=== PATIENT | male | born 1960 ===

== ENCOUNTER 2021-07-08 15:41 | Emergency (ER) | payer OTHER, SELFPAY ==
--- NOTE | ~2021-07-08 | CT_ITS ---
EXAMINATION: CT ABDOMEN AND PELVIS WITHOUT CONTRAST CLINICAL INFORMATION: Evaluate for incarcerated scrotal hernia. COMPARISON: 01.05.2020 TECHNIQUE: Multidetector volumetric imaging was performed from the superior aspect of the liver through the pubic symphysis. Sagittal and coronal reformatted images were obtained on the technologist's workstation. This CT examination was performed using dose optimization techniques as appropriate, variously including the following: *Automated exposure control *Adjustment of mA and/or kV according to patient size (this includes techniques or standardized protocols for targeted exams where dose is matched to indication/reason for exam; i.e. extremities or head) *Use of iterative reconstruction technique DLP: 682 mGy-cm FINDINGS: LUNG BASES: Subsegmental atelectasis at left lung base. LIVER, GALLBLADDER, AND BILIARY TREE: Morphologically cirrhotic liver. No focal liver lesions. No intrahepatic biliary dilatation. The common bile duct is dilated to approximately 1.3 cm, similar to prior. Gallbladder is moderately distended. Small perihepatic ascites. PANCREAS: Unremarkable. SPLEEN: Enlarged measuring up to 16 cm long axis. ADRENAL GLANDS: Unremarkable. KIDNEYS AND URETERS: The kidneys are normal in size, shape, and attenuation. No hydronephrosis, hydroureter, or calculi seen. No perinephric stranding. BLADDER: Unremarkable. GASTROINTESTINAL TRACT: No intestinal obstruction or inflammation. Small sliding-type hiatal hernia. Stomach otherwise unremarkable. Status post appendectomy. ABDOMINAL WALL: Small indirect inguinal hernia on the left containing ascitic fluid. LYMPH NODES: Normal. VASCULAR: Aorta mildly atherosclerotic. PELVIC VISCERA: Prostate and seminal vesicles unremarkable. Large bilateral scrotal hydrocele and scrotal edema present. OSSEOUS STRUCTURES: No acute or suspicious osseous abnormalities. CT/CT abdomen pelvis wo con IMPRESSION: * No evidence of any significant hernia. Small amount of fluid present within the left inguinal canal, possibly within an indirect inguinal hernia. * Massive scrotal edema and bilateral scrotal hydroceles. * Morphologically cirrhotic liver with portal hypertension evidenced by splenomegaly, and spontaneously renal shunt. * Stable mild dilatation of the common bile duct measuring up to 1.3 cm.
[2021-07-08 18:06] VITALS: BP 179/104; PULSE 72; RESP 18; TEMP 36.6; O2SAT 99; BMI 26.4
[2021-07-08 18:27] LABS: Hematocrit 34.9 % (42.0-52.0); Hemoglobin 12.2 g/dl (14.0-18.0); Mean Corpuscular Hemoglobin 33.2 pg (27.0-33.0); Mean Corpuscular Volume 95.1 fL (80.0-98.0); Mean Platelet Volume 12.6 fL (9.4-12.4); Red Blood Count 3.67 X10*6/uL (4.60-5.80); Red Cell Distribution Width 16.7 % (11.0-16.0); White Blood Count 7.7 X10*3/uL (4.8-10.8)
[2021-07-08 18:41] LABS: Anion Gap 10 (12-20); Blood Urea Nitrogen 5 mg/dL (9-16); Calcium 8.6 mg/dL (8.4-10.2); Carbon Dioxide 28 mmol/L (22-29); Chloride 103 mmol/L (96-108); Creatinine Clr Calc Pharmacy 83.2; Estimated Glomerular Filt Rate > 60; Glucose Random 124 mg/dL (60-115); Sodium 137 mmol/L (135-145)
[2021-07-08 18:43] LABS: Appearance Urine CLEAR; Color Urine YELLOW; Glucose Urine UA NEG (NEG); Leukocyte Esterase Urine NEG (NEG); Nitrite Urine NEG (NEG); Urine Blood NEG (NEG); Urine Ketones NEG (NEG); Urine Protein NEG (NEG-TRACE)
[2021-07-08 18:48] LABS: Platelet Count 95 X10*3/uL (160-400)
--- NOTE | 2021-07-09 01:00 | ED_ITS ---
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 Patient's symptoms started since yesterday with feeling a bulging in the left inguinal area, the patient had a bowel movement then passed flatus started to f eel abdominal pain and swelling of the scrotum. Patient decline fever or chills. No nausea or vomiting. Related Data Allergies Allergy/AdvReac Type Severity Reaction Status Date / Time tramadol [TRAMADOL] Allergy Unknown ANXIETY Unverified 03/12/20 16:00 Review of Systems Review of Systems: All other systems are reviewed and are negative Constitutional: Reports as per HPI and Reports no additional constitutional complaints Eyes: Reports as per HPI and Reports no additional eye complaints Reports system reviewed and no additional complaints, except as documented Cardiovascular: Reports as per HPI and Reports no additional cardiovascular c omplaints Respiratory: Reports as per HPI and Reports no additional respiratory complaints Gastrointestinal: Reports as per HPI and Reports no additional gastrointestinal complaints Genitourinary: Reports no additional female genitourinary complaints Musculoskeletal: Reports no additional musculoskeletal complaints Skin/Breast: Reports system reviewed and no additional complaints, except as docu Psychiatric: Reports no additional psychiatric complaints Endocrine: Reports no additional endocrine complaints Hematologic/Lymphatic: Reports no additional hematologic/lymphatic complaints Allergic/Immunologic: Reports no additional allergic/immunologic complaints Reports system reviewed and no additional complaints, except as documented and Reports Abnormal speech present [facility] Social History Social History Advance Directives: No Physical Exam Vital Signs: Vital Signs: Last Vital Signs Temp 97.8 F 07/08/21 18:06 Pulse 72 07/08/21 18:06 Resp 18 07/08/21 18:06 BP 179/104 H 07/08/21 18:06 Pulse Ox 99 07/08/21 18:06 BMI result Body Mass Index 26.4 vital signs have been reviewed as appeared to be correct. Blood pressure elevated. Heart rate normal. Respiration rate normal. Temperature normal. Oxygen saturation normal. Appearance: Alert. Oriented X3. No acute distress. Head: Normal external exam. Normocephalic. Atraumatic. No Garcia signs noted. No raccoon eyes noted Eyes: PERRLA. EOMI. Conjunctiva and sclera normal. Eyelids normal. ENT: TM's Normal. Pharynx normal. Uvula midline. Moist mucous membranes. No trismus noted. No drooling noted. No muffled voice noted. Neck: Normal inspection. Neck supple. FROM. No adenopathy. Thyroid Normal. No meningeal signs. No neck mass noted. CVS: Normal heart rate and rhythm. Heart sound normal. No murmurs noted. Pulses normal throughout. Respiratory: No respiratory distress. Painless inspiration. Breath sounds normal. No wheezes/rales/rhonchi noted. Chest nontender. No accessory muscle usage noted or decreased air movement noted. Abdomen: Soft and nontender. Bowel sounds normal in all 4 quadrants. No distention noted. No organomegaly noted. No visible injury noted. Back: No CVA tenderness. Full range of motion noted. Skin: Skin warm and dry. Normal skin color. Normal skin turgor. No rashes/lesions/lacerations noted. Extremities: No lower extremity edema. Extremities exhibit normal range of motion. Extremities nontender. exam: Swelling of the scrotum contain bowel. Neuro: Oriented X 3. Cranial nerve exam: II-XII are grossly intact No motor deficit. No sensory deficit. Reflexes normal. Course Course Course Narrative: Assessment and plan. 60-year-old male came in with swelling in the scrotum, confirmed by CT scan of the abdomen and pelvis, unremarkable labs, as discussed with the patient to keep elevating the scrotum, And avoid standing for long time. follow-up with Dr. Jacob. 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 No source of infection no WBCs. MDM - Male Genitourinary Medical Records Attestation: I reviewed the patient's medical records. Lab Data Attestation: I reviewed the patient's lab results. Result diagrams: 07/08/21 18:16 07/08/21 18:16 Labs: Lab Results 07/08/21 07/08/21 07/08/21 Range/Units 18:16 18:16 18:21 WBC 7.7 (4.8-10.8) X10*3/uL RBC 3.67 L (4.60-5.80) X10*6/uL Hgb 12.2 L (14.0-18.0) g/dl Hct 34.9 L (42.0-52.0) % MCV 95.1 (80.0-98.0) fL MCH 33.2 H (27.0-33.0) pg MCHC 35.0 (31.0-36.0) g/dl RDW 16.7 H (11.0-16.0) % Plt Count 95 L (160-400) X10*3/uL MPV 12.6 H (9.4-12.4) fL Absolute Nucleated RBC 0.000 (0.0-0.012) X10*3/uL Nucleated RBC % (auto) 0.0 (0.0-0.2) /100WBC Sodium 137 (135-145) mmol/L Potassium 4.0 (3.3-5.1) mmol/L Chloride 103 (96-108) mmol/L Carbon Dioxide 28 (22-29) mmol/L Anion Gap 10 L (12-20) BUN 5 L (9-16) mg/dL Creatinine 0.77 (0.5-1.4) mg/dL Estim Creat Clear Calc 83.2 Estimated GFR > 60 Random Glucose 124 H (60-115) mg/dL Lactic Acid (0.5-2.0) mmol/L Calcium 8.6 (8.4-10.2) mg/dL Urine Color YELLOW Urine Appearance CLEAR Urine pH 8.0 (5.0-8.0) Ur Specific [place] 1.010 (1.005-1.025) Urine Protein NEG (NEG-TRACE) MG/DL Urine Glucose (UA) NEG (NEG) MG/DL Urine Ketones NEG (NEG) MG/DL Urine Blood NEG (NEG) Urine Nitrite NEG (NEG) Ur Leukocyte Esterase NEG (NEG) 07/09/21 Range/Units 01:37 WBC (4.8-10.8) X10*3/uL RBC (4.60-5.80) X10*6/uL Hgb (14.0-18.0) g/dl Hct (42.0-52.0) % MCV (80.0-98.0) fL MCH (27.0-33.0) pg MCHC (31.0-36.0) g/dl RDW (11.0-16.0) % Plt Count (160-400) X10*3/uL MPV (9.4-12.4) fL Absolute Nucleated RBC (0.0-0.012) X10*3/uL Nucleated RBC % (auto) (0.0-0.2) /100WBC Sodium (135-145) mmol/L Potassium (3.3-5.1) mmol/L Chloride (96-108) mmol/L Carbon Dioxide (22-29) mmol/L Anion Gap (12-20) BUN (9-16) mg/dL Creatinine (0.5-1.4) mg/dL Estim Creat Clear Calc Estimated GFR Random Glucose (60-115) mg/dL Lactic Acid 2.7 H* (0.5-2.0) mmol/L Calcium (8.4-10.2) mg/dL Urine Color Urine Appearance Urine pH (5.0-8.0) Ur Specific [place] (1.005-1.025) Urine Protein (NEG-TRACE) MG/DL Urine Glucose (UA) (NEG) MG/DL Urine Ketones (NEG) MG/DL Urine Blood (NEG) Urine Nitrite (NEG) Ur Leukocyte Esterase (NEG) Imaging Data CT scan - abdomen: Attestation: I personally reviewed and interpreted this imaging study as follows: Radiologist's impression: ? No evidence of any significant hernia. Small amount of fluid present within the left inguinal canal, possibly within an indirect inguinal hernia. *? Massive scrotal edema and bilateral scrotal hydroceles. *? Morphologically cirrhotic liver with portal hypertension evidenced by splenomegaly, and spontaneously renal shunt. *? Stable mild dilatation of the common bile duct measuring up to 1.3 cm. Discharge Plan Discharge Clinical Impression: Scrotal swelling, Hydrocele Patient Disposition: Home, Self-Care Instructions: Hydrocele (ED) Additional Instructions: elevate the scrotum as you were instructed, avoid standing for long time. Referrals: Chase Jacob MD [Physician] - 2 days Interventions: ED Discharge Assessment Last Done: 07/09/21 03:35 Discharge Date/Time: 07/09/21 03:36
[2021-07-09] MEDS: 0.9 % Sodium Chloride 1,000 ML 999 ML IV (01:38)
[2021-07-09 02:01] LABS: Lactic Acid 2.7 mmol/L (0.5-2.0)
[2021-07-09 03:42] LABS: Reflex Lactate? Lactic Acid Added
== END 2021-07-09 03:36 | disposition home or self-care (01) ==
LOC: HO.ED 07-09 02:00
PROVIDERS: Emergency Provider Emergency Medicine
DX: N43.3 Hydrocele, unspecified (principal); N50.89 Other specified disorders of the male genital organs; Z79.899 Other long term (current) drug therapy
CPT/HCPCS: 36415; 74176; 80048; 81003; 83605; 85027; 96360; 99283; 99284

== ENCOUNTER 2021-08-06 11:04 | Inpatient (IN) | payer OTHER, SELFPAY ==
--- NOTE | ~2021-08-06 | US_ITS ---
EXAMINATION: US SCROTUM CLINICAL INFORMATION: Swelling and pain. COMPARISON: Previous CT of the abdomen and pelvis most recent June 2021 TECHNIQUE: A sonogram of the scrotum was performed assessing montalvo-scale appearance and color Doppler flow. Spectral Doppler analysis of the arterial and venous flow were performed in the testes bilaterally. FINDINGS: RIGHT: Right testicle measures 3 x 2.4 x 2.3 cm, volume 9 mL. No focal testicular parenchymal lesions are visualized. Spectral Doppler analysis of the arterial and venous flow is normal in the right testis. Right epididymal head is normal in size. No right hydrocele or varicocele is seen. Right epididymal Doppler flow is normal. There is diffuse thickening of the scrotum. LEFT: Left testicle measures 3 x 3 x 2 cm, volume 9 mL. No focal testicular parenchymal lesions are visualized. Spectral Doppler analysis of the arterial and venous flow is normal in the left testis. Left epididymal head is normal in size. There is a small left hydrocele. There is no left varicocele. Left epididymal Doppler flow is normal. There is diffuse thickening of the scrotum. US/US scrotum doppler IMPRESSION: Diffuse thickening of the scrotum, left greater than right. Small left hydrocele.
--- NOTE | ~2021-08-06 | US_ITS ---
EXAMINATION: US SCROTUM CLINICAL INFORMATION: Swelling and pain. COMPARISON: Previous CT of the abdomen and pelvis most recent June 2021 TECHNIQUE: A sonogram of the scrotum was performed assessing montalvo-scale appearance and color Doppler flow. Spectral Doppler analysis of the arterial and venous flow were performed in the testes bilaterally. FINDINGS: RIGHT: Right testicle measures 3 x 2.4 x 2.3 cm, volume 9 mL. No focal testicular parenchymal lesions are visualized. Spectral Doppler analysis of the arterial and venous flow is normal in the right testis. Right epididymal head is normal in size. No right hydrocele or varicocele is seen. Right epididymal Doppler flow is normal. There is diffuse thickening of the scrotum. LEFT: Left testicle measures 3 x 3 x 2 cm, volume 9 mL. No focal testicular parenchymal lesions are visualized. Spectral Doppler analysis of the arterial and venous flow is normal in the left testis. Left epididymal head is normal in size. There is a small left hydrocele. There is no left varicocele. Left epididymal Doppler flow is normal. There is diffuse thickening of the scrotum. US/US scrotum IMPRESSION: Diffuse thickening of the scrotum, left greater than right. Small left hydrocele.
--- NOTE | ~2021-08-06 | XR_ITS ---
EXAMINATION: CHEST 2 VIEWS CLINICAL INFORMATION: cough . COMPARISON: 01/05/2020. TECHNIQUE: PA and lateral views of the chest obtained. FINDINGS: The lungs are well expanded. Mild chronic appearing reticular markings are again seen but no superimposed focal infiltrate, effusion, edema, or pneumothorax. Cardiac and mediastinal silhouettes are within normal limits for technique. No acute bony abnormality seen XR/XR chest 2V IMPRESSION: No evidence of acute disease
--- NOTE | ~2021-08-06 | CT_ITS ---
EXAMINATION: CT ABDOMEN AND PELVIS WITH CONTRAST CLINICAL INFORMATION: ?arun's gangrene? Massively swollen testes COMPARISON: 07/09/2021 CT scan and the 08/06/2021 scrotal ultrasound TECHNIQUE: Multidetector volumetric imaging was performed from the superior aspect of the liver through the pubic symphysis following administration of 100 mL Omnipaque 300 intravenous contrast. Sagittal and coronal reformatted images were obtained on the technologist workstation.. This CT examination was performed using dose optimization techniques as appropriate, variously including the following: *Automated exposure control *Adjustment of mA and/or kV according to patient size (this includes techniques or standardized protocols for targeted exams where dose is matched to indication/reason for exam; i.e. extremities or head) *Use of iterative reconstruction technique DLP: 901 mGy-cm FINDINGS: LUNG BASES: Linear scarring or atelectasis at the lung bases. PERITONEAL SPACE: Small moderate volume of ascites is seen more so in the perihepatic location but this does extend down to the pelvis, increased from the 07/09/2021 study LIVER, GALLBLADDER, AND BILIARY TREE: Nodular cirrhotic fibrotic appearing liver without discrete mass lesion seen on this single contrast phase exam. The gallbladder is contracted but otherwise unremarkable with no evidence of radiopaque gallstones, gallbladder wall thickening, or obvious pericholecystic inflammatory changes. PANCREAS: Unremarkable. SPLEEN: Spleen is enlarged measuring 15.9 cm in length. ADRENAL GLANDS: Unremarkable. KIDNEYS AND URETERS: The kidneys are normal in size, shape, and attenuation. No hydronephrosis, hydroureter, or calculi seen. No perinephric stranding. BLADDER: Decompressed GASTROINTESTINAL TRACT: Scattered colonic diverticulosis but no evidence for diverticulitis. Mild nonspecific colonic thickening in the ascending colon may be due to the degree of decompression. Underlying colitis considered less likely. Visualized small bowel unremarkable. Stomach is unremarkable. ABDOMINAL WALL: Mild diffuse anasarca with fluid tracking in the left inguinal hernia with significant bilateral scrotal hydroceles and penile edema. Is present on the prior study as well although slightly increased on the current exam LYMPHOVASCULAR STRUCTURES: Vascular calcification within the aorta iliac system. Incidental circumaortic left renal vein. PELVIC VISCERA: Unremarkable. OSSEOUS STRUCTURES: Unremarkable. CT/CT abdomen pelvis w con IMPRESSION: Nodular cirrhotic fibrotic liver with ascites that is slightly increased in the prior study. There is mild diffuse anasarca also increased from the previous examination. Fluid is seen tracking into a left inguinal hernia with a significant scrotal and penile edema which has increased from the prior study although was present on the 07/09/2021 study as well. I do not appreciate any abnormal soft tissue gas to suggest infectious etiology in this setting. Clinical correlation would be recommended.
[2021-08-06 12:58] LABS: MANUAL DIFF FLAG NO
[2021-08-06 13:01] LABS: Basophils Percent Auto 0.4 % (0-2); Eosinophils Percent Auto 0.4 % (0-4); Hematocrit 33.9 % (42.0-52.0); Hemoglobin 11.5 g/dl (14.0-18.0); Imm Gran Abs Auto 0.03 X10*3/uL (0.00-0.03); Imm Gran Pct Auto 0.4 % (0.0-0.4); Lymphocytes Absolute Auto 1.4 X10*3/uL (1.2-4.9); Lymphocytes Percent Auto 19.4 % (20-40); Mean Corpuscular HGB Conc 33.9 g/dl (31.0-36.0); Mean Corpuscular Hemoglobin 32.8 pg (27.0-33.0); Mean Corpuscular Volume 96.6 fL (80.0-98.0); Mean Platelet Volume 12.7 fL (9.4-12.4); Monocytes Percent Auto 14.1 % (2-11); Neutrophils Absolute Auto 4.6 x10*3/uL (2.0-8.3); Neutrophils Percent Auto 65.3 % (45-73); Red Blood Count 3.51 X10*6/uL (4.60-5.80); Red Cell Distribution Width 15.1 % (11.0-16.0)
[2021-08-06 13:04] LABS: Platelet Count 79 X10*3/uL (160-400)
[2021-08-06 13:06] VITALS: BP 138/79; PULSE 65; RESP 18; TEMP 36.7; O2SAT 99
[2021-08-06 13:15] VITALS: BP 138/79; PULSE 65; RESP 18; TEMP 36.7; O2SAT 99; BMI 26.4
[2021-08-06 13:16] LABS: Alanine Aminotransferase 40 U/L (0-40); Albumin Level 2.5 g/dL (3.5-5.0); Alkaline Phosphatase 181 U/L (39-117); Anion Gap 8 (12-20); Aspartate Amino Transferase 84 U/L (5-37); Bilirubin Direct 3.6 mg/dL (0.0-0.5); Bilirubin Total 6.1 mg/dL (0.0-1.0); Blood Urea Nitrogen 6 mg/dL (9-16); COVID-19 Test Negative (Negative); Calcium 8.9 mg/dL (8.4-10.2); Carbon Dioxide 29 mmol/L (22-29); Chloride 102 mmol/L (96-108); Estimated Glomerular Filt Rate > 60; Glucose Random 81 mg/dL (60-115); IDNOW Serial# 55D5AD1C; Magnesium 1.8 mg/dL (1.6-2.6); Potassium 4.2 mmol/L (3.3-5.1); Sodium 135 mmol/L (135-145); Total Protein 7.5 g/dL (6.5-8.0)
[2021-08-06 13:37] LABS: Appearance Urine CLEAR; Color Urine YELLOW; Glucose Urine UA NEG (NEG); Leukocyte Esterase Urine NEG (NEG); Nitrite Urine NEG (NEG); PH 5.5 (5.0-8.0); Urine Blood NEG (NEG); Urine Ketones NEG (NEG); Urine Protein NEG (NEG-TRACE)
--- NOTE | 2021-08-06 15:12 | ED.GENADULT ---
HPI - General Adult General Chief complaint: General Medical Stated complaint: lower abd pain Time Seen by Provider: 08/06/21 11:20 Source: patient Mode of arrival: ambulatory Limitations: language barrier History of Present Illness HPI narrative: 60-year-old male presents with worsening scrotal and penile pain and bilateral lower extremity edema. Patient was here in the emergency room 07/09/2021 with scrotal swelling and diagnosed with a hydrocele. CT showed massive scrotal edema and bilateral scrotal hydroceles. Patient is Mongolian-speaking, says the pain is 7/10, says that his scrotal swelling and pain has gotten worse over these last 3 weeks. He is able to urinate, although he says he has to sit down to urinate Also shows me that his pubic symphysis area is more swollen now, and is red. States that his bilateral legs are swollen and painful and that this is new. Patient has chronic elevated lactic acidosis. At that time, patient was told to elevate scrotum, and follow-up with urology. Patient did not follow-up with urology. Patient is on methadone. He received his dose today and gives me a paper stating that. Patient denies fevers, chest pain, dyspnea, cough, abdominal pain, vomiting, nausea, diarrhea, palpitations, lightheadedness, syncope Related Data Allergies Allergy/AdvReac Type Severity Reaction Status Date / Time tramadol [TRAMADOL] Allergy Unknown ANXIETY Unverified 03/12/20 16:00 Review of Systems Constitutional: Constitutional: Denies body ache(s), Denies chills, Denies fatigue, Denies fever(s), Denies headache(s), Denies malaise and Denies weakness Eyes: Eyes: Denies diplopia ENT: Denies dizziness and Denies headache(s) Cardiovascular: Cardiovascular: Denies chest pain, Denies syncope, Reports leg edema, Denies lightheadedness, Denies Loss of Consciousness, Denies palpitations, Denies dyspnea and Denies dyspnea on exertion Respiratory: Respiratory: Denies chest congestion, Denies cough, Denies dyspnea and Denies dyspnea on exertion Gastrointestinal: Gastrointestinal: Denies abdominal pain, Denies hematochezia, Denies constipation, Denies diarrhea, Denies nausea and Denies vomiting Genitourinary: Genitourinary: Denies hematuria, Reports genital pain, Denies dysuria, Denies flank pain, Denies penile discharge, Reports scrotal swelling, Reports testicular pain, Denies urinary frequency, Denies urinary incontinence and Denies urinary urgency Musculoskeletal: Musculoskeletal: Reports no additional musculoskeletal complaints Integumentary/Breasts: Skin/Breast: Reports rash and Reports skin swelling Neurologic: Denies confusion, Denies dizziness, Denies syncope, Denies headache(s) and Denies weakness Psychiatric: Psychiatric: Denies anxiety, Denies confusion and Denies depression Endocrine: Endocrine: Denies fatigue and Denies palpitations [facility] Social History Social History Use of substances other than those prescribed or required for medical reasons: No Advance Directives: No Advance Directives Information Provided: No Physical Exam ED Vital Signs: Vital Signs - 24 hr 08/06/21 13:06 08/06/21 13:15 08/06/21 16:34 Temperature 98.0 F 98.0 F 98.4 F Pulse Rate 65 65 66 Respiratory Rate 18 18 16 Blood Pressure 138/79 138/79 117/66 Pulse Oximetry 99 99 99 08/06/21 17:40 Temperature 98.5 F Pulse Rate 69 Respiratory Rate 16 Blood Pressure 118/69 Pulse Oximetry 98 BMI result Body Mass Index 26.4 Const General: alert, awake, ill appearing chronically and poor hygiene; No confusion Nutritional Appearance: overweight Orientation/consciousness: patient oriented x3 and No confusion Limitations: language barrier HENMT Head: Yes normal to inspection, Yes normocephalic and Yes atraumatic Face and sinus: Yes normal facial exam Mouth: Normal oral and palatal mucosa present Throat: Yes posterior oropharynx normal Eyes Alignment and Position: alignment normal Conjunctivae: conjunctival abnormal bilateral conjunctival injection diffuse Pupils: Equal, round and reactive pupils present EOM: EOMs intact bilaterally Neck Neck: Yes full ROM, Yes no lymphadenopathy, Yes trachea midline and Yes supple Resp Effort & Inspection: normal respiratory effort and able to speak in complete sentences Auscultation: no crackles, no rales, no rhonchi and wheezes throughout Cardio Rate: regular rate Rhythm: regular rhythm Heart sounds: S1 normal heart sound present and S2 normal heart sound present GI Inspection: Yes normal to inspection Palpation (GI): Soft to palpation, nontender, no guarding and not rigid Percussion: Yes normal to percussion Auscultation: normal bowel sounds Rectal Exam - Male: Yes deferred Other: Foreskin of penis is so swollen it looks like an S . No paraphimosis, patient is able to pass urine, no entrapment. Severe scrotal swelling, Male General Exam: Yes edema bilateral (massive) and Yes tenderness Penis: edematous and Localized penile swelling present Scrotum: edematous (massively) bilateral Testes: testicular swelling and testicular tenderness Skin Other: bilateral LE, SCROTAL, penile swelling Redness and swelling over pubic synthesis, cellulitis Neuro General: patient oriented x3 and No confusion Cranial nerves: Yes Equal, round and reactive pupils present Extrem Right lower extremity: edema Details: pitting and 2+ and lower leg Details: Negative for no erythema Left lower extremity: edema Details: pitting and 2+ and lower leg Details: Negative for no erythema Psych Appearance: disheveled Mental Status: mental status grossly normal Affect: Anxious affect present Course Course Course Narrative: 60-year-old male with worsening scrotal and penile swelling, and bilateral lower extremity edema. Patient states the pain and swelling in his scrotum is worse, and now has swelling and redness on his pubic symphysis. He is able to urinate. From CT done 07/09/2021 CT/CT abdomen pelvis wo con IMPRESSION: *? No evidence of any significant hernia. Small amount of fluid present within the left inguinal canal, possibly within an indirect inguinal hernia. *? Massive scrotal edema and bilateral scrotal hydroceles. *? Morphologically cirrhotic liver with portal hypertension evidenced by splenomegaly, and spontaneously renal shunt. *? Stable mild dilatation of the common bile duct measuring up to 1.3 cm. Labs today are remarkable only for mild anemia, urine is negative for infection, patient is COVID negative. Will get chest x-ray and BNP to evaluate for heart failure.. Will get CT to rule out for Anupama's Gangrene, will get ultrasound to investigate scrotal swelling and rule out torsion. Will start antibiotics for cellulitis, Reevaluation(s) Reevaluation #1: Patient has an elevated lactate of 2.2, per his chart he has a chronic lactic acidosis. Chest x-ray is unremarkable, BNP is 491. Ultrasound of scrotum today: IMPRESSION: Diffuse thickening of the scrotum, left greater than right. Small left hydrocele. Awaiting CT results. Reevaluation #2: CT/CT abdomen pelvis w con IMPRESSION: Nodular cirrhotic fibrotic liver with ascites that is slightly increased in the prior study. There is mild diffuse anasarca also increased from the previous examination. Fluid is seen tracking into a left inguinal hernia with a significant scrotal and penile edema which has increased from the prior study although was present on the 07/09/2021 study as well. I do not appreciate any abnormal soft tissue gas to suggest infectious etiology in this setting. Clinical correlation would be recommended. Discussed with Dr Duncan, who requests GI consult. Pt has a low albumin; gave albumin and Lasix. Dr Duncan will admit if GI thinks is reasonable to admit and consult on Dr Brooks felt it was reasonable to admit pt Medical Decision Making Lab Data Result diagrams: 08/06/21 12:53 08/06/21 12:53 Labs: Lab Results 08/06/21 08/06/21 08/06/21 Range/Units 12:53 12:53 12:53 WBC 7.0 (4.8-10.8) X10*3/uL RBC 3.51 L (4.60-5.80) X10*6/uL Hgb 11.5 L (14.0-18.0) g/dl Hct 33.9 L (42.0-52.0) % MCV 96.6 (80.0-98.0) fL MCH 32.8 (27.0-33.0) pg MCHC 33.9 (31.0-36.0) g/dl RDW 15.1 (11.0-16.0) % Plt Count 79 L (160-400) X10*3/uL MPV 12.7 H (9.4-12.4) fL Immature Gran % (Auto) 0.4 (0.0-0.4) % Neut % (Auto) 65.3 (45-73) % Lymph % (Auto) 19.4 L (20-40) % [facility] % (Auto) 14.1 H (2-11) % Eos % (Auto) 0.4 (0-4) % Baso % (Auto) 0.4 (0-2) % Lymph # (Auto) 1.4 (1.2-4.9) X10*3/uL [facility] # (Auto) 1.0 (0.1-1.2) X10*3/uL Eos # (Auto) 0.0 (0.0-0.4) X10*3/uL Baso # (Auto) 0.0 (0.0-0.2) X10*3/uL Abs Immat Gran (auto) 0.03 (0.00-0.03) X10*3/uL Absolute Neuts (auto) 4.6 (2.0-8.3) x10*3/uL Absolute Nucleated RBC 0.000 (0.0-0.012) X10*3/uL Nucleated RBC % (auto) 0.0 (0.0-0.2) /100WBC Sodium 135 (135-145) mmol/L Potassium 4.2 (3.3-5.1) mmol/L Chloride 102 (96-108) mmol/L Carbon Dioxide 29 (22-29) mmol/L Anion Gap 8 L (12-20) BUN 6 L (9-16) mg/dL Creatinine 0.80 (0.5-1.4) mg/dL Estim Creat Clear Calc TNP Estimated GFR > 60 Random Glucose 81 (60-115) mg/dL Lactic Acid (0.5-2.0) mmol/L Calcium 8.9 (8.4-10.2) mg/dL Magnesium 1.8 (1.6-2.6) mg/dL Total Bilirubin 6.1 H (0.0-1.0) mg/dL Direct Bilirubin 3.6 H (0.0-0.5) mg/dL AST 84 H (5-37) U/L ALT 40 (0-40) U/L Alkaline Phosphatase 181 H (39-117) U/L B-Natriuretic Peptide (<100) pg/mL Total Protein 7.5 (6.5-8.0) g/dL Albumin 2.5 L (3.5-5.0) g/dL Urine Color Urine Appearance Urine pH (5.0-8.0) Ur Specific [place] (1.005-1.025) Urine Protein (NEG-TRACE) MG/DL Urine Glucose (UA) (NEG) MG/DL Urine Ketones (NEG) MG/DL Urine Blood (NEG) Urine Nitrite (NEG) Ur Leukocyte Esterase (NEG) COVID-19 (SRIDEVI) Negative (Negative) COVID-19 Clin Com See Note 08/06/21 08/06/21 08/06/21 Range/Units 13:21 16:18 16:18 WBC (4.8-10.8) X10*3/uL RBC (4.60-5.80) X10*6/uL Hgb (14.0-18.0) g/dl Hct (42.0-52.0) % MCV (80.0-98.0) fL MCH (27.0-33.0) pg MCHC (31.0-36.0) g/dl RDW (11.0-16.0) % Plt Count (160-400) X10*3/uL MPV (9.4-12.4) fL Immature Gran % (Auto) (0.0-0.4) % Neut % (Auto) (45-73) % Lymph % (Auto) (20-40) % [facility] % (Auto) (2-11) % Eos % (Auto) (0-4) % Baso % (Auto) (0-2) % Lymph # (Auto) (1.2-4.9) X10*3/uL [facility] # (Auto) (0.1-1.2) X10*3/uL Eos # (Auto) (0.0-0.4) X10*3/uL Baso # (Auto) (0.0-0.2) X10*3/uL Abs Immat Gran (auto) (0.00-0.03) X10*3/uL Absolute Neuts (auto) (2.0-8.3) x10*3/uL Absolute Nucleated RBC (0.0-0.012) X10*3/uL Nucleated RBC % (auto) (0.0-0.2) /100WBC Sodium (135-145) mmol/L Potassium (3.3-5.1) mmol/L Chloride (96-108) mmol/L Carbon Dioxide (22-29) mmol/L Anion Gap (12-20) BUN (9-16) mg/dL Creatinine (0.5-1.4) mg/dL Estim Creat Clear Calc Estimated GFR Random Glucose (60-115) mg/dL Lactic Acid 2.2 H* (0.5-2.0) mmol/L Calcium (8.4-10.2) mg/dL Magnesium (1.6-2.6) mg/dL Total Bilirubin (0.0-1.0) mg/dL Direct Bilirubin (0.0-0.5) mg/dL AST (5-37) U/L ALT (0-40) U/L Alkaline Phosphatase (39-117) U/L B-Natriuretic Peptide 491 H (<100) pg/mL Total Protein (6.5-8.0) g/dL Albumin (3.5-5.0) g/dL Urine Color YELLOW Urine Appearance CLEAR Urine pH 5.5 (5.0-8.0) Ur Specific [place] 1.020 (1.005-1.025) Urine Protein NEG (NEG-TRACE) MG/DL Urine Glucose (UA) NEG (NEG) MG/DL Urine Ketones NEG (NEG) MG/DL Urine Blood NEG (NEG) Urine Nitrite NEG (NEG) Ur Leukocyte Esterase NEG (NEG) COVID-19 (SRIDEVI) (Negative) COVID-19 Clin Com Discharge Plan Discharge Clinical Impression: Cirrhosis, Scrotal edema, Cellulitis, Anasarca Patient Disposition: Admitted As Inpatient
[2021-08-06 16:34] VITALS: BP 117/66; PULSE 66; RESP 16; TEMP 36.9; O2SAT 99
[2021-08-06 16:39] LABS: Lactic Acid 2.2 mmol/L (0.5-2.0)
[2021-08-06 16:46] LABS: B Type Natriuretic Peptide 491 pg/mL (<100)
[2021-08-06] MEDS: Piperacillin Sodium/Tazobactam 3.375 GM in 0.9 % Sodium Chloride 50 ML IV (17:14)
[2021-08-06] MEDS: 0.9 % Sodium Chloride 1,000 ML 999 ML IV (17:15)
[2021-08-06 17:40] VITALS: BP 118/69; PULSE 69; RESP 16; TEMP 36.9; O2SAT 98
[2021-08-06 18:24] LABS: Reflex Lactate? Lactic Acid Added
[2021-08-06] MEDS: vancomycin HCL 1,000 MG in 0.9 % Sodium Chloride 250 ML 270 MG IV (18:29)
[2021-08-06] MEDS: Furosemide 40 MG/4 ML VIAL IVPUSH (18:30)
[2021-08-06] MEDS: Albumin Human 25 % 100 ML IV ×2 (19:30→22:44)
--- NOTE | 2021-08-06 20:09 | PHA.MEDREC ---
Pharmacy Consult ? Medication Reconciliation Pharmacy has completed the medication reconciliation. Spoke with the patient and his family member who said he is awful at taking medications. The last time he filled amlodipine and lisinopril was back on 12/01/2020 for a 30 day supply. The patient states the last time he took any medications was about 3 weeks ago. stated that he is in between doctors and needs a medication reconciliation from his primary care office.
--- NOTE | 2021-08-06 20:21 | P.HPHOSP_ITS ---
History of Present Illness Date of Service: 08/06/21 Chief Complaint: swelling This is a 60-year-old male past medical hypertension presents to the hospital with complaints of worsening swelling. Patient reports that it started at his scrotum about 4 weeks ago, he presented to the hospital 3 weeks ago was told th at it will go down in few days, but has now had swelling in his legs, his arms, as well as all over his body with worsening scrotal swelling as well as penile swelling. He also has suprapubic pain. Patient denies any abdominal pain, no nausea or vomiting, no diarrhea or constipation, he has no chest pain, no shortness of breath. No headache or change in vision. No change in his color of his skin. His does report that his urine is darker, patient reports that his penis ramsay when he pees because it is swollen. Otherwise he denies any fever or chills. He was a former smoker but quit about 14 years ago, he reports that he has been told on and off that he has hep C and sometimes his told that he is not infected. Other review of system negative On arrival to the ED patient found to have normal vitals Labs are significant for WBC count of 7, hemoglobin of 11.5, PT of 20.5, INR of 2.0, lactic acid of 2.2, total bili of 6.1, direct bili 3.6, AST of 84, alk-phos of 181, BNP of 491, albumin of 2.5, UA negative, Abdominal pelvic CT shows nodular cirrhotic fibrotic liver with ascites that is slightly increased from June. There is mild diffuse anasarca also increased from the previous exam. Fluid is seen tracking into the left inguinal hernia with a significant scrotal and penile edema which has increased from the prior study done on 07/09/2021. No abnormal soft tissue gas to suggest infectious etiology. Patient will be admitted for further management. Review of Systems Review of Systems: Yes all other systems are reviewed and are negative [facility] Medical History (Updated 08/07/21 @ 06:04 by Chun Aguirre MD) Hypertension Family History (Updated 08/07/21 @ 05:51 by Chnu Aguirre MD) Other No family history of coronary artery disease Surgical History (Updated 08/07/21 @ 05:50 by Chun Aguirre MD) History of appendectomy History of eye surgery Social History (Updated 08/07/21 @ 05:51 by Chun Aguirre MD) Alcohol intake: former Patient Tobacco Use Status: Former Tobacco user Use of substances other than those prescribed or required for medical reasons: No Advance Directives: No Advance Directives Information Provided: No Meds Allergies Allergy/AdvReac Type Severity Reaction Status Date / Time tramadol [TRAMADOL] Allergy Unknown ANXIETY Unverified 03/12/20 16:00 Active Medications: Current Medications Albumin Human (Kedbumin 25 %) 100 mls @ 100 mls/hr IV Q1H YENNY Stop: 08/06/21 20:29 Pharmacy Consult (Consult Rx Perform Med Rec) 1 each MISCELLANE ONCE PRN PRN Reason: Consult order Home Medications Medication Instructions Recorded Confirmed Last Taken Type amlodipine 5 mg tablet 1 tab PO DAILY 08/06/21 08/06/21 Unknown History lisinopril 5 mg tablet 1 tab PO DAILY 08/06/21 08/06/21 Unknown History Physical Exam Vital Signs and Narrative: Vital Signs: Last Vital Signs Temp 98.5 F 08/06/21 17:40 Pulse 69 08/06/21 17:40 Resp 16 08/06/21 17:40 BP 118/69 08/06/21 17:40 Pulse Ox 98 08/06/21 17:40 BMI result Body Mass Index 26.4 Const: General: cooperative and no acute distress Mario entation/consciousness: patient oriented x3 Eyes: General: appearance normal, both eyes and all related structures Pupi ls: Equal, round and reactive pupils present Resp: Effort & Inspection: normal respiratory effort Auscultation: clear to auscultation bilaterally Cardio: Rate: regular rate Rhythm: regular rhythm GI: Other: no tenderness, rebound or guarding Palpation (GI): Soft to palpation Auscultation: normal bowel sounds : Other: scrotum significantly edematous there is tenderness, erythema, warmth at the penis as well as suprapubic region Skin: General skin exam: no rashes or lesions noted Neuro: General: patient oriented x3 Cranial nerves: Yes Equal, round and reactive pupils present Cognition (Neuro): normal cognition Extrem: Other: 3+ pitting edema bilaterally General: Yes normal to inspection Results Labs CBC and Chem 7: 08/06/21 12:53 08/06/21 12:53 Labs: Laboratory Results - last 24 hr 08/06/21 08/06/21 08/06/21 12:53 12:53 12:53 MCV 96.6 MCH 32.8 MCHC 33.9 RDW 15.1 Plt Count 79 L MPV 12.7 H Immature Gran % (Auto) 0.4 Neut % (Auto) 65.3 Lymph % (Auto) 19.4 L [place] % (Auto) 14.1 H Eos % (Auto) 0.4 Baso % (Auto) 0.4 Lymph # (Auto) 1.4 [place] # (Auto) 1.0 Eos # (Auto) 0.0 Baso # (Auto) 0.0 Abs Immat Gran (auto) 0.03 Absolute Neuts (auto) 4.6 Absolute Nucleated RBC 0.000 Nucleated RBC % (auto) 0.0 Anion Gap 8 L Estim Creat Clear Calc TNP Estimated GFR > 60 Random Glucose 81 Lactic Acid Calcium 8.9 Magnesium 1.8 Total Bilirubin 6.1 H Direct Bilirubin 3.6 H AST 84 H ALT 40 Alkaline Phosphatase 181 H B-Natriuretic Peptide Total Protein 7.5 Albumin 2.5 L Urine Color Urine Appearance Urine pH Ur Specific [place] Urine Protein Urine Glucose (UA) Urine Ketones Urine Blood Urine Nitrite Ur Leukocyte Esterase COVID-19 (SRIDEVI) Negative COVID-19 Clin Com See Note 08/06/21 08/06/21 08/06/21 13:21 16:18 16:18 MCV MCH MCHC RDW Plt Count MPV Immature Gran % (Auto) Neut % (Auto) Lymph % (Auto) [place] % (Auto) Eos % (Auto) Baso % (Auto) Lymph # (Auto) [place] # (Auto) Eos # (Auto) Baso # (Auto) Abs Immat Gran (auto) Absolute Neuts (auto) Absolute Nucleated RBC Nucleated RBC % (auto) Anion Gap Estim Creat Clear Calc Estimated GFR Random Glucose Lactic Acid 2.2 H* Calcium Magnesium Total Bilirubin Direct Bilirubin AST ALT Alkaline Phosphatase B-Natriuretic Peptide 491 H Total Protein Albumin Urine Color YELLOW Urine Appearance CLEAR Urine pH 5.5 Ur Specific [place] 1.020 Urine Protein NEG Urine Glucose (UA) NEG Urine Ketones NEG Urine Blood NEG Urine Nitrite NEG Ur Leukocyte Esterase NEG COVID-19 (SRIDEVI) COVID-19 Clin Com Imaging Radiologist's Impressions: Impressions Scrotum Ultrasound 08/06/21 15:49 IMPRESSION: Diffuse thickening of the scrotum, left greater than right. Small left hydrocele. Scrotum Ultrasound 08/06/21 15:49 IMPRESSION: Diffuse thickening of the scrotum, left greater than right. Small left hydrocele. Chest X-Ray 08/06/21 17:01 IMPRESSION: No evidence of acute disease Abdomen/Pelvis CT 08/06/21 17:41 IMPRESSION: Nodular cirrhotic fibrotic liver with ascites that is slightly increased in the prior study. There is mild diffuse anasarca also increased from the previous examination. Fluid is seen tracking into a left inguinal hernia with a significant scrotal and penile edema which has increased from the prior study although was present on the 07/09/2021 study as well. I do not appreciate any abnormal soft tissue gas to suggest infectious etiology in this setting. Clinical correlation would be recommended. Assessment and Plan (1) Acute hepatic failure: Status: Acute (2) Cirrhosis: Status: Acute (3) Scrotal edema: Status: Acute (4) Cellulitis: Status: Acute (5) Anasarca: Status: Acute (6) Coagulopathy: Status: Acute Plan This is a 60-year-old male with past medical history of hypertension presents to the hospital with scrotal edema as well as anasarca found to have cirrhotic liver. # acute hepatic failure - secondary to liver cirrhosis, history of alcohol abuse, unknown hepatitis-C status ( patient reports that sometimes has been told it is positive and sometimes negative) - patient hemodynamically stable, not confused, ammonia of 37 - has elevated PT INR, slightly elevated AST, as well as alk phos - CT abdomen as above - patient denies history of liver cirrhosis - will obtain hepatitis panel, autoimmune battery, immunoglobulins, anti smooth muscle antibody, liver microsomal antibody, - GI consulted - WIll start him on lasix 40 IV daily # coagulopathy - secondary to liver failure - monitor for bleed - follow CBC # scrotal edema - likely secondary to ascites resulting in fluid tracking into a left inguinal hernia with a significant scrotal edema - patient also has cellulitis - will treat with IV antibiotics abd lasix IV - ultrasound of the scrotum showed no significant abnormality except diffuse thickening of the scrotum, with a small left hydrocele # Cellulitis of the penis, scrotum and suprapubic region - acute - iv abx - follow cultures # HTN - stable - continue home meds DVT ppx: INR therapeutic , scds Quality Stroke Does the patient have a stroke diagnosis?: No VTE Prior VTE?: No VTE Risk Level:: Medical - moderate - high VTE Device Contraindication: Treatment Not Indicated VTE Drug Contraindication: N/A - Med Ordered
[2021-08-06 20:22] VITALS: BP 126/68; PULSE 64; RESP 16; TEMP 37; O2SAT 99
[2021-08-06 20:57] LABS: ~Lactic Acid-LAB USE ONLY 2.1 mmol/L (0.5-2.0)
[2021-08-06 21:09] LABS: Prothrombin Time 23.5 SEC (9.9-13.0)
[2021-08-06 21:15] LABS: Ammonia 37 umol/L (13-55)
[2021-08-06 22:26] LABS: Reflex Lactate? 2 Y
[2021-08-06] MEDS: Heparin Sodium,Porcine 5,000 UNIT/ML VIAL 5000 UNIT SUBCUT (22:46)
[2021-08-06 22:58] LABS: ~Lactic Acid-LAB USE ONLY 1.9 mmol/L (0.5-2.0)
--- NOTE | 2021-08-06 23:10 | PC.NURSE ---
pt medicated as per emar. pt ivorian speaking only. family at bedside. pt alert, respirations easy, n/l. skin w/d.
[2021-08-06 23:44] VITALS: BP 133/72; PULSE 93; RESP 16; O2SAT 97
[2021-08-06] MEDS: ceFAZolin Sodium/Dextrose,Iso 2 GM/50 ML PIGGYBACK IV (23:48)
--- NOTE | 2021-08-07 00:02 | PC.NURSE ---
report to RAJI Granda. pt to overflow in stretcher in [facility].
[2021-08-07] MEDS: 0.9 % Sodium Chloride Flush 3 ML SYRINGE IVFLUSH ×3 (00:04→17:47)
[2021-08-07 04:13] VITALS: RESP 16
[2021-08-07] MEDS: ceFAZolin Sodium/Dextrose,Iso 2 GM/50 ML PIGGYBACK IV ×3 (06:31→21:12)
[2021-08-07 08:09] LABS: MANUAL DIFF FLAG NO
[2021-08-07 08:22] LABS: Basophils Percent Auto 0.4 % (0-2); Eosinophils Absolute Auto 0.1 X10*3/uL (0.0-0.4); Eosinophils Percent Auto 1.5 % (0-4); Hematocrit 31.6 % (42.0-52.0); Hemoglobin 10.8 g/dl (14.0-18.0); Imm Gran Abs Auto 0.02 X10*3/uL (0.00-0.03); Imm Gran Pct Auto 0.4 % (0.0-0.4); Lymphocytes Absolute Auto 1.2 X10*3/uL (1.2-4.9); Lymphocytes Percent Auto 26.6 % (20-40); Mean Corpuscular HGB Conc 34.2 g/dl (31.0-36.0); Mean Corpuscular Hemoglobin 32.7 pg (27.0-33.0); Mean Corpuscular Volume 95.8 fL (80.0-98.0); Mean Platelet Volume 12.9 fL (9.4-12.4); Monocytes Absolute Auto 0.7 X10*3/uL (0.1-1.2); Neutrophils Absolute Auto 2.6 x10*3/uL (2.0-8.3); Neutrophils Percent Auto 55.1 % (45-73); Red Cell Distribution Width 15.1 % (11.0-16.0); White Blood Count 4.6 X10*3/uL (4.8-10.8)
--- NOTE | 2021-08-07 08:29 | PM.GICN ---
History of Present Illness Data of Consult Service Date: 08/07/21 Requesting physician: Chun Aguirre Primary Care Provider: None Physician HPI Reason for consult: edema, liver cirrhosis 60-year-old male w/ h/o hypertension, appendectomy, chronic liver disease and hydrocele, alcohol abuse who I am seeing for assessment of edema and swelling. manager primary used Patient had noted increased edema and scrotal swelling for 4 weeks associated with dysuira and suprapubic pain. no nausea or vomiting, no diarrhea or constipation, he has no chest pain, no shortness of breath he denies any fever or chills drinks beer every so often, on methadone, denies current IV drug use Labs:WBC count of 7, hemoglobin of 11.5, PT of 20.5, INR of 2.0, lactic acid of 2.2, total bili of 6.1, direct bili 3.6, AST of 84, alk-phos of 181, BNP of 491, albumin of 2.5, UA negative, Imaging: Abdominal pelvic CT:nodular cirrhotic fibrotic liver with ascites that is slightly increased from June.? There is mild diffuse anasarca also increased from the previous exam.? Fluid is seen tracking into the left inguinal hernia with a significant scrotal and penile edema which has increased from the prior study done on 07/09/2021.? Review of Systems Review of Systems: Constitutional : No Weight loss, No Fever, No Chills ENT/Mouth : No sore throat, No Rhinorrhea Eyes: No Swelling, No Redness Cardiovascular : No Chest Pain, No SOB, No Edema Respiratory : No Cough, No Sputum, No Wheezing Gastrointestinal : see HPI Genitourinary : + Dysuria, No Urinary Frequency, No Hematuria, No Urgency Musculoskeletal : No joint pain, No Myalgias, No Joint Swelling Skin : No Skin Lesions, No rash Neuro : No Weakness, No Numbness, No Dizziness, No Headache Psych : No Anxiety/Panic, No Depression Heme/Lymph: No Bruising, No Lymphadenopathy Endocrine : No Polyuria, No Polydipsia All other systems reviewed and are negative. [facility] Past Medical History Medical History (Updated 08/07/21 @ 11:02 by Vinay Veloz MD) Hypertension Family History Family History (Updated 08/07/21 @ 05:51 by Chun Aguirre MD) Other No family history of coronary artery disease Surgical History Surgical History (Updated 08/07/21 @ 05:50 by Chun Aguirre MD) History of appendectomy History of eye surgery Social History Social History (Updated 08/07/21 @ 05:51 by Chun Aguirre MD) Alcohol intake: former Patient Tobacco Use Status: Former Tobacco user Use of substances other than those prescribed or required for medical reasons: No Advance Directives: No Advance Directives Information Provided: No Meds Allergies Allergy/AdvReac Type Severity Reaction Status Date / Time tramadol [TRAMADOL] Allergy Unknown ANXIETY Unverified 03/12/20 16:00 Active Medications: Current Medications Acetaminophen (Acetaminophen 325 Mg Tablet) 650 mg PO Q6H PRN PRN Reason: Pain, Mild (Pain Scale 1-3) Furosemide (Furosemide 40 Mg/4 Ml Vial) 40 mg IVPUSH DAILY [facility]; Protocol Cefazolin Sodium/Dextrose (Ancef) 2 gm in 50 mls @ 100 mls/hr IV Q8H [facility] Last Infusion: 08/07/21 07:04 Dose: Infused Documented by: Ondansetron HCl (Ondansetron Hcl 4 Mg/2 Ml Vial) 4 mg IVPUSH Q8H PRN PRN Reason: Nausea and Vomiting Oxycodone HCl (Oxycodone Hcl Immed Release 5 Mg Tablet) 5 mg PO Q6H PRN PRN Reason: Pain, Severe (Pain Scale 7-10) Pharmacy Consult (Consult Rx Perform Med Rec) 1 each MISCELLANE ONCE PRN PRN Reason: Consult order Sodium Chloride (0.9 % Sodium Chloride Flush 3 Ml Syringe) [facility] Last Admin: 08/07/21 00:04 Dose: 3 ml Documented by: Home Medications Medication Instructions Recorded Confirmed Last Taken Type amlodipine 5 mg tablet 1 tab PO DAILY 08/06/21 08/06/21 Unknown History lisinopril 5 mg tablet 1 tab PO DAILY 08/06/21 08/06/21 Unknown History Physical Exam Vital Signs: Vital Signs: Last Vital Signs Temp 98.6 F 08/06/21 20:22 Pulse 93 08/06/21 23:44 Resp 16 08/07/21 04:13 BP 133/72 08/06/21 23:44 Pulse Ox 97 08/06/21 23:44 BMI result Body Mass Index 26.4 EXAM: GENERAL: The patient is well developed and nontoxic. VITAL SIGNS:see workflow HEENT: Nonicteric sclerae, PERRLA, EOMI. Oropharynx clear. Moist mucous membranes. Conjunctivae appear well perfused. No thyroid mass. CHEST: Chest wall is nontender. HEART: Regular rate and rhythm without murmurs. LUNGS: Clear to auscultation bilaterally. ABDOMEN: Soft, positive bowel sounds, nontender, no organomegaly.no flank tenderness, lap scar noted GENITAL: scrotal swelling SKIN: No rash, no excessive bruising, petechiae, or purpura. NEUROLOGIC: Cranial nerves II-XII intact without motor/sensory deficit. MS: normal psych- normal affect Results Labs CBC & Chem 7: 08/07/21 07:46 08/07/21 07:46 Labs: Short CBC 08/06/21 Range/Units 12:53 WBC 7.0 (4.8-10.8) X10*3/uL Hgb 11.5 L (14.0-18.0) g/dl Hct 33.9 L (42.0-52.0) % Plt Count 79 L (160-400) X10*3/uL BMP 08/06/21 12:53 Sodium 135 Potassium 4.2 Chloride 102 Carbon Dioxide 29 BUN 6 L Creatinine 0.80 Calcium 8.9 Liver Function 08/06/21 Range/Units 12:53 Total Bilirubin 6.1 H (0.0-1.0) mg/dL Direct Bilirubin 3.6 H (0.0-0.5) mg/dL AST 84 H (5-37) U/L ALT 40 (0-40) U/L Alkaline Phosphatase 181 H (39-117) U/L Albumin 2.5 L (3.5-5.0) g/dL Urine 08/06/21 Range/Units 13:21 Urine Color YELLOW Urine Appearance CLEAR Urine pH 5.5 (5.0-8.0) Ur Specific [place] 1.020 (1.005-1.025) Urine Protein NEG (NEG-TRACE) MG/DL Urine Glucose (UA) NEG (NEG) MG/DL Imaging CT scan - abdomen: Attestation: I personally reviewed and interpreted this imaging study as follows: My impression: nodular liver, anasarca Assessment and Plan (1) Decompensated hepatic cirrhosis: Status: Acute (2) Scrotal edema: Status: Acute (3) Anasarca: Status: Acute Plan 1/ Decompensated cirrhosis from alcohol use, hep c serology is pending complicated with ascites and anasarca PLAN: 1/ Low salt diet, can initiate lasix 20 mg and aldactone 50 mg --can give IV lasix for few days 2/ daily weights 3/ will need o/p EGD for variceal screening 4/ if hep c pos then treat 5/ no HCC on imaging will need repeat imaging 6 months 6/ avoid nsaids and other hepatotoxins Procedures Date of Service Date of Service: 08/07/21
[2021-08-07 08:39] LABS: Anion Gap 9 (12-20); Blood Urea Nitrogen 5 mg/dL (9-16); Calcium 8.1 mg/dL (8.4-10.2); Carbon Dioxide 30 mmol/L (22-29); Chloride 104 mmol/L (96-108); Creatinine Clr Calc Pharmacy 84.3; Estimated Glomerular Filt Rate > 60; Glucose Random 71 mg/dL (60-115); Potassium 3.7 mmol/L (3.3-5.1); Sodium 139 mmol/L (135-145)
[2021-08-07 08:50] LABS: Platelet Count 68 X10*3/uL (160-400)
[2021-08-07 09:04] VITALS: BP 135/69; PULSE 71; RESP 15; TEMP 36.8; O2SAT 98
--- NOTE | 2021-08-07 09:45 | PC.NURSE ---
pt's methadone dose verified by NADIA Ozuna at [facility]. Pt last dosed at 65 mg on 08/[address] Veloz aware and will put order in. will continue to monitor.
[2021-08-07] MEDS: Furosemide 40 MG/4 ML VIAL IVPUSH ×2 (10:01→18:10)
[2021-08-07 10:21] LABS: Alanine Aminotransferase 33 U/L (0-40); Albumin Level 2.5 g/dL (3.5-5.0); Alkaline Phosphatase 153 U/L (39-117); Aspartate Amino Transferase 78 U/L (5-37); Bilirubin Direct 3.2 mg/dL (0.0-0.5); Bilirubin Total 5.4 mg/dL (0.0-1.0); Total Protein 6.6 g/dL (6.5-8.0)
--- NOTE | 2021-08-07 10:38 | PC.NURSE ---
Methadone verification sheet faxed to pharmacy
--- NOTE | 2021-08-07 10:52 | P.PNIM_ITS ---
Subjective Subjective Date of Service: 08/07/21 Interval History: the patient was seen and evaluated this morning Laying in bed, reporting discomfort from the swelling in his penis Asking for methadone Denies any fever, chills or chest pain No reported other overnight events. Systemic review: No fever, chills and reported generalized weakness No chest pain, palpitation but has lower extremity swelling No shortness of breath or coughing No abdominal pain, nausea or vomiting Scrotal swelling No any rash or wounds Physical Exam 2 Vital Signs: Vital Signs: Last Vital Signs Temp 98.2 F 08/07/21 09:04 Pulse 71 08/07/21 09:04 Resp 15 08/07/21 09:04 BP 135/69 08/07/21 09:04 Pulse Ox 98 08/07/21 09:04 BMI result Body Mass Index 26.4 Const: Other: Constitutional : Alert, oriented, not in distress Neck : Normal inspection, Supple Cardiovascular : RRR, S1 S2, bilateral +2 lower extremity edema up to the knee level Respiratory : Good bilateral air entry, no crackles, wheezes or rhonchi Gastrointestinal: soft, lax, Normal bowel sounds, Non tender, distended with mild amount of ascites Skin : Warm, Dry, pitting edema in the back Neurological : Alert & oriented x3, No focal deficit Objective Data Active Medications Acetaminophen (Acetaminophen 325 Mg Tablet) 650 mg PO Q6H PRN PRN Reason: Pain, Mild (Pain Scale 1-3) Furosemide (Furosemide 40 Mg/4 Ml Vial) 40 mg IVPUSH BID@0900,1800 YENNY; Protocol Cefazolin Sodium/Dextrose (Ancef) 2 gm in 50 mls @ 100 mls/hr IV Q8H [facility] Last Infusion: 08/07/21 07:04 Dose: 0 mls/hr Documented by: OSCAR Methadone HCl (Methadone Hcl 20 Mg/2 Ml Oral.Conc) 65 mg PO DAILY [facility] Ondansetron HCl (Ondansetron Hcl 4 Mg/2 Ml Vial) 4 mg IVPUSH Q8H PRN PRN Reason: Nausea and Vomiting Oxycodone HCl (Oxycodone Hcl Immed Release 5 Mg Tablet) 5 mg PO Q6H PRN PRN Reason: Pain, Severe (Pain Scale 7-10) Pharmacy Consult (Consult Rx Perform Med Rec) 1 each MISCELLANE ONCE PRN PRN Reason: Consult order Sodium Chloride (0.9 % Sodium Chloride Flush 3 Ml Syringe) 3 ml IVFLUSH QSHIFT [facility] Last Admin: 08/07/21 08:33 Dose: 3 ml Documented by: GELA Labs CBC & Chem 7: 08/07/21 07:46 08/07/21 07:46 Labs: Laboratory Results - last 24 hr 08/06/21 08/06/21 08/06/21 12:53 12:53 12:53 MCV 96.6 MCH 32.8 MCHC 33.9 RDW 15.1 Plt Count 79 L MPV 12.7 H Immature Gran % (Auto) 0.4 Neut % (Auto) 65.3 Lymph % (Auto) 19.4 L Banks % (Auto) 14.1 H Eos % (Auto) 0.4 Baso % (Auto) 0.4 Lymph # (Auto) 1.4 Banks # (Auto) 1.0 Eos # (Auto) 0.0 Baso # (Auto) 0.0 Abs Immat Gran (auto) 0.03 Absolute Neuts (auto) 4.6 Absolute Nucleated RBC 0.000 Nucleated RBC % (auto) 0.0 PT INR Anion Gap 8 L Estim Creat Clear Calc TNP Estimated GFR > 60 Random Glucose 81 Lactic Acid Lactic Acid F/U @ 2Hr Lactic Acid F/U @ 4Hr Calcium 8.9 Magnesium 1.8 Total Bilirubin 6.1 H Direct Bilirubin 3.6 H AST 84 H ALT 40 Alkaline Phosphatase 181 H Ammonia B-Natriuretic Peptide Total Protein 7.5 Albumin 2.5 L Urine Color Urine Appearance Urine pH Ur Specific [place] Urine Protein Urine Glucose (UA) Urine Ketones Urine Blood Urine Nitrite Ur Leukocyte Esterase COVID-19 (SRIDEVI) Negative COVID-19 Clin Com See Note 08/06/21 08/06/21 08/06/21 13:21 16:18 16:18 MCV MCH MCHC RDW Plt Count MPV Immature Gran % (Auto) Neut % (Auto) Lymph % (Auto) Banks % (Auto) Eos % (Auto) Baso % (Auto) Lymph # (Auto) Banks # (Auto) Eos # (Auto) Baso # (Auto) Abs Immat Gran (auto) Absolute Neuts (auto) Absolute Nucleated RBC Nucleated RBC % (auto) PT INR Anion Gap Estim Creat Clear Calc Estimated GFR Random Glucose Lactic Acid 2.2 H* Lactic Acid F/U @ 2Hr Lactic Acid F/U @ 4Hr Calcium Magnesium Total Bilirubin Direct Bilirubin AST ALT Alkaline Phosphatase Ammonia B-Natriuretic Peptide 491 H Total Protein Albumin Urine Color YELLOW Urine Appearance CLEAR Urine pH 5.5 Ur Specific [place] 1.020 Urine Protein NEG Urine Glucose (UA) NEG Urine Ketones NEG Urine Blood NEG Urine Nitrite NEG Ur Leukocyte Esterase NEG COVID-19 (SRIDEVI) COVID-19 [employer] Com 08/06/21 08/06/21 08/06/21 20:22 20:52 20:52 MCV MCH MCHC RDW Plt Count MPV Immature Gran % (Auto) Neut % (Auto) Lymph % (Auto) Banks % (Auto) Eos % (Auto) Baso % (Auto) Lymph # (Auto) Banks # (Auto) Eos # (Auto) Baso # (Auto) Abs Immat Gran (auto) Absolute Neuts (auto) Absolute Nucleated RBC Nucleated RBC % (auto) PT 23.5 H INR 2.0 H Anion Gap Estim Creat Clear Calc Estimated GFR Random Glucose Lactic Acid Lactic Acid F/U @ 2Hr 2.1 H* Lactic Acid F/U @ 4Hr Calcium Magnesium Total Bilirubin Direct Bilirubin AST ALT Alkaline Phosphatase Ammonia 37 B-Natriuretic Peptide Total Protein Albumin Urine Color Urine Appearance Urine pH Ur Specific [place] Urine Protein Urine Glucose (UA) Urine Ketones Urine Blood Urine Nitrite Ur Leukocyte Esterase COVID-19 (SRIDEVI) COVID-19 [employer] 08/06/21 08/07/21 08/07/21 22:38 07:46 07:46 MCV 95.8 MCH 32.7 MCHC 34.2 RDW 15.1 Plt Count 68 L MPV 12.9 H Immature Gran % (Auto) 0.4 Neut % (Auto) 55.1 Lymph % (Auto) 26.6 Banks % (Auto) 16.0 H Eos % (Auto) 1.5 Baso % (Auto) 0.4 Lymph # (Auto) 1.2 Banks # (Auto) 0.7 Eos # (Auto) 0.1 Baso # (Auto) 0.0 Abs Immat Gran (auto) 0.02 Absolute Neuts (auto) 2.6 Absolute Nucleated RBC 0.000 Nucleated RBC % (auto) 0.0 PT INR Anion Gap 9 L Estim Creat Clear Calc 84.3 Estimated GFR > 60 Random Glucose 71 Lactic Acid Lactic Acid F/U @ 2Hr Lactic Acid F/U @ 4Hr 1.9 Calcium 8.1 L D Magnesium Total Bilirubin 5.4 H Direct Bilirubin 3.2 H AST 78 H ALT 33 Alkaline Phosphatase 153 H Ammonia B-Natriuretic Peptide Total Protein 6.6 Albumin 2.5 L Urine Color Urine Appearance Urine pH Ur Specific [place] Urine Protein Urine Glucose (UA) Urine Ketones Urine Blood Urine Nitrite Ur Leukocyte Esterase COVID-19 (SRIDEVI) COVID-19 Clin Com Assessment and Plan (1) Coagulopathy: Status: Acute (2) Decompensated hepatic cirrhosis: Status: Acute (3) Cellulitis: Status: Acute (4) Scrotal edema: Status: Acute (5) Anasarca: Status: Acute Plan This is a 60-year-old male with past medical history of hypertension presents to the hospital with scrotal edema as well as anasarca found to have cirrhotic liver. # decompensated liver failure secondary to liver cirrhosis, alcohol abuse, unknown hepatitis-C status CT abdomen as reported Pending hepatitis panel, autoimmune battery, immunoglobulins, anti smooth muscle antibody, liver microsomal antibody, GI consult Increase Lasix to 40 b.i.d. # coagulopathy secondary to liver failure monitor for bleed follow CBC # scrotal edema secondary to ascites Continue lasix IV ultrasound of the scrotum showed no significant abnormality except diffuse thickening of the scrotum, with a small left hydrocele Keep scrotal elevation # Cellulitis of the penis, scrotum and suprapubic region Pending cultures Continue IV cephazolin # HTN continue home meds # drug use disorder Continue methadone home dose DVT ppx Heparin Quality Stroke Does the patient have a stroke diagnosis?: No VTE Prior VTE?: No VTE Risk Level:: Medical - moderate - high VTE Device Contraindication: Treatment Not Indicated VTE Drug Contraindication: N/A - Med Ordered
[2021-08-07] MEDS: methADONE HCl 20 MG/2 ML ORAL.CONC 65 MG PO (10:59)
[2021-08-07] MEDS: Heparin Sodium,Porcine 5,000 UNIT/ML VIAL 5000 UNIT SUBCUT ×2 (13:58→21:11)
[2021-08-07 20:00] VITALS: BP 133/65; PULSE 61; RESP 16; TEMP 36.7; O2SAT 96
[2021-08-08 00:08] VITALS: BP 108/56; PULSE 60; RESP 16; O2SAT 96
[2021-08-08 01:04] VITALS: BP 108/5; PULSE 66; RESP 14; TEMP 36.8; O2SAT 96
[2021-08-08] MEDS: Heparin Sodium,Porcine 5,000 UNIT/ML VIAL 5000 UNIT SUBCUT ×3 (04:06→21:21)
[2021-08-08 05:43] VITALS: BP 105/55; PULSE 58; RESP 16; TEMP 36.6; O2SAT 98
[2021-08-08] MEDS: ceFAZolin Sodium/Dextrose,Iso 2 GM/50 ML PIGGYBACK IV ×3 (05:57→21:22)
[2021-08-08 07:16] LABS: Hematocrit 31.6 % (42.0-52.0); Hemoglobin 10.9 g/dl (14.0-18.0); Mean Corpuscular HGB Conc 34.5 g/dl (31.0-36.0); Mean Corpuscular Hemoglobin 32.7 pg (27.0-33.0); Mean Corpuscular Volume 94.9 fL (80.0-98.0); Mean Platelet Volume 12.9 fL (9.4-12.4); Red Blood Count 3.33 X10*6/uL (4.60-5.80); Red Cell Distribution Width 14.8 % (11.0-16.0); White Blood Count 5.4 X10*3/uL (4.8-10.8)
[2021-08-08 07:17] LABS: Platelet Count 73 X10*3/uL (160-400)
[2021-08-08 07:26] LABS: INTERNATIONAL NORM RATIO 2.3 (0.9-1.1); Prothrombin Time 26.2 SEC (9.9-13.0)
[2021-08-08 07:38] LABS: Alanine Aminotransferase 28 U/L (0-40); Albumin Level 2.4 g/dL (3.5-5.0); Alkaline Phosphatase 153 U/L (39-117); Anion Gap 11 (12-20); Aspartate Amino Transferase 68 U/L (5-37); Bilirubin Direct 3.1 mg/dL (0.0-0.5); Blood Urea Nitrogen 7 mg/dL (9-16); Calcium 8.4 mg/dL (8.4-10.2); Carbon Dioxide 30 mmol/L (22-29); Chloride 101 mmol/L (96-108); Creatinine Clr Calc Pharmacy 81.1; Estimated Glomerular Filt Rate > 60; Glucose Random 62 mg/dL (60-115); Potassium 3.3 mmol/L (3.3-5.1); Sodium 139 mmol/L (135-145); Total Protein 6.6 g/dL (6.5-8.0)
[2021-08-08] MEDS: 0.9 % Sodium Chloride Flush 3 ML SYRINGE IVFLUSH (08:21)
[2021-08-08] MEDS: Furosemide 40 MG/4 ML VIAL IVPUSH (08:21)
[2021-08-08] MEDS: methADONE HCl 20 MG/2 ML ORAL.CONC 65 MG PO (08:22)
[2021-08-08 08:26] VITALS: BP 143/75; PULSE 75; RESP 16; O2SAT 97
--- NOTE | 2021-08-08 08:29 | PC.NURSE ---
Pt is alert and oriented, ambulatory around room and to bathroom as needed. Scrotum and penis remains swollen. Pt reports voiding without difficulty. Swelling noted to b/l lower extremities. No SOB or distress. Speaking full sentences
--- NOTE | 2021-08-08 09:08 | P.PNIM_ITS ---
Subjective Subjective Date of Service: 08/08/21 Interval History: the patient was seen and evaluated this morning Laying in bed, scrotal swelling improving Feels better overall Denies any fever, chills or chest pain No reported other overnight events. Systemic review: No fever, chills and reported generalized weakness No chest pain, palpitation but has lower extremity swelling No shortness of breath or coughing No abdominal pain, nausea or vomiting Scrotal swelling improving No any rash or wounds Physical Exam Vital Signs: Vital Signs: Last Vital Signs Temp 97.9 F 08/08/21 05:43 Pulse 75 08/08/21 08:26 Resp 16 08/08/21 08:26 BP 143/75 H 08/08/21 08:26 Pulse Ox 97 08/08/21 08:26 BMI result Body Mass Index 26.4 Const: Other: Constitutional : Alert, oriented, not in distress Neck : Normal inspection, Supple Cardiovascular : RRR, S1 S2, bilateral +2 lower extremity edema up to the knee level Respiratory : Good bilateral air entry, no crackles, wheezes or rhonchi Gastrointestinal: soft, lax, Normal bowel sounds, Non tender, distended with mild amount of ascites Skin : Warm, Dry, pitting edema in the back Urological, scrotal and penis swelling improving Neurological : Alert & oriented x3, No focal deficit Objective Data Active Medications Acetaminophen (Acetaminophen 325 Mg Tablet) 650 mg PO Q6H PRN PRN Reason: Pain, Mild (Pain Scale 1-3) Furosemide (Furosemide 40 Mg/4 Ml Vial) 40 mg IVPUSH DAILY [facility]; Protocol Heparin Sodium (Porcine) (Heparin Sodium,Porcine 5,000 Unit/Ml Vial) 5,000 unit SUBCUT Q8H [facility] Last Admin: 08/08/21 04:06 Dose: 5,000 unit Documented by: TREY Cefazolin Sodium/Dextrose (Ancef) 2 gm in 50 mls @ 100 mls/hr IV Q8H [facility] Last Infusion: 08/08/21 06:53 Dose: 0 mls/hr Documented by: TREY Methadone HCl (Methadone Hcl 20 Mg/2 Ml Oral.Conc) 65 mg PO DAILY [facility] Last Admin: 08/08/21 08:22 Dose: 65 mg Documented by: TYRESE Ondansetron HCl (Ondansetron Hcl 4 Mg/2 Ml Vial) 4 mg IVPUSH Q8H PRN PRN Reason: Nausea and Vomiting Oxycodone HCl (Oxycodone Hcl Immed Release 5 Mg Tablet) 5 mg PO Q6H PRN PRN Reason: Pain, Severe (Pain Scale 7-10) Pharmacy Consult (Consult Rx Perform Med Rec) 1 each MISCELLANE ONCE PRN PRN Reason: Consult order Sodium Chloride (0.9 % Sodium Chloride Flush 3 Ml Syringe) 3 ml IVFLUSH QSHIFT [facility] Last Admin: 08/08/21 08:21 Dose: 3 ml Documented by: TYRESE Labs CBC & Chem 7: 08/08/21 06:31 08/08/21 06:31 Labs: Laboratory Results - last 24 hr 08/07/21 08/08/21 08/08/21 07:46 06:31 06:31 MCV 94.9 MCH 32.7 MCHC 34.5 RDW 14.8 Plt Count 73 L MPV 12.9 H Absolute Nucleated RBC 0.000 Nucleated RBC % (auto) 0.0 PT INR Anion Gap 11 L Estim Creat Clear Calc 81.1 Estimated GFR > 60 Random Glucose 62 Calcium 8.4 Total Bilirubin 5.4 H 6.0 H Direct Bilirubin 3.2 H 3.1 H AST 78 H 68 H ALT 33 28 Alkaline Phosphatase 153 H 153 H Total Protein 6.6 6.6 Albumin 2.5 L 2.4 L 08/08/21 08/08/21 06:31 06:31 MCV MCH MCHC RDW Plt Count MPV Absolute Nucleated RBC Nucleated RBC % (auto) PT 26.2 H INR 2.3 H Anion Gap Estim Creat Clear Calc Estimated GFR Random Glucose Calcium Total Bilirubin Cancelled Direct Bilirubin Cancelled AST Cancelled ALT Cancelled Alkaline Phosphatase Cancelled Total Protein Cancelled Albumin Cancelled Microbiology Microbiology Results: Microbiology 08/06/21 16:24 Blood Culture - Preliminary Blood - Venous No growth after 24 hours. 08/06/21 16:18 Blood Culture - Preliminary Blood - Venous No growth after 24 hours. Assessment and Plan (1) Decompensated hepatic cirrhosis: Status: Acute (2) Coagulopathy: Status: Acute (3) Cirrhosis: Status: Acute (4) Scrotal edema: Status: Acute (5) Cellulitis: Status: Acute Plan This is a 60-year-old male with past medical history of hypertension presents to the hospital with scrotal edema as well as anasarca found to have cirrhotic liver. # decompensated liver failure secondary to liver cirrhosis, alcohol abuse, unknown hepatitis-C status CT abdomen as reported Pending hepatitis panel, autoimmune battery, immunoglobulins, anti smooth muscle antibody, liver microsomal antibody, GI input appreciated Lasix 40 mg daily To add spironolactone # coagulopathy INR 2.3 secondary to liver failure monitor for bleed follow CBC # scrotal edema secondary to ascites , improving ultrasound of the scrotum showed no significant abnormality except diffuse thickening of the scrotum, with a small left hydrocele Continue lasix IV Keep scrotal elevation # Cellulitis of the penis, scrotum and suprapubic region Pending cultures Continue IV cephazolin # HTN continue home meds # drug use disorder Continue methadone home dose DVT ppx Heparin Quality Stroke Does the patient have a stroke diagnosis?: No VTE Prior VTE?: No VTE Risk Level:: Medical - moderate - high VTE Device Contraindication: Treatment Not Indicated VTE Drug Contraindication: N/A - Med Ordered
[2021-08-08] MEDS: Spironolactone 25 MG TABLET PO (09:54)
--- NOTE | 2021-08-08 10:33 | MHC.CM.PN ---
CM MET WITH PT WITH THE ASSISTANCE OF A [facility] PT REPORTS HE LIVES WITH HIS AND IS FULLY INDEPENDENT PT DENIES USING DME OR HAVING HOME SERVICES PT REPORTS HE HAS A HCP NAMING HIS HIS AGENT, COPY REQUESTED PT DOES NOT HAVE A PCP, HE REPORTS HIS PROVIDER LEFT [facility] IN [place] ([facility]) AND THEY NEVER PROVIDED HIM WITH A NEW ONE. CURRENT DC PLAN IS HOME WITH NO SERVICES PT WILL ARRANGE TRANSPORT
[2021-08-08 14:19] VITALS: BP 127/66; PULSE 63; RESP 16; O2SAT 96
--- NOTE | 2021-08-08 15:23 | PC.NURSE ---
Pt received mid shift: Pt AOx4 and offers no current complaints. Heart sounds normal and lungs clear. Pt abd rounded with mild anasarca noted to scrotum and penis radiating up towards abd and down towards B/L LE. Pt is self ambulatory to with steady gait.
[2021-08-08 20:00] VITALS: BP 133/70; PULSE 63; RESP 16; TEMP 37.1; O2SAT 99
[2021-08-09 03:53] VITALS: BP 113/68; PULSE 74; RESP 16; TEMP 36.6; O2SAT 96
[2021-08-09] MEDS: Heparin Sodium,Porcine 5,000 UNIT/ML VIAL 5000 UNIT SUBCUT ×3 (04:01→21:24)
[2021-08-09 04:20] LABS: HBS Num1 96.83 mIU/mL (0-7.99); HBc Num1 9.16 S/CO (0.00-0.79); ~Hepatitis B Surface Antibody REACTIVE (Nonreactive)
[2021-08-09 04:23] LABS: HIV AB/AG Nonreactive (Nonreactive); HIV Num 1 0.08 S/CO (0.00-0.99)
[2021-08-09 04:41] LABS: Hepatitis B Surface Antigen Negative (Negative)
[2021-08-09 05:13] LABS: HBsAGNum1 0.24 S/CO (0.00-0.99); ~HepC Num1 12.34 S/CO (0.00-0.79); ~Hepatitis C Antibody Reactive (Nonreactive)
[2021-08-09 05:15] LABS: HBc Num2 9.53 S/CO; HBc Num3 9.59 S/CO
[2021-08-09 05:16] LABS: Hepatitis B Core Antibody Reactive (Nonreactive)
[2021-08-09] MEDS: ceFAZolin Sodium/Dextrose,Iso 2 GM/50 ML PIGGYBACK IV ×3 (06:19→21:24)
[2021-08-09 07:09] LABS: INTERNATIONAL NORM RATIO 2.2 (0.9-1.1); Prothrombin Time 25.7 SEC (9.9-13.0)
[2021-08-09 07:17] LABS: Alanine Aminotransferase 22 U/L (0-40); Albumin Level 2.5 g/dL (3.5-5.0); Alkaline Phosphatase 172 U/L (39-117); Aspartate Amino Transferase 64 U/L (5-37); Bilirubin Total 5.2 mg/dL (0.0-1.0); Total Protein 6.8 g/dL (6.5-8.0)
--- NOTE | 2021-08-09 07:18 | PC.NURSE ---
Pt received from mini shifter: Pt AOx4 and offers no complaints. Heart sounds normal and lungs clear. Pt abd soft and non-tender. Generalized anasarca noted to scrotum and penis radiating up towards abd and down towards B/L LE. Pt self ambulatory.
[2021-08-09 07:19] LABS: Anion Gap 10 (12-20); Blood Urea Nitrogen 8 mg/dL (9-16); Calcium 8.4 mg/dL (8.4-10.2); Carbon Dioxide 32 mmol/L (22-29); Chloride 101 mmol/L (96-108); Creatinine Clr Calc Pharmacy 79.1; Estimated Glomerular Filt Rate > 60; Glucose Random 73 mg/dL (60-115); Potassium 3.1 mmol/L (3.3-5.1); Sodium 140 mmol/L (135-145)
[2021-08-09 08:05] VITALS: BP 154/77; PULSE 69; RESP 16; TEMP 37.1; O2SAT 98
[2021-08-09 08:11] VITALS: BP 122/63; PULSE 66; RESP 16; TEMP 36.3; O2SAT 100
--- NOTE | 2021-08-09 09:21 | P.PNIM_ITS ---
Subjective Subjective Date of Service: 08/09/21 Interval History: the patient was seen and evaluated this morning Laying in bed, scrotal swelling improving steadily Edema decreasing Denies any fever, chills or chest pain No reported other overnight events. Systemic review: No fever, chills and reported generalized weakness No chest pain, palpitation but has lower extremity swelling No shortness of breath or coughing No abdominal pain, nausea or vomiting Scrotal swelling improving No any rash or wounds Physical Exam Vital Signs: Vital Signs: Last Vital Signs Temp 97.3 F 08/09/21 08:11 Pulse 66 08/09/21 08:11 Resp 16 08/09/21 08:11 BP 122/63 08/09/21 08:11 Pulse Ox 100 08/09/21 08:11 BMI result Body Mass Index 26.4 Const: Other: Constitutional : Alert, oriented, not in distress Neck : Normal inspection, Supple Cardiovascular : RRR, S1 S2, bilateral +1 lower extremity edema up to the knee level Respiratory : Good bilateral air entry, no crackles, wheezes or rhonchi Gastrointestinal: soft, lax, Normal bowel sounds, Non tender, distended with mild amount of ascites Skin : Warm, Dry, improved pitting edema in the back Urological, scrotal and penis swelling improving Neurological : Alert & oriented x3, No focal deficit Objective Data Active Medications Acetaminophen (Acetaminophen 325 Mg Tablet) 650 mg PO Q6H PRN PRN Reason: Pain, Mild (Pain Scale 1-3) Furosemide (Furosemide 40 Mg/4 Ml Vial) 40 mg IVPUSH DAILY [facility] BEDS AT THE [facility]; Protocol Heparin Sodium (Porcine) (Heparin Sodium,Porcine 5,000 Unit/Ml Vial) 5,000 unit SUBCUT Q8H [facility] 234 [facility]S AT [facility] Last Admin: 08/09/21 04:01 Dose: 5,000 unit Documented by: ELIZA Cefazolin Sodium/Dextrose (Ancef) 2 gm in 50 mls @ 100 mls/hr IV Q8H [facility] 234 [facility]S AT THE [facility] Last Infusion: 08/09/21 07:01 Dose: 0 mls/hr Documented by: RODNEY Methadone HCl (Methadone Hcl 20 Mg/2 Ml Oral.Conc) 65 mg PO DAILY [facility] 234 [facility]S AT [facility] Last Admin: 08/08/21 08:22 Dose: 65 mg Documented by: TYRESE Ondansetron HCl (Ondansetron Hcl 4 Mg/2 Ml Vial) 4 mg IVPUSH Q8H PRN PRN Reason: Nausea and Vomiting Oxycodone HCl (Oxycodone Hcl Immed Release 5 Mg Tablet) 5 mg PO Q6H PRN PRN Reason: Pain, Severe (Pain Scale 7-10) Pharmacy Consult (Consult Rx Perform Med Rec) 1 each MISCELLANE ONCE PRN PRN Reason: Consult order Sodium Chloride (0.9 % Sodium Chloride Flush 3 Ml Syringe) 3 ml IVFLUSH QSHIFT [facility] 234 BEDS AT THE [facility] Last Admin: 08/09/21 07:07 Dose: Not Given Documented by: RODNEY Non-Admin Reason: Med Not Available Spironolactone (Spironolactone 25 Mg Tablet) 25 mg PO DAILY [facility] 234 BEDS AT [facility]; Protocol Last Admin: 08/08/21 09:54 Dose: 25 mg Documented by: TYRESE Labs CBC & Chem 7: 08/08/21 06:31 08/09/21 06:42 Labs: Laboratory Results - last 24 hr 08/06/21 08/06/21 08/09/21 20:52 20:52 06:42 PT INR Anion Gap 10 L Estim Creat Clear Calc 79.1 Estimated GFR > 60 Random Glucose 73 Calcium 8.4 Total Bilirubin Direct Bilirubin AST ALT Alkaline Phosphatase Total Protein Albumin Hep Bs Antigen Negative Hep Bs Antibody REACTIVE Hep B Core Total Ab Reactive Hep B Core IgM Ab Cancelled Hepatitis C Ab (EIA) Reactive H HIV 1&2 Ab/P24 Ag 4thGn Nonreactive 08/09/21 08/09/21 06:42 06:42 PT 25.7 H INR 2.2 H Anion Gap Estim Creat Clear Calc Estimated GFR Random Glucose Calcium Total Bilirubin 5.2 H Direct Bilirubin 3.0 H AST 64 H ALT 22 Alkaline Phosphatase 172 H Total Protein 6.8 Albumin 2.5 L Hep Bs Antigen Hep Bs Antibody Hep B Core Total Ab Hep B Core IgM Ab Hepatitis C Ab (EIA) HIV 1&2 Ab/P24 Ag 4thGn Microbiology Microbiology Results: Microbiology 08/06/21 16:24 Blood Culture - Preliminary Blood - Venous No growth after 48 hours. 08/06/21 16:18 Blood Culture - Preliminary Blood - Venous No growth after 48 hours. Assessment and Plan (1) Decompensated hepatic cirrhosis: Status: Acute (2) Coagulopathy: Status: Acute (3) Scrotal edema: Status: Acute (4) Cellulitis: Status: Acute Plan This is a 60-year-old male with past medical history of hypertension presents to the hospital with scrotal edema as well as anasarca found to have cirrhotic liver. # decompensated liver failure secondary to liver cirrhosis, alcohol abuse, positive hepatitis-C status CT abdomen as reported Pending hepatitis panel, autoimmune battery, immunoglobulins, anti smooth muscle antibody, liver microsomal antibody, GI input appreciated Lasix 40 mg daily Continue spironolactone # coagulopathy INR 2.3 secondary to liver failure monitor for bleed follow CBC # scrotal edema secondary to ascites , improving ultrasound of the scrotum showed no significant abnormality except diffuse th ickening of the scrotum, with a small left hydrocele Continue lasix IV Keep scrotal elevation # Cellulitis of the penis, scrotum and suprapubic region Pending cultures Continue IV cephazolin # hepatitis-C infection To check PCR to follow-up as outpatient with gastroenterology # HTN continue home meds # drug use disorder Continue methadone home dose DVT ppx Heparin Quality Stroke Does the patient have a stroke diagnosis?: No VTE Prior VTE?: No VTE Risk Level:: Medical - moderate - high VTE Device Contraindication: Treatment Not Indicated VTE Drug Contraindication: N/A - Med Ordered
[2021-08-09] MEDS: methADONE HCl 20 MG/2 ML ORAL.CONC 65 MG PO (09:26)
[2021-08-09] MEDS: Furosemide 40 MG/4 ML VIAL IVPUSH ×2 (09:26→17:15)
[2021-08-09] MEDS: Spironolactone 25 MG TABLET PO (09:26)
[2021-08-09] MEDS: Potassium Chloride ER 20 MEQ TAB.ER.PRT 40 MEQ PO (09:26)
[2021-08-09 15:07] VITALS: BP 123/67; PULSE 57; RESP 18; TEMP 36.9; O2SAT 96
[2021-08-09 20:50] VITALS: BP 125/66; PULSE 58; RESP 12; TEMP 36.3; O2SAT 98
[2021-08-10 00:46] VITALS: BP 123/68; PULSE 62; RESP 16; O2SAT 96
[2021-08-10] MEDS: Heparin Sodium,Porcine 5,000 UNIT/ML VIAL 5000 UNIT SUBCUT (05:10)
[2021-08-10] MEDS: ceFAZolin Sodium/Dextrose,Iso 2 GM/50 ML PIGGYBACK IV (05:10)
[2021-08-10 07:30] LABS: B Type Natriuretic Peptide 258 pg/mL (<100)
[2021-08-10 07:31] VITALS: BP 136/68; PULSE 74; RESP 12; TEMP 36.5; O2SAT 98
[2021-08-10 07:42] LABS: Anti Nuclear Antibody Screen NEGATIVE (NEGATIVE)
[2021-08-10 07:43] LABS: Anion Gap 12 (12-20); Blood Urea Nitrogen 8 mg/dL (9-16); Calcium 8.9 mg/dL (8.4-10.2); Carbon Dioxide 30 mmol/L (22-29); Chloride 102 mmol/L (96-108); Creatinine Clr Calc Pharmacy 78.2; Estimated Glomerular Filt Rate > 60; Glucose Random 67 mg/dL (60-115); Potassium 4.1 mmol/L (3.3-5.1); Sodium 140 mmol/L (135-145)
[2021-08-10 09:04] VITALS: BP 108/69; PULSE 80; RESP 16; O2SAT 97
[2021-08-10] MEDS: Spironolactone 25 MG TABLET PO (09:05)
[2021-08-10] MEDS: Furosemide 40 MG/4 ML VIAL IVPUSH (09:05)
[2021-08-10] MEDS: 0.9 % Sodium Chloride Flush 3 ML SYRINGE IVFLUSH (09:06)
[2021-08-10] MEDS: methADONE HCl 20 MG/2 ML ORAL.CONC 65 MG PO (09:06)
--- NOTE | 2021-08-10 09:10 | MHC.CM.PN ---
Addendum entered by Deysi Palomares 08/10/21 10:56: Dr Celis is patient's PCP. [facility] will call patient to arrange a follow up appointment. Original Note: Received notification from Dr Carranza that patient will be discharged home today. Requesting [facility] for senior living. Unfortunately, patient does have an active PCP. PCP was at [facility] but left the group. patent legal assistant has been asked to make an appointment with the provider he was transferred to. After his first appointment, the PCP can request [facility] services. Patient will also need to follow up with GI. Patient's will transport him home. Continue to monitor for d/c needs.
--- NOTE | 2021-08-10 09:39 | P.DS_ITS ---
DS: Providers Provider Date of Service: 08/10/21 Date of admission: 08/06/21 20:18 Primary care physician: None Physician Consults: 08/06/21 20:15 Consult to Gastroenterology Routine Consulting Provider: Jon Brooks Reason for consultation: acute liver failure Has provider been notified: No DS: Diagnosis Discharge Diagnosis (1) Decompensated hepatic cirrhosis: Status: Acute (2) Coagulopathy: Status: Acute (3) Scrotal edema: Status: Acute (4) Cellulitis: Status: Acute DS: Summary Hospital Course Hospital Course: Admission note HPI This is a 60-year-old male past medical hypertension presents to the hospital with complaints of worsening swelling.? Patient reports that it started at his scrotum about 4 weeks ago, he presented to the hospital 3 weeks ago was told that it will go down in few days, but has now had swelling in his legs, his arms, as well as all over his body with worsening scrotal swelling as well as penile swelling.? He also has suprapubic pain.? Patient denies any abdominal pain, no nausea or vomiting, no diarrhea or constipation, he has no chest pain, no shortness of breath.? No headache or change in vision.? No change in his color of his skin.? His does report that his urine is darker, patient reports that his penis ramsay when he pees because it is swollen.? Otherwise he denies any fever or chills.? He was a former smoker but quit about 14 years ago, he reports that he has been told on and off that he has hep C and sometimes his told that he is not infected. Other review of system negative Labs are significant for WBC count of 7, hemoglobin of 11.5, PT of 20.5, INR of 2.0, lactic acid of 2.2, total bili of 6.1, direct bili 3.6, AST of 84, alk-phos of 181, BNP of 491, albumin of 2.5, UA negative, Abdominal pelvic CT shows nodular cirrhotic fibrotic liver with ascites that is slightly increased from June.? There is mild diffuse anasarca also increased from the previous exam.? Fluid is seen tracking into the left inguinal hernia with a significant scrotal and penile edema which has increased from the prior study done on 07/09/2021.? No abnormal soft tissue gas to suggest infectious etiology. Hospital course The patient was admitted to the hospital for fluid overload, scrotal edema which believed to be secondary to decompensated liver failure from liver cirrhosis, alcohol abuse, positive hepatitis-C status?. CT scan showed cirrhotic liver with ascites. Seen by Gastroenterology who recommended treatment with diuresis mainly and to start spironolactone with follow-up in the office for treatment of hepatitis-C. The patient was treated with IV Lasix with fair response as he lost significant amount of weight in the edema significantly improved in his lower extremities and scrotum with resolution of the anasarca pictures at time of presentation. He will be discharged home on Lasix 40 mg daily along with spironolactone 25 mg daily. As 2 discontinue lisinopril and amlodipine for the time being. Noted to have significantly elevated INR 2.3 secondary to liver failure. No bleeding noted as hemoglobin remained stable. Treated with IV antibiotics for suspicion of cellulitis. No fever, elevated WBCs . Finished 5 days during hospital stay with significant improvement. Discontinue amlodipine and lisinopril as your blood pressure running low Start Lasix and spironolactone as prescribed To follow up with GI as outpatient Time Spent with Patient Time attestation: Total time spent providing and/or coordinating discharge services: Discharge coordination time: Greater than 30 minutes Quality: Stroke Does the patient have a stroke diagnosis?: No Physical Exam Vital Signs: Vital Signs: Last Vital Signs Temp 97.7 F 08/10/21 07:31 Pulse 80 08/10/21 09:04 Resp 16 08/10/21 09:04 BP 108/69 08/10/21 09:04 Pulse Ox 97 08/10/21 09:04 BMI result Body Mass Index 26.4 Const: Other: Constitutional : Alert, oriented, not in distress Neck : Normal inspection, Supple Cardiovascular : RRR, S1 S2, trace bilateral lower extremity edema Respiratory : Good bilateral air entry, no crackles, wheezes or rhonchi Gastrointestinal: soft, lax, Normal bowel sounds, Non tender, distended with mild amount of ascites Skin : Warm, Dry, no more pitting edema in the back Urological, scrotal and penis swelling almost resolved Neurological : Alert & oriented x3, No focal deficit DS: Data Data Completed and Pending Labs on day of discharge: Laboratory Results - last 24 hr 08/06/21 08/10/21 08/10/21 20:52 06:57 06:57 Sodium 140 Potassium 4.1 D Chloride 102 Carbon Dioxide 30 H Anion Gap 12 BUN 8 L Creatinine 0.82 Estim Creat Clear Calc 78.2 Estimated GFR > 60 Random Glucose 67 Calcium 8.9 B-Natriuretic Peptide 258 H MICHELLE Screen NEGATIVE Preliminary micro results at discharge 08/06/21 16:24 Blood Culture - Preliminary Blood - Venous No growth after 48 hours. 08/06/21 16:18 Blood Culture - Preliminary Blood - Venous No growth after 48 hours. Discharge Plan Discharge Patient Disposition: Home, Self-Care Discharge Diagnosis: Decompensated liver failure Fluid overload Referrals: Hugo Celis III, MD [Physician] - 1 Week (OFFICE WILL CALL YOU TO SCHEDULE A FOLLOW UP PCP APPOINTMENT. ) Discharge Medications: New spironolactone 25 mg Tablet 25 mg PO DAILY 30 Days Qty: 30 0RF Protocol: Hold for SBP< HOLD for SBP < : 90 furosemide 40 mg tablet 40 mg PO QAM Qty: 30 0RF Discontinued amlodipine 5 mg tablet 1 tab PO DAILY 0RF lisinopril 5 mg tablet 1 tab PO DAILY 0RF Discharge Orders: Discharge Order (Routine); Ordered 08/10/21 Ordered By: Vinay Veloz Diet: low salt diet Activity on Discharge: As tolerated Stand Alone Forms: Patient Portal Discharge page Care Plan Goals: Read below Health Concerns: Read below Plan of Treatment: Read below Assessment: You were admitted to the hospital for evaluation of fluid overload in your abdomen, lower extremities and scrotum. We believe it is a result of having liver cirrhosis and you were treated with diuresis with fair response. You were evaluated by home health care provider Dr Brooks as you were tested positive for hepatitis-C who recommended follow-up in the office in the next few weeks. Discontinue amlodipine and lisinopril as your blood pressure running low Start Lasix and spironolactone as prescribed To follow up with GI as outpatient Monitor your weight
--- NOTE | 2021-08-10 11:06 | PC.NURSE ---
Pt provided with DC paperwork and verbalized understanding of teachings. Pt a/o and ambulatory at this time. tech brought pt outside for his ride to pick him up.
[2021-08-10 13:51] LABS: IgA 865 mg/dL (70-320); IgG 2830 mg/dL (600-1540); IgM 846 mg/dL (50-300)
[2021-08-10 23:52] LABS: Liver Kidney Microsomal Ab <=20.0 U (<=20.0)
[2021-08-11 03:51] LABS: Hepatitis A Antibody IgM 0.34 Index (0-0.79); ~Hepatitis A Antibody IgM Nonreactive (Nonreactive)
[2021-08-11 13:32] LABS: Smooth Muscle Antibody <20 U (<20)
== END 2021-08-10 11:00 | disposition home or self-care (01) | DRG 280 ==
LOC: HO.ED 18:30 → HO.EDOVER 20:38
PROVIDERS: Physician Assistant; Admitting Provider Internal Medicine; Emergency Provider Emergency Medicine; Visit Provider Student in an Organized Health Care Education/Training Program
DX: K70.40 Alcoholic hepatic failure without coma (principal); K70.31 Alcoholic cirrhosis of liver with ascites; D68.9 Coagulation defect, unspecified; E87.2 Acidosis; B19.20 Unspecified viral hepatitis C without hepatic coma; F11.20 Opioid dependence, uncomplicated; F10.10 Alcohol abuse, uncomplicated; I10 Essential (primary) hypertension; N48.22 Cellulitis of corpus cavernosum and penis; Z87.891 Personal history of nicotine dependence; Z20.822 Contact with and (suspected) exposure to COVID-19; Z88.5 Allergy status to narcotic agent; Z79.899 Other long term (current) drug therapy
CPT/HCPCS: 36415; 71046; 74177; 76870; 80048; 80076; 81003; 82140; 82784; 83605; 83735; 83880; 85025; 85027; 85610; 86015; 86038; 86039; 86376; 86704; 86706; 86709; 86803; 87040; 87340; 87389; 87635; 93975; 96361; 96365; 96366; 96367; 96375; 99284; 99285; J0690; J1940; J2543; J3370; P9047

== ENCOUNTER → 2021-08-18 12:50 | Outpatient (BNVA) | payer MEDICAID, SELFPAY | PROVIDERS: Visit Provider Urology | DX: N47.1 Phimosis (principal) | CPT/HCPCS: 99202 ==

== ENCOUNTER → 2021-12-21 09:55 | Outpatient (BNVA) | payer MEDICAID, SELFPAY | PROVIDERS: Visit Provider Urology | DX: N47.1 Phimosis (principal); N43.3 Hydrocele, unspecified | CPT/HCPCS: 99212 ==

== ENCOUNTER → 2021-12-28 08:47 | Outpatient (BNVA) | payer MEDICAID, SELFPAY | PROVIDERS: PCP Internal Medicine Geriatric Medicine; Visit Provider Urology | DX: N43.3 Hydrocele, unspecified (principal) | CPT/HCPCS: 55000 ==

== ENCOUNTER → 2022-01-19 10:18 | Outpatient (BNVA) | payer MEDICAID, SELFPAY | PROVIDERS: PCP Internal Medicine Geriatric Medicine; Visit Provider Urology | DX: N43.3 Hydrocele, unspecified (principal); N47.1 Phimosis | CPT/HCPCS: 99212 ==

== ENCOUNTER 2022-03-15 08:11 | Inpatient (IN) | payer MEDICAID, SELFPAY ==
[2022-03-15] VITALS (12 sets, daily range): BP systolic 94–154; BP diastolic 50–85; PULSE 58–80; RESP 8–20; TEMP 33.9–37.1; O2SAT 95–100; BMI 27.4
--- NOTE | ~2022-03-15 | US_ITS ---
EXAMINATION: US ABDOMEN LIMITED CLINICAL INFORMATION: Cirrhosis.. COMPARISON: None TECHNIQUE: Real-time imaging of the right upper quadrant abdominal viscera. FINDINGS: PANCREAS: The pancreas is completely obscured by overlying gas. LIVER: The liver is normal size, contour and heterogeneous in echotexture. No focal lesion or intrahepatic ductal dilatation seen. There is a small amount of ascites. GALLBLADDER: There are multiple echogenic gallstones with wall thickening measuring 0.33 cm. COMMON BILE DUCT: Normal in caliber measuring 1.1 cm cm in diameter. RIGHT KIDNEY: Normal. No hydronephrosis. No renal calculi or focal parenchymal lesions. The kidney measures 10.8 cm cm in maximum dimension. FREE FLUID: None. On Doppler imaging, There is normal hepatopedal flow seen in the left, right and main portal vein and extrahepatic portal vein. Normal antegrade flow seen in the main, right and left hepatic arteries. The hepatic veins are patent. There is normal IVC wave form which appears patent. US/US duplex arterial venous comp IMPRESSION: Cholelithiasis with mild wall thickening. Heterogeneous liver without focal lesion. Small amount of ascites. Normal hepatopedal flow seen in the portal vein and right and left branches. Normal hepatic artery antegrade flow. Normal flow in the main, left and right hepatic veins.
--- NOTE | ~2022-03-15 | US_ITS ---
EXAMINATION: US ABDOMEN LIMITED CLINICAL INFORMATION: Cirrhosis.. COMPARISON: None TECHNIQUE: Real-time imaging of the right upper quadrant abdominal viscera. FINDINGS: PANCREAS: The pancreas is completely obscured by overlying gas. LIVER: The liver is normal size, contour and heterogeneous in echotexture. No focal lesion or intrahepatic ductal dilatation seen. There is a small amount of ascites. GALLBLADDER: There are multiple echogenic gallstones with wall thickening measuring 0.33 cm. COMMON BILE DUCT: Normal in caliber measuring 1.1 cm cm in diameter. RIGHT KIDNEY: Normal. No hydronephrosis. No renal calculi or focal parenchymal lesions. The kidney measures 10.8 cm cm in maximum dimension. FREE FLUID: None. On Doppler imaging, There is normal hepatopedal flow seen in the left, right and main portal vein and extrahepatic portal vein. Normal antegrade flow seen in the main, right and left hepatic arteries. The hepatic veins are patent. There is normal IVC wave form which appears patent. US/US abdomen limited IMPRESSION: Cholelithiasis with mild wall thickening. Heterogeneous liver without focal lesion. Small amount of ascites. Normal hepatopedal flow seen in the portal vein and right and left branches. Normal hepatic artery antegrade flow. Normal flow in the main, left and right hepatic veins.
--- NOTE | ~2022-03-15 | XR_ITS ---
EXAMINATION: XR CHEST CLINICAL INFORMATION: Weakness. COMPARISON: 08/06/2021 chest radiographs. TECHNIQUE: Frontal view of the chest was obtained. FINDINGS: No significant abnormality is noted involving the heart, lungs, mediastinum, bony thorax or soft tissues. XR/XR chest 1V IMPRESSION: No acute cardiopulmonary process.
--- NOTE | ~2022-03-15 | CT_ITS ---
EXAMINATION: CT ABDOMEN AND PELVIS WITHOUT CONTRAST CLINICAL INFORMATION: Abdominal pain, swelling COMPARISON: 08/06/2021 TECHNIQUE: Multidetector volumetric imaging was performed from the superior aspect of the liver through the pubic symphysis. Sagittal and coronal reformatted images were obtained on the technologist's workstation. This CT examination was performed using dose optimization techniques as appropriate, variously including the following: *Automated exposure control *Adjustment of mA and/or kV according to patient size (this includes techniques or standardized protocols for targeted exams where dose is matched to indication/reason for exam; i.e. extremities or head) *Use of iterative reconstruction technique DLP: 788 mGy-cm FINDINGS: LUNG BASES: Bibasilar atelectasis. LIVER, GALLBLADDER, AND BILIARY TREE: The liver has a shrunken, nodular appearance consistent with cirrhosis. Significantly limited assessment for focal hepatic masses without intravenous contrast. The gallbladder is grossly unremarkable. PANCREAS: Grossly unremarkable. SPLEEN: Mildly enlarged. ADRENAL GLANDS: Unremarkable. KIDNEYS AND URETERS: The kidneys are normal in size, shape, and attenuation. No hydronephrosis, hydroureter, or calculi seen. No perinephric stranding. BLADDER: Unremarkable. GASTROINTESTINAL TRACT: No evidence of bowel obstruction. No significant bowel wall thickening is seen, though assessment is limited in some regions due to incomplete distension. Patient appears status post appendectomy. Moderate volume ascites, increased from prior. No free air is seen. ABDOMINAL WALL: Left inguinal hernia contains fluid, increased from prior. Fat-containing right inguinal hernia. LYMPH NODES: No lymphadenopathy is seen, though assessment is limited in the absence of intravenous contrast. VASCULAR: Scattered atherosclerotic calcifications are present. PELVIC VISCERA: Unremarkable. OSSEOUS STRUCTURES: Unremarkable. CT/CT abdomen pelvis wo IV con IMPRESSION: 1. Redemonstrated findings of cirrhosis and portal hypertension including moderate volume ascites which has increased from 08/06/2021. 2. Fluid extends into the left inguinal canal, increased from prior. Fat-containing right inguinal hernia redemonstrated. 3. No evidence of bowel obstruction.
[2022-03-15] MEDS: Dextrose 50 % 25 GM/50 ML SYRINGE IVPUSH (08:20)
--- NOTE | 2022-03-15 08:32 | ED_ITS ---
HPI - General Adult General Chief complaint: Abdominal Pain <YENNIFER Hernandez - Last Filed: 03/15/22 12:33> Stated complaint: SOB,EDEMA <YENNIFER Hernandez - Last Filed: 03/15/22 12:33> Time Seen by Provider: 03/15/22 08:32 <YENNIFER Hernandez Last Filed: 03/15/22 12:33> Source: patient, family (), EMS and churn tender <YENNIFER Hernandez - Last Filed: 03/15/22 12:33> Mode of arrival: EMS <YENNIFER Hernandez - Last Filed: 03/15/22 12:33> Limitations: language barrier <YENNIFER Hernandez Last Filed: 03/15/22 12:33> History of Present Illness HPI narrative: Patient is a 61 year old male presenting to the emergency department today with shortness of breath and abdominal pain. Patient states that over the last few days, his shortness of breath and abdominal pain has gotten worse. Patient states that he was going to have a liver procedure done on the 3rd floor here so he was fasting. Patient's states that his scrotum has been swelling for a year and he has been seeing urology for it. Patient denies any dizziness, lightheadedness, nausea, vomiting, fever, chills, blurry vision, double vision, loss of vision, chest pain, back pain, night sweats, pain with urination, increased urinary frequency, increased urinary urgency, blood in his urine or stool, syncope or a near syncopal episode, recent trauma or falls, bowel incontinence, bladder incontinence, bowel retention, bladder retention, or any other complaints at this time. <YENNIFER Hernandez - Last Filed: 03/15/22 12:33> Onset (ago): day(s) <YENNIFER Hernandez - Last Filed: 03/15/22 12:33> Location: abdomen <YENNIFER Hernandez Last Filed: 03/15/22 12:33> Radiation: non-radiation <YENNIFER Hernandez Last Filed: 03/15/22 12:33> Severity: moderate <YENNIFER Hernandez Last Filed: 03/15/22 12:33> Severity scale (1-10): 5 <YENNIFER Hernandez - Last Filed: 03/15/22 12:33> Relieving factors: none <YENNIFER Hernandez Last Filed: 03/15/22 12:33> Exacerbating factors: none <YENNIFER Hernandez - Last Filed: 03/15/22 12:33> Treatments prior to arrival: none <YENNIFER Hernandez Last Filed: 03/15/22 12:33> Related Data Home medications: Previous Rx's Medication Instructions Recorded furosemide 40 mg tablet 40 mg PO QAM #30 tabs 08/10/21 spironolactone 25 mg tablet 25 mg PO DAILY 30 days #30 tabs 08/10/21 clotrimazole-betamethasone 1 1 appl topical BID 4 weeks #45 08/18/21 %-0.05 % topical cream grams <YENNIFER Hernandez Last Filed: 03/15/22 12:33> Allergies/adverse reactions: Allergies Allergy/AdvReac Type Severity Reaction Status Date / Time tramadol [TRAMADOL] Allergy Unknown ANXIETY Verified 01/18/22 15:44 <YENNIFER Hernandez - Last Filed: 03/15/22 12:33> Review of Systems Constitutional: Constitutional: Reports no additional constitutional complaints, Denies chills, Denies fever(s) and Denies night sweats <YENNIFER Hernandez - Last Filed: 03/15/22 12:33> Eyes: Eyes: Reports no additional eye complaints, Denies blurry vision, Denies change in vision, Denies diplopia, Denies eye discharge, Denies loss of vision and Denies eye pain <YENNIFER Hernandez - Last Filed: 03/15/22 12:33> ENT: Denies dizziness <YENNIFER Hernandez Last Filed: 03/15/22 12:33> Cardiovascular: Cardiovascular: Reports no additional cardiovascular complaints, Denies chest pain, Reports leg edema, Denies lightheadedness, Denies Loss of Consciousness and Reports dyspnea <YENNIFER Hernandez Last Filed: 03/15/22 12:33> Respiratory: Respiratory: Reports no additional respiratory complaints and Reports dyspnea <YENNIFER Hernandez Last Filed: 03/15/22 12:33> Gastrointestinal: Gastrointestinal: Reports no additional gastrointestinal complaints, Reports abdominal pain, Denies melena, Denies hematochezia, Denies change in bowel habits and Denies change in stool character <YENNIFER Hernandez - Last Filed: 03/15/22 12:33> Genitourinary: Genitourinary: Reports no additional male genitourinary complaints, Denies hematuria, Denies oliguria, Denies difficulty urinating, Denies dysuria, Reports scrotal swelling, Denies urinary frequency, Denies urinary hesitancy, Denies urinary incontinence and Denies urinary urgency < YENNIFER Hernandez - Last Filed: 03/15/22 12:33> Musculoskeletal: Musculoskeletal: Reports no additional musculoskeletal complaints, Denies numbness and Denies tingling <YENNIFER Hernandez - Last Filed: 03/15/22 12:33> Neurologic: Denies dizziness, Denies loss of vision, Denies numbness and Denies tingling <YENNIFER Hernandez - Last Filed: 03/15/22 12:33> Psychiatric: Psychiatric: Reports no additional psychiatric complaints <YENNIFER Hernandez - Last Filed: 03/15/22 12:33> Endocrine: Endocrine: Reports no additional endocrine complaints <YENNIFER Hernandez - Last Filed: 03/15/22 12:33> Hematologic/Lymphatic: Hematologic/Lymphatic: Reports no additional hematologic/lymphatic complaints <YENNIFER Hernandez - Last Filed: 03/15/22 12:33> Allergic/Immunologic: Allergic/Immunologic: Reports no additional allergic/immunologic complaints <YENNIFER Hernandez - Last Filed: 03/15/22 12:33> [facility] Past Medical History Attestation statement: The following information was validated with the patient. <YENNIFER Hernandez - Last Filed: 03/15/22 12:33> Source: old records reviewed <YENNIFER Hernandez - Last Filed: 03/15/22 12:33> Medical History: Medical History Cirrhosis Coagulopathy Decompensated hepatic cirrhosis Hypertension <YENNIFER Hernandez Last Filed: 03/15/22 12:33> Surgical History: Surgical History History of appendectomy History of eye surgery <YENNIFER Hernandez - Last Filed: 03/15/22 12:33> Family History Family History: Family History Other No family history of coronary artery disease <YENNIFER Hernandez - Last Filed: 03/15/22 12:33> Social History Social History: Social History Alcohol intake: former Patient Tobacco Use Status: Former Tobacco user Use of substances other than those prescribed or required for medical reasons: No Advance Directives: No Advance Directives Information Provided: Yes service: No Current occupational status: unemployed <YENNIFER Hernandez - Last Filed: 03/15/22 12:33> Physical Exam ED Vital Signs: Vital Signs - 24 hr 03/15/22 08:28 03/15/22 08:50 03/15/22 09:41 Temperature 93.1 F L 93.1 F L 93.7 F L Pulse Rate 79 74 68 Respiratory Rate 20 20 20 Blood Pressure 144/73 H 154/85 H 142/70 H Pulse Oximetry 100 100 99 Oxygen Delivery Method Room Air Room Air Room Air 03/15/22 10:28 03/15/22 10:07 03/15/22 11:19 Temperature 94.5 F L 95.0 F L Pulse Rate 62 63 67 Respiratory Rate 18 8 L Blood Pressure 134/70 123/69 119/68 Pulse Oximetry 97 97 100 Oxygen Delivery Method Room Air Room Air Room Air 03/15/22 12:40 Temperature 95.5 F L Pulse Rate 70 Respiratory Rate 16 Blood Pressure 131/73 Pulse Oximetry 98 Oxygen Delivery Method Room Air BMI result Body Mass Index 27.4 <YENNIFER Hernandez - Last Filed: 03/15/22 12:33> Vital Signs - 24 hr 03/15/22 08:28 03/15/22 08:50 03/15/22 09:41 Temperature 93.1 F L 93.1 F L 93.7 F L Pulse Rate 79 74 68 Respiratory Rate 20 20 20 Blood Pressure 144/73 H 154/85 H 142/70 H Pulse Oximetry 100 100 99 Oxygen Delivery Method Room Air Room Air Room Air 03/15/22 10:28 03/15/22 10:07 03/15/22 11:19 Temperature 94.5 F L 95.0 F L Pulse Rate 62 63 67 Respiratory Rate 18 8 L Blood Pressure 134/70 123/69 119/68 Pulse Oximetry 97 97 100 Oxygen Delivery Method Room Air Room Air Room Air 03/15/22 12:40 Temperature 95.5 F L Pulse Rate 70 Respiratory Rate 16 Blood Pressure 131/73 Pulse Oximetry 98 Oxygen Delivery Method Room Air BMI result Body Mass Index 27.4 <Lyle Meyers MD - Last Filed: 03/15/22 12:47> Const General: cooperative, no acute distress, alert and awake <YENNIFER Hernandez - Last Filed: 03/15/22 12:33> Nutritional Appearance: well nourished <YENNIFER Hernandez - Last Filed: 03/15/22 12:33> Orientation/consciousness: patient oriented x3 <YENNIFER Hernandez - Last Filed: 03/15/22 12:33> Limitations: no limitations <YENNIFER Hernandez - Last Filed: 03/15/22 12:33> HENMT Head: Yes normal to inspection and Yes atraumatic <YENNIFER Hernandez - Last Filed: 03/15/22 12:33> Ears: hearing grossly normal bilaterally and external ears normal <YENNIFER Hernandez - Last Filed: 03/15/22 12:33> General nose exam: Normal external nose present, no nasal discharge noted and no epistaxis <YENNIFER Hernandez - Last Filed: 03/15/22 12:33> Face and sinus: Yes normal facial exam, No abrasion and No laceration <YENNIFER Hernandez - Last Filed: 03/15/22 12:33> Mouth: Normal oral and palatal mucosa present, no drooling and no muffled voice <YENNIFER Hernandez - Last Filed: 03/15/22 12:33> Eyes General: appearance normal, both eyes and all related structures <YENNIFER Hernandez - Last Filed: 03/15/22 12:33> Periorbital: periorbital findings normal <YENNIFER Hernandez - Last Filed: 03/15/22 12:33> Eyelids: Yes eyelids normal <YENNIFER Hernandez - Last Filed: 03/15/22 12:33> Conjunctivae: conjunctivae normal <Ambika Gonzales MO - Last Filed: 03/15/22 12:33> Pupils: Equal, round and reactive pupils present <Ambika Gonzales MO - Last Filed: 03/15/22 12:33> EOM: EOMs intact bilaterally <Ambika Gonzales MO - Last Filed: 03/15/22 12:33> Neck Neck: Yes normal visual inspection, Yes full ROM and Yes no lymphadenopathy <Ambika Gonzales MO - Last Filed: 03/15/22 12:33> Chest Chest palpation & inspection: normal inspection of the chest <Ambika Gonzales MO - Last Filed: 03/15/22 12:33> Resp Effort & Inspection: normal respiratory effort and able to speak in complete sentences <Ambika Gonzales MO - Last Filed: 03/15/22 12:33> Auscultation: crackles bilateral <Ambika Gonzales MO - Last Filed: 03/15/22 12:33> Cardio Rate: regular rate <Ambika Gonzales MO - Last Filed: 03/15/22 12:33> Rhythm: regular rhythm <Ambika Gonzales MO - Last Filed: 03/15/22 12:33> GI Inspection: Yes Abdominal wall edema and Yes distended <Ambika Gonzales MO - Last Filed: 03/15/22 12:33> Palpation (GI): Soft to palpation, not firm, Tenderness to palpation present (GI), no guarding and not rigid <Ambika Bautistajose MO - Last Filed: 03/15/22 12:33> Neuro General: patient oriented x3 and moves all extremities <Ambika Gonzales MO - Last Filed: 03/15/22 12:33> Cranial nerves: Yes Equal, round and reactive pupils present <Ambika Gonzales MO - Last Filed: 03/15/22 12:33> Cognition (Neuro): normal cognition <Ambika Gonzales MO - Last Filed: 03/15/22 12:33> Motor exam (neuro): 5/5 motor strength present throughout <Ambika Gonzales MO - Last Filed: 03/15/22 12:33> Sensory Exam: Normal double simultaneous stimulation for sensation <AmbikaYENNIFER Peterson - Last Filed: 03/15/22 12:33> Coordination: [id number] test normal <YENNIFER Hernandez - Last Filed: 03/15/22 12:33> Extrem General: Yes full ROM, Yes capillary refill normal, Yes edema and Yes pedal edema <YENNIFER Hernandez - Last Filed: 03/15/22 12:33> Psych Appearance: grossly normal <YENNIFER Hernandez - Last Filed: 03/15/22 12:33> Mental Status: mental status grossly normal <YENNIFER Hernandez - Last Filed: 03/15/22 12:33> Affect: normal affect <YENNIFER Hernandez - Last Filed: 03/15/22 12:33> Attitude: cooperative <YENNIFER Hernandez - Last Filed: 03/15/22 12:33> Thought process: Normal thought process present <YENNIFER Hernandez - Last Filed: 03/15/22 12:33> Thought content: Normal thought content present <YENNIFER Hernandez - Last Filed: 03/15/22 12:33> Insight: Good insight present (Psych) <YENNIFER Hernandez - Last Filed: 03/15/22 12:33> Course Reevaluation(s) Reevaluation #1: male with hypothermia, low sugar, elevated lactic acid and WBC with diffusely tender abdomen. Will treat as sepsis and tap the abdomen for peritonitis <Lyle Meyers MD - Last Filed: 03/15/22 12:47> Time: 12:47 <Lyle Meyers MD - Last Filed: 03/15/22 12:47> Procedures Paracentesis Time Out Performed: Yes <YENNIFER Hernandez - Last Filed: 03/15/22 12:33> Indication: possible spontaneous bacterial peritonitis <YENNIFER Hernandez - Last F iled: 03/15/22 12:33> Procedure: diagnostic paracentesis <YENNIFER Hernandez - Last Filed: 03/15/22 12:33> Location: [facility] <YENNIFER Hernandez - Last Filed: 03/15/22 12:33> Local Anesthetic: lidocaine 1% <YENNIFER Hernandez - Last Filed: 03/15/22 12:33> Amount of anesthesia used (mL): 7 <YENNIFER Hernandez Last Filed: 03/15/22 12:33> Bedside Ultrasound Used: yes, Ascites confirmed and location marked <YENNIFER Hernandez Last Filed: 03/15/22 12:33> Preparation: sterile prep and drape <YENNIFER Hernandez Last Filed: 03/15/22 12:33> Amount of fluid obtained (mL): 1,500 <YENNIFER Hernandez Last Filed: 03/15/22 12:33> Fluid: cloudy <YENNIFER Hernandez Last Filed: 03/15/22 12:33> Size of Needle Used: 16 <YENNIFER Hernandez Last Filed: 03/15/22 12:33> Post Procedure Exam: awake, alert, normal BP, normal HR and normal SpO2 <YENNIFER Hernandez Last Filed: 03/15/22 12:33> Patient Tolerated Procedure: well <YENNIFER Hernandez Last Filed: 03/15/22 12:33> Complications: none <YENNIFER Hernandez Last Filed: 03/15/22 12:33> Medical Decision Making MDM Narrative Medical decision making narrative: Patient is a 61 year old male presenting to the emergency department today with abdominal pain and shortness of breath. Patient's physical exam showed diffuse abdominal pain with ascites, scrotal swelling, bilateral lower leg pitting edema, and crackles in the lungs. Patient's intital blood sugar was 41 for which the patient was immediately given an amp of D50 which increased his sugar to 141. Patient's blood work showed an elevated WBC count of 20.9, decreased sodium of 134, BUN of 37, CR of 1.58, and initial lactic acid of 3.7. I considered the patient to be septic at 0856 and an alert was called. Patient was immediately given IV Vancomycin and Zosyn. Patient was excluded from the full sepsis fluid bolus secondary to severe fluid overload as evident with the crackles in his lungs, the ascites, scrotal swelling, and the bilateral lower leg edema. Patient was started on 150ml/hr of NS. Patient's urine showed no acute process. Patient's EKG was unremarkable. Patient's chest x-ray showed no acute process. Patient's abdominal CT showed cirrhosis, portal hypertension, and moderate volume ascites. Paracententesis was performed at the bedside by myself and Dr. Meyers which resulted in 1.5 liters of peritoneal fluid being withdrawn. Patient's peritoneal fluid came back with >250 WBC cells, increasing suspicion of spontaneous bacterial peritonitis. I explained my physical exam findings as well as all test results to the patient and the patient's . I answered all questions asked by the patient and the patient's . I spoke to Dr. Evans, who agreed to hospital admission. <YENNIFER Hernandez - Last Filed: 03/15/22 12:33> Medical Records Medical records reviewed: Yes I reviewed the patient's medical records. <YENNIFER Hernandez - Last Filed: 03/15/22 12:33> Lab Data Lab results reviewed: Yes I reviewed the patient's lab results. <YENNIFER Hernandez - Last Filed: 03/15/22 12:33> Result diagrams: : 03/15/22 08:32 03/15/22 08:32 <YENNIFER Hernandez - Last Filed: 03/15/22 12:33> Labs: Lab Results 03/15/22 03/15/22 03/15/22 Range/Units 08:26 08:32 08:32 WBC 20.9 H (4.8-10.8) X10*3/uL RBC 3.29 L (4.60-5.80) X10*6/uL Hgb 11.1 L (14.0-18.0) g/dl Hct 32.2 L (42.0-52.0) % MCV 97.9 (80.0-98.0) fL MCH 33.7 H (27.0-33.0) pg MCHC 34.5 (31.0-36.0) g/dl RDW 15.9 (11.0-16.0) % Plt Count 100 L D (160-400) X10*3/uL MPV 12.1 (9.4-12.4) fL Immature Gran % (Auto) Cancelled Neut % (Auto) Cancelled Lymph % (Auto) Cancelled [place] % (Auto) Cancelled Eos % (Auto) Cancelled Baso % (Auto) Cancelled Lymph # (Auto) Cancelled [place] # (Auto) Cancelled Eos # (Auto) Cancelled Baso # (Auto) Cancelled Abs Immat Gran (auto) Cancelled Absolute Neuts (auto) Cancelled Absolute Nucleated RBC 0.000 (0.0-0.012) X10*3/uL Nucleated RBC % (auto) 0.0 (0.0-0.2) /100WBC Neutrophils % (Manual) 81 H (45-73) % Band Neutrophils % 6 H (3-5) % Lymphocytes % (Manual) 1 L (20-40) % Monocytes % (Manual) 8 (2-11) % Eosinophils % (Manual) 1 (0-4) % Metamyelocytes % 3 % Abs Neuts (Manual) 18.2 H (2.0-8.3) X10*3/uL Lymphocytes # (Manual) 0.2 L (1.2-4.9) X10*3/uL Monocytes # (Manual) 1.7 H (0.1-1.2) X10*3/uL Eosinophils # (Manual) 0.2 (0.0-0.4) X10*3/uL Metamyelocytes # 0.6 X10*3/uL Platelet Estimate DECREASED (NORMAL) Plt Morphology Comment NORMAL RBC Morphology NOTED [place] Cells 1+ (0-2) /OIF PT (10.0-13.1) SEC INR (0.9-1.1) APTT (26.0-36.4) SEC VBG pH (7.32-7.43) VBG pCO2 mmHg VBG pO2 mmHg VBG HCO3 (22-26) mmol/L VBG O2 Saturation % VBG Base Excess mmol/L Sodium 134 L (135-145) mmol/L Potassium 4.6 (3.3-5.1) mmol/L Chloride 95 L (96-108) mmol/L Carbon Dioxide 26 (22-29) mmol/L Anion Gap 18 (12-20) BUN 37 H D (9-16) mg/dL Creatinine 1.58 H (0.5-1.4) mg/dL Estim Creat Clear Calc 43.6 Estimated GFR 45 POC Glucose 41 L* (60-115) mg/dL Random Glucose 51 L* (60-115) mg/dL Lactic Acid (0.5-2.0) mmol/L Lactic Acid F/U @ 2Hr (0.5-2.0) mmol/L Calcium 8.7 (8.4-10.2) mg/dL Phosphorus 4.3 (2.7-4.5) mg/dL Magnesium 1.9 (1.6-2.6) mg/dL Total Bilirubin 6.8 H (0.0-1.0) mg/dL AST 53 H (5-37) U/L ALT 30 (0-40) U/L Alkaline Phosphatase 184 H (39-117) U/L Ammonia (13-55) umol/L Troponin I High Sens (<3.5-35.0) ng/L B-Natriuretic Peptide (<100) pg/mL Total Protein 7.5 (6.5-8.0) g/dL Albumin 2.2 L (3.5-5.0) g/dL Urine Color Urine Appearance Urine pH (5.0-9.0) Ur Specific Wolf (1.005-1.025) Urine Protein (Neg-Trace) mg/dL Urine Glucose (UA) (Negative) mg/dL Urine Ketones (Negative) mg/dL Urine Blood (Negative) Urine Nitrite (Negative) Ur Leukocyte Esterase (Negative) Peritoneal WBC X10*3/uL Peritoneal RBC X10*6/uL Periton Neutrophils % Periton Lymphocytes % Peritoneal Monocytes % Peritoneal Other Cells % COVID-19 (SRIDEVI) (Negative) COVID-19 Clin Com 03/15/22 03/15/22 03/15/22 Range/Units 08:32 08:32 08:55 WBC (4.8-10.8) X10*3/uL RBC (4.60-5.80) X10*6/uL Hgb (14.0-18.0) g/dl Hct (42.0-52.0) % MCV (80.0-98.0) fL MCH (27.0-33.0) pg MCHC (31.0-36.0) g/dl RDW (11.0-16.0) % Plt Count (160-400) X10*3/uL MPV (9.4-12.4) fL Immature Gran % (Auto) Neut % (Auto) Lymph % (Auto) [place] % (Auto) Eos % (Auto) Baso % (Auto) Lymph # (Auto) [place] # (Auto) Eos # (Auto) Baso # (Auto) Abs Immat Gran (auto) Absolute Neuts (auto) Absolute Nucleated RBC (0.0-0.012) X10*3/uL Nucleated RBC % (auto) (0.0-0.2) /100WBC Neutrophils % (Manual) (45-73) % Band Neutrophils % (3-5) % Lymphocytes % (Manual) (20-40) % Monocytes % (Manual) (2-11) % Eosinophils % (Manual) (0-4) % Metamyelocytes % % Abs Neuts (Manual) (2.0-8.3) X10*3/uL Lymphocytes # (Manual) (1.2-4.9) X10*3/uL Monocytes # (Manual) (0.1-1.2) X10*3/uL Eosinophils # (Manual) (0.0-0.4) X10*3/uL Metamyelocytes # X10*3/uL Platelet Estimate (NORMAL) Plt Morphology Comment RBC Morphology [place] Cells /OIF PT (10.0-13.1) SEC INR (0.9-1.1) APTT (26.0-36.4) SEC VBG pH (7.32-7.43) VBG pCO2 mmHg VBG pO2 mmHg VBG HCO3 (22-26) mmol/L VBG O2 Saturation % VBG Base Excess mmol/L Sodium (135-145) mmol/L Potassium (3.3-5.1) mmol/L Chloride (96-108) mmol/L Carbon Dioxide (22-29) mmol/L Anion Gap (12-20) BUN (9-16) mg/dL Creatinine (0.5-1.4) mg/dL Estim Creat Clear Calc Estimated GFR POC Glucose 141 H (60-115) mg/dL Random Glucose (60-115) mg/dL Lactic Acid 3.7 H* (0.5-2.0) mmol/L Lactic Acid F/U @ 2Hr (0.5-2.0) mmol/L Calcium (8.4-10.2) mg/dL Phosphorus (2.7-4.5) mg/dL Magnesium (1.6-2.6) mg/dL Total Bilirubin (0.0-1.0) mg/dL AST (5-37) U/L ALT (0-40) U/L Alkaline Phosphatase (39-117) U/L Ammonia (13-55) umol/L Troponin I High Sens < 3.5 (<3.5-35.0) ng/L B-Natriuretic Peptide (<100) pg/mL Total Protein (6.5-8.0) g/dL Albumin (3.5-5.0) g/dL Urine Color Urine Appearance Urine pH (5.0-9.0) Ur Specific [place] (1.005-1.025) Urine Protein (Neg-Trace) mg/dL Urine Glucose (UA) (Negative) mg/dL Urine Ketones (Negative) mg/dL Urine Blood (Negative) Urine Nitrite (Negative) Ur Leukocyte Esterase (Negative) Peritoneal WBC X10*3/uL Peritoneal RBC X10*6/uL Periton Neutrophils % Periton Lymphocytes % Peritoneal Monocytes % Peritoneal Other Cells % COVID-19 (SRIDEVI) (Negative) COVID-19 Clin Com 03/15/22 03/15/22 03/15/22 Range/Units 08:59 08:59 08:59 WBC (4.8-10.8) X10*3/uL RBC (4.60-5.80) X10*6/uL Hgb (14.0-18.0) g/dl Hct (42.0-52.0) % MCV (80.0-98.0) fL MCH (27.0-33.0) pg MCHC (31.0-36.0) g/dl RDW (11.0-16.0) % Plt Count (160-400) X10*3/uL MPV (9.4-12.4) fL Immature Gran % (Auto) Neut % (Auto) Lymph % (Auto) [place] % (Auto) Eos % (Auto) Baso % (Auto) Lymph # (Auto) [place] # (Auto) Eos # (Auto) Baso # (Auto) Abs Immat Gran (auto) Absolute Neuts (auto) Absolute Nucleated RBC (0.0-0.012) X10*3/uL Nucleated RBC % (auto) (0.0-0.2) /100WBC Neutrophils % (Manual) (45-73) % Band Neutrophils % (3-5) % Lymphocytes % (Manual) (20-40) % Monocytes % (Manual) (2-11) % Eosinophils % (Manual) (0-4) % Metamyelocytes % % Abs Neuts (Manual) (2.0-8.3) X10*3/uL Lymphocytes # (Manual) (1.2-4.9) X10*3/uL Monocytes # (Manual) (0.1-1.2) X10*3/uL Eosinophils # (Manual) (0.0-0.4) X10*3/uL Metamyelocytes # X10*3/uL Platelet Estimate (NORMAL) Plt Morphology Comment RBC Morphology [place] Cells /OIF PT (10.0-13.1) SEC INR (0.9-1.1) APTT (26.0-36.4) SEC VBG pH (7.32-7.43) VBG pCO2 mmHg VBG pO2 mmHg VBG HCO3 (22-26) mmol/L VBG O2 Saturation % VBG Base Excess mmol/L Sodium (135-145) mmol/L Potassium (3.3-5.1) mmol/L Chloride (96-108) mmol/L Carbon Dioxide (22-29) mmol/L Anion Gap (12-20) BUN (9-16) mg/dL Creatinine (0.5-1.4) mg/dL Estim Creat Clear Calc Estimated GFR POC Glucose (60-115) mg/dL Random Glucose (60-115) mg/dL Lactic Acid (0.5-2.0) mmol/L Lactic Acid F/U @ 2Hr (0.5-2.0) mmol/L Calcium (8.4-10.2) mg/dL Phosphorus (2.7-4.5) mg/dL Magnesium (1.6-2.6) mg/dL Total Bilirubin (0.0-1.0) mg/dL AST (5-37) U/L ALT (0-40) U/L Alkaline Phosphatase (39-117) U/L Ammonia 51 (13-55) umol/L Troponin I High Sens (<3.5-35.0) ng/L B-Natriuretic Peptide 204 H (<100) pg/mL Total Protein (6.5-8.0) g/dL Albumin (3.5-5.0) g/dL Urine Color Urine Appearance Urine pH (5.0-9.0) Ur Specific [place] (1.005-1.025) Urine Protein (Neg-Trace) mg/dL Urine Glucose (UA) (Negative) mg/dL Urine Ketones (Negative) mg/dL Urine Blood (Negative) Urine Nitrite (Negative) Ur Leukocyte Esterase (Negative) Peritoneal WBC X10*3/uL Peritoneal RBC X10*6/uL Periton Neutrophils % Periton Lymphocytes % Peritoneal Monocytes % Peritoneal Other Cells % COVID-19 (SRIDEVI) Negative (Negative) COVID-19 Clin Com See Note 03/15/22 03/15/22 03/15/22 Range/Units 09:04 09:40 09:43 WBC (4.8-10.8) X10*3/uL RBC (4.60-5.80) X10*6/uL Hgb (14.0-18.0) g/dl Hct (42.0-52.0) % MCV (80.0-98.0) fL MCH (27.0-33.0) pg MCHC (31.0-36.0) g/dl RDW (11.0-16.0) % Plt Count (160-400) X10*3/uL MPV (9.4-12.4) fL Immature Gran % (Auto) Neut % (Auto) Lymph % (Auto) [place] % (Auto) Eos % (Auto) Baso % (Auto) Lymph # (Auto) [place] # (Auto) Eos # (Auto) Baso # (Auto) Abs Immat Gran (auto) Absolute Neuts (auto) Absolute Nucleated RBC (0.0-0.012) X10*3/uL Nucleated RBC % (auto) (0.0-0.2) /100WBC Neutrophils % (Manual) (45-73) % Band Neutrophils % (3-5) % Lymphocytes % (Manual) (20-40) % Monocytes % (Manual) (2-11) % Eosinophils % (Manual) (0-4) % Metamyelocytes % % Abs Neuts (Manual) (2.0-8.3) X10*3/uL Lymphocytes # (Manual) (1.2-4.9) X10*3/uL Monocytes # (Manual) (0.1-1.2) X10*3/uL Eosinophils # (Manual) (0.0-0.4) X10*3/uL Metamyelocytes # X10*3/uL Platelet Estimate (NORMAL) Plt Morphology Comment RBC Morphology [place] Cells /OIF PT 30.7 H (10.0-13.1) SEC INR 2.6 H (0.9-1.1) APTT 41.7 H (26.0-36.4) SEC VBG pH 7.35 (7.32-7.43) VBG pCO2 50 mmHg VBG pO2 50 mmHg VBG HCO3 28 H (22-26) mmol/L VBG O2 Saturation 72.0 % VBG Base Excess 2.1 mmol/L Sodium (135-145) mmol/L Potassium (3.3-5.1) mmol/L Chloride (96-108) mmol/L Carbon Dioxide (22-29) mmol/L Anion Gap (12-20) BUN (9-16) mg/dL Creatinine (0.5-1.4) mg/dL Estim Creat Clear Calc Estimated GFR POC Glucose (60-115) mg/dL Random Glucose (60-115) mg/dL Lactic Acid (0.5-2.0) mmol/L Lactic Acid F/U @ 2Hr (0.5-2.0) mmol/L Calcium (8.4-10.2) mg/dL Phosphorus (2.7-4.5) mg/dL Magnesium (1.6-2.6) mg/dL Total Bilirubin (0.0-1.0) mg/dL AST (5-37) U/L ALT (0-40) U/L Alkaline Phosphatase (39-117) U/L Ammonia (13-55) umol/L Troponin I High Sens (<3.5-35.0) ng/L B-Natriuretic Peptide (<100) pg/mL Total Protein (6.5-8.0) g/dL Albumin (3.5-5.0) g/dL Urine Color Dark Yellow Urine Appearance Clear Urine pH 6.0 (5.0-9.0) Ur Specific Wolf 1.015 (1.005-1.025) Urine Protein Negative (Neg-Trace) mg/dL Urine Glucose (UA) Negative (Negative) mg/dL Urine Ketones Negative (Negative) mg/dL Urine Blood Negative (Negative) Urine Nitrite Negative (Negative) Ur Leukocyte Esterase Negative (Negative) Peritoneal WBC X10*3/uL Peritoneal RBC X10*6/uL Periton Neutrophils % Periton Lymphocytes % Peritoneal Monocytes % Peritoneal Other Cells % COVID-19 (SRIDEVI) (Negative) COVID-19 Clin Com 03/15/22 03/15/22 03/15/22 Range/Units 09:44 10:41 11:18 WBC (4.8-10.8) X10*3/uL RBC (4.60-5.80) X10*6/uL Hgb (14.0-18.0) g/dl Hct (42.0-52.0) % MCV (80.0-98.0) fL MCH (27.0-33.0) pg MCHC (31.0-36.0) g/dl RDW (11.0-16.0) % Plt Count (160-400) X10*3/uL MPV (9.4-12.4) fL Immature Gran % (Auto) Neut % (Auto) Lymph % (Auto) [place] % (Auto) Eos % (Auto) Baso % (Auto) Lymph # (Auto) [place] # (Auto) Eos # (Auto) Baso # (Auto) Abs Immat Gran (auto) Absolute Neuts (auto) Absolute Nucleated RBC (0.0-0.012) X10*3/uL Nucleated RBC % (auto) (0.0-0.2) /100WBC Neutrophils % (Manual) (45-73) % Band Neutrophils % (3-5) % Lymphocytes % (Manual) (20-40) % Monocytes % (Manual) (2-11) % Eosinophils % (Manual) (0-4) % Metamyelocytes % % Abs Neuts (Manual) (2.0-8.3) X10*3/uL Lymphocytes # (Manual) (1.2-4.9) X10*3/uL Monocytes # (Manual) (0.1-1.2) X10*3/uL Eosinophils # (Manual) (0.0-0.4) X10*3/uL Metamyelocytes # X10*3/uL Platelet Estimate (NORMAL) Plt Morphology Comment RBC Morphology Logan Cells /OIF PT (10.0-13.1) SEC INR (0.9-1.1) APTT (26.0-36.4) SEC VBG pH (7.32-7.43) VBG pCO2 mmHg VBG pO2 mmHg VBG HCO3 (22-26) mmol/L VBG O2 Saturation % VBG Base Excess mmol/L Sodium (135-145) mmol/L Potassium (3.3-5.1) mmol/L Chloride (96-108) mmol/L Carbon Dioxide (22-29) mmol/L Anion Gap (12-20) BUN (9-16) mg/dL Creatinine (0.5-1.4) mg/dL Estim Creat Clear Calc Estimated GFR POC Glucose 151 H (60-115) mg/dL Random Glucose (60-115) mg/dL Lactic Acid (0.5-2.0) mmol/L Lactic Acid F/U @ 2Hr 4.0 H* (0.5-2.0) mmol/L Calcium (8.4-10.2) mg/dL Phosphorus (2.7-4.5) mg/dL Magnesium (1.6-2.6) mg/dL Total Bilirubin (0.0-1.0) mg/dL AST (5-37) U/L ALT (0-40) U/L Alkaline Phosphatase (39-117) U/L Ammonia (13-55) umol/L Troponin I High Sens (<3.5-35.0) ng/L B-Natriuretic Peptide (<100) pg/mL Total Protein (6.5-8.0) g/dL Albumin (3.5-5.0) g/dL Urine Color Urine Appearance Urine pH (5.0-9.0) Ur Specific Wolf (1.005-1.025) Urine Protein (Neg-Trace) mg/dL Urine Glucose (UA) (Negative) mg/dL Urine Ketones (Negative) mg/dL Urine Blood (Negative) Urine Nitrite (Negative) Ur Leukocyte Esterase (Negative) Peritoneal WBC 0.960 X10*3/uL Peritoneal RBC < 0.002 X10*6/uL Periton Neutrophils 53 % Periton Lymphocytes 20 % Peritoneal Monocytes 9 % Peritoneal Other Cells 18 % COVID-19 (SRIDEVI) (Negative) COVID-19 Clin Com <YENNIFER Hernandez - Last Filed: 03/15/22 12:33> Lab Results 03/15/22 03/15/22 03/15/22 Range/Units 08:26 08:32 08:32 WBC 20.9 H (4.8-10.8) X10*3/uL RBC 3.29 L (4.60-5.80) X10*6/uL Hgb 11.1 L (14.0-18.0) g/dl Hct 32.2 L (42.0-52.0) % MCV 97.9 (80.0-98.0) fL MCH 33.7 H (27.0-33.0) pg MCHC 34.5 (31.0-36.0) g/dl RDW 15.9 (11.0-16.0) % Plt Count 100 L D (160-400) X10*3/uL MPV 12.1 (9.4-12.4) fL Immature Gran % (Auto) Cancelled Neut % (Auto) Cancelled Lymph % (Auto) Cancelled [place] % (Auto) Cancelled Eos % (Auto) Cancelled Baso % (Auto) Cancelled Lymph # (Auto) Cancelled [place] # (Auto) Cancelled Eos # (Auto) Cancelled Baso # (Auto) Cancelled Abs Immat Gran (auto) Cancelled Absolute Neuts (auto) Cancelled Absolute Nucleated RBC 0.000 (0.0-0.012) X10*3/uL Nucleated RBC % (auto) 0.0 (0.0-0.2) /100WBC Neutrophils % (Manual) 81 H (45-73) % Band Neutrophils % 6 H (3-5) % Lymphocytes % (Manual) 1 L (20-40) % Monocytes % (Manual) 8 (2-11) % Eosinophils % (Manual) 1 (0-4) % Metamyelocytes % 3 % Abs Neuts (Manual) 18.2 H (2.0-8.3) X10*3/uL Lymphocytes # (Manual) 0.2 L (1.2-4.9) X10*3/uL Monocytes # (Manual) 1.7 H (0.1-1.2) X10*3/uL Eosinophils # (Manual) 0.2 (0.0-0.4) X10*3/uL Metamyelocytes # 0.6 X10*3/uL Platelet Estimate DECREASED (NORMAL) Plt Morphology Comment NORMAL RBC Morphology NOTED Logan Cells 1+ (0-2) /OIF PT (10.0-13.1) SEC INR (0.9-1.1) APTT (26.0-36.4) SEC VBG pH (7.32-7.43) VBG pCO2 mmHg VBG pO2 mmHg VBG HCO3 (22-26) mmol/L VBG O2 Saturation % VBG Base Excess mmol/L Sodium 134 L (135-145) mmol/L Potassium 4.6 (3.3-5.1) mmol/L Chloride 95 L (96-108) mmol/L Carbon Dioxide 26 (22-29) mmol/L Anion Gap 18 (12-20) BUN 37 H D (9-16) mg/dL Creatinine 1.58 H (0.5-1.4) mg/dL Estim Creat Clear Calc 43.6 Estimated GFR 45 POC Glucose 41 L* (60-115) mg/dL Random Glucose 51 L* (60-115) mg/dL Lactic Acid (0.5-2.0) mmol/L Lactic Acid F/U @ 2Hr (0.5-2.0) mmol/L Calcium 8.7 (8.4-10.2) mg/dL Phosphorus 4.3 (2.7-4.5) mg/dL Magnesium 1.9 (1.6-2.6) mg/dL Total Bilirubin 6.8 H (0.0-1.0) mg/dL AST 53 H (5-37) U/L ALT 30 (0-40) U/L Alkaline Phosphatase 184 H (39-117) U/L Ammonia (13-55) umol/L Troponin I High Sens (<3.5-35.0) ng/L B-Natriuretic Peptide (<100) pg/mL Total Protein 7.5 (6.5-8.0) g/dL Albumin 2.2 L (3.5-5.0) g/dL Urine Color Urine Appearance Urine pH (5.0-9.0) Ur Specific Wolf (1.005-1.025) Urine Protein (Neg-Trace) mg/dL Urine Glucose (UA) (Negative) mg/dL Urine Ketones (Negative) mg/dL Urine Blood (Negative) Urine Nitrite (Negative) Ur Leukocyte Esterase (Negative) Peritoneal WBC X10*3/uL Peritoneal RBC X10*6/uL Periton Neutrophils % Periton Lymphocytes % Peritoneal Monocytes % Peritoneal Other Cells % COVID-19 (SRIDEVI) (Negative) COVID-19 Clin Com 03/15/22 03/15/22 03/15/22 Range/Units 08:32 08:32 08:55 WBC (4.8-10.8) X10*3/uL RBC (4.60-5.80) X10*6/uL Hgb (14.0-18.0) g/dl Hct (42.0-52.0) % MCV (80.0-98.0) fL MCH (27.0-33.0) pg MCHC (31.0-36.0) g/dl RDW (11.0-16.0) % Plt Count (160-400) X10*3/uL MPV (9.4-12.4) fL Immature Gran % (Auto) Neut % (Auto) Lymph % (Auto) [place] % (Auto) Eos % (Auto) Baso % (Auto) Lymph # (Auto) [place] # (Auto) Eos # (Auto) Baso # (Auto) Abs Immat Gran (auto) Absolute Neuts (auto) Absolute Nucleated RBC (0.0-0.012) X10*3/uL Nucleated RBC % (auto) (0.0-0.2) /100WBC Neutrophils % (Manual) (45-73) % Band Neutrophils % (3-5) % Lymphocytes % (Manual) (20-40) % Monocytes % (Manual) (2-11) % Eosinophils % (Manual) (0-4) % Metamyelocytes % % Abs Neuts (Manual) (2.0-8.3) X10*3/uL Lymphocytes # (Manual) (1.2-4.9) X10*3/uL Monocytes # (Manual) (0.1-1.2) X10*3/uL Eosinophils # (Manual) (0.0-0.4) X10*3/uL Metamyelocytes # X10*3/uL Platelet Estimate (NORMAL) Plt Morphology Comment RBC Morphology Logan Cells /OIF PT (10.0-13.1) SEC INR (0.9-1.1) APTT (26.0-36.4) SEC VBG pH (7.32-7.43) VBG pCO2 mmHg VBG pO2 mmHg VBG HCO3 (22-26) mmol/L VBG O2 Saturation % VBG Base Excess mmol/L Sodium (135-145) mmol/L Potassium (3.3-5.1) mmol/L Chloride (96-108) mmol/L Carbon Dioxide (22-29) mmol/L Anion Gap (12-20) BUN (9-16) mg/dL Creatinine (0.5-1.4) mg/dL Estim Creat Clear Calc Estimated GFR POC Glucose 141 H (60-115) mg/dL Random Glucose (60-115) mg/dL Lactic Acid 3.7 H* (0.5-2.0) mmol/L Lactic Acid F/U @ 2Hr (0.5-2.0) mmol/L Calcium (8.4-10.2) mg/dL Phosphorus (2.7-4.5) mg/dL Magnesium (1.6-2.6) mg/dL Total Bilirubin (0.0-1.0) mg/dL AST (5-37) U/L ALT (0-40) U/L Alkaline Phosphatase (39-117) U/L Ammonia (13-55) umol/L Troponin I High Sens < 3.5 (<3.5-35.0) ng/L B-Natriuretic Peptide (<100) pg/mL Total Protein (6.5-8.0) g/dL Albumin (3.5-5.0) g/dL Urine Color Urine Appearance Urine pH (5.0-9.0) Ur Specific Wolf (1.005-1.025) Urine Protein (Neg-Trace) mg/dL Urine Glucose (UA) (Negative) mg/dL Urine Ketones (Negative) mg/dL Urine Blood (Negative) Urine Nitrite (Negative) Ur Leukocyte Esterase (Negative) Peritoneal WBC X10*3/uL Peritoneal RBC X10*6/uL Periton Neutrophils % Periton Lymphocytes % Peritoneal Monocytes % Peritoneal Other Cells % COVID-19 (SRIDEVI) (Negative) COVID-19 Clin Com 03/15/22 03/15/22 03/15/22 Range/Units 08:59 08:59 08:59 WBC (4.8-10.8) X10*3/uL RBC (4.60-5.80) X10*6/uL Hgb (14.0-18.0) g/dl Hct (42.0-52.0) % MCV (80.0-98.0) fL MCH (27.0-33.0) pg MCHC (31.0-36.0) g/dl RDW (11.0-16.0) % Plt Count (160-400) X10*3/uL MPV (9.4-12.4) fL Immature Gran % (Auto) Neut % (Auto) Lymph % (Auto) [place] % (Auto) Eos % (Auto) Baso % (Auto) Lymph # (Auto) [place] # (Auto) Eos # (Auto) Baso # (Auto) Abs Immat Gran (auto) Absolute Neuts (auto) Absolute Nucleated RBC (0.0-0.012) X10*3/uL Nucleated RBC % (auto) (0.0-0.2) /100WBC Neutrophils % (Manual) (45-73) % Band Neutrophils % (3-5) % Lymphocytes % (Manual) (20-40) % Monocytes % (Manual) (2-11) % Eosinophils % (Manual) (0-4) % Metamyelocytes % % Abs Neuts (Manual) (2.0-8.3) X10*3/uL Lymphocytes # (Manual) (1.2-4.9) X10*3/uL Monocytes # (Manual) (0.1-1.2) X10*3/uL Eosinophils # (Manual) (0.0-0.4) X10*3/uL Metamyelocytes # X10*3/uL Platelet Estimate (NORMAL) Plt Morphology Comment RBC Morphology Logan Cells /OIF PT (10.0-13.1) SEC INR (0.9-1.1) APTT (26.0-36.4) SEC VBG pH (7.32-7.43) VBG pCO2 mmHg VBG pO2 mmHg VBG HCO3 (22-26) mmol/L VBG O2 Saturation % VBG Base Excess mmol/L Sodium (135-145) mmol/L Potassium (3.3-5.1) mmol/L Chloride (96-108) mmol/L Carbon Dioxide (22-29) mmol/L Anion Gap (12-20) BUN (9-16) mg/dL Creatinine (0.5-1.4) mg/dL Estim Creat Clear Calc Estimated GFR POC Glucose (60-115) mg/dL Random Glucose (60-115) mg/dL Lactic Acid (0.5-2.0) mmol/L Lactic Acid F/U @ 2Hr (0.5-2.0) mmol/L Calcium (8.4-10.2) mg/dL Phosphorus (2.7-4.5) mg/dL Magnesium (1.6-2.6) mg/dL Total Bilirubin (0.0-1.0) mg/dL AST (5-37) U/L ALT (0-40) U/L Alkaline Phosphatase (39-117) U/L Ammonia 51 (13-55) umol/L Troponin I High Sens (<3.5-35.0) ng/L B-Natriuretic Peptide 204 H (<100) pg/mL Total Protein (6.5-8.0) g/dL Albumin (3.5-5.0) g/dL Urine Color Urine Appearance Urine pH (5.0-9.0) Ur Specific Wolf (1.005-1.025) Urine Protein (Neg-Trace) mg/dL Urine Glucose (UA) (Negative) mg/dL Urine Ketones (Negative) mg/dL Urine Blood (Negative) Urine Nitrite (Negative) Ur Leukocyte Esterase (Negative) Peritoneal WBC X10*3/uL Peritoneal RBC X10*6/uL Periton Neutrophils % Periton Lymphocytes % Peritoneal Monocytes % Peritoneal Other Cells % COVID-19 (SRIDEVI) Negative (Negative) COVID-19 Clin Com See Note 03/15/22 03/15/22 03/15/22 Range/Units 09:04 09:40 09:43 WBC (4.8-10.8) X10*3/uL RBC (4.60-5.80) X10*6/uL Hgb (14.0-18.0) g/dl Hct (42.0-52.0) % MCV (80.0-98.0) fL MCH (27.0-33.0) pg MCHC (31.0-36.0) g/dl RDW (11.0-16.0) % Plt Count (160-400) X10*3/uL MPV (9.4-12.4) fL Immature Gran % (Auto) Neut % (Auto) Lymph % (Auto) [place] % (Auto) Eos % (Auto) Baso % (Auto) Lymph # (Auto) [place] # (Auto) Eos # (Auto) Baso # (Auto) Abs Immat Gran (auto) Absolute Neuts (auto) Absolute Nucleated RBC (0.0-0.012) X10*3/uL Nucleated RBC % (auto) (0.0-0.2) /100WBC Neutrophils % (Manual) (45-73) % Band Neutrophils % (3-5) % Lymphocytes % (Manual) (20-40) % Monocytes % (Manual) (2-11) % Eosinophils % (Manual) (0-4) % Metamyelocytes % % Abs Neuts (Manual) (2.0-8.3) X10*3/uL Lymphocytes # (Manual) (1.2-4.9) X10*3/uL Monocytes # (Manual) (0.1-1.2) X10*3/uL Eosinophils # (Manual) (0.0-0.4) X10*3/uL Metamyelocytes # X10*3/uL Platelet Estimate (NORMAL) Plt Morphology Comment RBC Morphology Logan Cells /OIF PT 30.7 H (10.0-13.1) SEC INR 2.6 H (0.9-1.1) APTT 41.7 H (26.0-36.4) SEC VBG pH 7.35 (7.32-7.43) VBG pCO2 50 mmHg VBG pO2 50 mmHg VBG HCO3 28 H (22-26) mmol/L VBG O2 Saturation 72.0 % VBG Base Excess 2.1 mmol/L Sodium (135-145) mmol/L Potassium (3.3-5.1) mmol/L Chloride (96-108) mmol/L Carbon Dioxide (22-29) mmol/L Anion Gap (12-20) BUN (9-16) mg/dL Creatinine (0.5-1.4) mg/dL Estim Creat Clear Calc Estimated GFR POC Glucose (60-115) mg/dL Random Glucose (60-115) mg/dL Lactic Acid (0.5-2.0) mmol/L Lactic Acid F/U @ 2Hr (0.5-2.0) mmol/L Calcium (8.4-10.2) mg/dL Phosphorus (2.7-4.5) mg/dL Magnesium (1.6-2.6) mg/dL Total Bilirubin (0.0-1.0) mg/dL AST (5-37) U/L ALT (0-40) U/L Alkaline Phosphatase (39-117) U/L Ammonia (13-55) umol/L Troponin I High Sens (<3.5-35.0) ng/L B-Natriuretic Peptide (<100) pg/mL Total Protein (6.5-8.0) g/dL Albumin (3.5-5.0) g/dL Urine Color Dark Yellow Urine Appearance Clear Urine pH 6.0 (5.0-9.0) Ur Specific Wolf 1.015 (1.005-1.025) Urine Protein Negative (Neg-Trace) mg/dL Urine Glucose (UA) Negative (Negative) mg/dL Urine Ketones Negative (Negative) mg/dL Urine Blood Negative (Negative) Urine Nitrite Negative (Negative) Ur Leukocyte Esterase Negative (Negative) Peritoneal WBC X10*3/uL Peritoneal RBC X10*6/uL Periton Neutrophils % Periton Lymphocytes % Peritoneal Monocytes % Peritoneal Other Cells % COVID-19 (SRIDEVI) (Negative) COVID-19 Clin Com 03/15/22 03/15/22 03/15/22 Range/Units 09:44 10:41 11:18 WBC (4.8-10.8) X10*3/uL RBC (4.60-5.80) X10*6/uL Hgb (14.0-18.0) g/dl Hct (42.0-52.0) % MCV (80.0-98.0) fL MCH (27.0-33.0) pg MCHC (31.0-36.0) g/dl RDW (11.0-16.0) % Plt Count (160-400) X10*3/uL MPV (9.4-12.4) fL Immature Gran % (Auto) Neut % (Auto) Lymph % (Auto) [place] % (Auto) Eos % (Auto) Baso % (Auto) Lymph # (Auto) [place] # (Auto) Eos # (Auto) Baso # (Auto) Abs Immat Gran (auto) Absolute Neuts (auto) Absolute Nucleated RBC (0.0-0.012) X10*3/uL Nucleated RBC % (auto) (0.0-0.2) /100WBC Neutrophils % (Manual) (45-73) % Band Neutrophils % (3-5) % Lymphocytes % (Manual) (20-40) % Monocytes % (Manual) (2-11) % Eosinophils % (Manual) (0-4) % Metamyelocytes % % Abs Neuts (Manual) (2.0-8.3) X10*3/uL Lymphocytes # (Manual) (1.2-4.9) X10*3/uL Monocytes # (Manual) (0.1-1.2) X10*3/uL Eosinophils # (Manual) (0.0-0.4) X10*3/uL Metamyelocytes # X10*3/uL Platelet Estimate (NORMAL) Plt Morphology Comment RBC Morphology [place] Cells /OIF PT (10.0-13.1) SEC INR (0.9-1.1) APTT (26.0-36.4) SEC VBG pH (7.32-7.43) VBG pCO2 mmHg VBG pO2 mmHg VBG HCO3 (22-26) mmol/L VBG O2 Saturation % VBG Base Excess mmol/L Sodium (135-145) mmol/L Potassium (3.3-5.1) mmol/L Chloride (96-108) mmol/L Carbon Dioxide (22-29) mmol/L Anion Gap (12-20) BUN (9-16) mg/dL Creatinine (0.5-1.4) mg/dL Estim Creat Clear Calc Estimated GFR POC Glucose 151 H (60-115) mg/dL Random Glucose (60-115) mg/dL Lactic Acid (0.5-2.0) mmol/L Lactic Acid F/U @ 2Hr 4.0 H* (0.5-2.0) mmol/L Calcium (8.4-10.2) mg/dL Phosphorus (2.7-4.5) mg/dL Magnesium (1.6-2.6) mg/dL Total Bilirubin (0.0-1.0) mg/dL AST (5-37) U/L ALT (0-40) U/L Alkaline Phosphatase (39-117) U/L Ammonia (13-55) umol/L Troponin I High Sens (<3.5-35.0) ng/L B-Natriuretic Peptide (<100) pg/mL Total Protein (6.5-8.0) g/dL Albumin (3.5-5.0) g/dL Urine Color Urine Appearance Urine pH (5.0-9.0) Ur Specific Wolf (1.005-1.025) Urine Protein (Neg-Trace) mg/dL Urine Glucose (UA) (Negative) mg/dL Urine Ketones (Negative) mg/dL Urine Blood (Negative) Urine Nitrite (Negative) Ur Leukocyte Esterase (Negative) Peritoneal WBC 0.960 X10*3/uL Peritoneal RBC < 0.002 X10*6/uL Periton Neutrophils 53 % Periton Lymphocytes 20 % Peritoneal Monocytes 9 % Peritoneal Other Cells 18 % COVID-19 (SRIDEVI) (Negative) COVID-19 Clin Com <Lyle Meyers MD - Last Filed: 03/15/22 12:47> Imaging Data CT scan - abdomen: Attestation: I personally reviewed and interpreted this imaging study as follows: <YENNIFER Hernandez - Last Filed: 03/15/22 12:33> My impression: Ascites <YENNIFER Hernandez - Last Filed: 03/15/22 12:33> Radiologist's impression: EXAMINATION: CT ABDOMEN AND PELVIS WITHOUT CONTRAST? CLINICAL INFORMATION: Abdominal pain, swelling? COMPARISON: 08/06/2021? TECHNIQUE: Multidetector volumetric imaging was performed from the superior aspect of the liver through the pubic symphysis. Sagittal and coronal reformatted images were obtained on the technologist's workstation.? This CT examination was performed using dose optimization techniques as appropriate, variously including the following: *Automated exposure control *Adjustment of mA and/or kV according to patient size (this includes techniques or standardized protocols for targeted exams where dose is matched to indication/reason for exam; i.e. extremities or head) *Use of iterative reconstruction technique DLP: 788 mGy-cm FINDINGS: LUNG BASES: Bibasilar atelectasis.? LIVER, GALLBLADDER, AND BILIARY TREE: The liver has a shrunken, nodular appearance consistent with cirrhosis. Significantly limited assessment for focal hepatic masses without intravenous contrast. The gallbladder is grossly unremarkable.? PANCREAS: Grossly unremarkable.? SPLEEN: Mildly enlarged.? ADRENAL GLANDS: Unremarkable.? KIDNEYS AND URETERS: The kidneys are normal in size, shape, and attenuation. No hydronephrosis, hydroureter, or calculi seen. No perinephric stranding. BLADDER: Unremarkable.? GASTROINTESTINAL TRACT: No evidence of bowel obstruction. No significant bowel wall thickening is seen, though assessment is limited in some regions due to incomplete distension. Patient appears status post appendectomy. Moderate volume ascites, increased from prior. No free air is seen. ABDOMINAL WALL: Left inguinal hernia contains fluid, increased from prior. Fat-containing right inguinal hernia.? LYMPH NODES: No lymphadenopathy is seen, though assessment is limited in the absence of intravenous contrast. VASCULAR: Scattered atherosclerotic calcifications are present. PELVIC VISCERA: Unremarkable.? OSSEOUS STRUCTURES: Unremarkable.? CT/CT abdomen pelvis wo IV con IMPRESSION: 1.? Redemonstrated findings of cirrhosis and portal hypertension including moderate volume ascites which has increased from 08/06/2021. 2.? Fluid extends into the left inguinal canal, increased from prior. Fat-containing right inguinal hernia redemonstrated. 3.? No evidence of bowel obstruction. ? Dictated By: Bonilla Lemos MD Signed By: Electronically signed by Bonilla Lemos MD 03/15/2242 <YENNIFER Hernandez - Last Filed: 03/15/22 12:33> Chest x-ray: Attestation: I personally reviewed and interpreted this imaging study as follows: <YENNIFER Hernandez - Last Filed: 03/15/22 12:33> My impression: No acute process. <YENNIFER Hernandez - Last Filed: 03/15/22 12:33> Radiologist's impression: EXAMINATION: XR CHEST CLINICAL INFORMATION: Weakness. COMPARISON: 08/06/2021 chest radiographs. TECHNIQUE: Frontal view of the chest was obtained. FINDINGS: No significant abnormality is noted involving the heart, lungs, mediastinum, bony thorax or soft tissues. XR/XR chest 1V IMPRESSION: No acute cardiopulmonary process. Dictated By: Art Strauss MD Signed By: Electronically signed by Art Strauss MD 03/15/22921 <YENNIFER Hernandez - Last Filed: 03/15/22 12:33> ECG Data Attestation: I personally reviewed and interpreted this ECG as follows: <YENNIFER Hernandez - Last Filed: 03/15/22 12:33> Prior ECG tracings: not available for review <YENNIFER Hernandez - Last Filed: 03/15/22 12:33> Interpretation: Vent. Rate: 076 BPM ? ? Atrial Rate: 076 BPM P-R Int: 162 ms? QRS Dur: 084 ms QT Int: 446 ms ? ? ? P-R-T Axes: 052 016 050 degrees QTc Int: 501 ms ? Normal sinus rhythm Nonspecific T wave abnormality Abnormal ECG DD/ [id number] <YENNIFER Hernandez - Last Filed: 03/15/22 12:33> Critical Care Time Critical Care Time Critical Care Time: Yes <YENNIFER Hernandez - Last Filed: 03/15/22 12:33> Total Critical Care Time: 30 <YENNIFER Hernandez - Last Filed: 03/15/22 12:33> Attestation: I spent 30 minutes of Critical Care Time with this patient. This does not include time spent on separately reported billable procedures. <YENNIFER Hernandez - Last Filed: 03/15/22 12:33> Discharge Plan Discharge Clinical Impression: SBP (spontaneous bacterial peritonitis) <YENNIFER Hernandez - Last Filed: 03/15/22 12:33> Patient Disposition: Admitted As Inpatient <YENNIFER Hernandez - Last Filed: 03/15/22 12:33> Sepsis Bolus Exclusion Sepsis Bolus Exclusion CHF/Renal Failure This patient met severe sepsis criteria due to the following condition(s):: Lactate>=4mmol/L <YENNIFER Hernandez - Last Filed: 03/15/22 12:33> In my clinical judgement the administration of 30 ml/kg of crystalloid would be detrimental to this patient due to the patient's following conditions:: Concern for fluid overload <YENNIFER Hernandez - Last Filed: 03/15/22 12:33> Replace the 30 mls/kg with (*zero amount not acceptable):: Crystalloids amount given in mls: (rate must be at least 150cc/hr): 150 (150ml/hr) <YENNIFER Hernandez - Last Filed: 03/15/22 12:33> Colloids amount given in mls:: 0 <YENNIFER Hernandez - Last Filed: 03/15/22 12:33>
--- NOTE | 2022-03-15 08:37 | ECG_ITS ---
Test Reason : abd pain Blood Pressure : / mmHG Vent. Rate : 076 BPM Atrial Rate : 076 BPM P-R Int : 162 ms QRS Dur : 084 ms QT Int : 446 ms P-R-T Axes : 052 016 050 degrees QTc Int : 501 ms Normal sinus rhythm Nonspecific T wave abnormality Abnormal ECG When compared with ECG of 07-JAN-2020 13:43, T wave amplitude has decreased in Lateral leads Referred By: Ambika Gonzales Electronically Signed By:DEEPIKA PIERRE
[2022-03-15 08:44] LABS: Hematocrit 32.2 % (42.0-52.0); Hemoglobin 11.1 g/dl (14.0-18.0); Mean Corpuscular HGB Conc 34.5 g/dl (31.0-36.0); Mean Corpuscular Hemoglobin 33.7 pg (27.0-33.0); Mean Corpuscular Volume 97.9 fL (80.0-98.0); Mean Platelet Volume 12.1 fL (9.4-12.4); Platelet Count 100 X10*3/uL (160-400); Red Blood Count 3.29 X10*6/uL (4.60-5.80); Red Cell Distribution Width 15.9 % (11.0-16.0); White Blood Count 20.9 X10*3/uL (4.8-10.8)
--- NOTE | 2022-03-15 08:55 | PC.NURSE ---
Patient is alert but slow to answer, skin jaundice, warm to touch. lower extremity, abdomen and scrotum swelling. Temp was 93.1, put on bear hugger blanket. sugar was 41, gave him orange juice to drink and dextrose IV. patient very weak.
[2022-03-15 09:02] LABS: Band Neutrophils Percent 6 % (3-5); Eosinophils Absolute Manual 0.2 X10*3/uL (0.0-0.4); Eosinophils Percent Manual 1 % (0-4); Lymphocytes Absolute Manual 0.2 X10*3/uL (1.2-4.9); Lymphocytes Percent Manual 1 % (20-40); Metamyelocytes Absolute 0.6 X10*3/uL; Metamyelocytes Percent 3 %; Monocytes Absolute Manual 1.7 X10*3/uL (0.1-1.2); Monocytes Percent Manual 8 % (2-11); Neutrophils Absolute Manual 18.2 X10*3/uL (2.0-8.3); Neutrophils Percent Manual 81 % (45-73)
[2022-03-15 09:03] LABS: RBC Morphology NOTED
[2022-03-15 09:04] LABS: Burr Cells 1+ (0-2) /OIF; Lactic Acid 3.7 mmol/L (0.5-2.0); Platelet Estimate DECREASED (NORMAL); Platelet Morphology Comment NORMAL
[2022-03-15 09:06] LABS: Venous Blood Gas Refer to POC result
[2022-03-15 09:08] LABS: Troponin-I High Sensitivity < 3.5 ng/L (<3.5-35.0)
[2022-03-15 09:10] LABS: VBG Base Excess 2.1 mmol/L; VBG HCO3 28 mmol/L (22-26); VBG pCO2 50 mmHg; VBG pH 7.35 (7.32-7.43); VBG pO2 50 mmHg
[2022-03-15 09:11] LABS: Glucose, Whole Blood 41 mg/dL (60-115)
[2022-03-15 09:11] LABS: Glucose, Whole Blood 141 mg/dL (60-115)
[2022-03-15] MEDS: Furosemide 40 MG/4 ML VIAL IVPUSH (09:17)
[2022-03-15] MEDS: Lidocaine HCl 2 % Urojet 10 ML JEL.PF.APP TOPICAL (09:18)
[2022-03-15 09:19] LABS: Ammonia 51 umol/L (13-55)
[2022-03-15] MEDS: Piperacillin Sodium/Tazobactam 2.25 GM in 0.9 % Sodium Chloride 50 ML IV (09:23)
[2022-03-15 09:29] LABS: Alanine Aminotransferase 30 U/L (0-40); Albumin Level 2.2 g/dL (3.5-5.0); Alkaline Phosphatase 184 U/L (39-117); Anion Gap 18 (12-20); Aspartate Amino Transferase 53 U/L (5-37); Bilirubin Total 6.8 mg/dL (0.0-1.0); Blood Urea Nitrogen 37 mg/dL (9-16); Calcium 8.7 mg/dL (8.4-10.2); Carbon Dioxide 26 mmol/L (22-29); Chloride 95 mmol/L (96-108); Creatinine Clr Calc Pharmacy 43.6; Estimated Glomerular Filt Rate 45; Glucose Random 51 mg/dL (60-115); Magnesium 1.9 mg/dL (1.6-2.6); Phosphorus 4.3 mg/dL (2.7-4.5); Potassium 4.6 mmol/L (3.3-5.1); Sodium 134 mmol/L (135-145); Total Protein 7.5 g/dL (6.5-8.0)
[2022-03-15 09:32] LABS: B Type Natriuretic Peptide 204 pg/mL (<100)
[2022-03-15 09:39] LABS: COVID-19 Test Negative (Negative); IDNOW Serial# 16C4AD1C
[2022-03-15 09:46] LABS: Appearance Urine Clear; Color Urine Dark Yellow; Glucose Urine UA Negative (Negative); Leukocyte Esterase Urine Negative (Negative); Nitrite Urine Negative (Negative); Specific Gravity - Urine 1.015 (1.005-1.025); Urine Blood Negative (Negative); Urine Ketones Negative (Negative); Urine Protein Negative (Neg-Trace)
[2022-03-15] MEDS: 0.9 % Sodium Chloride 1,000 ML 150 ML IVCONT ×2 (09:47→17:05)
[2022-03-15 09:54] LABS: INTERNATIONAL NORM RATIO 2.6 (0.9-1.1); Prothrombin Time 30.7 SEC (10.0-13.1)
[2022-03-15 09:56] LABS: Partial Thromboplastin Time 41.7 SEC (26.0-36.4)
[2022-03-15 09:57] LABS: Glucose, Whole Blood 151 mg/dL (60-115)
[2022-03-15] MEDS: vancomycin HCL 1,000 MG, vancomycin HCL 750 MG in 0.9 % Sodium Chloride 500 ML 267.5 MG IV (10:31)
[2022-03-15 10:38] LABS: Reflex Lactate? Lactic Acid Added
--- NOTE | 2022-03-15 11:20 | PC.NURSE ---
Patient tolerated paracentesis well. 1400ml of fluid drained
[2022-03-15 11:37] LABS: MN% 55.1 %; PMN% 44.9 %
[2022-03-15 11:38] LABS: RBC Peritoneal Fluid < 0.002 X10*6/uL
[2022-03-15 12:04] LABS: BF Shift QC OK YES; Lymphocyte Peritoneal Fl 20 %; Monocytes Peritoneal Fl 9 %; Neutrophils Peritoneal Fluid 53 %; Other Peritioneal Fl 18 %
[2022-03-15] MEDS: Albumin Human 25 % 100 ML IV ×2 (12:41→14:59)
[2022-03-15 12:43] LABS: Reflex Lactate? 2 Y
[2022-03-15 13:00] LABS: Glucose, Whole Blood 135 mg/dL (60-115)
--- NOTE | 2022-03-15 13:11 | P.HPHOSP_ITS ---
History of Present Illness Date of Service: 03/15/22 Attending physician on admission: Macho Evans Chief Complaint: sob, abd pain, edema 61 year old male with history of opioid dependence on methadone [ UNAWARE AND DOES NOT WISH HER TO KNOW THIS], hepatitis C with cirrhosis of the liver and hypertension presented to the ED this morning with increased SOB, diffuse abd pain, and increased edema of the scrotum and legs. He has reported subjective fevers but has not taken his temperature. He states he was scheduled to have a liver procedure this morning and had been fasting since 4pm yesterday. On arrival glucose was 41, given an amp of D50 with improvement in glucose to 141. Pt was hypothermic on arrival at 93.1 and placed under bear hugger with improvement to 95.5. He did become bradypneic at 8 with spontaneous improvement to 16 without hypoxia and has not required supplemental O2. No hypotension or tachycardia. WBC 20.9 with bandemia. Lactic acid inititally 3.7, repeat 4.0. Bili 6.8, AST 53, ALT 30, alk phos 184. Pt 30.7, INR 2.6, PTT 41.7. PLT 100. ALbumin 2.2. Ammonia 51. CXR negative. Abd/pelvis CT with cirrhosis and portal hypotension including moderate volume ascites extending into left inguinal canal. Pericentesis with 1.5 liters withdrawn with >250 PMN suspicious for SBP. Pt was started on 150ml/hr NS, IV albumin, as well as vanco and zosyn. Review of Systems Review of Systems: General: No fevers, malaise, unintentional weight loss Cardiovascular: No chest pain, palpitations, or leg edema Respiratory: +sob. No wheezing, cough GI: +abd pain. No nausea, vomiting, diarrhea, constipation, melena, hematochezia : +scrotal edema Neuro: No headaches, weakness, paresthesias Skin: No rashes or lesions [facility] Medical History (Updated 03/15/22 @ 13:26 by YENNIFER Beatty) Cirrhosis Coagulopathy Decompensated hepatic cirrhosis Fluid overload Hypertension Opioid dependence Family History Mother No problems noted. Father No problems noted. Other No family history of coronary artery disease Surgical History History of appendectomy History of eye surgery Social History Alcohol intake: former Patient Tobacco Use Status: Former Tobacco user Use of substances other than those prescribed or required for medical reasons: No Advance Directives: No Advance Directives Information Provided: Yes service: No Current occupational status: unemployed Meds Allergies Allergy/AdvReac Type Severity Reaction Status Date / Time tramadol [TRAMADOL] Allergy Unknown ANXIETY Verified 01/18/22 15:44 Active Medications: Current Medications Acetaminophen (Acetaminophen 325 Mg Tablet) 650 mg PO Q6H PRN PRN Reason: Pain, Mild (Pain Scale 1-3) Enoxaparin Sodium (Enoxaparin Sodium 40 Mg/0.4 Ml Syringe) 40 mg SUBCUT Q24H [facility] Sodium Chloride (Ns) 1,000 mls @ 150 mls/hr IVCONT .Q6H40M [facility] Last Admin: 03/15/22 09:47 Dose: 150 mls/hr Albumin Human (Kedbumin 25 %) 100 mls @ 100 mls/hr IV Q1H [facility] Stop: 03/15/22 14:14 Last Admin: 03/15/22 12:41 Dose: 100 mls/hr Ceftriaxone Sodium 2 gm/ (Sodium Chloride) 50 mls @ 100 mls/hr IV Q24H [facility] Ondansetron HCl (Ondansetron Hcl 4 Mg/2 Ml Vial) 4 mg IVPUSH Q8H PRN PRN Reason: Nausea and Vomiting Pharmacy Consult (Consult Rx Vancomycin Dosing) 1 each MISCELLANE DAILY PRN PRN Reason: Consult order Pharmacy Consult (Consult Rx Perform Med Rec) 1 each MISCELLANE ONCE PRN PRN Reason: Consult order Sodium Chloride (0.9 % Sodium Chloride Flush 3 Ml Syringe) 3 ml IVFLUSH QSHIFT [facility] Home Medications Medication Instructions Recorded Confirmed Last Taken Type furosemide 40 mg tablet 40 mg PO DAILY 03/15/22 03/15/22 03/14/22 History Physical Exam Vital Signs and Narrative: Vital Signs: Last Vital Signs Temp 95.5 F L 03/15/22 12:40 Pulse 70 03/15/22 12:40 Resp 16 03/15/22 12:40 BP 131/73 03/15/22 12:40 Pulse Ox 98 03/15/22 12:40 O2 Del Method 03/15/22 12:40 BMI result Body Mass Index 27.4 Constitutional - Awake and Alert, No apparent distress Eyes - Pupils equal and constricted, EOMI, scleral icterus Cardiovascular - S1S2, RRR, 4+edema BLE Respiratory - Normal lung expansion, Normal respiratory effort, No respiratory distress, CTA bilaterally Gastrointestinal - Abdomen distended with rigidity but NT. No fluid wave. +BS; No rebound or guarding - Scrotal edema, martin catheter in place. Extremities - no calf tenderness bilaterally Skin - Warm/Dry. Jaundice Neurological - Alert & oriented x3, pupils constricted, CN II-XII otherwise in tact. 5/5 strength BUE and BLE Psychological - Appropriate affect Results Labs CBC and Chem 7: 03/15/22 08:32 03/15/22 08:32 Labs: Laboratory Results - last 24 hr 03/15/22 03/15/22 03/15/22 08:26 08:32 08:32 MCV 97.9 MCH 33.7 H MCHC 34.5 RDW 15.9 Plt Count 100 L D MPV 12.1 Immature Gran % (Auto) Cancelled Neut % (Auto) Cancelled Lymph % (Auto) Cancelled [place] % (Auto) Cancelled Eos % (Auto) Cancelled Baso % (Auto) Cancelled Lymph # (Auto) Cancelled [place] # (Auto) Cancelled Eos # (Auto) Cancelled Baso # (Auto) Cancelled Abs Immat Gran (auto) Cancelled Absolute Neuts (auto) Cancelled Absolute Nucleated RBC 0.000 Nucleated RBC % (auto) 0.0 Neutrophils % (Manual) 81 H Band Neutrophils % 6 H Lymphocytes % (Manual) 1 L Monocytes % (Manual) 8 Eosinophils % (Manual) 1 Metamyelocytes % 3 Abs Neuts (Manual) 18.2 H Lymphocytes # (Manual) 0.2 L Monocytes # (Manual) 1.7 H Eosinophils # (Manual) 0.2 Metamyelocytes # 0.6 Platelet Estimate DECREASED Plt Morphology Comment NORMAL RBC Morphology NOTED [place] Cells 1+ (0-2) PT INR APTT VBG pH VBG pCO2 VBG pO2 VBG HCO3 VBG O2 Saturation VBG Base Excess Anion Gap 18 Estim Creat Clear Calc 43.6 Estimated GFR 45 POC Glucose 41 L* Random Glucose 51 L* Lactic Acid Lactic Acid F/U @ 2Hr Calcium 8.7 Phosphorus 4.3 Magnesium 1.9 Total Bilirubin 6.8 H AST 53 H ALT 30 Alkaline Phosphatase 184 H Ammonia B-Natriuretic Peptide Total Protein 7.5 Albumin 2.2 L Urine Color Urine Appearance Urine pH Ur Specific [place] Urine Protein Urine Glucose (UA) Urine Ketones Urine Blood Urine Nitrite Ur Leukocyte Esterase Peritoneal WBC Peritoneal RBC Periton Neutrophils Periton Lymphocytes Peritoneal Monocytes Peritoneal Other Cells COVID-19 (SRIDEVI) COVID-19 Clin Com 03/15/22 03/15/22 03/15/22 08:32 08:55 08:59 MCV MCH MCHC RDW Plt Count MPV Immature Gran % (Auto) Neut % (Auto) Lymph % (Auto) [place] % (Auto) Eos % (Auto) Baso % (Auto) Lymph # (Auto) [place] # (Auto) Eos # (Auto) Baso # (Auto) Abs Immat Gran (auto) Absolute Neuts (auto) Absolute Nucleated RBC Nucleated RBC % (auto) Neutrophils % (Manual) Band Neutrophils % Lymphocytes % (Manual) Monocytes % (Manual) Eosinophils % (Manual) Metamyelocytes % Abs Neuts (Manual) Lymphocytes # (Manual) Monocytes # (Manual) Eosinophils # (Manual) Metamyelocytes # Platelet Estimate Plt Morphology Comment RBC Morphology [place] Cells PT INR APTT VBG pH VBG pCO2 VBG pO2 VBG HCO3 VBG O2 Saturation VBG Base Excess Anion Gap Estim Creat Clear Calc Estimated GFR POC Glucose 141 H Random Glucose Lactic Acid 3.7 H* Lactic Acid F/U @ 2Hr Calcium Phosphorus Magnesium Total Bilirubin AST ALT Alkaline Phosphatase Ammonia 51 B-Natriuretic Peptide Total Protein Albumin Urine Color Urine Appearance Urine pH Ur Specific [place] Urine Protein Urine Glucose (UA) Urine Ketones Urine Blood Urine Nitrite Ur Leukocyte Esterase Peritoneal WBC Peritoneal RBC Periton Neutrophils Periton Lymphocytes Peritoneal Monocytes Peritoneal Other Cells COVID-19 (SRIDEVI) COVID-19 Clin Com 03/15/22 03/15/22 03/15/22 08:59 08:59 09:04 MCV MCH MCHC RDW Plt Count MPV Immature Gran % (Auto) Neut % (Auto) Lymph % (Auto) [place] % (Auto) Eos % (Auto) Baso % (Auto) Lymph # (Auto) [place] # (Auto) Eos # (Auto) Baso # (Auto) Abs Immat Gran (auto) Absolute Neuts (auto) Absolute Nucleated RBC Nucleated RBC % (auto) Neutrophils % (Manual) Band Neutrophils % Lymphocytes % (Manual) Monocytes % (Manual) Eosinophils % (Manual) Metamyelocytes % Abs Neuts (Manual) Lymphocytes # (Manual) Monocytes # (Manual) Eosinophils # (Manual) Metamyelocytes # Platelet Estimate Plt Morphology Comment RBC Morphology [place] Cells PT INR APTT VBG pH 7.35 VBG pCO2 50 VBG pO2 50 VBG HCO3 28 H VBG O2 Saturation 72.0 VBG Base Excess 2.1 Anion Gap Estim Creat Clear Calc Estimated GFR POC Glucose Random Glucose Lactic Acid Lactic Acid F/U @ 2Hr Calcium Phosphorus Magnesium Total Bilirubin AST ALT Alkaline Phosphatase Ammonia B-Natriuretic Peptide 204 H Total Protein Albumin Urine Color Urine Appearance Urine pH Ur Specific [place] Urine Protein Urine Glucose (UA) Urine Ketones Urine Blood Urine Nitrite Ur Leukocyte Esterase Peritoneal WBC Peritoneal RBC Periton Neutrophils Periton Lymphocytes Peritoneal Monocytes Peritoneal Other Cells COVID-19 (SRIDEVI) Negative COVID-19 Clin Com See Note 03/15/22 03/15/22 03/15/22 09:40 09:43 09:44 MCV MCH MCHC RDW Plt Count MPV Immature Gran % (Auto) Neut % (Auto) Lymph % (Auto) [place] % (Auto) Eos % (Auto) Baso % (Auto) Lymph # (Auto) [place] # (Auto) Eos # (Auto) Baso # (Auto) Abs Immat Gran (auto) Absolute Neuts (auto) Absolute Nucleated RBC Nucleated RBC % (auto) Neutrophils % (Manual) Band Neutrophils % Lymphocytes % (Manual) Monocytes % (Manual) Eosinophils % (Manual) Metamyelocytes % Abs Neuts (Manual) Lymphocytes # (Manual) Monocytes # (Manual) Eosinophils # (Manual) Metamyelocytes # Platelet Estimate Plt Morphology Comment RBC Morphology [place] Cells PT 30.7 H INR 2.6 H APTT 41.7 H VBG pH VBG pCO2 VBG pO2 VBG HCO3 VBG O2 Saturation VBG Base Excess Anion Gap Estim Creat Clear Calc Estimated GFR POC Glucose 151 H Random Glucose Lactic Acid Lactic Acid F/U @ 2Hr Calcium Phosphorus Magnesium Total Bilirubin AST ALT Alkaline Phosphatase Ammonia B-Natriuretic Peptide Total Protein Albumin Urine Color Dark Yellow Urine Appearance Clear Urine pH 6.0 Ur Specific [place] 1.015 Urine Protein Negative Urine Glucose (UA) Negative Urine Ketones Negative Urine Blood Negative Urine Nitrite Negative Ur Leukocyte Esterase Negative Peritoneal WBC Peritoneal RBC Periton Neutrophils Periton Lymphocytes Peritoneal Monocytes Peritoneal Other Cells COVID-19 (SRIDEVI) COVID-19 Clin Com 03/15/22 03/15/22 03/15/22 10:41 11:18 12:54 MCV MCH MCHC RDW Plt Count MPV Immature Gran % (Auto) Neut % (Auto) Lymph % (Auto) [place] % (Auto) Eos % (Auto) Baso % (Auto) Lymph # (Auto) [place] # (Auto) Eos # (Auto) Baso # (Auto) Abs Immat Gran (auto) Absolute Neuts (auto) Absolute Nucleated RBC Nucleated RBC % (auto) Neutrophils % (Manual) Band Neutrophils % Lymphocytes % (Manual) Monocytes % (Manual) Eosinophils % (Manual) Metamyelocytes % Abs Neuts (Manual) Lymphocytes # (Manual) Monocytes # (Manual) Eosinophils # (Manual) Metamyelocytes # Platelet Estimate Plt Morphology Comment RBC Morphology [place] Cells PT INR APTT VBG pH VBG pCO2 VBG pO2 VBG HCO3 VBG O2 Saturation VBG Base Excess Anion Gap Estim Creat Clear Calc Estimated GFR POC Glucose 135 H Random Glucose Lactic Acid Lactic Acid F/U @ 2Hr 4.0 H* Calcium Phosphorus Magnesium Total Bilirubin AST ALT Alkaline Phosphatase Ammonia B-Natriuretic Peptide Total Protein Albumin Urine Color Urine Appearance Urine pH Ur Specific [place] Urine Protein Urine Glucose (UA) Urine Ketones Urine Blood Urine Nitrite Ur Leukocyte Esterase Peritoneal WBC 0.960 Peritoneal RBC < 0.002 Periton Neutrophils 53 Periton Lymphocytes 20 Peritoneal Monocytes 9 Peritoneal Other Cells 18 COVID-19 (SRIDEVI) COVID-19 Clin Com Imaging Radiologist's Impressions: Impressions Chest X-Ray 03/15/22 09:09 IMPRESSION: No acute cardiopulmonary process. Abdomen/Pelvis CT 03/15/22 09:22 IMPRESSION: 1. Redemonstrated findings of cirrhosis and portal hypertension including moderate volume ascites which has increased from 08/06/2021. 2. Fluid extends into the left inguinal canal, increased from prior. Fat-containing right inguinal hernia redemonstrated. 3. No evidence of bowel obstruction. Assessment and Plan (1) SBP (spontaneous bacterial peritonitis): Status: Acute (2) Fluid overload: Status: Acute (3) Decompensated hepatic cirrhosis: Status: Acute Plan 61 year old male with history of opioid dependence on methadone [ UNAWARE AND DOES NOT WISH HER TO KNOW THIS], hepatitis C with cirrhosis of the liver and hypertension admitted for spontaneous bacterial peritonitis wtih severe sepsis, and decompensated hepatic cirrhosis with fluid overload. 1- Severe sepsis due to Spontaneous bacterial peritonitis -WBC 20.9 with hypothermia and TASHA cr 1.58 -Received IV vanco and zosyn in ED. Initiate 2g ceftriaxone daily -Thombocytopenia, coagulopathy, hyperbilirubinemia, and lactic acidosis due to decompensated cirrhosis of the liver, not the severe sepsis. No hypotension or septic shock -Continue bear hugger for hypothermia -Follow CBC -Monitor vitals closely 2- Spontaneous bacterial peritonitis secondary to decompensated hepatic cirrhosis -1.5L peritoneal fluid removed with PMN >250 -Given IV vanco and zosyn in ED. Initiate 2gm ceftriaxone daily -WBC 20.9. Follow CBC daily -Gastroenterology consulted -IV Albumin day 1 and 3 3- TASHA secondary to severe sepsis vs hepatorenal -Creat 1.58, BUN 37 -Received 150ml/hr NS in ED -Follow BMP 4-Decompensated hepatic cirrhosis secondary to hepatitis C -Abd CT with cirrhosis and portal hypertension. Hold BB at this time -Gasteroenterology consulted -Hold diuretics due to severe sepsis -Hyperbilirubinemia, thrombocytopenia, Coagulopathy secondary to cirrhosis, not severe sepsis 5- Volume overload secondary to decompensated hepatic cirrhosis -Scrotal and BLE edema as well as ascites s/p pericentesis with 1.5L fluid removed -Hold diuretics at this time due to severe sepsis 6-HTN- controlled -Hold diuretics as above -Monitor BPs 7-Opioid dependence -Continue home methadone dose DVT prophylaxis- lovenox Full code Pt requires inpt stay of at least 2 midnights for management of SBP with severe sepsis and fluid overload requiring IV abx and close monitoring of vital signs, renal function, and CBC. Quality Stroke Does the patient have a stroke diagnosis?: No VTE Prior VTE?: No VTE Risk Level:: Medical - moderate - high VTE Device Contraindication: Treatment Not Indicated VTE Drug Contraindication: N/A - Med Ordered
--- NOTE | 2022-03-15 13:22 | PM.GICN ---
History of Present Illness Data of Consult Service Date: 03/15/22 Requesting physician: Yvette Lawson Primary Care Provider: [facility] HPI Reason for consult: SBP This is a 61-year-old gentleman past medical history of alcohol use disorder that has led to decompensated cirrhosis (ascites) presented to the hospital earlier today for abdominal pain and increased distention and was found to have severe sepsis secondary to SBP. Gastroenterology has been consulted for further evaluation and management. History was reviewed with the patient as well as his at bedside. They report that for the past 4 days, patient has been in increasingly uncomfortable due to abdominal distension. has also noticed increased somnolence around the same time. He has not been able to lay flat, and has been using wedge below to sleep. Today he started having chills and cold sweats so he was brought to the emergency room. Patient denies a distinct abdominal pain, nausea, vomiting. He also denies any changes in his bowel movement specifically any black stools or blood in stool. On eval in ER, was noted to [place] [id number] as well as a high lactate and TASHA with creatinine of 1.5. Sepsis workup so far has returned with evidence of secondary peritonitis. He has been started on broad-spectrum antibiotics. He also had a CT abdomen pelvis without contrast that shows moderate volume ascites and cirrhotic liver as previously known. Most recent contrasted imaging was in 10/2021, of note this was not triple phase. He has never had an upper endoscopy as far as he can recall. In terms of his liver disease, he was seen for cirrhosis earlier this year as well as an inpatient. Has not followed up as outpatient, tells me he has an appointment coming up in April. Has history of heavy alcohol use, has been sober since December. Also has history of IV drug use 15 years ago. Hep C antibody, hep B core and surface antibody noted to be positive. Review of Systems Review of Systems: Yes all other systems are reviewed and are negative PMFSH Past Medical History Medical History Cirrhosis Coagulopathy Decompensated hepatic cirrhosis Fluid overload Hypertension Opioid dependence Family History Family History Mother No problems noted. Father No problems noted. Other No family history of coronary artery disease Surgical History Surgical History History of appendectomy History of eye surgery Social History Social History Alcohol intake: former Patient Tobacco Use Status: Former Tobacco user Use of substances other than those prescribed or required for medical reasons: No Advance Directives: No Advance Directives Information Provided: Yes service: No Current occupational status: unemployed Meds Allergies Allergy/AdvReac Type Severity Reaction Status Date / Time tramadol [TRAMADOL] Allergy Unknown ANXIETY Verified 01/18/22 15:44 Active Medications: Current Medications Acetaminophen (Acetaminophen 325 Mg Tablet) 650 mg PO Q6H PRN PRN Reason: Pain, Mild (Pain Scale 1-3) Enoxaparin Sodium (Enoxaparin Sodium 40 Mg/0.4 Ml Syringe) 40 mg SUBCUT Q24H [facility] Sodium Chloride (Ns) 1,000 mls @ 150 mls/hr IVCONT .Q6H40M [facility] Last Admin: 03/15/22 09:47 Dose: 150 mls/hr Albumin Human (Kedbumin 25 %) 100 mls @ 100 mls/hr IV Q1H [facility] Stop: 03/15/22 14:14 Last Admin: 03/15/22 12:41 Dose: 100 mls/hr Ceftriaxone Sodium 2 gm/ (Sodium Chloride) 50 mls @ 100 mls/hr IV Q24H [facility] Ondansetron HCl (Ondansetron Hcl 4 Mg/2 Ml Vial) 4 mg IVPUSH Q8H PRN PRN Reason: Nausea and Vomiting Pharmacy Consult (Consult Rx Vancomycin Dosing) 1 each MISCELLANE DAILY PRN PRN Reason: Consult order Pharmacy Consult (Consult Rx Perform Med Rec) 1 each MISCELLANE ONCE PRN PRN Reason: Consult order Sodium Chloride (0.9 % Sodium Chloride Flush 3 Ml Syringe) 3 ml IVFLUSH QSHIFT [facility] Home Medications Medication Instructions Recorded Confirmed Last Taken Type furosemide 40 mg tablet 40 mg PO DAILY 03/15/22 03/15/22 03/14/22 History methadone 10 mg/mL oral 65 mg PO DAILY 03/15/22 Unknown History concentrate (Methadone Intensol) Physical Exam Vital Signs: Vital Signs: Last Vital Signs Temp 95.5 F L 03/15/22 12:40 Pulse 70 03/15/22 12:40 Resp 16 03/15/22 12:40 BP 131/73 03/15/22 12:40 Pulse Ox 98 03/15/22 12:40 O2 Del Method 03/15/22 12:40 BMI result Body Mass Index 27.4 Gen Appear: NAD, undernourished HEENT: Scleral icterus, bitemporal wasting noted Chest: CTA CVS: Regular S1/S2 no murmurs Abd: soft, tender, distended, shifting dullness to percussion, bowel sounds active Ext: Gross peripheral edema up to groins bilaterally +3 Neuro: A/Ox2, asterixis ++ Derm: Spider angioma and palmar erythema noted Results Labs CBC & Chem 7: 03/15/22 08:32 03/15/22 08:32 Labs: Short CBC 03/15/22 Range/Units 08:32 WBC 20.9 H (4.8-10.8) X10*3/uL Hgb 11.1 L (14.0-18.0) g/dl Hct 32.2 L (42.0-52.0) % Plt Count 100 L D (160-400) X10*3/uL BMP 03/15/22 08:32 Sodium 134 L Potassium 4.6 Chloride 95 L Carbon Dioxide 26 BUN 37 H D Creatinine 1.58 H Calcium 8.7 Liver Function 03/15/22 Range/Units 08:32 Total Bilirubin 6.8 H (0.0-1.0) mg/dL AST 53 H (5-37) U/L ALT 30 (0-40) U/L Alkaline Phosphatase 184 H (39-117) U/L Albumin 2.2 L (3.5-5.0) g/dL Urine 03/15/22 Range/Units 09:40 Urine Color Dark Yellow Urine Appearance Clear Urine pH 6.0 (5.0-9.0) Ur Specific [place] 1.015 (1.005-1.025) Urine Protein Negative (Neg-Trace) mg/dL Urine Glucose (UA) Negative (Negative) mg/dL Assessment and Plan (1) Decompensated hepatic cirrhosis: Status: Acute (2) SBP (spontaneous bacterial peritonitis): Status: Acute (3) Ascites: Status: Acute (4) Hepatic encephalopathy: Status: Acute (5) Acute kidney injury: Status: Acute Plan MELD-Na 30 Child Truong Class C Patient is presenting with severe sepsis secondary to SBP, complicated by acute kidney injury and hepatic encephalopathy. Will need treatment of SBP with antibiotics as well as albumin as below. Creatinine up to 1.5, from baseline of 0.8. Hopefully this is prerenal or from septic ATN, and will resolve with albumin supplementation. In addition, would recommend holding off diuretics until sepsis and renal injury controlled. Prognosis will largely be driven by kidney function. Recommendations: - Agree with Ceftriaxone 2g IV once daily x 5-7 days. Will need secondary prophylaxis after this is completed. - Low threshold to obtain repeat para if sepsis does not improve in 2-3 days of Abx therapy - Albumin 25% 1.5g/kg today and then 1g/kg on day 3 (03/17) - Obtain urine Na, K and Cr - HOLD diuretics, NSBB. No large volume hero. - If renal function does not improve in the next 24-48h, please consult Nephrology for ?HRS - Start lactulose 30ml every 3-4h for goal 4-5 BMs/day. This can be downtitrated to goal 2-3BMs per day once mental status clears up in a couple of days. - Start Rifaximin 550mg BID whilst inpatient. - Give Vit K IV 10mg x 2 days to r/o coagulopathy from malnutrition - Follow results of BCx - US abd with duplex ordered - HCV RNA and Hep B serologies ordered Recommendations discussed with hospitalist over the phone. Procedures Date of Service Date of Service: 03/15/22
[2022-03-15 13:28] LABS: ~Lactic Acid-LAB USE ONLY 3.9 mmol/L (0.5-2.0)
[2022-03-15] MEDS: cefTRIAXone sodium 2 GM in 0.9 % Sodium Chloride 50 ML IV (14:52)
[2022-03-15] MEDS: Enoxaparin Sodium 40 MG/0.4 ML SYRINGE SUBCUT (14:53)
[2022-03-15] MEDS: 0.9 % Sodium Chloride Flush 3 ML SYRINGE IVFLUSH (17:05)
[2022-03-15 17:07] LABS: Potassium Urine Random 65.5 mmol/L
[2022-03-15 17:47] LABS: Albumin Peritoneal Fluid 0.2 GM/DL; Glucose Peritoneal Fluid 145 MG/DL; LDH Peritoneal Fluid 66 U/L; Total Protein Peritoneal Fluid 0.7 GM/DL
--- NOTE | 2022-03-15 18:50 | MHC.CM.PN ---
CM met with admitted patient with bed assignment pending. Pt Lithuanian speaking. 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 speaks Indonesian. PCP Sarmad Name. [facility], Pf[employer] x1. HCP reviewed, completed and signed. Copies given. Uploaded into [employer] and [employer]. HCP/spouse Cheryle Olivera ([phone]). Pt takes methadone. unaware. Unable to determine where patient obtains methadone at this time. D/C plan pending hospital stay. Pt quite weakened. STR vs Home with PT/VNA. Pt and would like a [employer]. Enc to speak with PCP and her caretaker grounds at [employer] for [employer]. will transport home if pt d/c home. No referrals placed at this time pending rounds review. CM to follow for d/c planning.
--- NOTE | 2022-03-15 19:34 | PC.NURSE ---
Pt core temp is at 98.8. BearHugger removed from pt at this time. Pt is resting comfortably in bed. Pt denies any pain, CP, or SOB.
[2022-03-15] MEDS: Lactulose 20 GM/30 ML SOLUTION 30 GM PO (21:38)
[2022-03-15] MEDS: rifAXIMin 550 MG TABLET PO (21:39)
[2022-03-16] VITALS (7 sets, daily range): BP systolic 104–143; BP diastolic 58–79; PULSE 59–73; RESP 10–18; TEMP 36.4–37.6; O2SAT 95–99
[2022-03-16 04:54] LABS: Basophils Absolute Auto 0.1 X10*3/uL (0.0-0.2); Basophils Percent Auto 0.6 % (0-2); Eosinophils Absolute Auto 0.1 X10*3/uL (0.0-0.4); Eosinophils Percent Auto 0.9 % (0-4); Hematocrit 26.5 % (42.0-52.0); Imm Gran Abs Auto 0.61 X10*3/uL (0.00-0.03); Imm Gran Pct Auto 5.3 % (0.0-0.4); Lymphocytes Absolute Auto 1.5 X10*3/uL (1.2-4.9); Lymphocytes Percent Auto 13.4 % (20-40); Mean Corpuscular Hemoglobin 33.1 pg (27.0-33.0); Mean Corpuscular Volume 97.4 fL (80.0-98.0); Mean Platelet Volume 12.5 fL (9.4-12.4); Monocytes Absolute Auto 1.8 X10*3/uL (0.1-1.2); Monocytes Percent Auto 15.5 % (2-11); Neutrophils Absolute Auto 7.4 x10*3/uL (2.0-8.3); Neutrophils Percent Auto 64.3 % (45-73); Red Blood Count 2.72 X10*6/uL (4.60-5.80); Red Cell Distribution Width 16.3 % (11.0-16.0); SCAN SMEAR FLAG 1; White Blood Count 11.5 X10*3/uL (4.8-10.8)
[2022-03-16 05:00] LABS: Platelet Count 82 X10*3/uL (160-400)
[2022-03-16 05:01] LABS: MANUAL DIFF FLAG SCAN
[2022-03-16 05:13] LABS: Alanine Aminotransferase 26 U/L (0-40); Albumin Level 2.3 g/dL (3.5-5.0); Alkaline Phosphatase 113 U/L (39-117); Anion Gap 15 (12-20); Aspartate Amino Transferase 61 U/L (5-37); Bilirubin Total 4.8 mg/dL (0.0-1.0); Blood Urea Nitrogen 32 mg/dL (9-16); Calcium 8.2 mg/dL (8.4-10.2); Carbon Dioxide 25 mmol/L (22-29); Chloride 102 mmol/L (96-108); Creatinine Clr Calc Pharmacy 47.9; Estimated Glomerular Filt Rate 50; Glucose Random 64 mg/dL (60-115); Potassium 5.4 mmol/L (3.3-5.1); Sodium 137 mmol/L (135-145); Total Protein 6.5 g/dL (6.5-8.0)
[2022-03-16 05:15] LABS: SLIDE REVIEW VERIFIED
[2022-03-16] MEDS: 0.9 % Sodium Chloride 1,000 ML 150 ML IVCONT ×2 (05:27)
--- NOTE | 2022-03-16 05:28 | PC.NURSE ---
pt a&o, no sob or chest pain at this time. Martinez drained 900cc of concentrated urine. no odor. Medicated per Mar. Will continue to monitor. Took over care at 5am from RAJI Gil
[2022-03-16 05:29] LABS: HBS Num1 75.91 mIU/mL (0-7.99); HBc Num1 7.06 S/CO (0.00-0.79); HBsAGNum1 0.27 S/CO (0.00-0.99); Hepatitis B Surface Antigen Negative (Negative); ~Hepatitis B Surface Antibody REACTIVE (Nonreactive)
[2022-03-16 06:08] LABS: HBc Num2 7.08 S/CO; HBc Num3 6.99 S/CO; Hepatitis B Core Antibody Reactive (Nonreactive)
--- NOTE | 2022-03-16 08:32 | HE.PHANOTE ---
methadone confirmation Spoke to [facility] at [facility] [phone]. Confirmed on 03/14 patient got 6 bottles of 65mg methadone.
--- NOTE | 2022-03-16 09:05 | P.PNGI_ITS ---
Subjective Subjective Date of Service: 03/16/22 Interval History: Seen at bedside with the help of a fashion illustrator. Reports improvement in abdominal pain. Still has poor appetite. Critical Care Time (minutes): 0 Physical Exam Vital Signs: Vital Signs: Last Vital Signs Temp 97.5 F 03/16/22 06:46 Pulse 69 03/16/22 06:46 Resp 12 03/16/22 06:46 BP 122/61 03/16/22 06:46 Pulse Ox 98 03/16/22 06:46 O2 Del Method 03/16/22 06:46 BMI result Body Mass Index 27.4 Gen appear: More somnolent today HEENT: Icteric, under nourished Abd: Soft, moderately distended, nontender Neuro: Asterixis positive Objective Data Labs CBC & Chem 7: 03/16/22 04:33 03/16/22 04:33 Labs: Laboratory Results - last 24 hr 03/15/22 03/15/22 03/15/22 08:26 08:32 08:32 WBC RBC Hgb Hct MCV MCH MCHC RDW Plt Count MPV Immature Gran % (Auto) Neut % (Auto) Lymph % (Auto) [place] % (Auto) Eos % (Auto) Baso % (Auto) Lymph # (Auto) [place] # (Auto) Eos # (Auto) Baso # (Auto) Abs Immat Gran (auto) Absolute Neuts (auto) Absolute Nucleated RBC Nucleated RBC % (auto) Smear Tech's Comments PT INR APTT VBG pH VBG pCO2 VBG pO2 VBG HCO3 VBG O2 Saturation VBG Base Excess Sodium 134 L Potassium 4.6 Chloride 95 L Carbon Dioxide 26 Anion Gap 18 BUN 37 H D Creatinine 1.58 H Estim Creat Clear Calc 43.6 Estimated GFR 45 POC Glucose 41 L* Random Glucose 51 L* Lactic Acid F/U @ 2Hr Lactic Acid F/U @ 4Hr Calcium 8.7 Phosphorus 4.3 Magnesium 1.9 Total Bilirubin 6.8 H AST 53 H ALT 30 Alkaline Phosphatase 184 H Ammonia Troponin I High Sens < 3.5 B-Natriuretic Peptide Total Protein 7.5 Albumin 2.2 L Urine Color Urine Appearance Urine pH Ur Specific [place] Urine Protein Urine Glucose (UA) Urine Ketones Urine Blood Urine Nitrite Ur Leukocyte Esterase Ur Random Sodium Ur Random Potassium Urine Creatinine Peritoneal WBC Peritoneal RBC Per[place] Neutrophils Periton Lymphocytes Peritoneal Monocytes Peritoneal Other Cells Peritoneal Tot Protein Peritoneal Albumin Peritoneal LDH Peritoneal Glucose COVID-19 (SRIDEVI) COVID-19 Clin Com Hep Bs Antigen Hep Bs Antibody Hep B Core Total Ab Hep B Core IgM Ab 03/15/22 03/15/22 03/15/22 08:55 08:59 08:59 WBC RBC Hgb Hct MCV MCH MCHC RDW Plt Count MPV Immature Gran % (Auto) Neut % (Auto) Lymph % (Auto) [place] % (Auto) Eos % (Auto) Baso % (Auto) Lymph # (Auto) [place] # (Auto) Eos # (Auto) Baso # (Auto) Abs Immat Gran (auto) Absolute Neuts (auto) Absolute Nucleated RBC Nucleated RBC % (auto) Smear Tech's Comments PT INR APTT VBG pH VBG pCO2 VBG pO2 VBG HCO3 VBG O2 Saturation VBG Base Excess Sodium Potassium Chloride Carbon Dioxide Anion Gap BUN Creatinine Estim Creat Clear Calc Estimated GFR POC Glucose 141 H Random Glucose Lactic Acid F/U @ 2Hr Lactic Acid F/U @ 4Hr Calcium Phosphorus Magnesium Total Bilirubin AST ALT Alkaline Phosphatase Ammonia 51 Troponin I High Sens B-Natriuretic Peptide 204 H Total Protein Albumin Urine Color Urine Appearance Urine pH Ur Specific [place] Urine Protein Urine Glucose (UA) Urine Ketones Urine Blood Urine Nitrite Ur Leukocyte Esterase Ur Random Sodium Ur Random Potassium Urine Creatinine Peritoneal WBC Peritoneal RBC Periton Neutrophils Periton Lymphocytes Peritoneal Monocytes Peritoneal Other Cells Peritoneal Tot Protein Peritoneal Albumin Peritoneal LDH Peritoneal Glucose COVID-19 (SRIDEVI) COVID-19 Clin Com Hep Bs Antigen Hep Bs Antibody Hep B Core Total Ab Hep B Core IgM Ab 03/15/22 03/15/22 03/15/22 08:59 09:04 09:40 WBC RBC Hgb Hct MCV MCH MCHC RDW Plt Count MPV Immature Gran % (Auto) Neut % (Auto) Lymph % (Auto) [place] % (Auto) Eos % (Auto) Baso % (Auto) Lymph # (Auto) [place] # (Auto) Eos # (Auto) Baso # (Auto) Abs Immat Gran (auto) Absolute Neuts (auto) Absolute Nucleated RBC Nucleated RBC % (auto) Smear Tech's Comments PT INR APTT VBG pH 7.35 VBG pCO2 50 VBG pO2 50 VBG HCO3 28 H VBG O2 Saturation 72.0 VBG Base Excess 2.1 Sodium Potassium Chloride Carbon Dioxide Anion Gap BUN Creatinine Estim Creat Clear Calc Estimated GFR POC Glucose Random Glucose Lactic Acid F/U @ 2Hr Lactic Acid F/U @ 4Hr Calcium Phosphorus Magnesium Total Bilirubin AST ALT Alkaline Phosphatase Ammonia Troponin I High Sens B-Natriuretic Peptide Total Protein Albumin Urine Color Dark Yellow Urine Appearance Clear Urine pH 6.0 Ur Specific [place] 1.015 Urine Protein Negative Urine Glucose (UA) Negative Urine Ketones Negative Urine Blood Negative Urine Nitrite Negative Ur Leukocyte Esterase Negative Ur Random Sodium Ur Random Potassium Urine Creatinine Peritoneal WBC Peritoneal RBC Periton Neutrophils Periton Lymphocytes Peritoneal Monocytes Peritoneal Other Cells Peritoneal Tot Protein Peritoneal Albumin Peritoneal LDH Peritoneal Glucose COVID-19 (SRIDEVI) Negative COVID-19 Clin Com See Note Hep Bs Antigen Hep Bs Antibody Hep B Core Total Ab Hep B Core IgM Ab 03/15/22 03/15/22 03/15/22 09:40 09:43 09:44 WBC RBC Hgb Hct MCV MCH MCHC RDW Plt Count MPV Immature Gran % (Auto) Neut % (Auto) Lymph % (Auto) [place] % (Auto) Eos % (Auto) Baso % (Auto) Lymph # (Auto) [place] # (Auto) Eos # (Auto) Baso # (Auto) Abs Immat Gran (auto) Absolute Neuts (auto) Absolute Nucleated RBC Nucleated RBC % (auto) Smear Tech's Comments PT 30.7 H INR 2.6 H APTT 41.7 H VBG pH VBG pCO2 VBG pO2 VBG HCO3 VBG O2 Saturation VBG Base Excess Sodium Potassium Chloride Carbon Dioxide Anion Gap BUN Creatinine Estim Creat Clear Calc Estimated GFR POC Glucose 151 H Random Glucose Lactic Acid F/U @ 2Hr Lactic Acid F/U @ 4Hr Calcium Phosphorus Magnesium Total Bilirubin AST ALT Alkaline Phosphatase Ammonia Troponin I High Sens B-Natriuretic Peptide Total Protein Albumin Urine Color Urine Appearance Urine pH Ur Specific [place] Urine Protein Urine Glucose (UA) Urine Ketones Urine Blood Urine Nitrite Ur Leukocyte Esterase Ur Random Sodium 28.0 Ur Random Potassium 65.5 Urine Creatinine 91.10 Peritoneal WBC Peritoneal RBC Periton Neutrophils Periton Lymphocytes Peritoneal Monocytes Peritoneal Other Cells Peritoneal Tot Protein Peritoneal Albumin Peritoneal LDH Peritoneal Glucose COVID-19 (SRIDEVI) COVID-19 Clin Com Hep Bs Antigen Hep Bs Antibody Hep B Core Total Ab Hep B Core IgM Ab 03/15/22 03/15/22 03/15/22 10:41 11:18 11:18 WBC RBC Hgb Hct MCV MCH MCHC RDW Plt Count MPV Immature Gran % (Auto) Neut % (Auto) Lymph % (Auto) [place] % (Auto) Eos % (Auto) Baso % (Auto) Lymph # (Auto) [place] # (Auto) Eos # (Auto) Baso # (Auto) Abs Immat Gran (auto) Absolute Neuts (auto) Absolute Nucleated RBC Nucleated RBC % (auto) Smear Tech's Comments PT INR APTT VBG pH VBG pCO2 VBG pO2 VBG HCO3 VBG O2 Saturation VBG Base Excess Sodium Potassium Chloride Carbon Dioxide Anion Gap BUN Creatinine Estim Creat Clear Calc Estimated GFR POC Glucose Random Glucose Lactic Acid F/U @ 2Hr 4.0 H* Lactic Acid F/U @ 4Hr Calcium Phosphorus Magnesium Total Bilirubin AST ALT Alkaline Phosphatase Ammonia Troponin I High Sens B-Natriuretic Peptide Total Protein Albumin Urine Color Urine Appearance Urine pH Ur Specific [place] Urine Protein Urine Glucose (UA) Urine Ketones Urine Blood Urine Nitrite Ur Leukocyte Esterase Ur Random Sodium Ur Random Potassium Urine Creatinine Peritoneal WBC 0.960 Peritoneal RBC < 0.002 Periton Neutrophils 53 Periton Lymphocytes 20 Peritoneal Monocytes 9 Peritoneal Other Cells 18 Peritoneal Tot Protein 0.7 Peritoneal Albumin 0.2 Peritoneal LDH 66 Peritoneal Glucose 145 COVID-19 (SRIDEVI) COVID-19 Clin Com Hep Bs Antigen Hep Bs Antibody Hep B Core Total Ab Hep B Core IgM Ab 03/15/22 03/15/22 03/16/22 12:54 13:00 04:33 WBC 11.5 H RBC 2.72 L Hgb 9.0 L Hct 26.5 L MCV 97.4 MCH 33.1 H MCHC 34.0 RDW 16.3 H Plt Count 82 L MPV 12.5 H Immature Gran % (Auto) 5.3 H Neut % (Auto) 64.3 Lymph % (Auto) 13.4 L [place] % (Auto) 15.5 H Eos % (Auto) 0.9 Baso % (Auto) 0.6 Lymph # (Auto) 1.5 [place] # (Auto) 1.8 H Eos # (Auto) 0.1 Baso # (Auto) 0.1 Abs Immat Gran (auto) 0.61 H Absolute Neuts (auto) 7.4 Absolute Nucleated RBC 0.000 Nucleated RBC % (auto) 0.0 Smear Tech's Comments VERIFIED PT INR APTT VBG pH VBG pCO2 VBG pO2 VBG HCO3 VBG O2 Saturation VBG Base Excess Sodium Potassium Chloride Carbon Dioxide Anion Gap BUN Creatinine Estim Creat Clear Calc Estimated GFR POC Glucose 135 H Random Glucose Lactic Acid F/U @ 2Hr Lactic Acid F/U @ 4Hr 3.9 H* Calcium Phosphorus Magnesium Total Bilirubin AST ALT Alkaline Phosphatase Ammonia Troponin I High Sens B-Natriuretic Peptide Total Protein Albumin Urine Color Urine Appearance Urine pH Ur Specific [place] Urine Protein Urine Glucose (UA) Urine Ketones Urine Blood Urine Nitrite Ur Leukocyte Esterase Ur Random Sodium Ur Random Potassium Urine Creatinine Peritoneal WBC Peritoneal RBC Periton Neutrophils Periton Lymphocytes Peritoneal Monocytes Peritoneal Other Cells Peritoneal Tot Protein Peritoneal Albumin Peritoneal LDH Peritoneal Glucose COVID-19 (SRIDEVI) COVID-19 Clin Com Hep Bs Antigen Hep Bs Antibody Hep B Core Total Ab Hep B Core IgM Ab 03/16/22 03/16/22 04:33 04:33 WBC RBC Hgb Hct MCV MCH MCHC RDW Plt Count MPV Immature Gran % (Auto) Neut % (Auto) Lymph % (Auto) [place] % (Auto) Eos % (Auto) Baso % (Auto) Lymph # (Auto) [place] # (Auto) Eos # (Auto) Baso # (Auto) Abs Immat Gran (auto) Absolute Neuts (auto) Absolute Nucleated RBC Nucleated RBC % (auto) Smear Tech's Comments PT INR APTT VBG pH VBG pCO2 VBG pO2 VBG HCO3 VBG O2 Saturation VBG Base Excess Sodium 137 Potassium 5.4 H Chloride 102 Carbon Dioxide 25 Anion Gap 15 BUN 32 H Creatinine 1.44 H Estim Creat Clear Calc 47.9 Estimated GFR 50 POC Glucose Random Glucose 64 Lactic Acid F/U @ 2Hr Lactic Acid F/U @ 4Hr Calcium 8.2 L Phosphorus Magnesium Total Bilirubin 4.8 H AST 61 H ALT 26 Alkaline Phosphatase 113 D Ammonia Troponin I High Sens B-Natriuretic Peptide Total Protein 6.5 Albumin 2.3 L Urine Color Urine Appearance Urine pH Ur Specific [place] Urine Protein Urine Glucose (UA) Urine Ketones Urine Blood Urine Nitrite Ur Leukocyte Esterase Ur Random Sodium Ur Random Potassium Urine Creatinine Peritoneal WBC Peritoneal RBC Periton Neutrophils Periton Lymphocytes Peritoneal Monocytes Peritoneal Other Cells Peritoneal Tot Protein Peritoneal Albumin Peritoneal LDH Peritoneal Glucose COVID-19 (SRIDEVI) COVID-19 Clin Com Hep Bs Antigen Negative Hep Bs Antibody REACTIVE Hep B Core Total Ab Reactive Hep B Core IgM Ab Cancelled Microbiology Microbiology Results: Microbiology 03/15/22 11:18 Abdominal Fluid Gram Stain - Final Procedures Date of Service Date of Service: 03/16/22 Progress Note: A&P Assessment and plan (1) Decompensated hepatic cirrhosis: Status: Acute (2) SBP (spontaneous bacterial peritonitis): Status: Acute (3) Hepatic encephalopathy: Status: Acute (4) Ascites: Status: Acute (5) Coagulopathy: Status: Acute (6) Acute kidney injury: Status: Acute Plan MELD-Na 30 Child [place]ong Class C White count down. Didnt get adequate albumin yest. Getting 400ml today. Also a bit more somnolent today compared to yesterday. Hep B serologies negative, HCV RNA pending. Recommendations: -Cont Ceftriaxone 2g IV once daily x 5-7 days total. Will need secondary prophylaxis after this is completed. - Low threshold to obtain repeat para if sepsis does not improve in 2-3 days of Abx therapy - Albumin 25% 1g/kg tomorrow (i.e 300ml) - HOLD diuretics, NSBB. No large volume hero. - If renal function does not improve tomorrow, please consult Nephrology for ?HRS - Increase lactulose 30ml every 3-4h for goal 4-5 BMs/day. This can be downt itrated to TID for goal 2-3BMs per day once mental status clears up in a couple of days. - Cont Rifaximin 550mg BID whilst inpatient. - Give Vit K 10mg x 2 days to be given IV as patients with cirrhosis may have poor PO absorption of vit K - Follow results of BCx - US abd with duplex pending - HCV RNA pending Time Spent With Patient Time: Total time spent is greater than 50% in coordination of care (as documented) at patient's floor/unit and/or counseling patient: Quality Stroke Does the patient have a stroke diagnosis?: No VTE Prior VTE?: No VTE Risk Level:: Medical - moderate - high VTE Device Contraindication: Treatment Not Indicated VTE Drug Contraindication: N/A - Med Ordered
[2022-03-16] MEDS: Lactulose 20 GM/30 ML SOLUTION 30 GM PO ×3 (10:14→20:59)
[2022-03-16] MEDS: methADONE HCl 20 MG/2 ML ORAL.CONC 65 MG PO (10:15)
[2022-03-16] MEDS: Albumin Human 25 % 100 ML IV ×3 (10:15→20:57)
[2022-03-16] MEDS: rifAXIMin 550 MG TABLET PO ×2 (12:23→22:51)
[2022-03-16] MEDS: Sodium Zirconium Cyclosilicate 5 GM POWD.PACK PO (12:24)
[2022-03-16] MEDS: cefTRIAXone sodium 2 GM in 0.9 % Sodium Chloride 50 ML IV (13:44)
[2022-03-16] MEDS: Enoxaparin Sodium 40 MG/0.4 ML SYRINGE SUBCUT (13:44)
[2022-03-16] MEDS: 0.9 % Sodium Chloride Flush 3 ML SYRINGE IVFLUSH ×2 (14:26)
--- NOTE | 2022-03-16 14:59 | P.PNIM_ITS ---
Subjective Subjective Date of Service: 03/16/22 Interval History: the patient was seen and evaluated this morning Laying in bed, feels mild improvement with decreased pain his abdomen Still reporting swelling in his lower extremities No reported other overnight events. Systemic review: No fever, chills but has generalized weakness No chest pain, palpitation No shortness of breath or coughing Improved abdominal pain, no nausea or vomiting No urinary symptoms No any rash or wounds Physical Exam Vital Signs: Vital Signs: Last Vital Signs Temp 99.6 F 03/16/22 14:47 Pulse 69 03/16/22 14:47 Resp 16 03/16/22 14:47 BP 125/76 03/16/22 14:47 Pulse Ox 99 03/16/22 14:47 O2 Del Method 03/16/22 14:47 BMI result Body Mass Index 27.4 Const: Other: Constitutional : Alert, oriented, not in distress Neck : Normal inspection, Supple Cardiovascular : RRR, no JVP, +2 bilateral lower extremity edema Respiratory : fair bilateral air entry, no crackles, wheezes or rhonchi Gastrointestinal: soft, lax, Normal bowel sounds, mild generalized tenderness with mild amount of ascites Urology: Mild scrotal edema Skin : Warm, Dry Neurological : Alert & oriented x3, No focal deficit Objective Data Active Medications Acetaminophen (Acetaminophen 325 Mg Tablet) 650 mg PO Q6H PRN PRN Reason: Pain, Mild (Pain Scale 1-3) Enoxaparin Sodium (Enoxaparin Sodium 40 Mg/0.4 Ml Syringe) 40 mg SUBCUT Q24H [facility] Last Admin: 03/16/22 13:44 Dose: 40 mg Documented By: DYLAN Ceftriaxone Sodium 2 gm/ (Sodium Chloride) 50 mls @ 100 mls/hr IV Q24H [facility] Last Infusion: 03/16/22 14:18 Dose: 0 mls/hr Documented By: DYLAN Albumin Human (Kedbumin 25 %) 100 mls @ 100 mls/hr IV Q6H [facility] Stop: 03/17/22 04:14 Last Admin: 03/16/22 14:19 Dose: 100 mls/hr Documented By: DYLAN Lactulose (Lactulose 20 Gm/30 Ml Solution) 30 gm PO BID [facility] Methadone HCl (Methadone Hcl 20 Mg/2 Ml Oral.Conc) 65 mg PO DAILY [facility] Last Admin: 03/16/22 10:15 Dose: 65 mg Documented By: SHAYY Ondansetron HCl (Ondansetron Hcl 4 Mg/2 Ml Vial) 4 mg IVPUSH Q8H PRN PRN Reason: Nausea and Vomiting Pharmacy Consult (Consult Rx Vancomycin Dosing) 1 each MISCELLANE DAILY PRN PRN Reason: Consult order Pharmacy Consult (Consult Rx Perform Med Rec) 1 each MISCELLANE ONCE PRN PRN Reason: Consult order Rifaximin (Rifaximin 550 Mg Tablet) 550 mg PO BID [facility] Last Admin: 03/16/22 12:23 Dose: 550 mg Documented By: DYLAN Sodium Chloride (0.9 % Sodium Chloride Flush 3 Ml Syringe) 3 ml IVFLUSH QSHIFT [facility] Last Admin: 03/16/22 14:26 Dose: 3 ml Documented By: DYLAN Labs CBC & Chem 7: 03/16/22 04:33 03/16/22 04:33 Labs: Laboratory Results - last 24 hr 03/15/22 03/15/22 03/16/22 09:40 11:18 04:33 MCV 97.4 MCH 33.1 H MCHC 34.0 RDW 16.3 H Plt Count 82 L MPV 12.5 H Immature Gran % (Auto) 5.3 H Neut % (Auto) 64.3 Lymph % (Auto) 13.4 L [place] % (Auto) 15.5 H Eos % (Auto) 0.9 Baso % (Auto) 0.6 Lymph # (Auto) 1.5 [place] # (Auto) 1.8 H Eos # (Auto) 0.1 Baso # (Auto) 0.1 Abs Immat Gran (auto) 0.61 H Absolute Neuts (auto) 7.4 Absolute Nucleated RBC 0.000 Nucleated RBC % (auto) 0.0 Smear Tech's Comments VERIFIED Anion Gap Estim Creat Clear Calc Estimated GFR Random Glucose Calcium Total Bilirubin AST ALT Alkaline Phosphatase Total Protein Albumin Ur Random Sodium 28.0 Ur Random Potassium 65.5 Urine Creatinine 91.10 Peritoneal Tot Protein 0.7 Peritoneal Albumin 0.2 Peritoneal LDH 66 Peritoneal Glucose 145 Hep Bs Antigen Hep Bs Antibody Hep B Core Total Ab Hep B Core IgM Ab 03/16/22 03/16/22 04:33 04:33 MCV MCH MCHC RDW Plt Count MPV Immature Gran % (Auto) Neut % (Auto) Lymph % (Auto) [place] % (Auto) Eos % (Auto) Baso % (Auto) Lymph # (Auto) [place] # (Auto) Eos # (Auto) Baso # (Auto) Abs Immat Gran (auto) Absolute Neuts (auto) Absolute Nucleated RBC Nucleated RBC % (auto) Smear Tech's Comments Anion Gap 15 Estim Creat Clear Calc 47.9 Estimated GFR 50 Random Glucose 64 Calcium 8.2 L Total Bilirubin 4.8 H AST 61 H ALT 26 Alkaline Phosphatase 113 D Total Protein 6.5 Albumin 2.3 L Ur Random Sodium Ur Random Potassium Urine Creatinine Peritoneal Tot Protein Peritoneal Albumin Peritoneal LDH Peritoneal Glucose Hep Bs Antigen Negative Hep Bs Antibody REACTIVE Hep B Core Total Ab Reactive Hep B Core IgM Ab Cancelled Microbiology Microbiology Results: Microbiology 03/15/22 11:18 Gram Stain - Final Abdominal Fluid Routine Culture - Preliminary No growth to date. Anaerobic Culture - Preliminary No growth to date. 03/15/22 08:59 Blood Culture - Preliminary Blood - Venous No growth after 24 hours. 03/15/22 08:59 Blood Culture - Preliminary Blood - Venous No growth after 24 hours. Assessment and Plan (1) Acute kidney injury: Status: Acute (2) Hepatic encephalopathy: Status: Acute (3) Ascites: Status: Acute (4) Opioid dependence: Status: Acute Plan 61 year old male with history of opioid dependence on methadone [ UNAWARE AND DOES NOT WISH HER TO KNOW THIS], hepatitis C with cirrhosis of the liver and hypertension admitted for spontaneous bacterial peritonitis wtih severe sepsis, and decompensated hepatic cirrhosis with fluid overload. - Severe sepsis due to Spontaneous bacterial peritonitis Sepsis resolved Continue 2g ceftriaxone daily 2/5 Pending final cultures WBCs trending down GI input appreciated, Give vitamin K IV Albumin q.6 Ultrasound duplex ordered Hepatitis serologies ordered - hepatic encephalopathy Improving lactulose goal 4-5 BM daily daily start rifaximin - [place] secondary to severe sepsis vs hepatorenal Creatinine decreased to 1.4 DC IV fluid Get Nephrology evaluation Follow BMP - Hyperkalemia Potassium of 5.4 Received Lokelma Follow BMP - volume overload 2/2 Decompensated hepatic cirrhosis secondary to hepatitis C Scrotal and BLE edema as well as ascites s/p pericentesis with 1.5L fluid removed Hyperbilirubinemia, thrombocytopenia, Coagulopathy secondary to cirrhosis, not severe sepsis Abd CT with cirrhosis and portal hypertension Hold BB at this time GI consulted On hold diuretics due to [place] I -HTN controlled Monitor BPs -Opioid dependence Continue home methadone dose DVT prophylaxis lovenox Full code Pt requires overnight hospital stay for management of SBP with severe sepsis and fluid overload requiring IV abx and close monitoring to prevent possible decompensation in to severe sepsis Quality Stroke Does the patient have a stroke diagnosis?: No VTE Prior VTE?: No VTE Risk Level:: Medical - moderate - high VTE Device Contraindication: Treatment Not Indicated VTE Drug Contraindication: N/A - Med Ordered
[2022-03-16] MEDS: Phytonadione (Vit K1) Oral 10 MG/ML AMPUL PO (17:34)
[2022-03-16] MEDS: Phytonadione (Vit K1) 10 MG in 0.9 % Sodium Chloride 50 ML 51 MG IV (17:38)
[2022-03-17] MEDS: 0.9 % Sodium Chloride Flush 3 ML SYRINGE IVFLUSH ×3 (00:12→21:50)
[2022-03-17 02:26] VITALS: BP 113/55; PULSE 65; RESP 17; TEMP 36.4; O2SAT 97
[2022-03-17] MEDS: Albumin Human 25 % 100 ML IV ×4 (03:27→15:12)
[2022-03-17 06:00] VITALS: BP 136/84; PULSE 69
[2022-03-17] MEDS: rifAXIMin 550 MG TABLET PO ×2 (08:51→21:46)
[2022-03-17] MEDS: methADONE HCl 20 MG/2 ML ORAL.CONC 65 MG PO (08:54)
[2022-03-17 09:12] LABS: Hematocrit 27.1 % (42.0-52.0); Hemoglobin 9.1 g/dl (14.0-18.0); Mean Corpuscular HGB Conc 33.6 g/dl (31.0-36.0); Mean Corpuscular Hemoglobin 33.3 pg (27.0-33.0); Mean Corpuscular Volume 99.3 fL (80.0-98.0); Mean Platelet Volume 11.4 fL (9.4-12.4); Red Blood Count 2.73 X10*6/uL (4.60-5.80); Red Cell Distribution Width 16.3 % (11.0-16.0); White Blood Count 9.6 X10*3/uL (4.8-10.8)
[2022-03-17 09:13] LABS: INTERNATIONAL NORM RATIO 3.1 (0.9-1.1); Platelet Count 71 X10*3/uL (160-400); Prothrombin Time 37.3 SEC (10.0-13.1)
[2022-03-17 09:26] LABS: Alanine Aminotransferase 19 U/L (0-40); Albumin Level 3.3 g/dL (3.5-5.0); Alkaline Phosphatase 99 U/L (39-117); Anion Gap 14 (12-20); Aspartate Amino Transferase 34 U/L (5-37); Bilirubin Direct 2.8 mg/dL (0.0-0.5); Bilirubin Total 6.3 mg/dL (0.0-1.0); Blood Urea Nitrogen 21 mg/dL (9-16); Calcium 8.6 mg/dL (8.4-10.2); Carbon Dioxide 24 mmol/L (22-29); Chloride 104 mmol/L (96-108); Estimated Glomerular Filt Rate > 60; Glucose Random 95 mg/dL (60-115); Potassium 4.3 mmol/L (3.3-5.1); Sodium 138 mmol/L (135-145); Total Protein 6.6 g/dL (6.5-8.0)
[2022-03-17 10:47] VITALS: BP 130/71; PULSE 64; RESP 14; TEMP 37.2; O2SAT 100
--- NOTE | 2022-03-17 11:17 | PC.NURSE ---
Patient left for at this time with electrical engineer mep via hospital bed. Vanesa Nava assuming care given report on patient.
[2022-03-17] MEDS: Furosemide 40 MG/4 ML VIAL IVPUSH (11:28)
[2022-03-17] MEDS: Spironolactone 25 MG TABLET 50 MG PO (11:29)
--- NOTE | 2022-03-17 11:53 | PM.PNNEP ---
Subjective Subjective Date of Service: 03/17/22 Interval history: Seen and examined, events noted Physical Exam Vital Signs: Vital Signs: Last Vital Signs Temp 98.9 F 03/17/22 10:47 Pulse 64 03/17/22 10:47 Resp 14 03/17/22 10:47 BP 130/71 03/17/22 10:47 Pulse Ox 100 03/17/22 10:47 O2 Del Method 03/17/22 02:26 BMI result Body Mass Index 27.4 Const: Other: Constitutional : Alert, oriented, not in distress Neck : Normal inspection, Supple Cardiovascular : RRR, no JVP, +2 bilateral lower extremity edema Respiratory : fair bilateral air entry, no crackles, wheezes or rhonchi Gastrointestinal: soft, lax, Normal bowel sounds, mild generalized tenderness with mild amount of ascites Urology: Mild scrotal edema Skin : Warm, Dry Neurological : Alert & oriented x3, No focal deficit General: cooperative, no acute distress, alert and awake Nutritional Appearance: well nourished Orientation/consciousness: patient oriented x3 Limitations: no limitations HEENT: Head: Yes normal to inspection and Yes atraumatic Ears: hearing grossly normal bilaterally and external ears normal General nose exam: Normal external nose present, no nasal discharge noted and no epistaxis Face and sinus: Yes normal facial exam, No abrasion and No laceration Mouth: Normal oral and palatal mucosa present, no drooling and no muffled voice Eyes: General: appearance normal, both eyes and all related structures Periorbital: periorbital findings normal Eyelids: Yes eyelids normal Conjunctivae: conjunctivae normal Pupils: Equal, round and reactive pupils present EOM: EOMs intact bilaterally Neck: Neck: Yes normal visual inspection, Yes full ROM and Yes no lymphadenopathy Chest: Chest palpation & inspection: normal inspection of the chest Resp: Effort & Inspection: normal respiratory effort and able to speak in complete sentences Auscultation: crackles bilateral Cardio: Rate: regular rate Rhythm: regular rhythm GI: Inspection: Yes Abdominal wall edema and Yes distended Palpation (GI): Soft to palpation, not firm, Tenderness to palpation present (GI), no guarding and not rigid Neuro: General: patient oriented x3 and moves all extremities Cranial nerves: Yes Equal, round and reactive pupils present Cognition (Neuro): normal cognition Motor exam (neuro): 5/5 motor strength present throughout Sensory Exam: Normal double simultaneous stimulation for sensation Coordination: [id number] test normal Extrem: General: Yes full ROM, Yes capillary refill normal, Yes edema and Yes pedal edema Psych: Appearance: grossly normal Mental Status: mental status grossly normal Affect: normal affect Attitude: cooperative Thought process: Normal thought process present Thought content: Normal thought content present Insight: Good insight present (Psych) Objective Data Labs CBC & Chem 7: 03/17/22 08:51 03/17/22 08:51 Labs: Laboratory Results - last 24 hr 03/17/22 03/17/22 03/17/22 08:51 08:51 08:51 WBC 9.6 RBC 2.73 L Hgb 9.1 L Hct 27.1 L MCV 99.3 H MCH 33.3 H MCHC 33.6 RDW 16.3 H Plt Count 71 L MPV 11.4 Absolute Nucleated RBC 0.000 Nucleated RBC % (auto) 0.0 PT INR Sodium 138 Potassium 4.3 D Chloride 104 Carbon Dioxide 24 Anion Gap 14 BUN 21 H Creatinine 1.00 Estim Creat Clear Calc 69.0 Estimated GFR > 60 Random Glucose 95 D Calcium 8.6 Total Bilirubin Direct Bilirubin AST ALT Alkaline Phosphatase Total Protein Albumin Hep C Viral Load Cancelled Hep C Viral Load Log Cancelled Hepatitis C Genotype Cancelled 03/17/22 03/17/22 08:51 08:51 WBC RBC Hgb Hct MCV MCH MCHC RDW Plt Count MPV Absolute Nucleated RBC Nucleated RBC % (auto) PT 37.3 H INR 3.1 H Sodium Potassium Chloride Carbon Dioxide Anion Gap BUN Creatinine Estim Creat Clear Calc Estimated GFR Random Glucose Calcium Total Bilirubin 6.3 H Direct Bilirubin 2.8 H AST 34 D ALT 19 Alkaline Phosphatase 99 Total Protein 6.6 Albumin 3.3 L D Hep C Viral Load Hep C Viral Load Log Hepatitis C Genotype Microbiology Microbiology Results: Microbiology 03/15/22 08:59 Blood - Venous Blood Culture - Preliminary No growth after 48 hours. 03/15/22 08:59 Blood - Venous Blood Culture - Preliminary No growth after 48 hours. 03/15/22 11:18 Abdominal Fluid Gram Stain - Final 03/15/22 11:18 Abdominal Fluid Routine Culture - Final No growth after 2 days 03/15/22 11:18 Abdominal Fluid Anaerobic Culture - Preliminary No growth to date. Procedures Date of Service Date of Service: 03/17/22 Assessment & Plan Assessment and plan (1) Decompensated hepatic cirrhosis: Status: Acute (2) SBP (spontaneous bacterial peritonitis): Status: Acute (3) Hepatic encephalopathy: Status: Acute (4) Ascites: Status: Acute (5) Coagulopathy: Status: Acute (6) Acute kidney injury: Status: Acute Plan CONSULT DICTATED YESTERDAY MORNING STILL NOT TRANSCRIBED--I LEFT [facility] WITH SERVICE TO GET ON CHART 1. TASHA: resolved 2. Hypervol: d/t cirrhosis; eed to r/s diuretics REC: cont to track renal func; r/s diuretics; avoid NToxins; ok to stop IV albumin Time Spent With Patient Time: Total time spent is greater than 50% in coordination of care (as documented) at patient's floor/unit and/or counseling patient: Progress Note: Quality Stroke Does the patient have a stroke diagnosis?: No
[2022-03-17 12:31] VITALS: BMI 27.4
--- NOTE | 2022-03-17 12:35 | CONS_ITS ---
DATE OF SERVICE: 03/16/2022 REASON FOR CONSULTATION: I was asked to see patient to assist in evaluation and management of patient's acute kidney injury as reflected by a creatinine of 1.58 yesterday on admission where his baseline creatinine is 0.7 to 0.8. HISTORY OF PRESENT ILLNESS: In summary, the patient is a 61-year-old gentleman with multiple chronic medical problems including narcotic dependence, on methadone, hepatitis C with cirrhosis of liver, along with hypertension, who presented to the hospital with increasing shortness of breath and abdominal pain. He was markedly fluid overloaded with scrotal edema and leg swelling. He was noted to be hypothermic on admission with a temp of 93.1. His evaluation including imaging studies, which showed cirrhosis and portal hypertension along with moderate ascites. He had a paracentesis of 1.5 L of fluid removed and the fluid was sent for cell count, which showed greater than 250 neutrophils consistent with SBP, need to be started on antibiotics. On the form of vancomycin and Zosyn, started on IV fluids and IV albumin. This morning, he is complaining of generalized pain, particularly in the abdomen area. He denies any nausea, vomiting. Difficult to get much more information from patient given his pain. PAST MEDICAL HISTORY: As mentioned above. MEDICATIONS: His medications on admission are noted in the admitting notes. His current medications noted in the MAR. ALLERGIES: TO TRAMADOL LISTED. SOCIAL HISTORY: He is an ex-smoker and an ex-alcohol user. PHYSICAL EXAMINATION: VITAL SIGNS: Blood pressure of 115/60 with a heart rate in the 60s. He is afebrile. HEENT: Head is atraumatic and normocephalic. Mucous membranes are moist. LUNGS: Decreased breath sounds at bases. CARDIAC: Regular rate and rhythm. ABDOMEN: Distended with positive fluid wave consistent with ascites. EXTREMITIES: Show 2 to 3+ edema bilaterally. LABORATORY DATA: Labs from today show hemoglobin 9, hematocrit 26.5, white blood cell count 11.5, platelet count 82,000. Sodium 137, potassium 5.4, chloride 102, bicarb 25, BUN 32, creatinine 1.44. On admission yesterday, potassium 4.6, creatinine was 1.58, and baseline creatinine is 0.7 to 0.8, calcium 8.2, total bilirubin 4.8, albumin 2.3. Urinalysis was negative by dipstick. There was a urine sodium of 28, urine creatinine of 91. IMPRESSION: 61-YEAR-OLD CIRRHOTIC, ADMITTED WITH FLUID OVERLOAD AND SHORTNESS OF BREATH, NOTED TO HAVE SPONTANEOUS BACTERIAL PERITONITIS AND ACUTE KIDNEY INJURY. 1. Acute kidney injury. This is most likely due to renal hypoperfusion in the setting of cirrhosis. He is now getting IV albumin and his serum creatinine seems to be plateauing. If his creatinine goes up further, would give him IV octreotide and midodrine for possible hepatorenal syndrome. Given his creatinine is stable and actually slightly improved, we will hold off on this for now. His urinalysis is bland, which goes against an acute interstitial nephritis or acute glomerulonephritis. His fractional excretion of sodium is less than 1% consistent with renal hypoperfusion. 2. Hypervolemia. At some point, I will look to see if he is a candidate for maintenance diuretics to try to keep the volume off. Now with acute kidney injury, we will hold off. 3. Spontaneous bacterial peritonitis. He is going to get antibiotics. SUGGESTIONS: At this time include continue to track urine output and renal function. Avoid nephrotoxins. Continue the IV albumin. If his creatinine increases or urine output decreases, we will see by adding midodrine and octreotide. We will follow the patient with the team. MD ORTIZ Gaffney/LOPEZ / [id number]
--- NOTE | 2022-03-17 12:54 | HO.PM.IMPN ---
Subjective Subjective Date of Service: 03/17/22 Interval History: The patient was seen and evaluated this morning Laying in bed, feels improvement with decreased pain his abdomen swelling in his lower extremities No reported other overnight events. Systemic review: No fever, chills but has generalized weakness No chest pain, palpitation No shortness of breath or coughing Improved abdominal pain, no nausea or vomiting No urinary symptoms No any rash or wounds Physical Exam Vital Signs: Vital Signs: Last Vital Signs Temp 98.9 F 03/17/22 10:47 Pulse 64 03/17/22 10:47 Resp 14 03/17/22 10:47 BP 130/71 03/17/22 10:47 Pulse Ox 100 03/17/22 10:47 O2 Del Method 03/17/22 02:26 BMI result Body Mass Index 27.4 Const: Other: Constitutional : Alert, oriented, not in distress Neck : Normal inspection, Supple Cardiovascular : RRR, no JVP, +2 bilateral lower extremity edema Respiratory : fair bilateral air entry, no crackles, wheezes or rhonchi Gastrointestinal: soft, lax, Normal bowel sounds, no generalized tenderness with mild amount of ascites Urology: Mild scrotal edema Skin : Warm, Dry Neurological : Alert & oriented x3, No focal deficit Objective Data Active Medications Acetaminophen (Acetaminophen 325 Mg Tablet) 650 mg PO Q6H PRN PRN Reason: Pain, Mild (Pain Scale 1-3) Enoxaparin Sodium (Enoxaparin Sodium 40 Mg/0.4 Ml Syringe) 40 mg SUBCUT Q24H [facility] Last Admin: 03/16/22 13:44 Dose: 40 mg Documented By: DYLAN Furosemide (Furosemide 40 Mg Tablet) 40 mg PO DAILY [facility]; Protocol Ceftriaxone Sodium 2 gm/ (Sodium Chloride) 50 mls @ 100 mls/hr IV Q24H [facility] Last Infusion: 03/16/22 14:18 Dose: 0 mls/hr Documented By: DYLAN Phytonadione 10 mg/ Sodium (Chloride) 51 mls @ 51 mls/hr IV DAILY@1700 [facility]NY Stop: 03/17/22 17:59 Last Infusion: 03/16/22 18:53 Dose: 0 mls/hr Documented By: DYLAN Albumin Human (Kedbumin 25 %) 100 mls @ 100 mls/hr IV Q1H [facility]NY Stop: 03/17/22 12:59 Last Admin: 03/17/22 12:43 Dose: 100 mls/hr Documented By: RYLAN Lactulose (Lactulose 20 Gm/30 Ml Solution) 30 gm PO QID [facility] Last Admin: 03/17/22 12:41 Dose: Not Given Documented By: RYLAN Non-Admin Reason: Patient Refused Methadone HCl (Methadone Hcl 20 Mg/2 Ml Oral.Conc) 65 mg PO DAILY [facility] Last Admin: 03/17/22 08:54 Dose: 65 mg Documented By: EMILIANO Ondansetron HCl (Ondansetron Hcl 4 Mg/2 Ml Vial) 4 mg IVPUSH Q8H PRN PRN Reason: Nausea and Vomiting Pharmacy Consult (Consult Rx Vancomycin Dosing) 1 each MISCELLANE DAILY PRN PRN Reason: Consult order Pharmacy Consult (Consult Rx Perform Med Rec) 1 each MISCELLANE ONCE PRN PRN Reason: Consult order Rifaximin (Rifaximin 550 Mg Tablet) 550 mg PO BID [facility] Last Admin: 03/17/22 08:51 Dose: 550 mg Documented By: EMILIANO Sodium Chloride (0.9 % Sodium Chloride Flush 3 Ml Syringe) 3 ml IVFLUSH QSHIFT [facility] Last Admin: 03/17/22 08:51 Dose: 3 ml Documented By: EMILIANO Spironolactone (Spironolactone 25 Mg Tablet) 50 mg PO DAILY [facility]; Protocol Last Admin: 03/17/22 11:29 Dose: 50 mg Documented By: RYLAN Labs CBC & Chem 7: 03/17/22 08:51 03/17/22 08:51 Labs: Laboratory Results - last 24 hr 03/17/22 03/17/22 03/17/22 08:51 08:51 08:51 MCV 99.3 H MCH 33.3 H MCHC 33.6 RDW 16.3 H Plt Count 71 L MPV 11.4 Absolute Nucleated RBC 0.000 Nucleated RBC % (auto) 0.0 PT INR Anion Gap 14 Estim Creat Clear Calc 69.0 Estimated GFR > 60 Random Glucose 95 D Calcium 8.6 Total Bilirubin Direct Bilirubin AST ALT Alkaline Phosphatase Total Protein Albumin Hep C Viral Load Cancelled Hep C Viral Load Log Cancelled Hepatitis C Genotype Cancelled 09/22/22 09/22/22 08:51 08:51 MCV MCH MCHC RDW Plt Count MPV Absolute Nucleated RBC Nucleated RBC % (auto) PT 37.3 H INR 3.1 H Anion Gap Estim Creat Clear Calc Estimated GFR Random Glucose Calcium Total Bilirubin 6.3 H Direct Bilirubin 2.8 H AST 34 D ALT 19 Alkaline Phosphatase 99 Total Protein 6.6 Albumin 3.3 L D Hep C Viral Load Hep C Viral Load Log Hepatitis C Genotype Microbiology Microbiology Results: Microbiology 03/15/22 08:59 Blood Culture - Preliminary Blood - Venous No growth after 48 hours. 03/15/22 08:59 Blood Culture - Preliminary Blood - Venous No growth after 48 hours. 03/15/22 11:18 Gram Stain - Final Abdominal Fluid Routine Culture - Final No growth after 2 days Anaerobic Culture - Preliminary No growth to date. Assessment and Plan (1) Acute kidney injury: Status: Acute (2) Hepatic encephalopathy: Status: Acute (3) Ascites: Status: Acute (4) SBP (spontaneous bacterial peritonitis): Status: Acute (5) Fluid overload: Status: Acute (6) Decompensated hepatic cirrhosis: Status: Acute (7) Coagulopathy: Status: Acute Plan 61 year old male with history of opioid dependence on methadone [ UNAWARE AND DOES NOT WISH HER TO KNOW THIS], hepatitis C with cirrhosis of the liver and hypertension admitted for spontaneous bacterial peritonitis wtih severe sepsis, and decompensated hepatic cirrhosis with fluid overload. - Severe sepsis due to Spontaneous bacterial peritonitis Sepsis resolved Continue 2g ceftriaxone daily 3/5 Pending final cultures, start negative WBCs trending down GI input appreciated, To give another dose of vitamin K IV Albumin 1 gram/kg today Ultrasound duplex ordered Hepatitis serologies ordered - hepatic encephalopathy Improving lactulose goal 4-5 BM daily B.i.d. rifaximin - TASHA secondary to severe sepsis vs hepatorenal Creatinine decreased to 1 DC IV fluid Restart Lasix Get Nephrology evaluation Follow BMP - Hyperkalemia Potassium of 5.4 Received Lokelma Follow BMP - volume overload 2/2 Decompensated hepatic cirrhosis secondary to hepatitis C Scrotal and BLE edema as well as ascites s/p pericentesis with 1.5L fluid removed Hyperbilirubinemia, thrombocytopenia, Coagulopathy secondary to cirrhosis, not severe sepsis Abd CT with cirrhosis and portal hypertension Restart Lasix and spironolactone Monitor intake and output - elevated INR Secondary to liver cirrhosis to give IV vitamin K Monitor INR -HTN controlled Monitor BPs -Opioid dependence Continue home methadone dose DVT prophylaxis lovenox Full code Pt requires overnight hospital stay for management of SBP with severe sepsis and fluid overload requiring IV abx and close monitoring to prevent possible decompensation in to severe sepsis Quality Stroke Does the patient have a stroke diagnosis?: No VTE Prior VTE?: No VTE Risk Level:: Medical - moderate - high VTE Device Contraindication: Treatment Not Indicated VTE Drug Contraindication: N/A - Med Ordered
--- NOTE | 2022-03-17 13:21 | PC.NURSE ---
during initial assessment pt stated, through an bucket wash operator, that he fell on monday (03/13). When this nurse explained the high fall risk protocol, the patient was adamant in his refusal of bed alarms, red wrist bands, red socks, and all other high fall risk precautions. This nurse attempted to persuade the pt to accept the high fall risk status, but the pt refused.
[2022-03-17] MEDS: Phytonadione (Vit K1) 10 MG in 0.9 % Sodium Chloride 50 ML 51 MG IV (13:56)
[2022-03-17 15:36] VITALS: BP 138/64; PULSE 71; RESP 17; TEMP 36.9; O2SAT 99
[2022-03-17] MEDS: cefTRIAXone sodium 2 GM in 0.9 % Sodium Chloride 50 ML IV (16:24)
[2022-03-17] MEDS: Enoxaparin Sodium 40 MG/0.4 ML SYRINGE SUBCUT (16:25)
--- NOTE | 2022-03-17 18:56 | PC.NURSE ---
pty has been refusing lactulose as it makes him poop too much. this nurse explained, through the asl interpreter, that the lactulose is needed to no avail.
[2022-03-17 19:07] VITALS: BP 146/66; PULSE 67; RESP 17; TEMP 36; O2SAT 98
[2022-03-18] VITALS (7 sets, daily range): BP systolic 117–135; BP diastolic 59–87; PULSE 59–71; RESP 14–18; TEMP 36.1–37; O2SAT 98–99; BMI 34.0
[2022-03-18 06:37] LABS: Hematocrit 25.8 % (42.0-52.0); Hemoglobin 8.6 g/dl (14.0-18.0); Mean Corpuscular HGB Conc 33.3 g/dl (31.0-36.0); Mean Corpuscular Hemoglobin 33.3 pg (27.0-33.0); Mean Platelet Volume 11.3 fL (9.4-12.4); Red Blood Count 2.58 X10*6/uL (4.60-5.80); Red Cell Distribution Width 16.1 % (11.0-16.0); White Blood Count 9.4 X10*3/uL (4.8-10.8)
[2022-03-18 06:38] LABS: Platelet Count 65 X10*3/uL (160-400)
[2022-03-18 06:57] LABS: Anion Gap 13 (12-20); Blood Urea Nitrogen 17 mg/dL (9-16); Calcium 8.9 mg/dL (8.4-10.2); Carbon Dioxide 26 mmol/L (22-29); Chloride 105 mmol/L (96-108); Creatinine Clr Calc Pharmacy 83.1; Estimated Glomerular Filt Rate > 60; Glucose Random 84 mg/dL (60-115); Potassium 4.2 mmol/L (3.3-5.1); Sodium 140 mmol/L (135-145)
[2022-03-18] MEDS: Spironolactone 25 MG TABLET 50 MG PO (08:28)
[2022-03-18] MEDS: 0.9 % Sodium Chloride Flush 3 ML SYRINGE IVFLUSH ×3 (08:28→21:20)
[2022-03-18] MEDS: rifAXIMin 550 MG TABLET PO ×2 (08:28→21:19)
[2022-03-18] MEDS: methADONE HCl 20 MG/2 ML ORAL.CONC 65 MG PO (08:28)
[2022-03-18] MEDS: Furosemide 40 MG/4 ML VIAL IVPUSH (09:01)
--- NOTE | 2022-03-18 10:12 | HO.PM.IMPN ---
Subjective Subjective Date of Service: 03/18/22 Interval History: The patient was seen and evaluated this morning Laying in bed, decreased pain his abdomen Still have significant edema lower extremities Hemoglobin level dropped to 8.6, no overt bleeding identified No reported other overnight events Systemic review: No fever, chills but has generalized weakness No chest pain, palpitation No shortness of breath or coughing Improved abdominal pain, no nausea or vomiting Still having edema in lower extremities No urinary symptoms No any rash or wounds Physical Exam Vital Signs: Vital Signs: Last Vital Signs Temp 98.4 F 03/18/22 08:00 Pulse 70 03/18/22 08:00 Resp 17 03/18/22 08:00 BP 130/75 03/18/22 08:00 Pulse Ox 99 03/18/22 08:00 O2 Del Method 03/18/22 08:00 BMI result Body Mass Index 34.0 Const: Other: Constitutional : Alert, oriented, not in distress Neck : Normal inspection, Supple Cardiovascular : RRR, no JVP, +2 bilateral lower extremity edema Respiratory : fair bilateral air entry, no crackles, wheezes or rhonchi Gastrointestinal: soft, lax, Normal bowel sounds, no generalized tenderness with mild amount of ascites Urology: Mild scrotal edema Skin : Warm, Dry Neurological : Alert & oriented x3, No focal deficit Objective Data Active Medications Acetaminophen (Acetaminophen 325 Mg Tablet) 650 mg PO Q6H PRN PRN Reason: Pain, Mild (Pain Scale 1-3) Enoxaparin Sodium (Enoxaparin Sodium 40 Mg/0.4 Ml Syringe) 40 mg SUBCUT Q24H [facility] Last Admin: 03/17/22 16:25 Dose: 40 mg Documented By: RYLAN Furosemide (Furosemide 40 Mg/4 Ml Vial) 40 mg IVPUSH DAILY [facility]; Protocol Last Admin: 03/18/22 09:01 Dose: 40 mg Documented By: RYLAN Ceftriaxone Sodium 2 gm/ (Sodium Chloride) 50 mls @ 100 mls/hr IV Q24H [facility] Last Infusion: 03/17/22 17:04 Dose: 0 mls/hr Documented By: RYLAN Lactulose (Lactulose 20 Gm/30 Ml Solution) 30 gm PO QID [facility] Last Admin: 03/18/22 08:28 Dose: Not Given Documented By: RYLAN Non-Admin Reason: Patient Refused Methadone HCl (Methadone Hcl 20 Mg/2 Ml Oral.Conc) 65 mg PO DAILY [facility] Last Admin: 03/18/22 08:28 Dose: 65 mg Documented By: RYLAN Ondansetron HCl (Ondansetron Hcl 4 Mg/2 Ml Vial) 4 mg IVPUSH Q8H PRN PRN Reason: Nausea and Vomiting Pharmacy Consult (Consult Rx Vancomycin Dosing) 1 each MISCELLANE DAILY PRN PRN Reason: Consult order Pharmacy Consult (Consult Rx Perform Med Rec) 1 each MISCELLANE ONCE PRN PRN Reason: Consult order Rifaximin (Rifaximin 550 Mg Tablet) 550 mg PO BID [facility] Last Admin: 03/18/22 08:28 Dose: 550 mg Documented By: RYLAN Sodium Chloride (0.9 % Sodium Chloride Flush 3 Ml Syringe) 3 ml IVFLUSH QSHIFT [facility] Last Admin: 03/18/22 08:28 Dose: 3 ml Documented By: RYLAN Spironolactone (Spironolactone 25 Mg Tablet) 50 mg PO DAILY [facility]; Protocol Last Admin: 03/18/22 08:28 Dose: 50 mg Documented By: RYLAN Labs CBC & Chem 7: 03/18/22 06:11 03/18/22 06:11 Labs: Laboratory Results - last 24 hr 03/18/22 03/18/22 06:11 06:11 MCV 100.0 H MCH 33.3 H MCHC 33.3 RDW 16.1 H Plt Count 65 L MPV 11.3 Absolute Nucleated RBC 0.000 Nucleated RBC % (auto) 0.0 Anion Gap 13 Estim Creat Clear Calc 83.1 Estimated GFR > 60 Random Glucose 84 Calcium 8.9 Microbiology Microbiology Results: Microbiology 03/15/22 08:59 Blood Culture - Preliminary Blood - Venous No growth after 48 hours. 03/15/22 08:59 Blood Culture - Preliminary Blood - Venous No growth after 48 hours. 03/15/22 11:18 Gram Stain - Final Abdominal Fluid Routine Culture - Final No growth after 2 days Anaerobic Culture - Preliminary No growth to date. Assessment and Plan (1) Hepatic encephalopathy: Status: Acute (2) Decompensated hepatic cirrhosis: Status: Acute (3) Coagulopathy: Status: Acute (4) Acute kidney injury: Status: Acute (5) SBP (spontaneous bacterial peritonitis): Status: Acute Plan 61 year old male with history of opioid dependence on methadone [ UNAWARE AND DOES NOT WISH HER TO KNOW THIS], hepatitis C with cirrhosis of the liver and hypertension admitted for spontaneous bacterial peritonitis wtih severe sepsis, and decompensated hepatic cirrhosis with fluid overload. - Severe sepsis due to Spontaneous bacterial peritonitis Sepsis resolved Continue 2g ceftriaxone daily 4/5 Negative final cultures WBCs trending down GI input appreciated, Received 2 doses of IV vitamin K Finished IV Albumin 1 gram/kg Ultrasound duplex showed normal fluid hepatic veins with cholelithiasis Hepatitis serologies showing previous infection with hepatitis-B and current hepatitis C infection - acute on chronic anemia The hemoglobin dropped to 8.6 from almost 11 at time of admission No clear blood loss identified, to check occult blood Could be dilution with receiving fluids and albumin Omeprazole b.i.d. Transfusion if drops below 7 Follow H&H - hepatic encephalopathy Improving lactulose goal 4-5 BM daily B.i.d. rifaximin - TASHA secondary to severe sepsis vs hepatorenal Creatinine back to baseline Restart Lasix Nephrology input appreciated Follow BMP - Hyperkalemia Resolved Follow BMP - volume overload 2/2 Decompensated hepatic cirrhosis secondary to hepatitis C Scrotal and BLE edema as well as ascites s/p pericentesis with 1.5L fluid removed Hyperbilirubinemia, thrombocytopenia, Coagulopathy secondary to cirrhosis, not severe sepsis Abd CT with cirrhosis and portal hypertension Restart Lasix and spironolactone Monitor intake and output - elevated INR Secondary to liver cirrhosis to give IV vitamin K Monitor INR -HTN controlled Monitor BPs -Opioid dependence Continue home methadone dose DVT prophylaxis lovenox Full code Pt requires overnight hospital stay for management of SBP with severe sepsis and fluid overload requiring IV abx and close monitoring to prevent possible decompensation in to severe sepsis Quality Stroke Does the patient have a stroke diagnosis?: No VTE Prior VTE?: No VTE Risk Level:: Medical - moderate - high VTE Device Contraindication: Treatment Not Indicated VTE Drug Contraindication: N/A - Med Ordered
--- NOTE | 2022-03-18 12:17 | P.CDIC_ITS ---
CDI Concurrent Query Documentation Clarification: PHYSICIAN'S DOCUMENTATION REQUEST Date of Query: 03/18/22 1218 Patient Name: Thierno Sanchez Admit Date: 03/15/22 Dear Doctor, A review of the medical record indicates additional documentation may be needed. Please review below and update the documentation accordingly. Risk Factors/Clinical Indicators/Treatments Per MD progress note 03/17/22: IV Albumin 1 gram/kg today Albumin 2.3 Based on the above, could you clarify in the Progress Notes the appropriate diagnosis, if significant, that supports the above abnormalities and additional evaluation, monitoring, and/or treatment rendered: * Labs indicate a diagnosis of (please specify) * Other (please specify) * Unable to determine Use of terms such as suspected, likely, concern for, or probable (associated with a specific diagnosis that is being evaluated, monitored, or treated as if it exists) are acceptable and can be coded in the inpatient setting, when documented at the time of discharge. Thank you, Arlene Little RN Extension: [phone] Please use your independent medical judgment in providing your response. THIS QUERY IS PART OF THE PERMANENT MEDICAL RECORD Provider Response: Other Other Diagnosis: Hypoalbuminemia secondary to cirrhosis
[2022-03-18] MEDS: Omeprazole 40 MG CAPSULE.DR PO ×2 (13:31→17:42)
[2022-03-18] MEDS: Enoxaparin Sodium 40 MG/0.4 ML SYRINGE SUBCUT (13:31)
[2022-03-18] MEDS: cefTRIAXone sodium 2 GM in 0.9 % Sodium Chloride 50 ML IV (13:53)
--- NOTE | 2022-03-18 16:07 | MHC.CM.PN ---
Per MD rounds Patient may dc over the weekend. DP Home resume MAT ( not aware pt on Methadone). Pt will need a Last dose letter. Family will provide transportation.
[2022-03-18 18:59] LABS: OBS Int Ctl Valid YES; OBS1 POSITIVE (NEGATIVE)
[2022-03-19 03:39] VITALS: BP 125/77; PULSE 67; RESP 16; TEMP 36.8; O2SAT 99
[2022-03-19] MEDS: Omeprazole 40 MG CAPSULE.DR PO (06:16)
[2022-03-19 06:32] LABS: Hematocrit 25.8 % (42.0-52.0); Hemoglobin 8.5 g/dl (14.0-18.0); Mean Corpuscular HGB Conc 32.9 g/dl (31.0-36.0); Mean Corpuscular Hemoglobin 32.8 pg (27.0-33.0); Mean Corpuscular Volume 99.6 fL (80.0-98.0); Mean Platelet Volume 11.9 fL (9.4-12.4); Platelet Count 68 X10*3/uL (160-400); Red Blood Count 2.59 X10*6/uL (4.60-5.80); Red Cell Distribution Width 16.1 % (11.0-16.0); White Blood Count 9.3 X10*3/uL (4.8-10.8)
[2022-03-19 06:39] LABS: INTERNATIONAL NORM RATIO 3.1 (0.9-1.1); Prothrombin Time 36.9 SEC (10.0-13.1)
[2022-03-19 07:11] LABS: Anion Gap 15 (12-20); Blood Urea Nitrogen 14 mg/dL (9-16); Calcium 8.7 mg/dL (8.4-10.2); Carbon Dioxide 25 mmol/L (22-29); Chloride 103 mmol/L (96-108); Estimated Glomerular Filt Rate > 60; Glucose Random 82 mg/dL (60-115); Sodium 139 mmol/L (135-145)
[2022-03-19 07:55] VITALS: BP 139/77; PULSE 69; RESP 20; TEMP 36.9; O2SAT 100
[2022-03-19] MEDS: methADONE HCl 20 MG/2 ML ORAL.CONC 65 MG PO (09:18)
[2022-03-19] MEDS: 0.9 % Sodium Chloride Flush 3 ML SYRINGE IVFLUSH (09:18)
[2022-03-19] MEDS: Furosemide 40 MG/4 ML VIAL IVPUSH ×2 (09:18→14:35)
[2022-03-19] MEDS: rifAXIMin 550 MG TABLET PO (09:18)
[2022-03-19] MEDS: Spironolactone 25 MG TABLET 50 MG PO (09:18)
[2022-03-19 11:40] VITALS: BP 139/66; PULSE 72; RESP 20; TEMP 36.8; O2SAT 100
--- NOTE | 2022-03-19 12:45 | PM.DS ---
DS: Providers Provider Date of Service: 03/19/22 Date of admission: 03/15/22 12:54 Primary care physician: [facility] Consults: 03/15/22 13:07 Consult to Gastroenterology Routine Consulting Provider: Constanza Barrios Reason for consultation: SBP, cirrhosis 03/16/22 09:00 Consult to Nephrology Routine Consulting Provider: Preston Cortez Reason for consultation: TASHA in cirrhotic patient DS: Diagnosis Discharge Diagnosis (1) Hepatic encephalopathy: Status: Acute (2) Decompensated hepatic cirrhosis: Status: Acute (3) Coagulopathy: Status: Acute (4) Acute kidney injury: Status: Acute (5) SBP (spontaneous bacterial peritonitis): Status: Acute (6) Acute on chronic blood loss anemia: Status: Acute (7) Ascites: Status: Acute (8) Fluid overload: Status: Acute (9) Severe sepsis: Status: Acute DS: Summary Hospital Course Hospital Course: Admission note HPI 61 year old male with history of opioid dependence on methadone [ UNAWARE AND DOES NOT WISH HER TO KNOW THIS], hepatitis C with cirrhosis of the liver and hypertension presented to the ED this morning with increased SOB, diffuse abd pain, and increased edema of the scrotum and legs. He has reported subjective fevers but has not taken his temperature. He states he was scheduled to have a liver procedure this morning and had been fasting since 4pm yesterday. On arrival glucose was 41, given an amp of D50 with improvement in glucose to 141. Pt was hypothermic on arrival at 93.1 and placed under bear hugger with improvement to 95.5. He did become bradypneic at 8 with spontaneous improvement to 16 without hypoxia and has not required supplemental O2. No hypotension or tachycardia. WBC 20.9 with bandemia.? Lactic acid inititally 3.7, repeat 4.0. Bili 6.8, AST 53, ALT 30, alk phos 184. Pt 30.7, INR 2.6, PTT 41.7. PLT 100. ALbumin 2.2. Ammonia 51. CXR negative. Abd/pelvis CT with cirrhosis and portal hypotension including moderate volume ascites extending into left inguinal canal. Pericentesis with 1.5 liters withdrawn with >250 PMN suspicious for SBP. Pt? was started on 150ml/hr NS, IV albumin, as well as vanco and zosyn.? Hospital course The patient was admitted to the hospital for Severe sepsis due to Spontaneous bacterial peritonitis. 1.5 L were drawn by amniocentesis. Cultures remain negative I will analysis showed an evidence of infection. Evaluated by Gastroenterology as the patient was treated with IV ceftriaxone for 5 days and 3 days of IV albumin. Abdominal pain resolved and the patient was able to tolerate diet. Blood cultures remain negative. He was encephalopathic from likely hepatic etiology. Started on rifaximin b.i.d. and lactulose with bowel movement at least 3-4 times daily with significant improvement of his mental status. INR significantly elevated around 3. Received 3 doses of IV vitamin K 10 mg with no significant response as INR remained elevated. Ultrasound duplex showed normal fluid hepatic veins with cholelithiasis. Hepatitis serologies showing previous infection with hepatitis-B and current hepatitis C infection. Noted that his hemoglobin dropped to 8.6 from almost 11 at time of admission. No clear blood loss identified, positive occult blood but no reported overt bleeding. Started on omeprazole 40 mg b.i.d.. Lovenox was held. Dr. Matthew from GI evaluated the patient and recommended an outpatient follow-up for upper and lower endoscopies. Patient with has a follow-up visit with Dr. Bray from GI. To be discharged on iron pills. Noticed to have TASHA secondary dehydration. Responded well to IV fluid. Nephrology evaluated the patient and recommended no further testing as creatinine improved back to baseline. At extreme lower extremities edema from volume overload 2/2 Decompensated hepatic cirrhosis secondary to hepatitis C. paracentesis done with 1.5L fluid removed. Abdominal CT with cirrhosis and portal hypertension. Received Lasix IV and increased dose of spironolactone with good response. Fluid restriction. To be discharged on higher dose of Lasix and spironolactone. Restart Lasix and spironolactone Monitor intake and output Increase Lasix to 60 mg daily Increase spironolactone to 50 mg daily Have low sodium diet, restrict your fluids intake Start iron pills Monitor weight at home and report any changes to your GI your PCP To follow-up with Gastroenterology as outpatient To repeat blood test for kidney function and hemoglobin next week Time Spent with Patient Time attestation: Total time spent providing and/or coordinating discharge services: Discharge coordination time: Greater than 30 minutes Quality: Safe Use of Opioids Does Pt have an Active Cancer Diagnosis on the Problem List?: No Quality: Stroke Does the patient have a stroke diagnosis?: No Physical Exam Vital Signs: Vital Signs: Last Vital Signs Temp 98.3 F 03/19/22 11:40 Pulse 72 03/19/22 11:40 Resp 20 03/19/22 11:40 BP 139/66 03/19/22 11:40 Pulse Ox 100 03/19/22 11:40 O2 Del Method 03/19/22 11:40 BMI result Body Mass Index 34.0 Const: Other: Constitutional : Alert, oriented, not in distress Neck : Normal inspection, Supple Cardiovascular : RRR, no JVP, +1 bilateral lower extremity edema Respiratory : fair bilateral air entry, no crackles, wheezes or rhonchi Gastrointestinal: soft, lax, Normal bowel sounds, no generalized tenderness with no significant ascites Urology: Mild scrotal edema Skin : Warm, Dry Neurological : Alert & oriented x3, No focal deficit DS: Data Data Completed and Pending Labs on day of discharge: Laboratory Results - last 24 hr 03/18/22 03/19/22 03/19/22 18:44 06:08 06:08 WBC 9.3 RBC 2.59 L Hgb 8.5 L Hct 25.8 L MCV 99.6 H MCH 32.8 MCHC 32.9 RDW 16.1 H Plt Count 68 L MPV 11.9 Absolute Nucleated RBC 0.000 Nucleated RBC % (auto) 0.0 PT 36.9 H INR 3.1 H Sodium Potassium Chloride Carbon Dioxide Anion Gap BUN Creatinine Estim Creat Clear Calc Estimated GFR Random Glucose Calcium Stool Occult Blood POSITIVE 03/19/22 06:08 WBC RBC Hgb Hct MCV MCH MCHC RDW Plt Count MPV Absolute Nucleated RBC Nucleated RBC % (auto) PT INR Sodium 139 Potassium 4.0 Chloride 103 Carbon Dioxide 25 Anion Gap 15 BUN 14 Creatinine 0.91 Estim Creat Clear Calc 84.0 Estimated GFR > 60 Random Glucose 82 Calcium 8.7 Stool Occult Blood Preliminary micro results at discharge 03/15/22 11:18 Anaerobic Culture - Preliminary Abdominal Fluid No growth to date. 03/15/22 08:59 Blood Culture - Preliminary Blood - Venous No growth after 48 hours. 03/15/22 08:59 Blood Culture - Preliminary Blood - Venous No growth after [address] scan - abdomen: Radiologist's impression: ITS Impressions Chest X-Ray 03/15/22 09:09 IMPRESSION: No acute cardiopulmonary process. Abdomen/Pelvis CT 03/15/22 09:22 IMPRESSION: 1. Redemonstrated findings of cirrhosis and portal hypertension including moderate volume ascites which has increased from 08/06/2021. 2. Fluid extends into the left inguinal canal, increased from prior. Fat-containing right inguinal hernia redemonstrated. 3. No evidence of bowel obstruction. Abdomen Ultrasound 03/15/22 17:00 IMPRESSION: Cholelithiasis with mild wall thickening. Heterogeneous liver without focal lesion. Small amount of ascites. Normal hepatopedal flow seen in the portal vein and right and left branches. Normal hepatic artery antegrade flow. Normal flow in the main, left and right hepatic veins. Doppler Study Ultrasound 03/15/22 17:00 IMPRESSION: Cholelithiasis with mild wall thickening. Heterogeneous liver without focal lesion. Small amount of ascites. Normal hepatopedal flow seen in the portal vein and right and left branches. Normal hepatic artery antegrade flow. Normal flow in the main, left and right hepatic veins. Discharge Plan Discharge Patient Disposition: Home, Self-Care Discharge Diagnosis: Severe sepsis, spontaneous bacterial peritonitis acute on chronic anemia hepatic encephalopathy Acute kidney injury Volume overload, decompensated liver cirrhosis Referrals: [place],[facility] Includes [facility] [Primary Care Provider] - 1 Week Discharge Medications: New omeprazole 40 mg Capsule,Delayed Release(Dr/Ec) 40 mg PO BID@0630,1630 30 Days Qty: 60 0RF spironolactone 25 mg Tablet 50 mg PO DAILY 30 Days Qty: 60 2RF Protocol: Hold for SBP< HOLD for SBP < : 90 lactulose 20 gram/30 mL Solution 30 g PO BID 30 Days Qty: 2700 0RF ferrous sulfate 324 mg (65 mg iron) tablet,delayed release (DR/EC) 324 mg PO DAILY Qty: 30 0RF Continued methadone [Methadone Intensol] 10 mg/mL Concentrate 65 mg PO DAILY Rx Instructions: confirmed with clinic Changed furosemide 40 mg tablet 60 mg PO DAILY 30 Days Qty: 45 0RF Discontinued spironolactone 25 mg Tablet 25 mg PO DAILY 30 Days Qty: 30 0RF Protocol: Hold for SBP< HOLD for SBP < : 90 Discharge Orders: Discharge Order (Routine); Ordered 03/19/22 Ordered By: Vinay Veloz Diet: Low sodium, high protein Activity on Discharge: As tolerated Stand Alone Forms: Patient Portal Discharge page Other Ambulatory Orders: Basic Metabolic Panel (Routine) Timeframe: 4 Days Facility: [facility] - Location: Laboratory Ordered By: Vinay Veloz Complete Blood Count no Diff (Routine) Timeframe: 5 Days Facility: [facility] - Location: Laboratory Ordered By: Vinay Veloz Prothrombin Time INR (Routine) Timeframe: 5 Days Facility: [facility] - Location: Laboratory Ordered By: Vinay Veloz Care Plan Goals: Read below Health Concerns: Read below Plan of Treatment: You were admitted to the hospital for evaluation of low temperature and signs of sepsis. Found to have infection of your abdominal fluid. Treated with IV antibiotics for 5 days. Evaluated by cabinetmaker apprentice who recommended albumin. Noticed to have a drop in your hemoglobin level with GI recommending outpatient follow-up for endoscopy and colonoscopy as no overt bleeding was noticed. Fluid overload treated with Lasix and spironolactone with good response. Kidney function improved back to normal. Assessment: Increase Lasix to 60 mg daily Increase spironolactone to 50 mg daily Have low sodium diet, restrict your fluids intake Start iron pills Monitor weight at home and report any changes to your GI your PCP To follow-up with Gastroenterology as outpatient To repeat blood test for kidney function and hemoglobin next week
--- NOTE | 2022-03-19 13:30 | PM.GIPN ---
Subjective Subjective Date of Service: 03/19/22 Interval History: Asked by Dr Veloz to evaluate pt due to a decrease in hct with positive stool hemoccult test. History obtained with the help of [facility] Monitoring Coordinator, Jennifer Pt denies black stools or blood in the stool during this hospitalization. Having 1-2 BMs a day. H & H 9 & 26.5 on admission, decreased to 8.6 & 25.8 on 03/18/22 and stable at 8.5 & 25.8 today Critical Care Time (minutes): 15 Physical Exam Vital Signs: Vital Signs: Last Vital Signs Temp 98.3 F 03/19/22 11:40 Pulse 72 03/19/22 11:40 Resp 20 03/19/22 11:40 BP 139/66 03/19/22 11:40 Pulse Ox 100 03/19/22 11:40 O2 Del Method 03/19/22 11:40 BMI result Body Mass Index 34.0 Const: General: ill appearing Nutritional Appearance: obese GI: Inspection: Yes distended Palpation (GI): nontender and Ascites present Objective Data Labs CBC & Chem 7: 03/19/22 06:08 03/19/22 06:08 Labs: Laboratory Results - last 24 hr 03/18/22 03/19/22 03/19/22 18:44 06:08 06:08 WBC 9.3 RBC 2.59 L Hgb 8.5 L Hct 25.8 L MCV 99.6 H MCH 32.8 MCHC 32.9 RDW 16.1 H Plt Count 68 L MPV 11.9 Absolute Nucleated RBC 0.000 Nucleated RBC % (auto) 0.0 PT 36.9 H INR 3.1 H Sodium Potassium Chloride Carbon Dioxide Anion Gap BUN Creatinine Estim Creat Clear Calc Estimated GFR Random Glucose Calcium Stool Occult Blood POSITIVE 03/19/22 06:08 WBC RBC Hgb Hct MCV MCH MCHC RDW Plt Count MPV Absolute Nucleated RBC Nucleated RBC % (auto) PT INR Sodium 139 Potassium 4.0 Chloride 103 Carbon Dioxide 25 Anion Gap 15 BUN 14 Creatinine 0.91 Estim Creat Clear Calc 84.0 Estimated GFR > 60 Random Glucose 82 Calcium 8.7 Stool Occult Blood Microbiology Microbiology Results: Microbiology 03/15/22 11:18 Abdominal Fluid Gram Stain - Final 03/15/22 11:18 Abdominal Fluid Routine Culture - Final No growth after 2 days 03/15/22 11:18 Abdominal Fluid Anaerobic Culture - Preliminary No growth to date. 03/15/22 08:59 Blood - Venous Blood Culture - Preliminary No growth after 48 hours. 03/15/22 08:59 Blood - Venous Blood Culture - Preliminary No growth after 48 hours. Procedures Date of Service Date of Service: 03/19/22 Progress Note: A&P Assessment and plan (1) SBP (spontaneous bacterial peritonitis): Status: Acute (2) Decompensated hepatic cirrhosis: Status: Acute (3) Ascites: Status: Acute (4) Hepatic encephalopathy: Status: Acute Plan 61 year old Serbian-speaking male admitted with severe sepsis secondary to SBP, complicated by acute kidney injury and hepatic encephalopathy.? Pt has been treated with IV antibiotics and albumin for SBP.? Creatinine has improved to 0.91. Pt has decrease in H&H with positive stool occult blood. Pt needs further evaluation with an EGD (+/- colonoscopy) - can be scheduled as an outpatient with Dr Barrios since H & H are stable without overt bleeding. (pt not willing to stay in the hospital till Monday for the EGD) Recommendations: 1. Check iron studies and vitamin b12 2. Pt needs to be discharged on secondary prophylaxis for SBP with Ciprofloxacin 500 mg once a day (AF protein < 1). 3. Continue lactulose. 4. HCV RNA and Hep B serologies are pending Time Spent With Patient Time: Total time spent is greater than 50% in coordination of care (as documented) at patient's floor/unit and/or counseling patient: Quality Stroke Does the patient have a stroke diagnosis?: No VTE Prior VTE?: No VTE Risk Level:: Medical - moderate - high VTE Device Contraindication: Treatment Not Indicated VTE Drug Contraindication: N/A - Med Ordered
[2022-03-19] MEDS: cefTRIAXone sodium 2 GM in 0.9 % Sodium Chloride 50 ML IV (13:40)
[2022-03-19 13:53] LABS: Iron 76 mcg/dL (45-160); Total Iron Binding Capacity < 93 mcg/dL (228-428); Unsaturated Iron Binding < 17 ug/dL
[2022-03-19 14:14] LABS: Ferritin 659 ng/mL (20-250)
--- NOTE | 2022-03-19 14:59 | MHC.CM.PN ---
PT WILL DC HOME TODAY WITH NO SERVICES TO TRANSPORT
[2022-03-19] MEDS: Phytonadione (Vit K1) 10 MG in 0.9 % Sodium Chloride 50 ML 51 MG IV (15:17)
[2022-03-19 15:36] VITALS: BP 144/68; PULSE 71; RESP 17; TEMP 37; O2SAT 98
[2022-03-19] MEDS: Lactulose 20 GM/30 ML SOLUTION 30 GM PO (16:35)
[2022-03-20 09:46] LABS: HCV RNA PCR Qn <1.18 NOT DETECTED Log IU/mL (NOT DETECTED); HCV RNA PCR Qn <15 NOT DETECTED IU/mL (NOT DETECTED)
[2022-03-21 05:29] LABS: Vitamin B12 > 2000 pg/mL (200-900)
== END 2022-03-19 16:51 | disposition home or self-care (01) | DRG 720 ==
LOC: HO.ED 13:05 → HO.EDOVER 13:13 → HO.IMC 03-17 08:54
PROVIDERS: Internal Medicine; Internal Medicine Gastroenterology; Physician Assistant Medical; Admitting Provider Physician Assistant; Emergency Provider Emergency Medicine; Visit Provider Student in an Organized Health Care Education/Training Program
DX: A41.9 Sepsis, unspecified organism (principal); E87.2 Acidosis; K65.2 Spontaneous bacterial peritonitis; D68.4 Acquired coagulation factor deficiency; N17.9 Acute kidney failure, unspecified; K72.90 Hepatic failure, unspecified without coma; R18.8 Other ascites; D62 Acute posthemorrhagic anemia; E87.5 Hyperkalemia; D69.59 Other secondary thrombocytopenia; E88.09 Other disorders of plasma-protein metabolism, not elsewhere classified; E87.70 Fluid overload, unspecified; B19.20 Unspecified viral hepatitis C without hepatic coma; R65.20 Severe sepsis without septic shock; R68.0 Hypothermia, not associated with low environmental temperature; F11.20 Opioid dependence, uncomplicated; Z20.822 Contact with and (suspected) exposure to COVID-19; Z87.891 Personal history of nicotine dependence; Z88.5 Allergy status to narcotic agent; Z79.899 Other long term (current) drug therapy
CPT/HCPCS: 36415; 71045; 74176; 76705; 80048; 80053; 80076; 81003; 82042; 82140; 82272; 82607; 82728; 82803; 82945; 82947; 83540; 83605; 83615; 83735; 83880; 84100; 84133; 84157; 84300; 84484; 85007; 85025; 85027; 85610; 85730; 86704; 86706; 87040; 87070; 87073; 87205; 87340; 87522; 87635; 87902; 89051; 93005; 93975; 96365; 96366; 96367; 96375; 99285; J0696; J1650; J1940; J2543; J3370; J3430; P9047

== ENCOUNTER → 2022-03-25 12:26 | Day surgery (SDC) | payer MEDICAID, SELFPAY ==
--- NOTE | 2022-03-24 12:09 | P.CONAN_ITS ---
HPI - Anesthesia Eval Consult details Narrative: 61yo M for Upper Endoscopy Cirrhosis with low plt, elevated INR (repeat labs DOS) [facility] Active Problems Active Problems: All Active Problems (Updated 03/19/22 @ 13:22 by Vinay Veloz MD) Elevated INR (Acute) Severe sepsis (Acute) Acute on chronic blood loss anemia (Acute) Acute kidney injury (Acute) Hepatic encephalopathy (Acute) Ascites (Acute) Opioid dependence (Acute) Hypertension (Acute) Coagulopathy (Acute) Decompensated hepatic cirrhosis (Acute) Cirrhosis (Acute) Fluid overload (Acute) SBP (spontaneous bacterial peritonitis) (Acute) Hydrocele in adult (Acute) Phimosis (Acute) Past Medical History Medical History Cirrhosis Coagulopathy Decompensated hepatic cirrhosis Fluid overload Hypertension Opioid dependence Family History Family History Mother No problems noted. Father No problems noted. Other No family history of coronary artery disease Surgical History Surgical History History of appendectomy History of eye surgery Social History Social History Household Members: Spouse Do you presently have visiting nurse or other home services: No Alcohol intake: former Patient Tobacco Use Status: Former Tobacco user Substance Use Type: Marijuana Advance Directives Date on File: 03/15/22 service: No Current occupational status: unemployed Meds Allergies Allergy/AdvReac Type Severity Reaction Status Date / Time tramadol [TRAMADOL] Allergy Unknown ANXIETY Verified 01/18/22 15:44 Home Medications Medication Instructions Recorded Confirmed Last Taken Type methadone 10 mg/mL oral 65 mg PO DAILY 03/15/22 03/16/22 Unknown History concentrate (Methadone Intensol) Exam Exam Date and Time: March 24, 2022 1209 Pertinent Lab Results Pertinent Lab Results: Laboratory Tests 03/19/22 03/19/22 03/19/22 06:08 06:08 06:08 WBC 9.3 Hgb 8.5 L Hct 25.8 L Plt Count 68 L PT 36.9 H INR 3.1 H Sodium 139 Potassium 4.0 Chloride 103 Carbon Dioxide 25 BUN 14 Creatinine 0.91 Narrative Narrative: US abdomen limited 02/2022 IMPRESSION: Cholelithiasis with mild wall thickening. ? Heterogeneous liver without focal lesion. Small amount of ascites. ? Normal hepatopedal flow seen in the portal vein and right and left branches. ? Normal hepatic artery antegrade flow. ? Normal flow in the main, left and right hepatic veins. Assessment and Plan Assessment Anesthesia Assessment: Chart Reviewed
[2022-03-25 12:40] VITALS: BP 132/69; PULSE 77; RESP 19; TEMP 36.8; O2SAT 94; BMI 29.2
[2022-03-25 13:09] LABS: Hematocrit 25.6 % (42.0-52.0); Hemoglobin 8.5 g/dl (14.0-18.0); Mean Corpuscular HGB Conc 33.2 g/dl (31.0-36.0); Mean Corpuscular Hemoglobin 33.3 pg (27.0-33.0); Mean Corpuscular Volume 100.4 fL (80.0-98.0); Mean Platelet Volume 12.4 fL (9.4-12.4); Red Blood Count 2.55 X10*6/uL (4.60-5.80); Red Cell Distribution Width 16.7 % (11.0-16.0); White Blood Count 11.7 X10*3/uL (4.8-10.8)
[2022-03-25 13:11] LABS: Platelet Count 66 X10*3/uL (160-400)
[2022-03-25 13:14] LABS: INTERNATIONAL NORM RATIO 3.2 (0.9-1.1); Prothrombin Time 38.1 SEC (10.0-13.1)
--- NOTE | 2022-03-25 13:23 | PC.NURSE ---
neuros intact no drift no facial droop handgrasp equal and strong oseguera b/l sts still feeling dizzy perrla b/l. speaking in full sentences unsteady gait with cane
--- NOTE | 2022-03-25 13:31 | PC.NURSE ---
dr montana at bedside evaluating patient.
[2022-03-25] MEDS: Lactated Ringers 1,000 ML 50 ML IVCONT (13:33)
--- NOTE | 2022-03-25 13:34 | PC.NURSE ---
dr montana will called ed to transfer pt from evaluation for dizziness pt aware interpretor at bedside 6/10 h/a neuros intact
[2022-03-25 13:35] VITALS: BP 129/76; PULSE 70; RESP 18; TEMP 36.6; O2SAT 99
--- NOTE | 2022-03-25 13:42 | MHC.SHP ---
Pre-Procedural Eval Section A Date of Service: 03/25/22 The History & Physical has been completed within 30 days and I have reviewed it.: Yes Section B Chief Complaint: Anemia, unspecified, cirrhosis Allergies: Allergies Allergy/AdvReac Type Severity Reaction Status Date / Time tramadol [TRAMADOL] Allergy Unknown ANXIETY Verified 01/18/22 15:44 Plan Diagnosis/Plan: Change 61y.o M with decomp cirrhosis and recent hx of hospital admission for SBP, TASHA and hepatic encephalopathy. Currently on schedule for EGD for worsening anemia. Patient seen with the assistance of oracle database architect. Reports having episodic dizziness x 2 days and had a fall as a resultant last evening. Fell face first and bumped the right side of his head on the floor. Continues to endorse intermittent dizziness spells and now also with headaches. Discussed with the patient that would recommend transfer to ER for CVA rule out/ neuro check in order to safely proceed with this urgent but not emergent endoscopy. Transfer to ER initiated. Warm handover given to Dr Mancini.
[2022-03-25 13:53] LABS: Amphetamine Screen Urine Not Detected (Not Detect); Barbiturates, Urine Not Detected (Not Detect); Benzodiazepines Screen Urine Not Detected (Not Detect); Cannabinoid Screen Urine POSITIVE (Not Detect); Cocaine Screen Urine Not Detected (Not Detect); Fentanyl, urine POSITIVE (Not Detect); Opiate Screen Urine Not Detected (Not Detect); Phencyclidine Screen Urine Not Detected (Not Detect)
--- NOTE | 2022-03-25 14:00 | PC.NURSE ---
transferred pt back ED AFTER DOC TO DOC REPORT DR JACKSON TO DR KEARNEY. HANNAH CALLED AWARE OF CHANGE [facility] [phone].. NURSE TO NURSE REPORT GIVEN
== END ==
PROVIDERS: Nurse Practitioner; Visit Provider Internal Medicine
DX: D64.9 Anemia, unspecified (principal); K74.60 Unspecified cirrhosis of liver; Z53.8 Procedure and treatment not carried out for other reasons
CPT/HCPCS: 36415; 80307; 85027; 85610

== ENCOUNTER 2022-03-25 13:56 | Inpatient (IN) | payer MEDICAID, SELFPAY ==
--- NOTE | ~2022-03-25 | CT_ITS ---
EXAMINATION: NONCONTRAST HEAD CT NONCONTRAST CERVICAL SPINE CT INDICATION INFORMATION: Pain after fall COMPARISON: 07/27/2012 TECHNIQUE: Separate noncontrast CT examinations of the head and cervical spine were performed. Coronal head CT images and coronal and sagittal cervical spine images were created at the technologist workstation. DLP: 1020 mGy-cm DOSE LOWERING TECHNIQUES: This CT examination was performed using dose optimization techniques as appropriate, variously including the following: - Automated exposure control - Adjustment of mA and/or kV according to patient size (this includes techniques or standardized protocols for targeted exams were dose is matched to indication/reason for exam; i.e. extremities or head) - Use of iterative reconstruction technique FINDINGS: Head: There is no evidence of acute intracranial hemorrhage or territorial infarction. No abnormal mass-effect or midline shift is seen. Rodriguez to white matter differentiation is well preserved. No extra-axial fluid collections are identified. The ventricles are normal in size. There is mild periventricular white matter hypoattenuation consistent with chronic small vessel ischemic disease. The osseous structures and soft tissues are normal. The mastoid air cells and visualized portions of the paranasal sinuses are well-aerated. Cervical spine: There is degenerative change at the atlantodens articulation. There is straightening of the normal cervical lordosis. Vertebral body heights are maintained. There is a chronic sclerotic focus in the C7 vertebral body, most suggestive of a bone island. There is mild disc space narrowing in the lower cervical spine. Multilevel endplate osteophytes are present. There is bilateral facet arthropathy, most severe on the left at C3-C4. No evidence of acute fracture. No prevertebral soft tissue swelling. Visualized portions of the lung apices are unremarkable. The thyroid gland is unremarkable. CT/CT cervical spine wo IV con IMPRESSION: No acute findings identified in the head or cervical spine. Chronic appearing and degenerative changes as noted above.
--- NOTE | ~2022-03-25 | XR_ITS ---
EXAMINATION: XR CHEST CLINICAL INFORMATION: Dizziness COMPARISON: Chest x-ray 03/15/2022 TECHNIQUE: Frontal portable view of the chest was obtained. 2:33 PM FINDINGS: No significant abnormality is noted involving the heart, lungs, mediastinum, bony thorax or soft tissues. XR/XR chest 1V IMPRESSION: Unremarkable examination.
[2022-03-25 14:01] VITALS: BP 110/57; PULSE 72; RESP 12; TEMP 37.1; O2SAT 100; BMI 32.3
--- NOTE | 2022-03-25 14:03 | ECG_ITS ---
Test Reason : AMS Blood Pressure : / mmHG Vent. Rate : 063 BPM Atrial Rate : 063 BPM P-R Int : 146 ms QRS Dur : 084 ms QT Int : 660 ms P-R-T Axes : 054 022 030 degrees QTc Int : 675 ms Normal sinus rhythm Nonspecific T wave abnormality Prolonged QT Abnormal ECG When compared with ECG of 15-MAR-2022 08:44, QT has lengthened Referred By: Aurora Mancini Electronically Signed By:DEEPIKA PIERRE
--- NOTE | 2022-03-25 14:15 | ED_ITS ---
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 He notes he was at home and went to turn quick when things when blurry and he woke up on the floor. He was not on the floor long but notes abrasion to the head. Since then he denies any symptoms and states he is hungry and wants to eat. He did test positive for fentanyl today but states he only takes his methadone. He does smoke THC but states it's been a while. 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) Injuries sustained associated with event: head Current symptoms: back to baseline (he states he is just hungry now) History: other (coagulopathy and cirrhosis) Treatments prior to arrival: none Related Data Home Medications Medication Instructions Recorded Confirmed methadone 10 mg/mL oral 65 mg PO DAILY 03/15/22 03/16/22 concentrate (Methadone Intensol) Previous Rx's Medication Instructions Recorded ciprofloxacin HCl 500 mg tablet 500 mg PO DAILY #30 tabs 03/19/22 ferrous sulfate 324 mg (65 mg 324 mg PO DAILY #30 tabs 03/19/22 iron) tablet,delayed release furosemide 40 mg tablet 60 mg PO DAILY 30 days #45 tabs 03/19/22 lactulose 20 gram/30 mL oral 30 g (45 mL) PO BID 30 days #2,700 03/19/22 solution mL omeprazole 40 mg capsule,delayed 40 mg PO BID@0630,1630 30 days #60 03/19/22 release caps spironolactone 25 mg tablet 50 mg PO DAILY 30 days #60 tabs 03/19/22 Allergies Allergy/AdvReac Type Severity Reaction Status Date / Time tramadol [TRAMADOL] Allergy Unknown ANXIETY Verified 03/25/22 14:11 Review of Systems Review of Systems: Constitutional : No Fever, No Chills, No Fatigue ENT/Mouth : No sore throat, No Rhinorrhea Eyes: No Eye Pain, No Swelling, No Redness Cardiovascular : No Chest Pain, No SOB, No Dyspnea on Exertion, pos edema Respiratory : No Cough, No Sputum Gastrointestinal : No Nausea, No Vomiting, No Diarrhea, No abdominal Pain Genitourinary : No Dysuria, No Urinary Frequency, No Hematuria, Musculoskeletal : No joint pain, No Myalgias, No Joint Swelling Skin : No Skin Lesions, No rash, poas abrasions Neuro : No Weakness, No Numbness, No Dizziness, no Headache Psych : No Anxiety/Panic, No Depression Heme/Lymph: No Bruising, No Bleeding,No Lymphadenopathy Endocrine : No Polyuria, No Polydipsia All other systems reviewed and are negative [facility] Past Medical History Attestation statement: The following information was validated with the patient. Medical History Cirrhosis Coagulopathy Decompensated hepatic cirrhosis Fluid overload Hypertension Opioid dependence Surgical History History of appendectomy History of eye surgery Family History Family History Mother No problems noted. Father No problems noted. Other No family history of coronary artery disease Social History Social History Household Members: Spouse Do you presently have visiting nurse or other home services: No Alcohol intake: former Patient Tobacco Use Status: Former Tobacco user Substance Use Type: Marijuana Advance Directives: Yes Advance Directives on File: Yes Advance Directives Date on File: 03/15/22 service: No Current occupational status: unemployed Physical Exam Vital Signs: Vital Signs: Last Vital Signs Temp 98.8 F 03/25/22 14:01 Pulse 72 03/25/22 14:01 Resp 12 03/25/22 14:01 BP 110/57 L 03/25/22 14:01 Pulse Ox 100 03/25/22 14:01 O2 Del Method 03/25/22 14:01 BMI result Body Mass Index 32.3 Appearance: Alert. Oriented X3. No acute distress. Eyes: Pupils equal, round and reactive to light. Scleral icterus ENT: Pharynx dry MM abrasions on L side of forehead and R side of forehead Neck: Normal inspection. Neck supple. CVS: Normal heart rate and rhythm. Pulses normal. Respiratory: No respiratory distress. Breath sounds normal. Abdomen: Soft and nontender. Mild ascites noted Skin: Skin warm and dry. jaundice skin color. Extremities: 3+ lower extremity edema. Neuro: Oriented X 3. No motor deficit. No sensory deficit. Course Course Course Narrative: glucose likely low due to being NPO all day and has no glycogen stores from cirrhosis trop flat given qtc and syncope will need admission, repeating glucose after dextrose once CT head negative will feed patient - hx of hypoglycemia in past qtc shorter, glucose > 100 hospitalist aware of pending admission MDM - Syncope MDM Narrative Medical decision making narrative: 61 yo male with hx of cirrhosis, HTN, coagulopathy, anemia, opiate dependence on methadone here with c/o syncopal event yesterday resulting in head injury - he denies preceding CP/SOB. At this time will need labs, EKG, troponin, CT head/cspine. He denies CP/SOB doubt VTE at this time. He did test positive for fentanyl so unsure if this is overdose but he denies use. He states he didn't come yesterday because his wouldn't let him do to having endoscopy today. Dispo per results and findings. Lab Data Result diagrams: 03/25/22 14:23 03/25/22 14:23 Labs: Lab Results 03/25/22 03/25/22 03/25/22 Range/Units 14:23 14:23 14:23 WBC 11.1 H (4.8-10.8) X10*3/uL RBC 2.57 L (4.60-5.80) X10*6/uL Hgb 8.4 L (14.0-18.0) g/dl Hct 25.7 L (42.0-52.0) % MCV 100.0 H (80.0-98.0) fL MCH 32.7 (27.0-33.0) pg MCHC 32.7 (31.0-36.0) g/dl RDW 16.9 H (11.0-16.0) % Plt Count 65 L (160-400) X10*3/uL MPV 12.7 H (9.4-12.4) fL Immature Gran % (Auto) 0.5 H (0.0-0.4) % Neut % (Auto) 81.0 H (45-73) % Lymph % (Auto) 8.1 L (20-40) % [place] % (Auto) 9.7 (2-11) % Eos % (Auto) 0.2 (0-4) % Baso % (Auto) 0.5 (0-2) % Lymph # (Auto) 0.9 L (1.2-4.9) X10*3/uL [place] # (Auto) 1.1 (0.1-1.2) X10*3/uL Eos # (Auto) 0.0 (0.0-0.4) X10*3/uL Baso # (Auto) 0.1 (0.0-0.2) X10*3/uL Abs Immat Gran (auto) 0.05 H (0.00-0.03) X10*3/uL Absolute Neuts (auto) 9.0 H (2.0-8.3) x10*3/uL Absolute Nucleated RBC 0.000 (0.0-0.012) X10*3/uL Nucleated RBC % (auto) 0.0 (0.0-0.2) /100WBC Sodium 137 (135-145) mmol/L Potassium 3.9 (3.3-5.1) mmol/L Chloride 98 (96-108) mmol/L Carbon Dioxide 24 (22-29) mmol/L Anion Gap 19 (12-20) BUN 13 (9-16) mg/dL Creatinine 1.24 (0.5-1.4) mg/dL Estim Creat Clear Calc 64.3 Estimated GFR 59 POC Glucose (60-115) mg/dL Random Glucose 56 L* (60-115) mg/dL Calcium 8.9 (8.4-10.2) mg/dL Magnesium 1.4 L* (1.6-2.6) mg/dL Total Bilirubin 8.6 H (0.0-1.0) mg/dL Direct Bilirubin 3.1 H (0.0-0.5) mg/dL AST 37 (5-37) U/L ALT 19 (0-40) U/L Alkaline Phosphatase 125 H D (39-117) U/L Ammonia 36 (13-55) umol/L Troponin I High Sens (<3.5-35.0) ng/L Total Protein 7.2 (6.5-8.0) g/dL Albumin 3.3 L (3.5-5.0) g/dL Ethyl Alcohol < 10 mg/dL COVID-19 (SRIDEVI) (Negative) COVID-19 Clin Com 03/25/22 03/25/22 03/25/22 Range/Units 14:23 14:31 15:51 WBC (4.8-10.8) X10*3/uL RBC (4.60-5.80) X10*6/uL Hgb (14.0-18.0) g/dl Hct (42.0-52.0) % MCV (80.0-98.0) fL MCH (27.0-33.0) pg MCHC (31.0-36.0) g/dl RDW (11.0-16.0) % Plt Count (160-400) X10*3/uL MPV (9.4-12.4) fL Immature Gran % (Auto) (0.0-0.4) % Neut % (Auto) (45-73) % Lymph % (Auto) (20-40) % [place] % (Auto) (2-11) % Eos % (Auto) (0-4) % Baso % (Auto) (0-2) % Lymph # (Auto) (1.2-4.9) X10*3/uL [place] # (Auto) (0.1-1.2) X10*3/uL Eos # (Auto) (0.0-0.4) X10*3/uL Baso # (Auto) (0.0-0.2) X10*3/uL Abs Immat Gran (auto) (0.00-0.03) X10*3/uL Absolute Neuts (auto) (2.0-8.3) x10*3/uL Absolute Nucleated RBC (0.0-0.012) X10*3/uL Nucleated RBC % (auto) (0.0-0.2) /100WBC Sodium (135-145) mmol/L Potassium (3.3-5.1) mmol/L Chloride (96-108) mmol/L Carbon Dioxide (22-29) mmol/L Anion Gap (12-20) BUN (9-16) mg/dL Creatinine (0.5-1.4) mg/dL Estim Creat Clear Calc Estimated GFR POC Glucose 104 (60-115) mg/dL Random Glucose (60-115) mg/dL Calcium (8.4-10.2) mg/dL Magnesium (1.6-2.6) mg/dL Total Bilirubin (0.0-1.0) mg/dL Direct Bilirubin (0.0-0.5) mg/dL AST (5-37) U/L ALT (0-40) U/L Alkaline Phosphatase (39-117) U/L Ammonia (13-55) umol/L Troponin I High Sens 14.0 D (<3.5-35.0) ng/L Total Protein (6.5-8.0) g/dL Albumin (3.5-5.0) g/dL Ethyl Alcohol mg/dL COVID-19 (SRIDEVI) Negative (Negative) COVID-19 Clin Com See Note ECG Data Attestation: I personally reviewed and interpreted this ECG as follows: ECG interpretation date: 03/25/22 ECG interpretation time: 14:28 Interpretation: Rate: 63 Rhythm: NSR [place]: normal Normal P waves. Normal RUBÉN. Normal QRS complex. ST T wave : nonspecific no MONTEZ qTC: prolonged prior studies: qtc longer than prior The study has been interpreted contemporaneously by me. EKG #2 Rate: 58 Rhythm: sinus bradycardia [place]: normal Normal P waves. Normal RUBÉN. Normal QRS complex. ST T wave : no MONTEZ, nonspecific qTC: prolonged but shorter than prior after magnesium prior studies: no sig change The study has been interpreted contemporaneously by me. . Discharge Plan Discharge Clinical Impression: Prolonged QT interval, Hypomagnesemia, Hypoglycemia Head injury Qualifiers: Encounter type: initial encounter Qualified Code(s): S09.90XA - Unspecified injury of head, initial encounter Syncope Qualifiers: Syncope type: unspecified Qualified Code(s): R55 - Syncope and collapse Patient Disposition: Admitted As Inpatient
[2022-03-25 14:29] LABS: MANUAL DIFF FLAG NO
[2022-03-25 14:30] LABS: Basophils Absolute Auto 0.1 X10*3/uL (0.0-0.2); Basophils Percent Auto 0.5 % (0-2); Eosinophils Percent Auto 0.2 % (0-4); Hematocrit 25.7 % (42.0-52.0); Hemoglobin 8.4 g/dl (14.0-18.0); Imm Gran Abs Auto 0.05 X10*3/uL (0.00-0.03); Imm Gran Pct Auto 0.5 % (0.0-0.4); Lymphocytes Absolute Auto 0.9 X10*3/uL (1.2-4.9); Lymphocytes Percent Auto 8.1 % (20-40); Mean Corpuscular HGB Conc 32.7 g/dl (31.0-36.0); Mean Corpuscular Hemoglobin 32.7 pg (27.0-33.0); Mean Platelet Volume 12.7 fL (9.4-12.4); Monocytes Absolute Auto 1.1 X10*3/uL (0.1-1.2); Monocytes Percent Auto 9.7 % (2-11); Platelet Count 65 X10*3/uL (160-400); Red Blood Count 2.57 X10*6/uL (4.60-5.80); Red Cell Distribution Width 16.9 % (11.0-16.0); White Blood Count 11.1 X10*3/uL (4.8-10.8)
[2022-03-25 14:39] LABS: Ammonia 36 umol/L (13-55)
[2022-03-25] MEDS: Magnesium Sulfate/H2O 2 GM/50 ML PIGGYBACK IV ×2 (14:47→16:12)
[2022-03-25 14:51] LABS: COVID-19 Test Negative (Negative); IDNOW Serial# 16C4AD1C
[2022-03-25 14:57] LABS: Alanine Aminotransferase 19 U/L (0-40); Albumin Level 3.3 g/dL (3.5-5.0); Alkaline Phosphatase 125 U/L (39-117); Anion Gap 19 (12-20); Aspartate Amino Transferase 37 U/L (5-37); Bilirubin Direct 3.1 mg/dL (0.0-0.5); Bilirubin Total 8.6 mg/dL (0.0-1.0); Blood Urea Nitrogen 13 mg/dL (9-16); Calcium 8.9 mg/dL (8.4-10.2); Carbon Dioxide 24 mmol/L (22-29); Chloride 98 mmol/L (96-108); Creatinine Clr Calc Pharmacy 64.3; Estimated Glomerular Filt Rate 59; Ethanol < 10 mg/dL; Glucose Random 56 mg/dL (60-115); Magnesium 1.4 mg/dL (1.6-2.6); Potassium 3.9 mmol/L (3.3-5.1); Sodium 137 mmol/L (135-145); Total Protein 7.2 g/dL (6.5-8.0)
[2022-03-25] MEDS: Dextrose 50 % 25 GM/50 ML SYRINGE IVPUSH (15:02)
--- NOTE | 2022-03-25 15:47 | ECG_ITS ---
Test Reason : FALL Blood Pressure : / mmHG Vent. Rate : 058 BPM Atrial Rate : 058 BPM P-R Int : 158 ms QRS Dur : 084 ms QT Int : 644 ms P-R-T Axes : 060 020 022 degrees QTc Int : 632 ms Sinus bradycardia Nonspecific T wave abnormality Prolonged QT Abnormal ECG When compared with ECG of 25-MAR-2022 14:24, No significant change was found Referred By: Aurora Mancini Electronically Signed By:DEEPIKA PIERRE
[2022-03-25 16:02] LABS: Glucose, Whole Blood 104 mg/dL (60-115)
[2022-03-25 16:13] VITALS: O2SAT 99
[2022-03-25 16:23] LABS: Glucose, Whole Blood 85 mg/dL (60-115)
--- NOTE | 2022-03-25 16:24 | PHA.MEDREC ---
Pharmacy Consult ? Medication Reconciliation Pharmacy has completed the medication reconciliation.
--- NOTE | 2022-03-25 16:30 | PC.NURSE ---
PT GIVEN SANDWICHES AND JUICE
--- NOTE | 2022-03-25 16:31 | PM.IMHP ---
History of Present Illness Date of Service: 03/25/22 Chief Complaint: syncope 61yo M with opioid dependence on methadone [per last HPI, unaware and pt does not wish her to know this], decompensated HCV cirrhosis, and HTN who was just admitted here 03/15-03/19/22 with hypoglycemia and severe sepsis due to culture-negative SBP, along with hepatic encephalopathy. He was also noted to have anemia with FOBT+ stool but no overt bleeding; an outpatient EGD was recommended. He came in today for planned endoscopy but then it turned out that he had a syncopal episode at home yesterday at 19:30. He became dizzy with blurred vision, then passed out for approximately 1 minute. He did not hit his head. He currently denies lightheadedness or vertigo. No chest pain. No abdominal pain. No hematochezia or hematemesis or melena. He does have swelling of his legs. He was sent to the ED, where he was found to be hypoglycemic, glucose 56. Magnesium was low at 1.4 and QTc was 675 ms. He was given an amp of D50 and 2g of IV magnesium sulfate. Repeat QTc was 632 ms. Review of Systems Review of Systems: Yes all other systems are reviewed and are negative [facility] Medical History Cirrhosis Coagulopathy Decompensated hepatic cirrhosis Fluid overload Hypertension Opioid dependence Family History Mother No problems noted. Father No problems noted. Other No family history of coronary artery disease Surgical History History of appendectomy History of eye surgery Social History Household Members: Spouse Do you presently have visiting nurse or other home services: No Alcohol intake: former Patient Tobacco Use Status: Former Tobacco user Substance Use Type: Marijuana Advance Directives: Yes Advance Directives on File: Yes Advance Directives Date on File: 03/15/22 service: No Current occupational status: unemployed Meds Allergies Allergy/AdvReac Type Severity Reaction Status Date / Time tramadol [TRAMADOL] Allergy Unknown ANXIETY Verified 03/25/22 14:11 Active Medications: Current Medications Acetaminophen (Acetaminophen 325 Mg Tablet) 650 mg PO Q6H PRN PRN Reason: Pain, Mild (Pain Scale 1-3) Ferrous Sulfate (Ferrous Sulfate 324 Mg Tablet.) 324 mg PO DAILY YENNY Furosemide (Furosemide 20 Mg Tablet) 60 mg PO DAILY YENNY; Protocol Magnesium Sulfate (Magnesium Sulfate/H2o) 2 gm in 50 mls @ 25 mls/hr IV ONCE ONE Stop: 03/25/22 17:58 Last Admin: 03/25/22 16:12 Dose: 25 mls/hr Lactulose (Lactulose 20 Gm/30 Ml Solution) 30 gm PO BID YENNY Methadone HCl (Methadone Hcl 20 Mg/2 Ml Oral.Conc) 65 mg PO DAILY YENNY Non-Formulary Medication (Ciprofloxacin Hcl) 500 mg PO BID YENNY Omeprazole (Omeprazole 40 Mg Capsule.) 40 mg PO BID@0630,1630 YENNY Sodium Chloride (0.9 % Sodium Chloride Flush 3 Ml Syringe) 3 ml IVFLUSH QSHIFT YENNY Spironolactone (Spironolactone 25 Mg Tablet) 50 mg PO DAILY YENNY; Protocol Home Medications Medication Instructions Recorded Confirmed Last Taken Type methadone 10 mg/mL oral 65 mg PO DAILY 03/15/22 03/25/22 03/25/22 History concentrate (Methadone Intensol) ciprofloxacin HCl 500 mg tablet 500 mg PO BID 03/25/22 03/25/22 03/24/22 History Physical Exam Vital Signs and Narrative: Vital Signs: Last Vital Signs Temp 98.8 F 03/25/22 14:01 Pulse 72 03/25/22 14:01 Resp 12 03/25/22 14:01 BP 110/57 L 03/25/22 14:01 Pulse Ox 99 03/25/22 16:13 O2 Del Method 03/25/22 16:13 BMI result Body Mass Index 32.3 Gen: in no acute distress but chronically ill-appearing HEENT: sclera icteric, moist mucus membranes Neck: supple Lungs: clear to auscultation bilaterally Heart: regular rate and rhythm, no murmurs Abd: soft, non-tender, fluid wave present Ext: 2+ bilateral leg edema Skin: warm/well-perfused Neuro: alert and oriented x3, no focal findings, no asterixis Psych: appropriate affect Results Labs CBC and Chem 7: 03/25/22 14:23 03/25/22 14:23 Labs: Laboratory Results - last 24 hr 03/25/22 03/25/22 03/25/22 14:23 14:23 14:23 MCV 100.0 H MCH 32.7 MCHC 32.7 RDW 16.9 H Plt Count 65 L MPV 12.7 H Immature Gran % (Auto) 0.5 H Neut % (Auto) 81.0 H Lymph % (Auto) 8.1 L [place] % (Auto) 9.7 Eos % (Auto) 0.2 Baso % (Auto) 0.5 Lymph # (Auto) 0.9 L [place] # (Auto) 1.1 Eos # (Auto) 0.0 Baso # (Auto) 0.1 Abs Immat Gran (auto) 0.05 H Absolute Neuts (auto) 9.0 H Absolute Nucleated RBC 0.000 Nucleated RBC % (auto) 0.0 Anion Gap 19 Estim Creat Clear Calc 64.3 Estimated GFR 59 POC Glucose Random Glucose 56 L* Calcium 8.9 Magnesium 1.4 L* Total Bilirubin 8.6 H Direct Bilirubin 3.1 H AST 37 ALT 19 Alkaline Phosphatase 125 H D Ammonia 36 Troponin I High Sens Total Protein 7.2 Albumin 3.3 L Ethyl Alcohol < 10 COVID-19 (SRIDEVI) COVID-[employer] 03/25/22 03/25/22 03/25/22 14:23 14:31 15:51 MCV MCH MCHC RDW Plt Count MPV Immature Gran % (Auto) Neut % (Auto) Lymph % (Auto) [place] % (Auto) Eos % (Auto) Baso % (Auto) Lymph # (Auto) [place] # (Auto) Eos # (Auto) Baso # (Auto) Abs Immat Gran (auto) Absolute Neuts (auto) Absolute Nucleated RBC Nucleated RBC % (auto) Anion Gap Estim Creat Clear Calc Estimated GFR POC Glucose 104 Random Glucose Calcium Magnesium Total Bilirubin Direct Bilirubin AST ALT Alkaline Phosphatase Ammonia Troponin I High Sens 14.0 D Total Protein Albumin Ethyl Alcohol COVID-19 (SRIDEVI) Negative COVID-19 Clin Com See Note 03/25/22 16:19 MCV MCH MCHC RDW Plt Count MPV Immature Gran % (Auto) Neut % (Auto) Lymph % (Auto) [place] % (Auto) Eos % (Auto) Baso % (Auto) Lymph # (Auto) [place] # (Auto) Eos # (Auto) Baso # (Auto) Abs Immat Gran (auto) Absolute Neuts (auto) Absolute Nucleated RBC Nucleated RBC % (auto) Anion Gap Estim Creat Clear Calc Estimated GFR POC Glucose 85 Random Glucose Calcium Magnesium Total Bilirubin Direct Bilirubin AST ALT Alkaline Phosphatase Ammonia Troponin I High Sens Total Protein Albumin Ethyl Alcohol COVID-19 (SRIDEVI) COVID-19 Clin Com ITS Impressions Chest X-Ray 03/25/22 14:45 IMPRESSION: Unremarkable examination. Cervical Spine CT 03/25/22 15:10 IMPRESSION: No acute findings identified in the head or cervical spine. Chronic appearing and degenerative changes as noted above. Head CT 03/25/22 15:10 IMPRESSION: No acute findings identified in the head or cervical spine. Chronic appearing and degenerative changes as noted above. Assessment and Plan (1) Prolonged QT interval: Status: Acute (2) Hypomagnesemia: Status: Acute (3) Syncope: Qualifiers: Syncope type: unspecified Qualified Code(s): R55 - Syncope and collapse Status: Acute Plan 61yo M with opioid dependence on methadone [per last HPI, unaware and pt does not wish her to know this], decompensated HCV cirrhosis, and HTN; recent admission for severe sepsis due to SBP and hepatic encephalopathy and anemia; sent in from pre-op area, where he was preparing to get a screening EGD for varices, when he revealed that he had a syncopal episode yesterday. Found to have hypoglycemia, hypomagnesemia, and markedly prolonged QT. # hypoMg # QT prolongation # syncope - admit to [facility], continuous telemetry. replete Mg- give another 2g of Mg sulfate and repeat Mg level along with EKG. start Mg oxide since on diuretics. caution with QT-prolonging meds [he is on ciprofloxacin- will change to ceftriaxone- and methadone]. Cardiology consult. # hypoglycemia - due to impaired hepatic gluconeogensis. resolved after D50. start diet. # recent SBP - change cipro to ceftriaxone # edema/ascites due to cirrhosis - continue diuretics: furosemide + spironolactone; low-Na diet # anemia due to cirrhosis, FOBT+ - reschedule EGD # hepatic encephalopathy - continue lactulose # VTE ppx: SCDs, avoid heparin given coagulopathy + thrombocytopenia # code status: full I anticipate that the patient will stay at least 2 midnights in hospital due to the above reasons. It is neither reasonable nor safe to care for them in a less acute setting. Quality Stroke Does the patient have a stroke diagnosis?: No VTE Prior VTE?: No VTE Risk Level:: Medical - moderate - high VTE Device Contraindication: N/A - Device Ordered VTE Drug Contraindication: Treatment Not Tolerated
[2022-03-25 16:50] VITALS: BP 104/52; PULSE 58; RESP 16; TEMP 36.7; O2SAT 99
[2022-03-25] MEDS: Omeprazole 40 MG CAPSULE.DR PO (17:30)
[2022-03-25] MEDS: cefTRIAXone sodium 1 GM in 0.9 % Sodium Chloride 50 ML IV (17:31)
--- NOTE | 2022-03-25 17:34 | PC.NURSE ---
Report given to Raysa ALEGRIA. [place] to [place] [facility] [place].
[2022-03-25 19:13] LABS: Magnesium 2.4 mg/dL (1.6-2.6)
[2022-03-25 19:18] LABS: Troponin-I High Sensitivity 12.3 ng/L (<3.5-35.0)
[2022-03-25 20:00] VITALS: BP 135/78; PULSE 80; TEMP 36.7; O2SAT 98
[2022-03-25 23:22] VITALS: BP 108/59; PULSE 62; RESP 20; TEMP 36.8; O2SAT 99
[2022-03-26] MEDS: 0.9 % Sodium Chloride Flush 3 ML SYRINGE IVFLUSH ×2 (01:00→08:11)
[2022-03-26 03:10] VITALS: BP 127/62; PULSE 60; RESP 20; TEMP 36.8; O2SAT 99
[2022-03-26] MEDS: Omeprazole 40 MG CAPSULE.DR PO (06:34)
[2022-03-26 06:41] LABS: Hematocrit 24.7 % (42.0-52.0); Hemoglobin 8.1 g/dl (14.0-18.0); Mean Corpuscular HGB Conc 32.8 g/dl (31.0-36.0); Mean Corpuscular Hemoglobin 32.8 pg (27.0-33.0); Red Blood Count 2.47 X10*6/uL (4.60-5.80); Red Cell Distribution Width 16.9 % (11.0-16.0); White Blood Count 8.4 X10*3/uL (4.8-10.8)
[2022-03-26 06:42] LABS: Platelet Count 57 X10*3/uL (160-400)
[2022-03-26 07:36] LABS: Anion Gap 15 (12-20); Blood Urea Nitrogen 14 mg/dL (9-16); Calcium 8.7 mg/dL (8.4-10.2); Carbon Dioxide 27 mmol/L (22-29); Chloride 100 mmol/L (96-108); Creatinine Clr Calc Pharmacy 73.8; Estimated Glomerular Filt Rate > 60; Glucose Random 55 mg/dL (60-115); Potassium 4.2 mmol/L (3.3-5.1); Sodium 138 mmol/L (135-145)
[2022-03-26 07:51] VITALS: BP 125/62; PULSE 65; RESP 16; TEMP 36.9; O2SAT 95
--- NOTE | 2022-03-26 08:00 | ECG_ITS ---
Test Reason : qtc Blood Pressure : / mmHG Vent. Rate : 061 BPM Atrial Rate : 061 BPM P-R Int : 144 ms QRS Dur : 084 ms QT Int : 380 ms P-R-T Axes : 074 025 057 degrees QTc Int : 382 ms Normal sinus rhythm with sinus arrhythmia Nonspecific T wave abnormality Abnormal ECG When compared with ECG of 25-MAR-2022 15:56, QT has shortened Referred By: Stefanie Tapia Electronically Signed By:DEEPIKA PIERRE
[2022-03-26] MEDS: Spironolactone 25 MG TABLET 50 MG PO (08:10)
[2022-03-26] MEDS: Furosemide 20 MG TABLET 60 MG PO (08:11)
[2022-03-26] MEDS: Ferrous Sulfate 324 MG TABLET.DR PO (08:11)
--- NOTE | 2022-03-26 10:33 | MHC.CM.PN ---
with interpertator met with pt he explains he goes to [facility] which his does not know about he is covid vax x 3 they have no servceis in their home pcp is lashawn name he has own transport home
[2022-03-26 12:00] VITALS: BP 111/55; PULSE 65; RESP 12; TEMP 36.7; O2SAT 100
--- NOTE | 2022-03-26 13:05 | ECG_ITS ---
Test Reason : qtc Blood Pressure : / mmHG Vent. Rate : 066 BPM Atrial Rate : 066 BPM P-R Int : 140 ms QRS Dur : 086 ms QT Int : 482 ms P-R-T Axes : 062 030 054 degrees QTc Int : 505 ms Normal sinus rhythm Nonspecific T wave abnormality Prolonged QT Abnormal ECG When compared with ECG of 26-MAR-2022 10:47, QT has lengthened Referred By: Stefanie Tapia Electronically Signed By:DEEPIKA PIERRE
--- NOTE | 2022-03-26 13:31 | MHC.RECOVSUP ---
Recovery Support note: Patient is a 61 year old Tuvaluan speaking male who presented to [facility] ED due to a recent fall. This creative writer met with patient to discuss substance use and methadone maintenance. Patient reports he has not been using any substances and that he finds the methadone helpful in eliminating cravings and preventing withdrawal. Patient reports he brought two take home bottles to the hospital and that he took his regularly scheduled dose of methadone this morning without alerting staff. Patient reports his does not know he is on methadone and he doesn't want her to know. Discussed with patient how hospitalized patient's receive methadone through our pharmacy and the importance of this. Discussed case with patient's RN and Layla MALDONADO.
--- NOTE | 2022-03-26 13:37 | MHC.CM.PN ---
pt to have bhn eval prior to dc
--- NOTE | 2022-03-26 14:17 | P.CONCA_ITS ---
History of Present Illness History of Present Illness Date of Service: 03/26/22 Requesting physician: Atilio Ramirez Chief complaint: Prolonged QT, syncope Narrative: 61-year-old gentleman with cirrhosis of liver, hypertension who is on methadone therapy presenting with syncope and prolonged QT interval. His EKG she was showing QTC of 670 milliseconds. Denying any palpitations but is saying that he was very active yesterday and was doing multiple tasks when he went in his home and then passed out. Denies chest discomfort or any other complaints currently. He was given magnesium overnight while he was hypo magnesemia. His QT interval has improved to 630 and eventually 505. He has taken his on methadone before talking to the medicine team. He also is adamant that he will not stay in the hospital and would go home because he has to attend his grandson's [facility] tomorrow. [facility] Past Medical History Medical History Cirrhosis Coagulopathy Decompensated hepatic cirrhosis Fluid overload Hypertension Opioid dependence Family History Family History Mother No problems noted. Father No problems noted. Other No family history of coronary artery disease Surgical History Surgical History History of appendectomy History of eye surgery Social History Social History Household Members: Spouse Do you presently have visiting nurse or other home services: No Alcohol intake: former Patient Tobacco Use Status: Former Tobacco user Substance Use Type: Former Substance User Advance Directives Date on File: 03/15/22 service: No Current occupational status: unemployed Meds Allergies Allergy/AdvReac Type Severity Reaction Status Date / Time tramadol [TRAMADOL] Allergy Unknown ANXIETY Verified 03/25/22 14:11 Active Medications: Current Medications Acetaminophen (Acetaminophen 325 Mg Tablet) 650 mg PO Q6H PRN PRN Reason: Pain, Mild (Pain Scale 1-3) Ferrous Sulfate (Ferrous Sulfate 324 Mg Tablet.) 324 mg PO DAILY YENNY Last Admin: 03/26/22 08:11 Dose: 324 mg Furosemide (Furosemide 20 Mg Tablet) 60 mg PO DAILY YENNY; Protocol Last Admin: 03/26/22 08:11 Dose: 60 mg Ceftriaxone Sodium 1 gm/ (Sodium Chloride) 50 mls @ 100 mls/hr IV Q24H [facility] Last Infusion: 03/25/22 19:16 Dose: Infused Lactulose (Lactulose 20 Gm/30 Ml Solution) 30 gm PO BID [facility] Last Admin: 03/26/22 08:13 Dose: Not Given Omeprazole (Omeprazole 40 Mg Capsule.Dr) 40 mg PO BID@0630,1630 [facility] Last Admin: 03/26/22 06:34 Dose: 40 mg Sodium Chloride (0.9 % Sodium Chloride Flush 3 Ml Syringe) 3 ml IVFLUSH QSHIFT [facility] Last Admin: 03/26/22 08:11 Dose: 3 ml Spironolactone (Spironolactone 25 Mg Tablet) 50 mg PO DAILY [facility]; Protocol Last Admin: 03/26/22 08:10 Dose: 50 mg Home Medications Medication Instructions Recorded Confirmed Last Taken Type methadone 10 mg/mL oral 65 mg PO DAILY 03/15/22 03/25/22 03/25/22 History concentrate (Methadone Intensol) ciprofloxacin HCl 500 mg tablet 500 mg PO BID 03/25/22 03/25/22 03/24/22 History Physical Exam Vital Signs: Vital Signs: Last Vital Signs Temp 98.1 F 03/26/22 12:00 Pulse 65 03/26/22 12:00 Resp 12 03/26/22 12:00 BP 111/55 L 03/26/22 12:00 Pulse Ox 100 03/26/22 12:00 O2 Del Method 03/26/22 12:00 BMI result Body Mass Index 32.3 GENERAL APPEARANCE: in no acute distress, pleasant. NECK: no carotid bruit, mild jugular venous distention. SKIN: no suspicious lesions, warm and dry. HEART: no murmurs, regular rate and rhythm. LUNGS: clear to auscultation bilaterally. ABDOMEN: soft, nontender. EXTREMITIES: 1 to 2+ edema. PERIPHERAL PULSES: equal. NEUROLOGIC: No gross deficits, AAO X 3 Objective Labs and Meds Result diagrams: 03/26/22 06:07 03/26/22 06:07 Lab results: Laboratory Results - last 24 hr 03/25/22 03/25/22 03/25/22 14:23 14:23 14:23 WBC 11.1 H RBC 2.57 L Hgb 8.4 L Hct 25.7 L MCV 100.0 H MCH 32.7 MCHC 32.7 RDW 16.9 H Plt Count 65 L MPV 12.7 H Immature Gran % (Auto) 0.5 H Neut % (Auto) 81.0 H Lymph % (Auto) 8.1 L Gentry % (Auto) 9.7 Eos % (Auto) 0.2 Baso % (Auto) 0.5 Lymph # (Auto) 0.9 L Gentry # (Auto) 1.1 Eos # (Auto) 0.0 Baso # (Auto) 0.1 Abs Immat Gran (auto) 0.05 H Absolute Neuts (auto) 9.0 H Absolute Nucleated RBC 0.000 Nucleated RBC % (auto) 0.0 Sodium 137 Potassium 3.9 Chloride 98 Carbon Dioxide 24 Anion Gap 19 BUN 13 Creatinine 1.24 Estim Creat Clear Calc 64.3 Estimated GFR 59 POC Glucose Random Glucose 56 L* Calcium 8.9 Magnesium 1.4 L* Total Bilirubin 8.6 H Direct Bilirubin 3.1 H AST 37 ALT 19 Alkaline Phosphatase 125 H D Ammonia 36 Troponin I High Sens Total Protein 7.2 Albumin 3.3 L Ethyl Alcohol < 10 COVID-19 (SRIDEVI) COVID-19 Clin Com 03/25/22 03/25/22 03/25/22 14:23 14:31 15:51 WBC RBC Hgb Hct MCV MCH MCHC RDW Plt Count MPV Immature Gran % (Auto) Neut % (Auto) Lymph % (Auto) Gentry % (Auto) Eos % (Auto) Baso % (Auto) Lymph # (Auto) Gentry # (Auto) Eos # (Auto) Baso # (Auto) Abs Immat Gran (auto) Absolute Neuts (auto) Absolute Nucleated RBC Nucleated RBC % (auto) Sodium Potassium Chloride Carbon Dioxide Anion Gap BUN Creatinine Estim Creat Clear Calc Estimated GFR POC Glucose 104 Random Glucose Calcium Magnesium Total Bilirubin Direct Bilirubin AST ALT Alkaline Phosphatase Ammonia Troponin I High Sens 14.0 D Total Protein Albumin Ethyl Alcohol COVID-19 (SRIDEVI) Negative COVID-19 Clin Com See Note 03/25/22 03/25/22 03/25/22 16:19 18:33 18:33 WBC RBC Hgb Hct MCV MCH MCHC RDW Plt Count MPV Immature Gran % (Auto) Neut % (Auto) Lymph % (Auto) Gentry % (Auto) Eos % (Auto) Baso % (Auto) Lymph # (Auto) Gentry # (Auto) Eos # (Auto) Baso # (Auto) Abs Immat Gran (auto) Absolute Neuts (auto) Absolute Nucleated RBC Nucleated RBC % (auto) Sodium Potassium Chloride Carbon Dioxide Anion Gap BUN Creatinine Estim Creat Clear Calc Estimated GFR POC Glucose 85 Random Glucose Calcium Magnesium 2.4 Total Bilirubin Direct Bilirubin AST ALT Alkaline Phosphatase Ammonia Troponin I High Sens 12.3 Total Protein Albumin Ethyl Alcohol COVID-19 (SRIDEVI) COVID-19 Clin Com 03/26/22 03/26/22 06:07 06:07 WBC 8.4 RBC 2.47 L Hgb 8.1 L Hct 24.7 L MCV 100.0 H MCH 32.8 MCHC 32.8 RDW 16.9 H Plt Count 57 L MPV 13.0 H Immature Gran % (Auto) Neut % (Auto) Lymph % (Auto) Gentry % (Auto) Eos % (Auto) Baso % (Auto) Lymph # (Auto) Gentry # (Auto) Eos # (Auto) Baso # (Auto) Abs Immat Gran (auto) Absolute Neuts (auto) Absolute Nucleated RBC 0.000 Nucleated RBC % (auto) 0.0 Sodium 138 Potassium 4.2 Chloride 100 Carbon Dioxide 27 Anion Gap 15 BUN 14 Creatinine 1.08 Estim Creat Clear Calc 73.8 Estimated GFR > 60 POC Glucose Random Glucose 55 L* Calcium 8.7 Magnesium 2.0 Total Bilirubin Direct Bilirubin AST ALT Alkaline Phosphatase Ammonia Troponin I High Sens Total Protein Albumin Ethyl Alcohol COVID-19 (SRIDEVI) COVID-19 Clin Com Imaging Radiologist's impression: Impressions Chest X-Ray 03/25/22 14:45 IMPRESSION: Unremarkable examination. Cervical Spine CT 03/25/22 15:10 IMPRESSION: No acute findings identified in the head or cervical spine. Chronic appearing and degenerative changes as noted above. Head CT 03/25/22 15:10 IMPRESSION: No acute findings identified in the head or cervical spine. Chronic appearing and degenerative changes as noted above. Assessment and Plan (1) Hypomagnesemia: Status: Acute (2) Prolonged QT interval: Status: Acute Plan 61-year-old gentleman who is presenting for syncope and prolonged QT interval. We did not see any torsades in the hospital. He is on methadone and was also receiving ciprofloxacin. He was also hypomagnesemic. He is adamant that he will not stay in the hospital and would leave against medical advise. Overall is QT interval has improved. Ideally would recommend monitoring in the hospital as methadone is restarted. He has taken is on methadone before talking to the medicine team. Agree with not using fluoroquinolones on macrolides. He has peripheral edema and has been on diuretics. He is hypomagnesemic probably from diuretic use. He should be on magnesium oxide orally. Thank you for allowing me to participate in the care of your patient. Please feel free to contact me if you have any questions. Procedures Date of Service Date of Service: 03/26/22
--- NOTE | 2022-03-26 14:40 | PM.DS ---
DS: Providers Provider Date of Service: 03/26/22 Date of admission: 03/25/22 16:02 Date of discharge: 03/26/22 Primary care physician: Unknown Physician Consults: 03/25/22 15:58 Addiction Medicine Routine Consulting Provider: Chanel Baker Reason for consultation: fentahyl+ methadone 03/25/22 16:42 Consult to Cardiology Routine Consulting Provider: Keo Canseco Reason for consultation: QTprolongation DS: Diagnosis Discharge Diagnosis (1) Prolonged QT interval: Status: Acute (2) Hypomagnesemia: Status: Acute (3) Syncope: Status: Acute DS: Summary Hospital Course Hospital Course: Patient admitted to telemetry secondary to weakness/fall. Recent admit for SBP. Found to have prolonged QTC. QTC day of discharge still exceeding normal limits. Seen by Cardiology who felt patient needed further hospitalization and workup however patient stated he needed to leave. Via shopper marketing manager the necessity continuing to monitor this was explained to patient however he was adamant about leaving. He will be discharged AMA Time Spent with Patient Time attestation: Total time spent providing and/or coordinating discharge services: Discharge coordination time: Greater than 30 minutes Quality: Safe Use of Opioids Does Pt have an Active Cancer Diagnosis on the Problem List?: No Quality: Stroke Does the patient have a stroke diagnosis?: No Physical Exam Vital Signs: Vital Signs: Last Vital Signs Temp 98.1 F 03/26/22 12:00 Pulse 65 03/26/22 12:00 Resp 12 03/26/22 12:00 BP 111/55 L 03/26/22 12:00 Pulse Ox 100 03/26/22 12:00 O2 Del Method 03/26/22 12:00 BMI result Body Mass Index 32.3 DS: Data Data Completed and Pending Completed studies during hospitalization [Text1]: Procedures Drainage of Peritoneal Cavity, Percutaneous Approach (03/15/22) Labs on day of discharge: Laboratory Results - last 24 hr 03/25/22 03/25/22 03/25/22 14:23 14:23 14:23 WBC RBC Hgb Hct MCV MCH MCHC RDW Plt Count MPV Absolute Nucleated RBC Nucleated RBC % (auto) Sodium 137 Potassium 3.9 Chloride 98 Carbon Dioxide 24 Anion Gap 19 BUN 13 Creatinine 1.24 Estim Creat Clear Calc 64.3 Estimated GFR 59 POC Glucose Random Glucose 56 L* Calcium 8.9 Magnesium 1.4 L* Total Bilirubin 8.6 H Direct Bilirubin 3.1 H AST 37 ALT 19 Alkaline Phosphatase 125 H D Ammonia 36 Troponin I High Sens 14.0 D Total Protein 7.2 Albumin 3.3 L Ethyl Alcohol < 10 COVID-19 (SRIDEVI) COVID-19 [facility] Com 03/25/22 03/25/22 03/25/22 14:31 15:51 16:19 WBC RBC Hgb Hct MCV MCH MCHC RDW Plt Count MPV Absolute Nucleated RBC Nucleated RBC % (auto) Sodium Potassium Chloride Carbon Dioxide Anion Gap BUN Creatinine Estim Creat Clear Calc Estimated GFR POC Glucose 104 85 Random Glucose Calcium Magnesium Total Bilirubin Direct Bilirubin AST ALT Alkaline Phosphatase Ammonia Troponin I High Sens Total Protein Albumin Ethyl Alcohol COVID-19 (SRIDEVI) Negative COVID-19 [facility] Com See Note 03/25/22 03/25/22 03/26/22 18:33 18:33 06:07 WBC 8.4 RBC 2.47 L Hgb 8.1 L Hct 24.7 L MCV 100.0 H MCH 32.8 MCHC 32.8 RDW 16.9 H Plt Count 57 L MPV 13.0 H Absolute Nucleated RBC 0.000 Nucleated RBC % (auto) 0.0 Sodium Potassium Chloride Carbon Dioxide Anion Gap BUN Creatinine Estim Creat Clear Calc Estimated GFR POC Glucose Random Glucose Calcium Magnesium 2.4 Total Bilirubin Direct Bilirubin AST ALT Alkaline Phosphatase Ammonia Troponin I High Sens 12.3 Total Protein Albumin Ethyl Alcohol COVID-19 (SRIDEVI) COVID-19 [facility] Com 03/26/22 06:07 WBC RBC Hgb Hct MCV MCH MCHC RDW Plt Count MPV Absolute Nucleated RBC Nucleated RBC % (auto) Sodium 138 Potassium 4.2 Chloride 100 Carbon Dioxide 27 Anion Gap 15 BUN 14 Creatinine 1.08 Estim Creat Clear Calc 73.8 Estimated GFR > 60 POC Glucose Random Glucose 55 L* Calcium 8.7 Magnesium 2.0 Total Bilirubin Direct Bilirubin AST ALT Alkaline Phosphatase Ammonia Troponin I High Sens Total Protein Albumin Ethyl Alcohol COVID-19 (SRIDEVI) COVID-19 Clin Com Discharge Plan Discharge Patient Disposition: Left Against Medical Advice Discharge Diagnosis: Prolonged QTC Referrals: Physician,Unknown J [Primary Care Provider] - 1 Week Discharge Medications: New spironolactone 25 mg Tablet 50 mg PO DAILY Qty: 30 0RF Protocol: Hold for SBP< HOLD for SBP < : 90 magnesium oxide 400 mg magnesium capsule 400 mg PO BID Qty: 60 1RF Continued methadone [Methadone Intensol] 10 mg/mL Concentrate 65 mg PO DAILY Rx Instructions: confirmed with clinic omeprazole 40 mg Capsule,Delayed Release(Dr/Ec) 40 mg PO BID@0630,1630 30 Days Qty: 60 0RF lactulose 20 gram/30 mL Solution 30 g PO BID 30 Days Qty: 2700 0RF ferrous sulfate 324 mg (65 mg iron) tablet,delayed release (DR/EC) 324 mg PO DAILY Qty: 30 0RF furosemide 40 mg tablet 60 mg PO DAILY 30 Days Qty: 45 0RF ciprofloxacin HCl 500 mg tablet 500 mg PO BID Discontinued spironolactone 25 mg Tablet 50 mg PO DAILY 30 Days Qty: 60 2RF Protocol: Hold for SBP< HOLD for SBP < : 90 Discharge Orders: Discharge Order (Routine); Ordered 03/26/22 Ordered By: Atilio Ramirez Care Plan Goals: AMA Health Concerns: AMA Plan of Treatment: AMA Assessment: AMA
--- NOTE | 2022-03-26 14:46 | MHC.CM.PN ---
pt left ama
--- NOTE | 2022-03-26 14:54 | PC.NURSE ---
Patient anxious throughout the morning expressed to nurse wanting to go home, discussed to dangers of leaving against medical advice, patient signed AMA form ambulated with cane off the unit with nurse, waled to main entrance where was waiting.
== END 2022-03-26 14:54 | disposition left against medical advice (07) | DRG 425 ==
LOC: HO.ED 15:58 → HO.EDOVER 16:23 → HO.IMC 16:43
PROVIDERS: Admitting Provider Family Medicine; Emergency Provider Emergency Medicine; Visit Provider Hospitalist
DX: E83.42 Hypomagnesemia (principal); K65.2 Spontaneous bacterial peritonitis; K72.90 Hepatic failure, unspecified without coma; R18.8 Other ascites; D63.8 Anemia in other chronic diseases classified elsewhere; K74.60 Unspecified cirrhosis of liver; R55 Syncope and collapse; R94.31 Abnormal electrocardiogram [ECG] [EKG]; E16.2 Hypoglycemia, unspecified; Z20.822 Contact with and (suspected) exposure to COVID-19; Z87.891 Personal history of nicotine dependence; F11.20 Opioid dependence, uncomplicated; Z88.5 Allergy status to narcotic agent; Z79.899 Other long term (current) drug therapy
CPT/HCPCS: 36415; 70450; 71045; 72125; 80048; 80076; 82077; 82140; 82947; 83735; 84484; 85025; 85027; 87635; 93005; 96365; 96375; 99285; J0696; J3475

== ENCOUNTER 2022-03-30 19:26 | Inpatient (IN) | payer MEDICAID, SELFPAY ==
--- NOTE | ~2022-03-30 | XR_ITS ---
EXAMINATION: XR CHEST CLINICAL INFORMATION: Fluid overload, shortness of breath COMPARISON: 03/25/2022 TECHNIQUE: Frontal view of the chest was obtained. FINDINGS: Lung volumes are symmetric. No focal consolidation is seen. Mildly coarsened appearance of the interstitium is similar to prior. No evidence of pneumothorax, pleural effusion, or overt pulmonary edema. Cardiac silhouette appears near the upper limits of normal in size. No acute osseous findings are seen. XR/XR chest 1V IMPRESSION: No acute cardiopulmonary findings.
--- NOTE | ~2022-03-30 | CT_ITS ---
EXAMINATION: CT head/brain wo IV con CLINICAL INFORMATION: Reason for Exam Status post fall, thrombocytopenic COMPARISON: CT head without contrast 03/25/2020 TECHNIQUE: Contiguous axial imaging was performed from the skull base to vertex without intravenous contrast. Sagittal and coronal reformatted images were obtained. This CT examination was performed using dose optimization techniques as appropriate, variously including the following: * Automated exposure control * Adjustment of mA and/or kV according to patient size (this includes techniques or standardized protocols for targeted exams where dose is matched to indication/reason for exam; i.e. extremities or head) Use of iterative reconstruction technique DLP: 721 mGy-cm FINDINGS: No acute osseous or soft tissue abnormality. The mastoid air cells and visualized portions of the paranasal sinuses are well aerated. There is no evidence of acute intracranial hemorrhage or territorial infarction. No abnormal mass effect or midline shift is seen. Rodriguez to white matter differentiation is well preserved. No extra-axial fluid collections are identified. No hydrocephalus. No significant volume loss. Patchy periventricular and deep white matter hypoattenuation is consistent with moderate small vessel ischemic changes. CT/CT head/brain wo IV con IMPRESSION: No acute intracranial abnormality including hemorrhage, mass effect, hydrocephalus, or acute territorial edematous infarction.
[2022-03-30 20:26] VITALS: BP 122/84; BP 129/53; PULSE 60; RESP 16; TEMP 37; O2SAT 100; O2SAT 99; BMI 27.4
--- NOTE | 2022-03-30 20:32 | ECG_ITS ---
Test Reason : SYNCOPE Blood Pressure : / mmHG Vent. Rate : 060 BPM Atrial Rate : 059 BPM P-R Int : 154 ms QRS Dur : 078 ms QT Int : 458 ms P-R-T Axes : 058 019 013 degrees QTc Int : 458 ms Normal sinus rhythm Nonspecific T wave abnormality Abnormal ECG When compared with ECG of 26-MAR-2022 13:05, QT has shortened Referred By: Generic ED Physician Electronically Signed By:DEEPIKA PIERRE
[2022-03-30 21:33] LABS: Hematocrit 26.5 % (42.0-52.0); Hemoglobin 8.9 g/dl (14.0-18.0); Mean Corpuscular HGB Conc 33.6 g/dl (31.0-36.0); Mean Corpuscular Hemoglobin 33.3 pg (27.0-33.0); Mean Corpuscular Volume 99.3 fL (80.0-98.0); Mean Platelet Volume 12.1 fL (9.4-12.4); Red Blood Count 2.67 X10*6/uL (4.60-5.80); Red Cell Distribution Width 16.4 % (11.0-16.0); White Blood Count 6.4 X10*3/uL (4.8-10.8)
[2022-03-30 21:38] LABS: Platelet Count 56 X10*3/uL (160-400)
[2022-03-30 21:51] LABS: Alanine Aminotransferase 16 U/L (0-40); Albumin Level 3.3 g/dL (3.5-5.0); Alkaline Phosphatase 147 U/L (39-117); Anion Gap 16 (12-20); Aspartate Amino Transferase 35 U/L (5-37); Bilirubin Total 8.6 mg/dL (0.0-1.0); Blood Urea Nitrogen 11 mg/dL (9-16); Calcium 9.2 mg/dL (8.4-10.2); Carbon Dioxide 29 mmol/L (22-29); Chloride 96 mmol/L (96-108); Creatinine Clr Calc Pharmacy 54.1; Estimated Glomerular Filt Rate 55; Glucose Random 161 mg/dL (60-115); Potassium 4.1 mmol/L (3.3-5.1); Sodium 137 mmol/L (135-145); Total Protein 7.4 g/dL (6.5-8.0)
[2022-03-30 21:58] LABS: B Type Natriuretic Peptide 888 pg/mL (<100); Troponin-I High Sensitivity 5.6 ng/L (<3.5-35.0)
--- NOTE | 2022-03-30 23:35 | ED.SYNCOPE ---
HPI - Syncope General Chief Complaint: Syncope Stated Complaint: syncope, seen here twice in 2 weeks Time Seen by Provider: 03/30/22 23:33 Source: patient Mode of arrival: ambulatory Limitations: no limitations History of Present Illness HPI narrative: Patient has alcoholic cirrhosis, hypertension opiate abuse was seen here on 03/26 for syncope episode noticed to have prolonged QT interval of 630 with hypomagnesemia improved after magnesium replacement patient left against medical advise repeat EKG showed QT interval of 505. Patient been taking magnesium tablets. Today he comes here as he was in the kitchen and suddenly syncopized landed on his left side without eating his head family was nearby. No chest pain or palpitation no shortness of breath no seizures Related Data Home Medications Medication Instructions Recorded Confirmed methadone 10 mg/mL oral 65 mg PO DAILY 03/15/22 03/25/22 concentrate (Methadone Intensol) ciprofloxacin HCl 500 mg tablet 500 mg PO BID 03/25/22 03/25/22 Previous Rx's Medication Instructions Recorded ferrous sulfate 324 mg (65 mg 324 mg PO DAILY #30 tabs 03/19/22 iron) tablet,delayed release furosemide 40 mg tablet 60 mg PO DAILY 30 days #45 tabs 03/19/22 lactulose 20 gram/30 mL oral 30 g (45 mL) PO BID 30 days #2,700 03/19/22 solution mL omeprazole 40 mg capsule,delayed 40 mg PO BID@0630,1630 30 days #60 03/19/22 release caps spironolactone 25 mg tablet 50 mg PO DAILY 30 days #60 tabs 03/19/22 magnesium oxide 400 mg PO BID #60 caps 03/26/22 spironolactone 25 mg tablet 50 mg PO DAILY #60 tabs 03/26/22 Allergies Allergy/AdvReac Type Severity Reaction Status Date / Time tramadol [TRAMADOL] Allergy Unknown ANXIETY Verified 03/25/22 14:11 Review of Systems Review of Systems: Yes all other systems are reviewed and are negative PMFSH Past Medical History Medical History Ascites Cirrhosis Coagulopathy Decompensated hepatic cirrhosis Fluid overload Head injury Hypertension Opioid dependence Syncope Surgical History History of appendectomy History of eye surgery Family History Family History Mother No problems noted. Father No problems noted. Other No family history of coronary artery disease Social History Social History Household Members: Spouse Do you presently have visiting nurse or other home services: No Alcohol intake: former Patient Tobacco Use Status: Former Tobacco user Substance Use Type: Former Substance User Advance Directives: Yes Advance Directives on File: Yes Advance Directives Date on File: 03/28/22 service: No Current occupational status: unemployed Physical Exam Vital Signs: Vital Signs: Last Vital Signs Temp 98.2 F 03/31/22 04:00 Pulse 61 03/31/22 05:27 Resp 16 03/31/22 04:00 BP 136/74 03/31/22 05:27 Pulse Ox 98 03/31/22 04:00 O2 Del Method 03/31/22 04:00 BMI result Body Mass Index 27.4 Appearance: Alert. Oriented X3. No acute distress. Eyes: PERRLA, No Nystagmus HEENT: Pharynx normal. Oral Mucosa moist atraumatic normocephalic Neck: Normal inspection. Neck supple. CVS: Normal heart rate and rhythm. Pulses normal. Respiratory: No respiratory distress. Equal air entry bilateral, no wheezing/rales/rhonchi Abdomen: Soft and nontender. Bowel sounds are present, no mass palpable, no CVA tenderness Skin: Skin warm and dry. Normal skin color. Normal skin turgor. Extremities: No lower extremity edema. No calf tenderness Neuro: Oriented X 3. No motor deficit. No sensory deficit.No cerebellar signs , cranial nerves II-XII intact MDM - Syncope MDM Narrative Medical decision making narrative: Patient recurrent syncope episode etiology not very clear at this time patient has normal QTC interval magnesium was slightly low 1.4 which was replaced will admit patient for further workup for recurrent syncope episode Lab Data Attestation: I reviewed the patient's lab results. Result diagrams: 03/30/22 21:25 03/30/22 21:24 Labs: Lab Results 03/30/22 03/30/22 03/30/22 Range/Units 21:24 21:24 21:25 WBC 6.4 (4.8-10.8) X10*3/uL RBC 2.67 L (4.60-5.80) X10*6/uL Hgb 8.9 L (14.0-18.0) g/dl Hct 26.5 L (42.0-52.0) % MCV 99.3 H (80.0-98.0) fL MCH 33.3 H (27.0-33.0) pg MCHC 33.6 (31.0-36.0) g/dl RDW 16.4 H (11.0-16.0) % Plt Count 56 L (160-400) X10*3/uL MPV 12.1 (9.4-12.4) fL Absolute Nucleated RBC 0.000 (0.0-0.012) X10*3/uL Nucleated RBC % (auto) 0.0 (0.0-0.2) /100WBC Sodium 137 (135-145) mmol/L Potassium 4.1 (3.3-5.1) mmol/L Chloride 96 (96-108) mmol/L Carbon Dioxide 29 (22-29) mmol/L Anion Gap 16 (12-20) BUN 11 (9-16) mg/dL Creatinine 1.32 (0.5-1.4) mg/dL Estim Creat Clear Calc 54.1 Estimated GFR 55 Random Glucose 161 H D (60-115) mg/dL Calcium 9.2 (8.4-10.2) mg/dL Magnesium 1.4 L* (1.6-2.6) mg/dL Total Bilirubin 8.6 H (0.0-1.0) mg/dL AST 35 (5-37) U/L ALT 16 (0-40) U/L Alkaline Phosphatase 147 H (39-117) U/L Troponin I High Sens 5.6 D (<3.5-35.0) ng/L B-Natriuretic Peptide 888 H (<100) pg/mL Total Protein 7.4 (6.5-8.0) g/dL Albumin 3.3 L (3.5-5.0) g/dL COVID-19 (SRIDEVI) (Negative) COVID-19 Clin Com 03/31/22 Range/Units 01:14 WBC (4.8-10.8) X10*3/uL RBC (4.60-5.80) X10*6/uL Hgb (14.0-18.0) g/dl Hct (42.0-52.0) % MCV (80.0-98.0) fL MCH (27.0-33.0) pg MCHC (31.0-36.0) g/dl RDW (11.0-16.0) % Plt Count (160-400) X10*3/uL MPV (9.4-12.4) fL Absolute Nucleated RBC (0.0-0.012) X10*3/uL Nucleated RBC % (auto) (0.0-0.2) /100WBC Sodium (135-145) mmol/L Potassium (3.3-5.1) mmol/L Chloride (96-108) mmol/L Carbon Dioxide (22-29) mmol/L Anion Gap (12-20) BUN (9-16) mg/dL Creatinine (0.5-1.4) mg/dL Estim Creat Clear Calc Estimated GFR Random Glucose (60-115) mg/dL Calcium (8.4-10.2) mg/dL Magnesium (1.6-2.6) mg/dL Total Bilirubin (0.0-1.0) mg/dL AST (5-37) U/L ALT (0-40) U/L Alkaline Phosphatase (39-117) U/L Troponin I High Sens (<3.5-35.0) ng/L B-Natriuretic Peptide (<100) pg/mL Total Protein (6.5-8.0) g/dL Albumin (3.5-5.0) g/dL COVID-19 (SRIDEVI) Negative (Negative) COVID-19 Clin Com See Note ECG Data Attestation: I personally reviewed and interpreted this ECG as follows: Interpretation: Normal sinus rhythm heart rate 60 beats per minute QTC interval [address] T wave changes no acute ischemia Discharge Plan Discharge Clinical Impression: Syncope and collapse, Hypomagnesemia Patient Disposition: Admitted As Inpatient
[2022-03-31] VITALS (14 sets, daily range): BP systolic 113–136; BP diastolic 48–74; PULSE 55–79; RESP 9–20; TEMP 36.4–36.8; O2SAT 98–100
--- NOTE | 2022-03-31 | ECG_ITS ---
Test Reason : SYNCOPEE Blood Pressure : / mmHG Vent. Rate : 059 BPM Atrial Rate : 059 BPM P-R Int : 146 ms QRS Dur : 080 ms QT Int : 484 ms P-R-T Axes : 027 014 002 degrees QTc Int : 479 ms Sinus bradycardia with sinus arrhythmia Nonspecific T wave abnormality Abnormal ECG When compared with ECG of 30-MAR-2022 21:17, No significant change was found Referred By: Chun Aguirre Electronically Signed By:DEEPIKA PIERRE
[2022-03-31 00:44] LABS: Magnesium 1.4 mg/dL (1.6-2.6)
[2022-03-31] MEDS: Magnesium Sulfate/H2O 2 GM/50 ML PIGGYBACK IV (01:11)
[2022-03-31 01:52] LABS: COVID-19 Test Negative (Negative); IDNOW Serial# 16C4AD1C
--- NOTE | 2022-03-31 04:11 | PC.NURSE ---
PATIENT WAS TECHNOLOGY APPLICATIONS CONSULTANT INTO HOSPITAL ATTIRE BY THIS PCT ,PATIENT WANTED TO KEEP HIS SHOES ON FEET .
[2022-03-31 04:32] LABS: Magnesium 2.1 mg/dL (1.6-2.6)
--- NOTE | 2022-03-31 06:30 | P.HPHOSP_ITS ---
History of Present Illness Date of Service: 03/31/22 Chief Complaint: syncope Patient is Pakistani-speaking, history is obtained with the help of an customer service clerk. 61-year-old male with past medical history of alcoholic liver cirrhosis, hypertension, opiate abuse on methadone, presents to the hospital syncopal francis coppola. Of note patient had a syncopal episode on 03/26 and was seen in the ED at that time found to have a prolonged QT interval of 680 with hypomagnesemia. At that time patient's magnesium was repleted, with improvement of his QT, patient was discharged home. He returns today stating a recurrent episode. He states that he was standing when he felt dizzy, he felt warning signs that he was about to pass out therefore he sat down and he passed out for few minutes. He denies having any palpitations or chest pain prior, or after coming about. He denies any headache or change in vision, denies any recent weakness numbness or tingling. He has no diarrhea or constipation. No abdominal pain, and no urinary symptoms. He has no shortness of breath but has sig lower extremity edema On arrival to the ED patient hemodynamically stable Labs are significant for WBC count 6.4, hemoglobin of 8.9 which is around his baseline, hematocrit of 26.5, glucose of 166, magnesium of 1.4, alk-phos of 147, BNP of 888, troponin negative, EKG shows QT interval [address] T-wave changes suggestive of ACS Head CT shows no acute intracranial abnormality Chest x-ray shows no acute cardiopulmonary findings Review of Systems Review of Systems: Yes all other systems are reviewed and are negative [facility] Medical History Ascites Cirrhosis Coagulopathy Decompensated hepatic cirrhosis Fluid overload Head injury Hypertension Opioid dependence Syncope Family History Mother No problems noted. Father No problems noted. Other No family history of coronary artery disease Surgical History History of appendectomy History of eye surgery Social History Household Members: Spouse Do you presently have visiting nurse or other home services: No Alcohol intake: former Patient Tobacco Use Status: Former Tobacco user Substance Use Type: Former Substance User Advance Directives: Yes Advance Directives on File: Yes Advance Directives Date on File: 03/28/22 service: No Current occupational status: unemployed Meds Allergies Allergy/AdvReac Type Severity Reaction Status Date / Time tramadol [TRAMADOL] Allergy Unknown ANXIETY Verified 03/25/22 14:11 Active Medications: Current Medications Acetaminophen (Acetaminophen 325 Mg Tablet) 650 mg PO Q6H PRN PRN Reason: Pain, Mild (Pain Scale 1-3) Docusate Sodium (Docusate Sodium 100 Mg Capsule) 100 mg PO DAILY PRN PRN Reason: Constipation Sodium Chloride (0.9 % Sodium Chloride Flush 3 Ml Syringe) [facility] Medications Medication Instructions Recorded Confirmed Last Taken Type methadone 10 mg/mL oral 65 mg PO DAILY 03/15/22 03/25/22 03/25/22 History concentrate (Methadone Intensol) ciprofloxacin HCl 500 mg tablet 500 mg PO BID 03/25/22 03/25/22 03/24/22 History Physical Exam Vital Signs and Narrative: Vital Signs: Last Vital Signs Temp 98.2 F 03/31/22 04:00 Pulse 61 03/31/22 05:27 Resp 16 03/31/22 04:00 BP 136/74 03/31/22 05:27 Pulse Ox 98 03/31/22 04:00 O2 Del Method 03/31/22 04:00 BMI result Body Mass Index 27.4 Const: General: cooperative and no acute distress Orientation/consciousness: patient oriented x3 HEENT: Other: Bruising on the forehead on the right Eyes: General: appearance normal, both eyes and all related structures Pupils: Equal, round and reactive pupils present Resp: Effort & Inspection: normal respiratory effort Auscultation: clear to auscultation bilaterally Cardio: Rate: regular rate Rhythm: regular rhythm GI: Palpation (GI): Soft to palpation Auscultation: normal bowel sounds Skin: General skin exam: no rashes or lesions noted Neuro: General: patient oriented x3 Cranial nerves: Yes Equal, round and reactive pupils present Cognition (Neuro): normal cognition Extrem: Other: 3+ lower extremity edema bilaterally General: Yes normal to inspection Results Labs CBC and Chem 7: 03/30/22 21:25 03/30/22 21:24 Labs: Laboratory Results - last 24 hr 03/30/22 03/30/22 03/30/22 21:24 21:24 21:25 MCV 99.3 H MCH 33.3 H MCHC 33.6 RDW 16.4 H Plt Count 56 L MPV 12.1 Absolute Nucleated RBC 0.000 Nucleated RBC % (auto) 0.0 Anion Gap 16 Estim Creat Clear Calc 54.1 Estimated GFR 55 Random Glucose 161 H D Calcium 9.2 Magnesium 1.4 L* Total Bilirubin 8.6 H AST 35 ALT 16 Alkaline Phosphatase 147 H Troponin I High Sens 5.6 D B-Natriuretic Peptide 888 H Total Protein 7.4 Albumin 3.3 L COVID-19 (SRIDEVI) COVID-19 [employer] Com 03/31/22 03/31/22 01:14 03:59 MCV MCH MCHC RDW Plt Count MPV Absolute Nucleated RBC Nucleated RBC % (auto) Anion Gap Estim Creat Clear Calc Estimated GFR Random Glucose Calcium Magnesium 2.1 Total Bilirubin AST ALT Alkaline Phosphatase Troponin I High Sens B-Natriuretic Peptide Total Protein Albumin COVID-19 (SRIDEVI) Negative COVID-19 Clin Com See Note Imaging Radiologist's Impressions: Impressions Chest X-Ray 03/31/22 01:06 IMPRESSION: No acute cardiopulmonary findings. Head CT 03/31/22 02:07 IMPRESSION: No acute intracranial abnormality including hemorrhage, mass effect, hydrocephalus, or acute territorial edematous infarction. Assessment and Plan (1) Syncope and collapse: Status: Acute (2) Hypomagnesemia: Status: Acute (3) Lower extremity edema: Status: Acute (4) Elevated brain natriuretic peptide (BNP) level: Status: Acute (5) Chronic anemia: Status: Acute Plan 61-year-old male with past medical history of hypertension, liver cirrhosis, presents to the hospital with complaints of syncopal episode # syncope - unclear etiology at this time, vasovagal versus cardiogenic - orthostatic vitals negative - has elevated BNP, no elevated troponin, previously had prolonged QTC but currently QT interval is within acceptable range, with no evidence of ACS on EKG - at this time I will obtain an echocardiogram given recurrent syncopal episodes, he also has evidence of CHF exacerbation, therefore cardiology consult was also be placed - admit to telemetry # hypomagnesemia - repleted - follow magnesium level # lower extremity edema - no documented history of CHF - possibly a combination of with CHF as well as hypoalbuminemia in the setting of liver cirrhosis - has elevated BNP therefore will start him on Lasix, low-sodium diet, strict I&O - Lasix b.i.d. - echo - cardiology consult # chronic anemia - appears stable - no evidence of acute bleed at this time - follow CBC # CKD - baseline - follow BMP DVT prophylaxis: Early ambulation Quality Stroke Does the patient have a stroke diagnosis?: No VTE Prior VTE?: No VTE Risk Level:: Medical - low VTE Device Contraindication: Treatment Not Indicated VTE Drug Contraindication: Treatment Not Indicated
[2022-03-31 06:57] LABS: MANUAL DIFF FLAG NO
--- NOTE | 2022-03-31 07:00 | CA_ITS ---
Transthoracic Echocardiogram Patient (Last, First, Middle): Thierno Leal, Gender: Male Date of : 1960 Age: 61 Procedure Date: 03/31/2022 Procedure Type: Transthoracic Echocardiogram Location: ER Height: 165.1 cm Weight: 74.84 kg BSA: 1.82 m2 Heart Rate: 72 bpm BP: 127 / 58 mmHg Assistant Plant Control Operator: THANG Referring MD: Chun Aguirre MD Nursery Hand: Christos Randolph MD Symptoms: syncope Study Quality: Adequate w contrast ECG Rhythm: Sinus with extra beats Conclusions: - 1. Normal LV systolic function with grade 2 diastolic dysfunction 2. Mild enlargement of left atrium and right ventricle with normal RV systolic function 3. Probable mild aortic stenosis 4. Moderate elevation right ventricular systolic pressure and significant elevation of right atrial pressures next 5. No gross pericardial effusion Findings Procedure Information Contrast agent, definity, is being given per protocol without apparent complications. Left Ventricle Normal left ventricular size, thickness, and systolic function. The visually estimated ejection fraction is between 65-70%. Spectral Doppler is indicative of a pseudonormal filling pattern. E/E prime ratio is >15, consistent with elevated filling pressures. Evidence suggests grade II (moderate) diastolic dysfunction. Right Ventricle Mildly increased right ventricular cavity size. There is normal right ventricular systolic function. Atria The left atrium is mildly dilated. Interatrial shunt cannot be excluded. The right atrium is mildly dilated. Aortic Valve Normal aortic valve structure and function. There is no aortic valve stenosis. There is no aortic valve regurgitation. Increase gradients across aortic valve without clear evidence of significant aortic stenosis. Mild aortic stenosis cannot be entirely ruled out Mitral Valve There is mild anterior and posterior mitral leaflet thickening. There is trace mitral valve regurgitation. There is no mitral valve stenosis. Pulmonic Valve The pulmonic valve was not well visualized. Tricuspid Valve Likely normal tricuspid valve structure and function. There is mild tricuspid valve regurgitation. Significantly elevated right atrial pressure. Moderate pulmonary hypertension is present. Great Vessels All visible segments of the aorta are normal in size. The pulmonary artery was not well visualized. Venous The inferior vena cava is mildly dilated and does not collapse with inspiration. Pericardium/Pleural There is no evidence of pericardial effusion. Prior Study Comparison No prior study available for comparison. Measurements 2D Linear Measurements IVSd: 0.61 0.6-0.9/0.6-1.0 cm LVIDd: 4.96 3.9-5.3/4.2-5.9 cm LVIDd Index: 2.73 2.4-3.2/2.2-3.1 cm/m2 LVIDs: 2.78 2.0-3.6 cm LVPWd: 0.58 0.7-1.1 cm LA Diam: 3.80 2.7-3.8/3.0-4.0 cm LAIDs Index: 2.09 1.5-2.3 cm/m2 LV Mass: 115.13 67-162/88-224 g LV Mass Index: 63.26 43-95/49-115 g/m2 LVOT Diam: 1.80 3.0+(-)1.3 cm 2D Systolic Function EF 4C: 70.10 >55% EF 2C: 73.50 >55% EF BiP: 71.40 >55% Mitral Valve MV Pk E: 1.97 MV PK A: 0.79 MV Decel Time: 222.00 E/A: 2.50 E'Medial: 9.68 E/E' Med: 20.40 PHT: 65.00 MVA PHT: 3.38 Decel [place]: 8.87 Aortic Valve AoV Pk King: 2.48 AoV Mn King: 1.44 AoV VTI: 0.47 AoV Pk Grad: 25.00 Aov Mn Grad: 10.00 JAYNE Cont.VTI: 1.93 LVOT LVOT Pk King: 1.96 LVOT Mn King: 1.20 LVOT VTI: 0.36 LVOT Pk Grad: 15.00 LVOT Mn Grad: 7.00 LVOT Diam: 1.80 LVOT Area: 2.54 Diastolic Function MV Pk E: 1.97 MV Pk A: 0.79 E/A: 2.50 E'Medial: 9.68 E/E' Med: 20.40 Right Ventricle TAPSE (mm): 27.20 TVS' King: 18.20 Tricuspid Valve TR Pk King: 3.08 TR Pk Grad: 38.00 RA Press: 15.00 RVSP: 53.00 Great Vessels Aorta Sinus of Valsalva: 2.70 2.0-3.5 cm Ao Asc: 3.00 2.1-3.4 cm Pulmonary Veins Pulm Vein S/D 0.60 Pulmonary Valve PV Pk King: 1.57 Peak PV Grad: 10.00 Updated in Other Vendor System with Status of Final Christos Randolph MD electronically signed on 03/31/2022 12:31:11 PM with status of Final
[2022-03-31 07:01] LABS: Basophils Percent Auto 0.6 % (0-2); Eosinophils Absolute Auto 0.1 X10*3/uL (0.0-0.4); Eosinophils Percent Auto 1.2 % (0-4); Hematocrit 25.3 % (42.0-52.0); Hemoglobin 8.5 g/dl (14.0-18.0); Imm Gran Abs Auto 0.03 X10*3/uL (0.00-0.03); Imm Gran Pct Auto 0.4 % (0.0-0.4); Lymphocytes Absolute Auto 1.3 X10*3/uL (1.2-4.9); Lymphocytes Percent Auto 19.6 % (20-40); Mean Corpuscular HGB Conc 33.6 g/dl (31.0-36.0); Mean Corpuscular Hemoglobin 32.7 pg (27.0-33.0); Mean Corpuscular Volume 97.3 fL (80.0-98.0); Mean Platelet Volume 12.2 fL (9.4-12.4); Monocytes Absolute Auto 0.9 X10*3/uL (0.1-1.2); Monocytes Percent Auto 13.2 % (2-11); Neutrophils Absolute Auto 4.4 x10*3/uL (2.0-8.3); Red Cell Distribution Width 16.3 % (11.0-16.0); White Blood Count 6.8 X10*3/uL (4.8-10.8)
[2022-03-31 07:06] LABS: Platelet Count 56 X10*3/uL (160-400)
[2022-03-31 07:33] LABS: Anion Gap 13 (12-20); Blood Urea Nitrogen 9 mg/dL (9-16); Calcium 9.1 mg/dL (8.4-10.2); Carbon Dioxide 30 mmol/L (22-29); Chloride 98 mmol/L (96-108); Creatinine Clr Calc Pharmacy 64.9; Estimated Glomerular Filt Rate > 60; Glucose Random 87 mg/dL (60-115); Magnesium 1.8 mg/dL (1.6-2.6); Potassium 3.9 mmol/L (3.3-5.1); Sodium 137 mmol/L (135-145)
--- NOTE | 2022-03-31 08:38 | PC.NURSE ---
Pt is A/O x 3. Respiration is even and non-labored. Lung sounds are clear, heart sound is regular. Skin is pink, warm and dry, +2 pitting edema noted on both legs, leg is warm and nontender. Abdomen is soft, non-tender, Bowel sound present in all quads. Pt aware of plan of care.
--- NOTE | 2022-03-31 08:54 | PHA.MEDREC ---
Pharmacy Consult ? Medication Reconciliation Pharmacy has completed the medication reconciliation. Sewer services used; pt had rx bottles at bedside matching claim history. Pt noted he gets methadone 65mg daily from [facility] on [facility]. At the end of conversation pt noted that he was upset about his methadone last time because his family does not know he is on it, and at his last visit a doctor came i nto ask him about it with family present. Pt requested that it only be discussed and administered to him when he is alone; spoke to Natasha and made her aware of the situation.
--- NOTE | 2022-03-31 08:59 | PC.NURSE ---
ECHOCARDIOGRAM AT BEDSIDE, PT AWARE OF PLAN OF CARE.
--- NOTE | 2022-03-31 09:10 | PC.NURSE ---
Pt is O/A x 3. Respiration is even and non labored, speaks in full sentences. Lung sounds are clear, heart sound regular. Skin is pink, warm and dry. +2 pitting edema noted in both feet. Abdomen is soft and non tender, BS present in all 4 quad. Electrocardiography taken at bedside. Pt aware of plan of care.
[2022-03-31] MEDS: 0.9 % Sodium Chloride Flush 3 ML SYRINGE IVFLUSH ×3 (09:26→23:50)
[2022-03-31] MEDS: Furosemide 40 MG/4 ML VIAL IVPUSH ×2 (09:27→18:13)
--- NOTE | 2022-03-31 09:33 | MHC.CM.PN ---
Patient lives in an apartment with his and he obtains his Methadone from the [facility] in [place] ( is unaware). Home/resume said services is the tentative goal and CM has initiated and will follow for dc planning. DONNIE addressed with Patient over the phone @ [phone] and original will be given to him and a copy will be placed on the chart. Patient has received Covid vax X3 and his PCP is Dr. Sarmad Cuellar.
--- NOTE | 2022-03-31 11:45 | PC.NURSE ---
dR. ECHEVARRIA WITH CHAR FILTER TANK TENDER HEAD AT BEDSIDE 0PT AWARE OF PLAN OF CARE.
--- NOTE | 2022-03-31 11:52 | HE.PHANOTE ---
Methadone Verification Form Pharmacy has recieved the methadone verification form. Patient last received 6 take home bottles of methadone 65 mg on 03/28/22 from [facility]. Confirmed with NADIA Lai at the clinic. Juliana Espinoza, IvyD
[2022-03-31] MEDS: methADONE HCl 20 MG/2 ML ORAL.CONC 65 MG PO (12:48)
--- NOTE | 2022-03-31 17:03 | PM.CNCAR ---
History of Present Illness History of Present Illness Date of Service: 03/31/22 Requesting physician: Chun Aguirre Consult reason: other (Syncope) Chief complaint: Syncope Narrative: I was consulted to see Thierno in cardiology consultation today for syncope. History was obtained with help of freight flagman. Patient is not a very good historian. He has prior history of drug abuse and is currently on methadone treatment program, cirrhosis of liver he is not very aware of it, hypertension, chronic anemia, question still alcohol abuse. Patient says he came to the hospital after he passed out. Said he had just come back from shopping question grocery shopping came inside the house and was putting stuff of a and was at the kitchen counter and he started feeling lightheaded and fell weakness in his legs and warmth in his legs and knew was going to pass out. He screamed out to his and try to sit down and then he passed out. He was brought to the emergency room. Similar event happened recently about a week ago as per him at which time was brought to the emergency room at that time was noted to have significant QT prolongation as reported by EKG along with hypo magnesemia. This was corrected with heparin improvement in his QT interval. However reviewing his old EKGs there is definitely fusion of T-waves and U waves in the 1st EKG giving a perception of prolonged QT. Subsequent EKG show separate T and U-waves and therefore measured QT interval within normal limits. He is admitted again this time because of syncopal episodes and noted to have hypomagnesemia at 1.4. He has had no arrhythmias since he has been here. His orthostatic vitals were negative. However is noted to have significant bilateral leg edema and elevated BNP suggestive of right heart failure. Cardiology consult was sought for further management plan. Review of Systems Constitutional: Constitutional: Reports no additional constitutional complaints Cardiovascular: Cardiovascular: Denies Abdominal Distension, Denies chest pain, Denies rapid heart rate, Reports leg edema, Reports lightheadedness, Reports Loss of Consciousness, Denies palpitations, Reports dyspnea on exertion and Denies orthopnea Respiratory: Respiratory: Reports no additional respiratory complaints and Reports dyspnea on exertion Gastrointestinal: Gastrointestinal: Reports no additional gastrointestinal complaints Musculoskeletal: Musculoskeletal: Reports no additional musculoskeletal complaints Integumentary/Breasts: Skin/Breast: Reports system reviewed and no additional complaints, except as docu Neurologic: Reports system reviewed and no additional complaints, except as documented Psychiatric: Psychiatric: Reports no additional psychiatric complaints Endocrine: Endocrine: Reports no additional endocrine complaints and Denies palpitations Hematologic/Lymphatic: Hematologic/Lymphatic: Reports no additional hematologic/lymphatic complaints Allergic/Immunologic: Allergic/Immunologic: Reports no additional allergic/immunologic complaints PMFSH Past Medical History Medical History Ascites Cirrhosis Coagulopathy Decompensated hepatic cirrhosis Fluid overload Head injury Hypertension Opioid dependence Syncope Family History Family History Mother No problems noted. Father No problems noted. Other No family history of coronary artery disease Surgical History Surgical History History of appendectomy History of eye surgery Social History Social History Household Members: Spouse Do you presently have visiting nurse or other home services: No Alcohol intake: former Patient Tobacco Use Status: Former Tobacco user Substance Use Type: Former Substance User Advance Directives: Yes Advance Directives on File: Yes Advance Directives Date on File: 03/28/22 service: No Current occupational status: unemployed Meds Allergies Allergy/AdvReac Type Severity Reaction Status Date / Time tramadol [TRAMADOL] Allergy Unknown ANXIETY Verified 03/25/22 14:11 Active Medications: Current Medications Acetaminophen (Acetaminophen 325 Mg Tablet) 650 mg PO Q6H PRN PRN Reason: Pain, Mild (Pain Scale 1-3) Docusate Sodium (Docusate Sodium 100 Mg Capsule) 100 mg PO DAILY PRN PRN Reason: Constipation Furosemide (Furosemide 40 Mg/4 Ml Vial) 40 mg IVPUSH BID@0900,1800 [facility]; Protocol Last Admin: 03/31/22 09:27 Dose: 40 mg Methadone HCl (Methadone Hcl 20 Mg/2 Ml Oral.Conc) 65 mg PO DAILY [facility] Last Admin: 03/31/22 12:48 Dose: 65 mg Sodium Chloride (0.9 % Sodium Chloride Flush 3 Ml Syringe) 3 ml IVFLUSH QSHIFT [facility] Last Admin: 03/31/22 15:09 Dose: 3 ml Home Medications Medication Instructions Recorded Confirmed Last Taken Type methadone 10 mg/mL oral 65 mg PO DAILY 03/15/22 03/31/22 03/28/22 History concentrate (Methadone Intensol) ciprofloxacin HCl 500 mg tablet 500 mg PO DAILY 03/25/22 03/31/22 03/30/22 History Physical Exam Vital Signs: Vital Signs: Last Vital Signs Temp 97.5 F 03/31/22 15:47 Pulse 79 03/31/22 15:47 Resp 20 03/31/22 15:47 BP 121/58 L 03/31/22 15:47 Pulse Ox 100 03/31/22 15:47 O2 Del Method 03/31/22 15:47 BMI result Body Mass Index 27.4 Const: General: cooperative, comfortable, no acute distress, alert, awake and other (Icterus) Nutritional Appearance: overweight Orientation/consciousness: patient oriented x3 Limitations: no limitations HEENT: Head: Yes normocephalic and Yes atraumatic Neck: Neck: Yes trachea midline, Yes supple and Yes JVD Resp: Effort & Inspection: normal respiratory effort Auscultation: clear to auscultation bilaterally Cardio: Jugular venous distension: no JVD Palpation: normal PMI and heave (RV) Rate: regular rate Rhythm: regular rhythm Heart sounds: S1 normal heart sound present, S2 normal heart sound present, no click, no gallops, no murmurs and no rubs GI: Inspection: Yes Abdominal wall edema Auscultation: normal bowel sounds Skin: General skin exam: no rashes or lesions noted Neuro: General: patient oriented x3, no focal motor deficits and other (Tremors noted) Extrem: General: No clubbing, No cyanosis and Yes edema (3+) Objective Labs and Meds Result diagrams: 03/31/22 06:54 03/31/22 06:54 Lab results: Laboratory Results - last 24 hr 03/30/22 03/30/22 03/30/22 21:24 21:24 21:25 WBC 6.4 RBC 2.67 L Hgb 8.9 L Hct 26.5 L MCV 99.3 H MCH 33.3 H MCHC 33.6 RDW 16.4 H Plt Count 56 L MPV 12.1 Immature Gran % (Auto) Neut % (Auto) Lymph % (Auto) [place] % (Auto) Eos % (Auto) Baso % (Auto) Lymph # (Auto) [place] # (Auto) Eos # (Auto) Baso # (Auto) Abs Immat Gran (auto) Absolute Neuts (auto) Absolute Nucleated RBC 0.000 Nucleated RBC % (auto) 0.0 Sodium 137 Potassium 4.1 Chloride 96 Carbon Dioxide 29 Anion Gap 16 BUN 11 Creatinine 1.32 Estim Creat Clear Calc 54.1 Estimated GFR 55 Random Glucose 161 H D Calcium 9.2 Magnesium 1.4 L* Total Bilirubin 8.6 H AST 35 ALT 16 Alkaline Phosphatase 147 H Troponin I High Sens 5.6 D B-Natriuretic Peptide 888 H Total Protein 7.4 Albumin 3.3 L COVID-19 (SRIDEVI) COVID-19 Clin Com 03/31/22 03/31/22 03/31/22 01:14 03:59 06:54 WBC 6.8 RBC 2.60 L Hgb 8.5 L Hct 25.3 L MCV 97.3 MCH 32.7 MCHC 33.6 RDW 16.3 H Plt Count 56 L MPV 12.2 Immature Gran % (Auto) 0.4 Neut % (Auto) 65.0 Lymph % (Auto) 19.6 L [place] % (Auto) 13.2 H Eos % (Auto) 1.2 Baso % (Auto) 0.6 Lymph # (Auto) 1.3 [place] # (Auto) 0.9 Eos # (Auto) 0.1 Baso # (Auto) 0.0 Abs Immat Gran (auto) 0.03 Absolute Neuts (auto) 4.4 Absolute Nucleated RBC 0.000 Nucleated RBC % (auto) 0.0 Sodium Potassium Chloride Carbon Dioxide Anion Gap BUN Creatinine Estim Creat Clear Calc Estimated GFR Random Glucose Calcium Magnesium 2.1 Total Bilirubin AST ALT Alkaline Phosphatase Troponin I High Sens B-Natriuretic Peptide Total Protein Albumin COVID-19 (SRIDEVI) Negative COVID-19 Clin Com See Note 03/31/22 03/31/22 06:54 06:54 WBC RBC Hgb Hct MCV MCH MCHC RDW Plt Count MPV Immature Gran % (Auto) Neut % (Auto) Lymph % (Auto) [place] % (Auto) Eos % (Auto) Baso % (Auto) Lymph # (Auto) [place] # (Auto) Eos # (Auto) Baso # (Auto) Abs Immat Gran (auto) Absolute Neuts (auto) Absolute Nucleated RBC Nucleated RBC % (auto) Sodium 137 Potassium 3.9 Chloride 98 Carbon Dioxide 30 H Anion Gap 13 BUN 9 Creatinine 1.10 Estim Creat Clear Calc 64.9 Estimated GFR > 60 Random Glucose 87 D Calcium 9.1 Magnesium 1.8 Cancelled Total Bilirubin AST ALT Alkaline Phosphatase Troponin I High Sens B-Natriuretic Peptide Total Protein Albumin COVID-19 (SRIDEVI) COVID-19 Clin Com Imaging Radiologist's impression: Impressions Chest X-Ray 03/31/22 01:06 IMPRESSION: No acute cardiopulmonary findings. Head CT 03/31/22 02:07 IMPRESSION: No acute intracranial abnormality including hemorrhage, mass effect, hydrocephalus, or acute territorial edematous infarction. Assessment and Plan (1) Right heart failure: Status: Acute Patient with signs and symptoms of right heart failure with significant fluid overload. Given his prior history of cirrhosis as concern for portal pulmonary hypertension. Echocardiogram does reveal evidence of pulmonary hypertension with significant elevated right atrial pressures. However he also has diastolic dysfunction by echocardiogram. He will require further workup 1st pulmonary hypertension with cardiac catheterization with right heart catheterization to evaluate for pre capillary versus post capillary pulmonary hypertension that will guide treatment. For now continue gentle diuresis Lasix 20 mg IV b.i.d.. Strict intake and output chart needs to be pursued. Continue to trend BMP and electrolytes as well as BNP. Will continue monitor clinically. Will also need addition of spironolactone therapy starting tomorrow for blood pressure is stable. Discussed with him with the findings of right heart failure, he was surprised and low frustrated. Continue treat his underlying cirrhotic disease as per plan. (2) Syncope and collapse: Status: Acute Patient with syncopal episode which clinically appears to be orthostatic in nature although he has fluid overload in this is less likely. Cardiac arrhythmias is possible. He is on methadone treatment with hypomanic dizzy me a both which can cause QT prolongation. He does have prominent T and U-waves on the EKG. Continue to aggressively replace magnesium and potassium. Continue monitor it on a daily basis. Complete avoidance of alcohol was discussed. Daily orthostatic vitals should be performed. Full disclosure cardiac monitoring. Will continue to follow with you Procedures Date of Service Date of Service: 03/31/22
--- NOTE | 2022-03-31 17:37 | PC.NURSE ---
report from Vanda ALEGRIA. patient currently sleeping, skin pwd, resp even and non labored. appears comfortable at this time
[2022-04-01] VITALS (10 sets, daily range): BP systolic 98–143; BP diastolic 54–66; PULSE 54–62; RESP 12–18; TEMP 36.3–37.4; O2SAT 98–99; BMI 30.7
[2022-04-01] MEDS: 0.9 % Sodium Chloride Flush 3 ML SYRINGE IVFLUSH ×3 (07:55→20:50)
[2022-04-01] MEDS: Furosemide 40 MG/4 ML VIAL IVPUSH (07:55)
[2022-04-01] MEDS: methADONE HCl 20 MG/2 ML ORAL.CONC 65 MG PO (07:56)
--- NOTE | 2022-04-01 10:16 | P.PNCA_ITS ---
Subjective Subjective Date of Service: 04/01/22 Principal diagnosis: Right heart failure, syncope Interval history: Patient with no syncopal episode. Blood pressures been stable. No reported arrhythmias on cardiac telemetry. His diuresing but not as robustly. Denies any chest pain or palpitations. No abdominal distension. Remains anemic Review of Systems Review of Systems Yes all other systems are reviewed and are negative Physical Exam Vital Signs: Last Vital Signs Temp 98.4 F 04/01/22 08:11 Pulse 60 04/01/22 09:59 Resp 18 04/01/22 08:11 BP 119/65 04/01/22 09:59 Pulse Ox 98 04/01/22 08:11 O2 Del Method 04/01/22 08:11 BMI result Body Mass Index 27.4 Const General: cooperative, comfortable, no acute distress, alert, awake and other (Icterus) Nutritional Appearance: overweight Limitations: no limitations Neck Neck: Yes trachea midline, Yes supple and Yes JVD Resp Effort & Inspection: normal respiratory effort Auscultation: clear to auscultation bilaterally Cardio Jugular venous distension: no JVD Palpation: normal PMI and heave (RV) Rate: regular rate Rhythm: regular rhythm Heart sounds: S1 normal heart sound present, S2 normal heart sound present, no click, no gallops, no murmurs and no rubs GI Inspection: Yes Abdominal wall edema Auscultation: normal bowel sounds Skin General skin exam: no rashes or lesions noted Extrem General: No clubbing, No cyanosis and Yes edema (3+) Objective Labs and Meds Result diagrams: 03/31/22 06:54 03/31/22 06:54 Progress Note: A&P Assessment and plan (1) Right heart failure: Status: Acute Assessment and Plan: Right heart failure with pulmonary hypertension. Unclear etiology for pulmonary hypertension. Still appears to be fluid overloaded. Switch to Lasix drip 5 mg an hour. Strict intake and output chart. Consider GI evaluation. Increase Al dactone to 25 mg daily. Continue to monitor renal function as well as electrolytes. Follow-up blood pressure closely. Will continue to follow with you. (2) Syncope and collapse: Status: Acute Assessment and Plan: Syncope of unclear etiology. No cardiac arrhythmias noted. Blood pressure is stable. Will continue to monitor on full disclosure cardiac telemetry. Maintain magnesium above 2. Continue check magnesium on a daily basis. EKG tomorrow Will continue to follow with you. Time Spent With Patient Time: Total time spent is greater than 50% in coordination of care (as documented) at patient's floor/unit and/or counseling patient: Progress Note: Quality Stroke Does the patient have a stroke diagnosis?: No Procedures Date of Service Date of Service: 04/01/22
[2022-04-01] MEDS: Spironolactone 25 MG TABLET 12.5 MG PO (11:13)
[2022-04-01] MEDS: Furosemide 200 MG in 0.9 % Sodium Chloride 80 ML IVCONT (11:14)
--- NOTE | 2022-04-01 14:29 | HO.PM.IMPN ---
Subjective Subjective Date of Service: 04/01/22 Interval History: Rice at her failure, leg swelling, liver disease Review of Systems Shortness of breath improving, also has still leg definite significant leg swelling. Denies any chest pain or abdominal pain or nausea or cough Physical Exam Vital Signs: Vital Signs: Last Vital Signs Temp 98.0 F 04/01/22 12:16 Pulse 54 04/01/22 12:16 Resp 16 04/01/22 12:16 BP 98/60 04/01/22 12:16 Pulse Ox 98 04/01/22 12:16 O2 Del Method 04/01/22 12:16 BMI result Body Mass Index 30.7 Appearance: Alert.? Oriented X3.? not in distress.? cvs: rrr, [id number] , no murmur res: clear to auscultation ,no rhonchii or wheezing abd: no rebound or guarding ,nt, bs present. ext pulses present , no cyanosis ,leg and feet sweelin. neuro: axo3 , nonfocal. Objective Data Active Medications Acetaminophen (Acetaminophen 325 Mg Tablet) 650 mg PO Q6H PRN PRN Reason: Pain, Mild (Pain Scale 1-3) Docusate Sodium (Docusate Sodium 100 Mg Capsule) 100 mg PO DAILY PRN PRN Reason: Constipation Furosemide 200 mg/ Sodium (Chloride) 100 mls @ 2.5 mls/hr IVCONT .Q24H [facility] Last Admin: 04/01/22 11:14 Dose: 5 mg/hr, 2.5 mls/hr Documented By: HELGA Methadone HCl (Methadone Hcl 20 Mg/2 Ml Oral.Conc) 65 mg PO DAILY [facility] Last Admin: 04/01/22 07:56 Dose: 65 mg Documented By: EMILIANO Sodium Chloride (0.9 % Sodium Chloride Flush 3 Ml Syringe) 3 ml IVFLUSH QSHIFT [facility] Last Admin: 04/01/22 07:55 Dose: 3 ml Documented By: EMILIANO Spironolactone (Spironolactone 25 Mg Tablet) 12.5 mg PO DAILY [facility]; Protocol Last Admin: 04/01/22 11:13 Dose: 12.5 mg Documented By: HELGA Labs CBC & Chem 7: 03/31/22 06:54 03/31/22 06:54 Assessment and Plan (1) Chronic anemia: Status: Acute (2) Right heart failure: Status: Acute (3) Elevated brain natriuretic peptide (BNP) level: Status: Acute (4) Lower extremity edema: Status: Acute (5) Syncope and collapse: Status: Acute (6) Prolonged QT interval: Status: Acute Plan 61-year-old male with past medical history of hypertension, liver cirrhosis, presents to the hospital with complaints of syncopal episode # syncope-? unclear etiology unclear etiology at this time, vasovagal versus cardiogenic - orthostatic vitals negative - has elevated BNP, no elevated troponin, previously had prolonged QTC but currently QT interval is within acceptable range, with no evidence of ACS on EKG moniter on tele,carsiology eval pending prolonged qt-multifactorial: low mag, boderline potassium , also was on cipro , methadone Will replete electrolytes, stop Cipro and change to ceftriaxone, psych evaluation if methadone can be adjusted. # hypomagnesemia - repleted - follow magnesium level # right side heart failure /lower extremity edema - no documented history of CHF - possibly a combination of with CHF as well as hypoalbuminemia in the setting of liver cirrhosis - has elevated BNP therefore will start him on Lasix, low-sodium diet, strict I&O - echo continue iv lasix drip, sprinolactone,moniter i/o , daily weight - cardiology consult # chronic anemia - appears stable - no evidence of acute bleed at this time - follow CBC # CKD - baseline - follow BMP recent sbp /also has anemia: moniter h/h, type and sceen for am fobt positive Gi eval, change cipro to ceftriaxone( on sbp prophylax /daily for sbp as per GI note 03/19/22), anemia workup. DVT prophylaxis:? Early ambulation,scd due to anemia inpatient need:syncope ,right sided heart failure , prolonged qt-need electrolytes replacements, IV Lasix for heart failure, telemetry monitoring Quality Stroke Does the patient have a stroke diagnosis?: No VTE Prior VTE?: No VTE Risk Level:: Medical - low VTE Device Contraindication: Treatment Not Indicated VTE Drug Contraindication: Treatment Not Indicated
--- NOTE | 2022-04-01 14:46 | PM.GICN ---
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 Patient says he came to the hospital after he passed out.? Said he had just come back from shopping question grocery shopping came inside the house and was putting stuff of a and was at the kitchen counter and he started feeling lightheaded and fell weakness in his legs and warmth in his legs and knew was going to pass out. He screamed out to his and try to sit down and then he passed out for a few minutes.? Pt denied having any palpitations, chest pain, headache, change in vision, weakness numbness or tingling.? He denied abdominal pain, diarrhea or constipation or urinary symptoms. Of note patient had a syncopal episode on 03/26 and was seen in the ED at that time found to have a prolonged QT interval of 680 with hypomagnesemia.? At that time patient's magnesium was repleted, with improvement of his QT, patient was discharged home.? Pt denied any shortness of breath and noted to have sig lower extremity edema ? On arrival to the ED patient hemodynamically stable Labs were significant for WBC count 6.4, hemoglobin of 8.9 which is around his baseline, hematocrit of 26.5, glucose of 166, magnesium of 1.4, alk-phos of 147, BNP of 888, troponin negative, EKG showed QT interval [address] T-wave changes suggestive of ACS Head CT shows no acute intracranial abnormality Chest x-ray shows no acute cardiopulmonary findings Pt was hospitalized 03/15 to 03/19/22 with cirrhosis, SBP and TASHA and discharged home after treatment with antibiotics. Pt was noted to have stable anemia, outpatient EGD was scheduled on 03/25/22 and could not performed due to hx of fall and syncope. Review of Systems Review of Systems: Yes all other systems are reviewed and are negative PMFSH Past Medical History Medical History Ascites Cirrhosis Coagulopathy Decompensated hepatic cirrhosis Fluid overload Head injury Hypertension Opioid dependence Syncope Family History Family History Mother No problems noted. Father No problems noted. Other No family history of coronary artery disease Surgical History Surgical History History of appendectomy History of eye surgery Social History Social History Household Members: Spouse Housing: Apartment Do you presently have visiting nurse or other home services: No Alcohol intake: former Patient Tobacco Use Status: Former Tobacco user Substance Use Type: Former Substance User Advance Directives Date on File: 03/28/22 service: No Current occupational status: unemployed Meds Allergies Allergy/AdvReac Type Severity Reaction Status Date / Time tramadol [TRAMADOL] Allergy Unknown ANXIETY Verified 03/25/22 14:11 Active Medications: Current Medications Acetaminophen (Acetaminophen 325 Mg Tablet) 650 mg PO Q6H PRN PRN Reason: Pain, Mild (Pain Scale 1-3) Docusate Sodium (Docusate Sodium 100 Mg Capsule) 100 mg PO DAILY PRN PRN Reason: Constipation Ferrous Sulfate (Ferrous Sulfate 324 Mg Tablet.) 324 mg PO DAILY [facility] Furosemide 200 mg/ Sodium (Chloride) 100 mls @ 2.5 mls/hr IVCONT .Q24H [facility] Last Admin: 04/01/22 11:14 Dose: 5 mg/hr, 2.5 mls/hr Magnesium Sulfate/Dextrose (Magnesium Sulfate/D5w) 1 gm in 100 mls @ 100 mls/hr IV ONCE ONE Stop: 04/01/22 15:31 Ceftriaxone Sodium 1 gm/ (Sodium Chloride) 50 mls @ 100 mls/hr IV Q24H [facility] Magnesium Oxide (Magnesium Oxide 400 Mg Tablet) 400 mg PO BID [facility] Methadone HCl (Methadone Hcl 20 Mg/2 Ml Oral.Conc) 65 mg PO DAILY [facility] Last Admin: 04/01/22 07:56 Dose: 65 mg Omeprazole (Omeprazole 40 Mg Capsule.) 40 mg PO BID@0630,1630 [facility] Potassium Chloride (Potassium Chloride Er 20 Meq Tab.Er.Prt) 20 meq PO ONCE ONE Stop: 04/01/22 14:34 Sodium Chloride (0.9 % Sodium Chloride Flush 3 Ml Syringe) 3 ml IVFLUSH QSHIFT [facility] Last Admin: 04/01/22 07:55 Dose: 3 ml Spironolactone (Spironolactone 25 Mg Tablet) 12.5 mg PO DAILY [facility]; Protocol Last Admin: 04/01/22 11:13 Dose: 12.5 mg Home Medications Medication Instructions Recorded Confirmed Last Taken Type methadone 10 mg/mL oral 65 mg PO DAILY 03/15/22 03/31/22 03/28/22 History concentrate (Methadone Intensol) ciprofloxacin HCl 500 mg tablet 500 mg PO DAILY 03/25/22 03/31/22 03/30/22 History Physical Exam Vital Signs: Vital Signs: Last Vital Signs Temp 98.0 F 04/01/22 12:16 Pulse 54 04/01/22 12:16 Resp 16 04/01/22 12:16 BP 98/60 04/01/22 12:16 Pulse Ox 98 04/01/22 12:16 O2 Del Method 04/01/22 12:16 BMI result Body Mass Index 30.7 Const: General: no acute distress and ill appearing Nutritional Appearance: average body habitus Orientation/consciousness: patient oriented x3 Limitations: language barrier HEENT: Head: Yes normal to inspection Ears: hearing grossly normal bilaterally Eyes: Sclerae: sclerae normal Pupils: Equal, round and reactive pupils present Neck: Neck: Yes normal visual inspection Chest: Chest palpation & inspection: normal inspection of the chest Resp: Effort & Inspection: normal respiratory effort Auscultation: clear to auscultation bilaterally Cardio: Palpation: normal PMI Rate: regular rate Rhythm: regular rhythm Heart sounds: S1 normal heart sound present, S2 normal heart sound present and no murmurs GI: Inspection: Yes distended (due to ascites) Palpation (GI): Soft to palpation, nontender and No hepatosplenomegaly present Auscultation: normal bowel sounds Rectal Exam - Male: Yes deferred Skin: General skin exam: no rashes or lesions noted Neuro: General: patient oriented x3, gait normal and moves all extremities Cranial nerves: Yes Equal, round and reactive pupils present Extrem: General: Yes pedal edema (2-3 + pitting edema bilaterally) Psych: Appearance: grossly normal Mental Status: mental status grossly normal Results Labs CBC & Chem 7: 04/03/22 06:28 04/04/22 09:01 Assessment and Plan (1) Cirrhosis: Status: Acute (2) Acute on chronic blood loss anemia: Status: Acute Plan 61 YM with 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 Of note patient had a syncopal episode on 03/26 and was seen in the ED at that time found to have a prolonged QT interval of 680 with hypomagnesemia.? At that time patient's magnesium was repleted, with improvement of his QT, patient was discharged home.? Pt denied any shortness of breath and noted to have sig lower extremity edema Pt was hospitalized 03/15 to 03/19/22 with cirrhosis, SBP and TASHA and discharged home on SBP prophylaxis with Cipro after treatment with IV antibiotics. Hepatitis serologies revealed immunity to hepatitis-B. Hepatitis-C antibody was positive, hepatitis-C RNA was not detectable indicating past infection. Outpatient EGD was scheduled for anemia on 03/25/22 and could not performed due to hx of fall and syncope. MELD-Na score is 29 Pt noted to have slowly worsening anemia over the past several weeks and stool was positive for occult blood on admission. Etiology of anemia is likely multifactorial - likely a combination of chronic slow GI blood loss +/- hemolysis which can be associated with liver disease. (Pt has an elevated indirect bilirubin) Iron studies were suggestive of anemia of chronic disease. RECOMMENDATIONS: 1. Hemolysis workup - LDH, Coomb's test, haptoglobin, reticulocyte count and examination of peripheral smear. 2. Low salt diet and agree with IV lasix for RHF 3. Give Vit K 10mg x 3 days for coagulopathy 4. EGD can be scheduled as an inpatient next week once right heart failure improves (needs Cardiology clearance for the procedure) From Uptodate: Liver disease???Liver disease can cause hemolysis by several mechanisms; the two major mechanisms include RBC membrane alterations and hypersplenism. Alterations in RBC membrane are caused by changes in the cholesterol and phospholipid content of the membrane bilayer. The cholesterol increase is usually proportionately greater, producing an elevation in the kewxvwfwxek-yy-xunabjijdudx ratio, impaired membrane fluidity, and damaged fatty acids These changes produce target cells, spur cells, lianet cells and stomatocytes ?Spur cell anemia ? Spur cell anemia is associated with end-stage liver disease. It is caused when excess membrane cholesterol accumulates. Median survival is measured in weeks to months but can be reversed with liver transplantation. ?Stomatocytosis ? In stomatocytosis, which can be caused by liver disease or alcohol ingestion, there is a reduction in the RBC surface [id number] ratio that leads to trapping in the microvasculature of the spleen and phagocytosis by reticuloendothelial macrophages. Hemolysis is usually mild, and other causes of anemia may also be present, including anemia of chronic disease/anemia of inflammation, blood loss from gastrointestinal bleeding (eg, from varices), and iron deficiency. Procedures Date of Service Date of Service: 04/01/22
[2022-04-01] MEDS: cefTRIAXone sodium 1 GM in 0.9 % Sodium Chloride 50 ML IV (14:54)
[2022-04-01] MEDS: Potassium Chloride ER 20 MEQ TAB.ER.PRT PO (14:56)
[2022-04-01] MEDS: Omeprazole 40 MG CAPSULE.DR PO (14:56)
[2022-04-01 15:10] LABS: Iron 99 mcg/dL (45-160); Total Iron Binding Capacity < 116 mcg/dL (228-428); Unsaturated Iron Binding < 17 ug/dL
[2022-04-01] MEDS: Magnesium Sulfate/D5W 1 GM/100 ML PIGGYBACK IV (18:00)
--- NOTE | 2022-04-01 18:53 | MHC.SL.SWA ---
Addendum entered and electronically signed by Connie Marks MA, [facility] 04/01/22 19:22: D.S. Original Note: Dysphasia Diet Status: No change Liquid Consistency and Strategies for Safe Swallow: Liquid Intake Recommendation: Thin Liquid Intake Strategies: Small Sips Solid Food Consistency: Dietary Recommendations: Regular Oral Medication Intake: Whole with Liquid Please contact the pharmacy regarding appropriate crushable or liquid drug formulations that are available whenever modified delivery is recommended. Compensatory Strategies and Precautions to be Taken for Safe Swallow: Sitting Upright (90 deg) Small Bites and Sips Alternate Liquids/Solids Rate of Ingestion Change Recommendation for Speech: Discharged with Instructions for Home Use Comment: Pt understood goal of [facility] evaluation, but did not understand why he needed one. Oral mech unremarkable. Upon palpation, pt presents with complete and timely swallow. Pt tolerated thin liquids and variety of solids with no overt clinical s/s of aspiration. Recommend pt continue with REGULAR solids, THIN liquids, pills WHOLE w/ liquid. Pt would benefit from cues for safe eating strategies (slow rate of ingestion, take smaller bites, wait to introduce additional bites until oral cavity is cleared) d/t observed impulsivity when eating and drinking. Pt should alternate between solids and liquids, particularly when eating sticky food (i.e. chicken salad, tuna salad, etc.). [facility] to d/c pt from speech. Message sent to MD and RN via [employer]. Aco Coordinator Clinican/Clinical Fellow: Yes: Marga Baugh M.A., [facility] Supervisory Statement: I have reviewed and agree with the student/clinical fellow's documentation: Speech Language Pathologist:
[2022-04-01] MEDS: Magnesium Oxide 400 MG TABLET PO (20:50)
[2022-04-02] VITALS: BP 129/75; PULSE 58; RESP 16; TEMP 36.7; O2SAT 98
[2022-04-02 04:00] VITALS: BP 118/84; PULSE 55; TEMP 36.8; O2SAT 98
[2022-04-02] MEDS: Omeprazole 40 MG CAPSULE.DR PO ×2 (05:48→15:30)
[2022-04-02 06:52] LABS: Hematocrit 25.9 % (42.0-52.0); Hemoglobin 8.7 g/dl (14.0-18.0); Mean Corpuscular HGB Conc 33.6 g/dl (31.0-36.0); Mean Corpuscular Hemoglobin 34.1 pg (27.0-33.0); Mean Corpuscular Volume 101.6 fL (80.0-98.0); Mean Platelet Volume 12.5 fL (9.4-12.4); Red Blood Count 2.55 X10*6/uL (4.60-5.80); Red Cell Distribution Width 15.9 % (11.0-16.0); White Blood Count 5.3 X10*3/uL (4.8-10.8)
[2022-04-02 07:07] LABS: Platelet Count 54 X10*3/uL (160-400)
[2022-04-02 07:34] LABS: Anion Gap 15 (12-20); Blood Urea Nitrogen 10 mg/dL (9-16); Carbon Dioxide 27 mmol/L (22-29); Chloride 100 mmol/L (96-108); Estimated Glomerular Filt Rate > 60; Glucose Random 125 mg/dL (60-115); Lactate Dehydrogenase 255 U/L (118-273); Potassium 3.9 mmol/L (3.3-5.1); Sodium 138 mmol/L (135-145)
[2022-04-02 08:00] VITALS: BP 134/65; PULSE 68; RESP 20; TEMP 36.8; O2SAT 98
[2022-04-02 08:02] LABS: Calcium 8.6 mg/dL (8.4-10.2)
[2022-04-02 08:06] LABS: Basophils Percent Auto 0.7 % (0-2); Eosinophils Absolute Auto 0.2 X10*3/uL (0.0-0.4); Eosinophils Percent Auto 3.5 % (0-4); Imm Gran Abs Auto 0.04 X10*3/uL (0.00-0.03); Imm Gran Pct Auto 0.7 % (0.0-0.4); Immature Retic Fraction 8.6 % (2.3-13.4); Lymphocytes Absolute Auto 1.6 X10*3/uL (1.2-4.9); Lymphocytes Percent Auto 29.4 % (20-40); Monocytes Absolute Auto 0.9 X10*3/uL (0.1-1.2); Neutrophils Absolute Auto 2.7 x10*3/uL (2.0-8.3); Neutrophils Percent Auto 49.7 % (45-73); Retic HGB Equivalent 33.8 pg (30.0-35.0); Reticulocyte Percent 4.2 % (0.5-1.8); Reticulocytes Absolute 0.105 X10*6/uL (0.026-0.095)
--- NOTE | 2022-04-02 08:18 | PM.EVENT ---
Event Note Date of Service: 04/02/22 Event Note: Addiction Consult ? methadone contributing to prolonged QT Chart reviewed, QT no longer prolonged. Magnesium low and repleted --likely contributing to prolongation. Methadone dose at 65mg. Recommend keeping dose where it is. If EKG changes continue and no other contributing factors to QT prolonged, then we can either slightly decrease the dose or transition to bupreorphine/naloxone (if patient is open to this).
[2022-04-02 08:40] LABS: MANUAL DIFF FLAG SCAN
[2022-04-02 08:45] LABS: SLIDE REVIEW VERIFIED
[2022-04-02] MEDS: Phytonadione (Vit K1) Oral 10 MG/ML AMPUL PO (10:14)
[2022-04-02] MEDS: Spironolactone 25 MG TABLET 12.5 MG PO (10:14)
[2022-04-02] MEDS: Ferrous Sulfate 324 MG TABLET.DR PO (10:14)
[2022-04-02] MEDS: Magnesium Oxide 400 MG TABLET PO ×2 (10:14→20:45)
[2022-04-02] MEDS: methADONE HCl 20 MG/2 ML ORAL.CONC 65 MG PO (10:14)
[2022-04-02] MEDS: 0.9 % Sodium Chloride Flush 3 ML SYRINGE IVFLUSH ×3 (10:15→20:47)
[2022-04-02] MEDS: Furosemide 200 MG in 0.9 % Sodium Chloride 80 ML IVCONT (10:23)
[2022-04-02 11:45] VITALS: BP 123/65; PULSE 57; RESP 20; TEMP 36.7; O2SAT 100
--- NOTE | 2022-04-02 11:58 | PM.PNCARD ---
Subjective Subjective Date of Service: 04/02/22 Principal diagnosis: Right heart failure, syncope Interval history: No syncope. He said he has been urinating a lot. Although output is only recorded at 750 cc. He is currently on Lasix drip. Still appears to be fluid overloaded but he says his leg edema is better. Denies shortness of breath. No palpitations or lightheadedness. Review of Systems Review of Systems Yes all other systems are reviewed and are negative Physical Exam Vital Signs: Last Vital Signs Temp 98.0 F 04/02/22 11:45 Pulse 57 04/02/22 11:45 Resp 20 04/02/22 11:45 BP 123/65 04/02/22 11:45 Pulse Ox 100 04/02/22 11:45 O2 Del Method 04/02/22 11:45 BMI result Body Mass Index 30.7 Const General: cooperative, comfortable, no acute distress, alert, awake and other (Icterus) Nutritional Appearance: overweight Limitations: no limitations Neck Neck: Yes trachea midline, Yes supple and Yes JVD Resp Effort & Inspection: normal respiratory effort Auscultation: clear to auscultation bilaterally Cardio Jugular venous distension: no JVD Palpation: normal PMI and heave (RV) Rate: regular rate Rhythm: regular rhythm Heart sounds: S1 normal heart sound present, S2 normal heart sound present, no click, no gallops, no murmurs and no rubs GI Inspection: Yes Abdominal wall edema Auscultation: normal bowel sounds Skin General skin exam: no rashes or lesions noted Extrem General: No clubbing, No cyanosis and Yes edema (3+) Objective Labs and Meds Result diagrams: 04/02/22 06:16 04/02/22 06:16 Lab results: Laboratory Results - last 24 hr 03/31/22 04/02/22 04/02/22 06:54 06:16 06:16 WBC RBC Hgb Hct MCV MCH MCHC RDW Plt Count MPV Immature Gran % (Auto) Neut % (Auto) Lymph % (Auto) Darke % (Auto) Eos % (Auto) Baso % (Auto) Lymph # (Auto) Darke # (Auto) Eos # (Auto) Baso # (Auto) Abs Immat Gran (auto) Absolute Neuts (auto) Absolute Nucleated RBC Nucleated RBC % (auto) Smear Tech's Comments Absolute Retic Percent Retic Immature Retic Fraction Retic Hgb Equivalent Sodium 138 Potassium 3.9 Chloride 100 Carbon Dioxide 27 Anion Gap 15 BUN 10 Creatinine 1.09 Estim Creat Clear Calc 69.0 Estimated GFR > 60 Random Glucose 125 H D Calcium 8.6 Iron 99 TIBC < 116 L % Saturation TNP Unsat Iron Binding < 17 Lactate Dehydrogenase 255 Blood Type B Positive Antibody Screen NEGATIVE ETHAN, Polyspecific Positive ETHAN Work-up 04/02/22 04/02/22 04/02/22 06:16 07:47 08:58 WBC 5.3 RBC 2.55 L Hgb 8.7 L Hct 25.9 L MCV 101.6 H MCH 34.1 H MCHC 33.6 RDW 15.9 Plt Count 54 L MPV 12.5 H Immature Gran % (Auto) 0.7 H Neut % (Auto) 49.7 Lymph % (Auto) 29.4 Darke % (Auto) 16.0 H Eos % (Auto) 3.5 Baso % (Auto) 0.7 Lymph # (Auto) 1.6 Darke # (Auto) 0.9 Eos # (Auto) 0.2 Baso # (Auto) 0.0 Abs Immat Gran (auto) 0.04 H Absolute Neuts (auto) 2.7 Absolute Nucleated RBC 0.000 Nucleated RBC % (auto) 0.0 Smear Tech's Comments VERIFIED Absolute Retic 0.105 H Percent Retic 4.2 H Immature Retic Fraction 8.6 Retic Hgb Equivalent 33.8 Sodium Potassium Chloride Carbon Dioxide Anion Gap BUN Creatinine Estim Creat Clear Calc Estimated GFR Random Glucose Calcium Iron TIBC % Saturation Unsat Iron Binding Lactate Dehydrogenase Blood Type B Positive Antibody Screen NEGATIVE ETHAN, Polyspecific NEGATIVE Positive ETHAN Work-up TNP Progress Note: A&P Assessment and plan (1) Right heart failure: Status: Acute Assessment and Plan: Right heart failure with patient still volume overloaded. He said he has been diuresing well. Not sure if there is in accuracy in intake and output charting. However this needs to be more pay attention to. I do not want to more aggressively diurese same given that sudden intravascular volume depletion can trigger hepatic renal syndrome. Will continue to diurese him. Strict intake and output chart. Continue to monitor renal function as well as electrolytes with potassium and magnesium levels. If he has poor diuretic response to Lasix will switch him to Bumex and/or increase Lasix drip. Discussed with the hospitalist team. Consider transfusion to maintain hematocrit over 30. (2) Syncope and collapse: Status: Acute Assessment and Plan: Patient present with syncope and collapse without any obvious cardiac arrhythmias. Will continue monitor him. Continue monitor blood pressure closely. Will follow with you Time Spent With Patient Time: Total time spent is greater than 50% in coordination of care (as documented) at patient's floor/unit and/or counseling patient: Progress Note: Quality Stroke Does the patient have a stroke diagnosis?: No Procedures Date of Service Date of Service: 04/02/22
--- NOTE | 2022-04-02 13:19 | HO.PM.IMPN ---
Subjective Subjective Date of Service: 04/02/22 Interval History: Rice at her failure, leg swelling, liver disease Review of Systems still leg definite significant leg swelling. denies sob Denies any chest pain or abdominal pain or nausea or cough Physical Exam Vital Signs: Vital Signs: Last Vital Signs Temp 98.0 F 04/02/22 11:45 Pulse 57 04/02/22 11:45 Resp 20 04/02/22 11:45 BP 123/65 04/02/22 11:45 Pulse Ox 100 04/02/22 11:45 O2 Del Method 04/02/22 11:45 BMI result Body Mass Index 30.7 Appearance: Alert.? Oriented X3.? not in distress.? cvs: [id number], [id number] , no murmur res: clear to auscultation ,no rhonchii or wheezing abd: no rebound or guarding ,nt, bs present. ext pulses present , no cyanosis ,leg and feet sweelin. neuro: axo3 , nonfocal. Objective Data Active Medications Acetaminophen (Acetaminophen 325 Mg Tablet) 650 mg PO Q6H PRN PRN Reason: Pain, Mild (Pain Scale 1-3) Docusate Sodium (Docusate Sodium 100 Mg Capsule) 100 mg PO DAILY PRN PRN Reason: Constipation Ferrous Sulfate (Ferrous Sulfate 324 Mg Tablet.) 324 mg PO DAILY [facility] Last Admin: 04/02/22 10:14 Dose: 324 mg Documented By: HELGA Furosemide 200 mg/ Sodium (Chloride) 100 mls @ 2.5 mls/hr IVCONT .Q24H [facility] Last Admin: 04/02/22 10:23 Dose: 5 mg/hr, 2.5 mls/hr Documented By: HELGA Ceftriaxone Sodium 1 gm/ (Sodium Chloride) 50 mls @ 100 mls/hr IV Q24H [facility] Last Infusion: 04/01/22 15:47 Dose: 0 mls/hr Documented By: MYRIMA-RIVLA Magnesium Oxide (Magnesium Oxide 400 Mg Tablet) 400 mg PO BID [facility] Last Admin: 04/02/22 10:14 Dose: 400 mg Documented By: HELGA Methadone HCl (Methadone Hcl 20 Mg/2 Ml Oral.Conc) 65 mg PO DAILY [facility] Last Admin: 04/02/22 10:14 Dose: 65 mg Documented By: HELGA Omeprazole (Omeprazole 40 Mg Capsule.) 40 mg PO BID@0630,1630 [facility] Last Admin: 04/02/22 05:48 Dose: 40 mg Documented By: FORREST Sodium Chloride (0.9 % Sodium Chloride Flush 3 Ml Syringe) 3 ml IVFLUSH QSHIFT [facility] Last Admin: 04/02/22 10:15 Dose: 3 ml Documented By: HELGA Spironolactone (Spironolactone 25 Mg Tablet) 12.5 mg PO DAILY [facility]; Protocol Last Admin: 04/02/22 10:14 Dose: 12.5 mg Documented By: HELGA Labs CBC & Chem 7: 04/02/22 06:16 04/02/22 06:16 Labs: Laboratory Results - last 24 hr 03/31/22 04/02/22 04/02/22 06:54 06:16 06:16 MCV MCH MCHC RDW Plt Count MPV Immature Gran % (Auto) Neut % (Auto) Lymph % (Auto) [place] % (Auto) Eos % (Auto) Baso % (Auto) Lymph # (Auto) [place] # (Auto) Eos # (Auto) Baso # (Auto) Abs Immat Gran (auto) Absolute Neuts (auto) Absolute Nucleated RBC Nucleated RBC % (auto) Smear Tech's Comments Absolute Retic Percent Retic Immature Retic Fraction Retic Hgb Equivalent Anion Gap 15 Estim Creat Clear Calc 69.0 Estimated GFR > 60 Random Glucose 125 H D Calcium 8.6 Iron 99 TIBC < 116 L % Saturation TNP Unsat Iron Binding < 17 Lactate Dehydrogenase 255 Blood Type B Positive Antibody Screen NEGATIVE ETHAN, Polyspecific Positive ETHAN Work-up 04/02/22 04/02/22 04/02/22 06:16 07:47 08:58 MCV 101.6 H MCH 34.1 H MCHC 33.6 RDW 15.9 Plt Count 54 L MPV 12.5 H Immature Gran % (Auto) 0.7 H Neut % (Auto) 49.7 Lymph % (Auto) 29.4 [place] % (Auto) 16.0 H Eos % (Auto) 3.5 Baso % (Auto) 0.7 Lymph # (Auto) 1.6 [place] # (Auto) 0.9 Eos # (Auto) 0.2 Baso # (Auto) 0.0 Abs Immat Gran (auto) 0.04 H Absolute Neuts (auto) 2.7 Absolute Nucleated RBC 0.000 Nucleated RBC % (auto) 0.0 Smear Tech's Comments VERIFIED Absolute Retic 0.105 H Percent Retic 4.2 H Immature Retic Fraction 8.6 Retic Hgb Equivalent 33.8 Anion Gap Estim Creat Clear Calc Estimated GFR Random Glucose Calcium Iron TIBC % Saturation Unsat Iron Binding Lactate Dehydrogenase Blood Type B Positive Antibody Screen NEGATIVE ETHAN, Polyspecific NEGATIVE Positive ETHAN Work-up TNP Assessment and Plan (1) Right heart failure: Status: Acute (2) Chronic anemia: Status: Acute (3) Lower extremity edema: Status: Acute Plan 61-year-old male with past medical history of hypertension, liver cirrhosis, presents to the hospital with complaints of syncopal episode # syncope-? unclear etiology unclear etiology at this time, vasovagal versus cardiogenic - orthostatic vitals negative - has elevated BNP, no elevated troponin, previously had prolonged QTC but currently QT interval is within acceptable range, with no evidence of ACS on EKG moniter on tele,carsiology eval pending prolonged qt-multifactorial: improving with electrolytes replcements Will replete electrolytes, stop Cipro and change to ceftriaxone, psych evaluation if methadone can be adjusted. # hypomagnesemia - repleted and improved continue to moniter magnesium level # right side heart failure /lower extremity edema - no documented history of CHF - possibly a combination of with CHF as well as hypoalbuminemia in the setting of liver cirrhosis - has elevated BNP therefore will start him on Lasix, low-sodium diet, strict I&O - echo continue iv lasix drip, sprinolactone,moniter i/o , daily weight - cardiology consult # chronic anemia - appears stable - no evidence of acute bleed at this time - follow CBC # CKD - baseline - follow BMP recent sbp /also has anemia: moniter h/h, type and sceen for am fobt positive Gi eval, change cipro to ceftriaxone( on sbp prophylax /daily for sbp as per GI note 03/19/22), anemia workup. DVT prophylaxis:? Early ambulation,scd due to anemia inpatient need:syncope ,right sided heart failure , prolonged qt-need electrolytes replacements, IV Lasix for heart failure, telemetry monitoring Quality Stroke Does the patient have a stroke diagnosis?: No VTE Prior VTE?: No VTE Risk Level:: Medical - low VTE Device Contraindication: Treatment Not Indicated VTE Drug Contraindication: Treatment Not Indicated
[2022-04-02] MEDS: cefTRIAXone sodium 1 GM in 0.9 % Sodium Chloride 50 ML IV (14:38)
[2022-04-02] MEDS: Potassium Chloride Packet 20 MEQ PACKET PO (14:41)
[2022-04-02 15:35] VITALS: BP 120/58; PULSE 60; RESP 16; TEMP 37.1; O2SAT 100
[2022-04-02 20:00] VITALS: BP 128/61; PULSE 62; RESP 17; TEMP 36.8; O2SAT 99
[2022-04-03] VITALS: BP 138/64; PULSE 62; RESP 18; TEMP 37.1; O2SAT 96
[2022-04-03] MEDS: Omeprazole 40 MG CAPSULE.DR PO ×2 (05:51→16:18)
[2022-04-03 06:00] VITALS: BMI 30.6
[2022-04-03 07:15] LABS: Hematocrit 27.6 % (42.0-52.0); Hemoglobin 9.3 g/dl (14.0-18.0)
[2022-04-03 08:00] VITALS: BP 122/59; PULSE 72; RESP 20; TEMP 36.9; O2SAT 100
[2022-04-03 08:15] LABS: Anion Gap 15 (12-20); Blood Urea Nitrogen 11 mg/dL (9-16); Calcium 8.8 mg/dL (8.4-10.2); Carbon Dioxide 30 mmol/L (22-29); Chloride 98 mmol/L (96-108); Creatinine Clr Calc Pharmacy 63.6; Estimated Glomerular Filt Rate > 60; Glucose Random 57 mg/dL (60-115); Potassium 4.4 mmol/L (3.3-5.1); Sodium 139 mmol/L (135-145)
[2022-04-03] MEDS: Magnesium Oxide 400 MG TABLET PO ×2 (10:31→20:12)
[2022-04-03] MEDS: Spironolactone 25 MG TABLET 12.5 MG PO (10:31)
[2022-04-03] MEDS: 0.9 % Sodium Chloride Flush 3 ML SYRINGE IVFLUSH (10:32)
[2022-04-03] MEDS: methADONE HCl 20 MG/2 ML ORAL.CONC 65 MG PO (10:32)
[2022-04-03] MEDS: Ferrous Sulfate 324 MG TABLET.DR PO (10:32)
--- NOTE | 2022-04-03 11:56 | PM.PNCARD ---
Subjective Subjective Date of Service: 04/03/22 Principal diagnosis: Right heart failure, syncope Interval history: Patient is recorded negative balance 1750. Diuresing but still appears to be significantly fluid overloaded. Denies worsening shortness of breath. No arrhythmias noted. Review of Systems Review of Systems Yes all other systems are reviewed and are negative Physical Exam Vital Signs: Last Vital Signs Temp 98.4 F 04/03/22 08:00 Pulse 72 04/03/22 08:00 Resp 20 04/03/22 08:00 BP 122/59 L 04/03/22 08:00 Pulse Ox 100 04/03/22 08:00 O2 Del Method 04/03/22 08:00 BMI result Body Mass Index 30.6 Const General: cooperative, comfortable, no acute distress, alert, awake and other (Icterus) Nutritional Appearance: overweight Limitations: no limitations Neck Neck: Yes trachea midline, Yes supple and Yes JVD Resp Effort & Inspection: normal respiratory effort Auscultation: clear to auscultation bilaterally Cardio Jugular venous distension: no JVD Palpation: normal PMI and heave (RV) Rate: regular rate Rhythm: regular rhythm Heart sounds: S1 normal heart sound present, S2 normal heart sound present, no click, no gallops, no murmurs and no rubs GI Inspection: Yes Abdominal wall edema Auscultation: normal bowel sounds Skin General skin exam: no rashes or lesions noted Extrem General: No clubbing, No cyanosis and Yes edema (3+) Objective Labs and Meds Result diagrams: 04/03/22 06:28 04/03/22 06:28 Lab results: Laboratory Results - last 24 hr 04/03/22 04/03/22 04/03/22 06:28 06:28 08:48 Hgb 9.3 L Hct 27.6 L Sodium 139 Potassium 4.4 Chloride 98 Carbon Dioxide 30 H Anion Gap 15 BUN 11 Creatinine 1.18 Estim Creat Clear Calc 63.6 Estimated GFR > 60 POC Glucose 129 H Random Glucose 57 L* Calcium 8.8 Progress Note: A&P Assessment and plan (1) Right heart failure: Status: Acute Assessment and Plan: Right heart failure with slow diuretic response on current Lasix drip. Increase Lasix to [address] goes attention to electrolytes including magnesium and renal function. Continue strict intake and output chart. Discussed with patient about monitoring his urine output. He understands. Cause of his right heart failure is unclear and there is presence of pulmonary hypertension of unclear etiology. Will require further workup as outpatient could be portal pulmonary hypertension and/or related to diastolic dysfunction. Continue Aldactone therapy and can maximize to 25 mg daily. (2) Syncope and collapse: Status: Acute Assessment and Plan: Patient present with syncope and was noted to have right heart failure. Over few days of monitoring there is no significant arrhythmias noted. No bradycardia or tachyarrhythmia noted. Cause of syncope is still unclear. Will continue to follow with you Time Spent With Patient Time: Total time spent is greater than 50% in coordination of care (as documented) at patient's floor/unit and/or counseling patient: Progress Note: Quality Stroke Does the patient have a stroke diagnosis?: No Procedures Date of Service Date of Service: 04/03/22
[2022-04-03 12:00] VITALS: BP 111/59; PULSE 61; RESP 20; TEMP 37; O2SAT 99
--- NOTE | 2022-04-03 14:15 | PC.NURSE ---
this nurse emphasize the safety importance of bed alarm and camera due to pt being a high fall risk. pt is aware but still refused the bed alarm and camera. provider aware.
--- NOTE | 2022-04-03 14:32 | HO.PM.IMPN ---
Subjective Subjective Date of Service: 04/03/22 Interval History: Right sided failure, leg swelling, liver disease Review of Systems still leg definite significant leg swelling. denies sob Denies any chest pain or abdominal pain or nausea or cough Physical Exam Vital Signs: Vital Signs: Last Vital Signs Temp 98.6 F 04/03/22 12:00 Pulse 61 04/03/22 12:00 Resp 20 04/03/22 12:00 BP 111/59 L 04/03/22 12:00 Pulse Ox 99 04/03/22 12:00 O2 Del Method 04/03/22 12:00 BMI result Body Mass Index 30.6 Appearance: Alert.? Oriented X3.? not in distress.? cvs: rrr, [id number] , no murmur res: clear to auscultation ,no rhonchii or wheezing abd: no rebound or guarding ,nt, bs present. ext pulses present , no cyanosis ,leg and feet sweelin. neuro: axo3 , nonfocal. Objective Data Active Medications Acetaminophen (Acetaminophen 325 Mg Tablet) 650 mg PO Q6H PRN PRN Reason: Pain, Mild (Pain Scale 1-3) Docusate Sodium (Docusate Sodium 100 Mg Capsule) 100 mg PO DAILY PRN PRN Reason: Constipation Ferrous Sulfate (Ferrous Sulfate 324 Mg Tablet.) 324 mg PO DAILY [facility] Last Admin: 04/03/22 10:32 Dose: 324 mg Documented By: MARJORIE Furosemide 200 mg/ Sodium (Chloride) 100 mls @ 5 mls/hr IVCONT .Q20H [facility] Last Admin: 04/02/22 10:23 Dose: 5 mg/hr, 2.5 mls/hr Documented By: HELGA Ceftriaxone Sodium 1 gm/ (Sodium Chloride) 50 mls @ 100 mls/hr IV Q24H [facility] Last Infusion: 04/02/22 15:31 Dose: 0 mls/hr Documented By: MYRIAM-RIVTONEY Magnesium Oxide (Magnesium Oxide 400 Mg Tablet) 400 mg PO BID [facility] Last Admin: 04/03/22 10:31 Dose: 400 mg Documented By: MARJORIE Methadone HCl (Methadone Hcl 20 Mg/2 Ml Oral.Conc) 65 mg PO DAILY [facility] Last Admin: 04/03/22 10:32 Dose: 65 mg Documented By: MARJORIE Omeprazole (Omeprazole 40 Mg Capsule.) 40 mg PO BID@0630,1630 [facility] Last Admin: 04/03/22 05:51 Dose: 40 mg Documented By: FORREST Sodium Chloride (0.9 % Sodium Chloride Flush 3 Ml Syringe) 3 ml IVFLUSH QSHIFT [facility] Last Admin: 04/03/22 10:32 Dose: 3 ml Documented By: MARJORIE Spironolactone (Spironolactone 25 Mg Tablet) 12.5 mg PO DAILY [facility]; Protocol Last Admin: 04/03/22 10:31 Dose: 12.5 mg Documented By: MARJORIE Labs CBC & Chem 7: 04/03/22 06:28 04/03/22 06:28 Labs: Laboratory Results - last 24 hr 04/03/22 04/03/22 06:28 08:48 Anion Gap 15 Estim Creat Clear Calc 63.6 Estimated GFR > 60 POC Glucose 129 H Random Glucose 57 L* Calcium 8.8 Assessment and Plan (1) Right heart failure: Status: Acute (2) Chronic anemia: Status: Acute (3) Lower extremity edema: Status: Acute Plan 61-year-old male with past medical history of hypertension, liver cirrhosis, presents to the hospital with complaints of syncopal episode # syncope-? unclear etiology unclear etiology at this time, vasovagal versus cardiogenic - orthostatic vitals negative - has elevated BNP, no elevated troponin, previously had prolonged QTC but currently QT interval is within acceptable range, with no evidence of ACS on EKG moniter on tele,carsiology eval pending prolonged qt-multifactorial: improving with electrolytes replcements Will replete electrolytes, stop Cipro and change to ceftriaxone, psych evaluation noted -qt prologation less likley due to methdone. # hypomagnesemia - repleted and improved continue to moniter magnesium level # right side heart failure /lower extremity edema - no documented history of CHF - possibly a combination of with CHF as well as hypoalbuminemia in the setting of liver cirrhosis - has elevated BNP therefore will start him on Lasix, low-sodium diet, strict I&O - echo continue iv lasix drip, sprinolactone,moniter i/o , daily weight - cardiology consult # chronic anemia - appears stable - no evidence of acute bleed at this time - follow CBC # CKD - baseline - follow BMP recent sbp /also has anemia: moniter h/h, type and sceen for am fobt positive Gi eval, change cipro to ceftriaxone( on sbp prophylax /daily for sbp as per GI note 03/19/22), anemia workup. DVT prophylaxis:? Early ambulation,scd due to anemia inpatient need:syncope ,right sided heart failure , prolonged qt-need electrolytes replacements, IV Lasix for heart failure, telemetry monitoring Quality Stroke Does the patient have a stroke diagnosis?: No VTE Prior VTE?: No VTE Risk Level:: Medical - low VTE Device Contraindication: Treatment Not Indicated VTE Drug Contraindication: Treatment Not Indicated
[2022-04-03] MEDS: cefTRIAXone sodium 1 GM in 0.9 % Sodium Chloride 50 ML IV (14:52)
[2022-04-03 15:45] VITALS: BP 114/56; PULSE 69; RESP 18; TEMP 37.1; O2SAT 97
[2022-04-03] MEDS: Furosemide 200 MG in 0.9 % Sodium Chloride 80 ML IVCONT (16:14)
[2022-04-03 20:00] VITALS: BP 140/60; PULSE 61; RESP 18; TEMP 36.9; O2SAT 100
[2022-04-04] MEDS: Omeprazole 40 MG CAPSULE.DR PO ×2 (05:09→16:19)
[2022-04-04 05:45] VITALS: BMI 30.2
[2022-04-04 08:00] VITALS: BP 123/59; PULSE 62; RESP 18; TEMP 36.6; O2SAT 100
[2022-04-04] MEDS: methADONE HCl 20 MG/2 ML ORAL.CONC 65 MG PO (08:19)
[2022-04-04] MEDS: Ferrous Sulfate 324 MG TABLET.DR PO (08:20)
[2022-04-04] MEDS: Magnesium Oxide 400 MG TABLET PO ×2 (08:20→21:08)
[2022-04-04] MEDS: Spironolactone 25 MG TABLET 12.5 MG PO (08:20)
[2022-04-04] MEDS: Furosemide 200 MG in 0.9 % Sodium Chloride 80 ML IVCONT (08:28)
[2022-04-04 08:51] VITALS: BMI 28.6
[2022-04-04] MEDS: 0.9 % Sodium Chloride Flush 3 ML SYRINGE IVFLUSH ×2 (08:53→21:08)
[2022-04-04 09:41] LABS: B Type Natriuretic Peptide 253 pg/mL (<100)
[2022-04-04 09:57] LABS: Anion Gap 15 (12-20); Blood Urea Nitrogen 10 mg/dL (9-16); Calcium 8.6 mg/dL (8.4-10.2); Carbon Dioxide 27 mmol/L (22-29); Chloride 97 mmol/L (96-108); Creatinine Clr Calc Pharmacy 62.8; Estimated Glomerular Filt Rate > 60; Glucose Random 100 mg/dL (60-115); Sodium 136 mmol/L (135-145)
[2022-04-04 10:05] LABS: Potassium 3.3 mmol/L (3.3-5.1)
--- NOTE | 2022-04-04 10:41 | PM.PNCARD ---
Subjective Subjective Date of Service: 04/04/22 Principal diagnosis: Right heart failure, syncope Interval history: He is denying any cardiac symptoms like angina. Still has leg swelling but apparently better than before. Somewhat frustrated that he is here. Seen using paediatric physiotherapist. Review of Systems Review of Systems Yes all other systems are reviewed and are negative Constitutional: Reports as per HPI Eyes: Reports as per HPI Reports as per HPI Cardiovascular: Reports as per HPI, Denies acrocyanosis, Denies cool extremities, Denies chest pain, Reports leg edema, Denies lightheadedness, Denies palpitations and Denies dyspnea Respiratory: Reports as per HPI, Reports no additional respiratory complaints and Denies dyspnea Gastrointestinal: Reports as per HPI and Reports no additional gastrointestinal complaints Genitourinary: Reports no additional male genitourinary complaints and Reports as per HPI Musculoskeletal: Reports no additional musculoskeletal complaints and Reports as per HPI Skin/Breast: Reports system reviewed and no additional complaints, except as docu Reports system reviewed and no additional complaints, except as documented and Reports as per HPI Psychiatric: Reports no additional psychiatric complaints and Reports as per HPI Endocrine: Reports no additional endocrine complaints, Reports as per HPI and Denies palpitations Hematologic/Lymphatic: Reports no additional hematologic/lymphatic complaints and Reports as per HPI Allergic/Immunologic: Reports no additional allergic/immunologic complaints and Reports as per HPI Physical Exam Vital Signs: Last Vital Signs Temp 98 F 04/04/22 08:00 Pulse 62 04/04/22 08:00 Resp 18 04/04/22 08:00 BP 123/59 L 04/04/22 08:00 Pulse Ox 100 04/04/22 08:00 O2 Del Method 04/04/22 08:00 BMI result Body Mass Index 28.6 Const General: comfortable and no acute distress Orientation/consciousness: patient oriented x3 HEENT Other: Unremarkable Head: Yes normal to inspection Neck Neck: Yes normal visual inspection Chest Chest palpation & inspection: normal inspection of the chest Resp Auscultation: clear to auscultation bilaterally Cardio Palpation: normal PMI Heart sounds: S1 normal heart sound present, S2 normal heart sound present, no gallops, Murmur heart sound present systolic II/ and no rubs GI Palpation (GI): Soft to palpation Back/Spine/Pelvis Other: unremarkable Skin General skin exam: no rashes or lesions noted Neuro General: patient oriented x3 Extrem Other: 2+ edema, b/l Psych Mental Status: mental status grossly normal Objective Labs and Meds Result diagrams: 04/03/22 06:28 04/04/22 09:01 Lab results: Laboratory Results - last 24 hr 04/04/22 04/04/22 09:01 09:01 Sodium 136 Potassium 3.3 D Chloride 97 Carbon Dioxide 27 Anion Gap 15 BUN 10 Creatinine 1.16 Estim Creat Clear Calc 62.8 Estimated GFR > 60 Random Glucose 100 D Calcium 8.6 B-Natriuretic Peptide 253 H Progress Note: A&P Assessment and plan (1) Acute right heart failure: Status: Acute (2) Cirrhosis: Status: Acute (3) Lower extremity edema: Status: Acute Plan In the echocardiogram, LVEF 65-70%. Grade 2 diastolic dysfunction. Mild increase in right ventricular size but normal function. Mild aortic stenosis possible. Moderate pulmonary hypertension. In the CT abdomen pelvis from last month, there is description of cirrhosis and portal hypertension. There is also moderate ascites. Lower extremity swelling could be from the cirrhosis itself. Right heart dysfunction from pulmonary hypertension could also play a role but not clear if that is the main issue here. Any case, treatment is still diuretics and he is on IV Lasix drip. Based on input output data,-3.4 L so far. Otherwise, unremarkable troponins this admission. Cardiac BNP was 888 upon arrival but now 253 which indicates good improvement. For today, give some metolazone in addition to optimize diuretics. Potassium supplementation P already on magnesium as well. We can probably go up on the spironolactone. Time Spent With Patient Time: Total time spent is greater than 50% in coordination of care (as documented) at patient's floor/unit and/or counseling patient: 35min, Progress Note: Quality Stroke Does the patient have a stroke diagnosis?: No Procedures Date of Service Date of Service: 04/04/22
[2022-04-04 11:27] VITALS: BP 118/60; PULSE 60; RESP 18; TEMP 37.1; O2SAT 99
[2022-04-04] MEDS: metOLazone 5 MG TABLET PO (11:45)
--- NOTE | 2022-04-04 11:58 | PC.NURSE ---
Patient is refusing bed alarm for safety. An field account manager was contacted and came to patients room while I discussed the importance of the bed alarm. Patient states the alarm makes him nervous so he does not want it turned on.
--- NOTE | 2022-04-04 13:22 | HO.PM.IMPN ---
Subjective Subjective Date of Service: 04/14/22 Interval History: Right sided failure, leg swelling, liver disease Review of Systems still leg definite significant leg swelling. denies sob Denies any chest pain or abdominal pain or nausea or cough Physical Exam Vital Signs: Vital Signs: Last Vital Signs Temp 98.7 F 04/04/22 11:27 Pulse 60 04/04/22 11:27 Resp 18 04/04/22 11:27 BP 118/60 04/04/22 11:27 Pulse Ox 99 04/04/22 11:27 O2 Del Method 04/04/22 11:27 BMI result Body Mass Index 28.6 ? Appearance: Alert.? Oriented X3.? not in distress.? cvs: rrr, [id number] , no murmur res: clear to auscultation ,no rhonchii or wheezing abd: no rebound or guarding ,nt, bs present. ext pulses present , no cyanosis ,leg and feet swelling slowly improving neuro: axo3 , nonfocal Objective Data Active Medications Acetaminophen (Acetaminophen 325 Mg Tablet) 650 mg PO Q6H PRN PRN Reason: Pain, Mild (Pain Scale 1-3) Docusate Sodium (Docusate Sodium 100 Mg Capsule) 100 mg PO DAILY PRN PRN Reason: Constipation Ferrous Sulfate (Ferrous Sulfate 324 Mg Tablet.) 324 mg PO DAILY [facility] Last Admin: 04/04/22 08:20 Dose: 324 mg Documented By: NORMAN Furosemide 200 mg/ Sodium (Chloride) 100 mls @ 5 mls/hr IVCONT .Q20H [facility] Last Admin: 04/04/22 08:28 Dose: 5 mg/hr, 2.5 mls/hr Documented By: NORMAN Ceftriaxone Sodium 1 gm/ (Sodium Chloride) 50 mls @ 100 mls/hr IV Q24H [facility] Last Infusion: 04/03/22 15:35 Dose: 0 mls/hr Documented By: MARJORIE Magnesium Oxide (Magnesium Oxide 400 Mg Tablet) 400 mg PO BID [facility] Last Admin: 04/04/22 08:20 Dose: 400 mg Documented By: NORMAN Methadone HCl (Methadone Hcl 20 Mg/2 Ml Oral.Conc) 65 mg PO DAILY [facility] Last Admin: 04/04/22 08:19 Dose: 65 mg Documented By: NORMAN Omeprazole (Omeprazole 40 Mg Capsule.) 40 mg PO BID@0630,1630 [facility] Last Admin: 04/04/22 05:09 Dose: 40 mg Documented By: FORREST Sodium Chloride (0.9 % Sodium Chloride Flush 3 Ml Syringe) 3 ml IVFLUSH QSHIFT [facility] Last Admin: 04/04/22 08:53 Dose: 3 ml Documented By: NORMAN Spironolactone (Spironolactone 25 Mg Tablet) 12.5 mg PO DAILY [facility]; Protocol Last Admin: 04/04/22 08:20 Dose: 12.5 mg Documented By: NORMAN Labs CBC & Chem 7: 04/05/22 08:15 04/05/22 08:15 Labs: Laboratory Results - last 24 hr 04/04/22 04/04/22 09:01 09:01 Anion Gap 15 Estim Creat Clear Calc 62.8 Estimated GFR > 60 Random Glucose 100 D Calcium 8.6 B-Natriuretic Peptide 253 H Assessment and Plan (1) Acute right heart failure: Status: Acute (2) Lower extremity edema: Status: Acute (3) Syncope and collapse: Status: Resolved (4) Hypomagnesemia: Status: Resolved (5) Elevated INR: Status: Resolved Plan 61-year-old male with past medical history of hypertension, liver cirrhosis, presents to the hospital with complaints of syncopal episode # syncope-? unclear etiology at this time, vasovagal versus cardiogenic - orthostatic vitals negative,ct head neg no new episode in hospital. echo: seems right sided HF (see below) prolonged qt-multifactorial: improved with electrolytes replcements electrolytes repletes and changed Cipro and change to ceftriaxone. psych evaluation noted -qt prologation less likley due to methdone, continue methadone . # hypomagnesemia - repleted and improved continue to moniter magnesium level # right side heart failure /lower extremity edema - no documented history of CHF - possibly a combination of with CHF as well as hypoalbuminemia in the setting of liver cirrhosis - has elevated BNP therefore will start him on Lasix, low-sodium diet, strict I&O - echo: 1.? Normal LV systolic function with grade 2 diastolic ? dysfunction? 2.? Mild enlargement of left atrium and right ventricle with ? ? normal RV systolic function? 3.? Probable mild aortic stenosis? 4.? Moderate elevation right ventricular systolic pressure and ? significant elevation of right atrial pressures next 5.? No gross pericardial effusion? continue iv lasix drip, sprinolactone,added metalozone 5 mgx1 dose moniter i/o , daily weight cardiology following- # chronic anemia - appears stable - no evidence of acute bleed at this time - follow CBC # CKD - baseline - follow BMP recent sbp /also has anemia: moniter h/h, type and sceen for am fobt positive change cipro to ceftriaxone( on sbp prophylax /daily for sbp as per GI note 03/19/22), anemia workup-dana studies seems fine as well as b12 and folate fine he is fobt positive h/h improving ,ldh normal,mild elevated retic count, smear shows occasional Schistocytes,haptoglobin pending ,epo pending possible mild hemolysis sec to liver dis ,but patient is also occult positive moniter cbc closely -h/h so far improving, need Gi as well as possible hemtaology follow up. liver cirrosis/coagulopathy: moniter lft's /inr continue diuretics vitamin k added DVT prophylaxis:? Early ambulation,scd due to anemia inpatient need:syncope ,right sided heart failure , prolonged qt-need electrolytes replacements, IV Lasix for heart failure,anemia workup, telemetry monitoring Quality Stroke Does the patient have a stroke diagnosis?: No VTE Prior VTE?: No VTE Risk Level:: Medical - low VTE Device Contraindication: Treatment Not Indicated VTE Drug Contraindication: Treatment Not Indicated
[2022-04-04 13:43] LABS: Alanine Aminotransferase 25 U/L (0-40); Albumin Level 3.2 g/dL (3.5-5.0); Alkaline Phosphatase 222 U/L (39-117); Aspartate Amino Transferase 43 U/L (5-37); Bilirubin Direct 2.6 mg/dL (0.0-0.5); Bilirubin Total 6.3 mg/dL (0.0-1.0); Total Protein 7.9 g/dL (6.5-8.0)
[2022-04-04 13:55] LABS: Magnesium 1.8 mg/dL (1.6-2.6)
[2022-04-04] MEDS: Albumin Human 25 % 50 ML 100 ML IV (14:10)
[2022-04-04] MEDS: cefTRIAXone sodium 1 GM in 0.9 % Sodium Chloride 50 ML IV (14:52)
[2022-04-04] MEDS: Potassium Chloride Packet 20 MEQ PACKET PO (15:02)
[2022-04-04] MEDS: Phytonadione (Vit K1) Oral 10 MG/ML AMPUL PO (15:03)
[2022-04-04 15:25] VITALS: BP 131/62; PULSE 63; RESP 18; TEMP 36.8; O2SAT 99
[2022-04-04 18:56] LABS: Erythropoietin (EPO) 14.8 mIU/mL (2.6-18.5)
[2022-04-04 19:15] VITALS: BP 133/63; PULSE 66; RESP 18; TEMP 36.9; O2SAT 100
[2022-04-04 20:06] LABS: Glucose, Whole Blood 125 mg/dL (60-115)
[2022-04-04 23:22] VITALS: BP 130/67; PULSE 62; RESP 16; TEMP 37.1; O2SAT 99
[2022-04-05 04:00] VITALS: BP 128/64; PULSE 76; RESP 16; TEMP 36.8; O2SAT 97
[2022-04-05 06:00] VITALS: BMI 27.5
[2022-04-05] MEDS: Omeprazole 40 MG CAPSULE.DR PO (06:19)
[2022-04-05] MEDS: Furosemide 200 MG in 0.9 % Sodium Chloride 80 ML IVCONT (06:19)
[2022-04-05 07:43] VITALS: BP 128/59; PULSE 67; RESP 18; TEMP 36.6; O2SAT 100
[2022-04-05] MEDS: Ferrous Sulfate 324 MG TABLET.DR PO (08:38)
[2022-04-05] MEDS: methADONE HCl 20 MG/2 ML ORAL.CONC 65 MG PO (08:38)
[2022-04-05] MEDS: Spironolactone 25 MG TABLET 12.5 MG PO (08:38)
[2022-04-05] MEDS: 0.9 % Sodium Chloride Flush 3 ML SYRINGE IVFLUSH (08:38)
[2022-04-05] MEDS: Magnesium Oxide 400 MG TABLET PO (08:38)
[2022-04-05 08:53] LABS: Hematocrit 32.2 % (42.0-52.0); Mean Corpuscular HGB Conc 34.2 g/dl (31.0-36.0); Mean Corpuscular Hemoglobin 32.6 pg (27.0-33.0); Mean Corpuscular Volume 95.5 fL (80.0-98.0); Mean Platelet Volume 12.9 fL (9.4-12.4); Red Blood Count 3.37 X10*6/uL (4.60-5.80); Red Cell Distribution Width 15.3 % (11.0-16.0); White Blood Count 5.7 X10*3/uL (4.8-10.8)
[2022-04-05 09:02] LABS: Platelet Count 59 X10*3/uL (160-400)
[2022-04-05 09:10] LABS: Anion Gap 18 (12-20); Blood Urea Nitrogen 11 mg/dL (9-16); Calcium 10.1 mg/dL (8.4-10.2); Carbon Dioxide 34 mmol/L (22-29); Chloride 92 mmol/L (96-108); Creatinine Clr Calc Pharmacy 58.1; Estimated Glomerular Filt Rate 59; Glucose Random 64 mg/dL (60-115); Magnesium 1.9 mg/dL (1.6-2.6); Potassium 3.8 mmol/L (3.3-5.1); Sodium 140 mmol/L (135-145)
[2022-04-05 09:27] LABS: Ferritin 969 ng/mL (20-250)
[2022-04-05 10:21] LABS: INTERNATIONAL NORM RATIO 2.6 (0.9-1.1); Prothrombin Time 31.1 SEC (10.0-13.1)
[2022-04-05 11:13] VITALS: BP 149/67; PULSE 79; RESP 18; TEMP 36.8; O2SAT 99
[2022-04-05 11:32] LABS: Haptoglobin <8 mg/dL (43-212)
--- NOTE | 2022-04-05 12:33 | P.PNIM_ITS ---
Subjective Subjective Date of Service: 04/05/22 Interval History: f/u on heat failure interval history: overall improving, negative 7k Physical Exam Vital Signs: Vital Signs: Last Vital Signs Temp 98.3 F 04/05/22 11:13 Pulse 79 04/05/22 11:13 Resp 18 04/05/22 11:13 BP 149/67 H 04/05/22 11:13 Pulse Ox 99 04/05/22 11:13 O2 Del Method 04/05/22 11:13 BMI result Body Mass Index 27.5 Const: Other: General: AO X 3, no acute distress Resp: rales at bases CVS: S1,S2,RRR, 3+ pitting edema GI: +BS, NT, no distention Skin: No rash Neuro: motor grossly intact Psych: appropriate affect Objective Data Active Medications Acetaminophen (Acetaminophen 325 Mg Tablet) 650 mg PO Q6H PRN PRN Reason: Pain, Mild (Pain Scale 1-3) Docusate Sodium (Docusate Sodium 100 Mg Capsule) 100 mg PO DAILY PRN PRN Reason: Constipation Ferrous Sulfate (Ferrous Sulfate 324 Mg Tablet.) 324 mg PO DAILY [facility] Last Admin: 04/05/22 08:38 Dose: 324 mg Documented By: VANNESA Furosemide 200 mg/ Sodium (Chloride) 100 mls @ 5 mls/hr IVCONT .Q20H [facility] Last Admin: 04/05/22 06:19 Dose: 5 mg/hr, 2.5 mls/hr Documented By: KRISTIE Ceftriaxone Sodium 1 gm/ (Sodium Chloride) 50 mls @ 100 mls/hr IV Q24H [facility] Last Infusion: 04/04/22 16:24 Dose: 0 mls/hr Documented By: YEHUDAORRHarper Magnesium Oxide (Magnesium Oxide 400 Mg Tablet) 400 mg PO BID [facility] Last Admin: 04/05/22 08:38 Dose: 400 mg Documented By: VANNESA Methadone HCl (Methadone Hcl 20 Mg/2 Ml Oral.Conc) 65 mg PO DAILY [facility] Last Admin: 04/05/22 08:38 Dose: 65 mg Documented By: VANNESA Omeprazole (Omeprazole 40 Mg Capsule.) 40 mg PO BID@0630,1630 [facility] Last Admin: 04/05/22 06:19 Dose: 40 mg Documented By: KRISTIE Sodium Chloride (0.9 % Sodium Chloride Flush 3 Ml Syringe) 3 ml IVFLUSH QSHIFT YENNY Last Admin: 04/05/22 08:38 Dose: 3 ml Documented By: VANNESA Spironolactone (Spironolactone 25 Mg Tablet) 12.5 mg PO DAILY [facility]; Protocol Last Admin: 04/05/22 08:38 Dose: 12.5 mg Documented By: VANNESA Labs CBC & Chem 7: 04/05/22 08:15 04/05/22 08:15 Labs: Laboratory Results - last 24 hr 04/02/22 04/04/22 04/04/22 06:16 09:01 19:51 MCV MCH MCHC RDW Plt Count MPV Absolute Nucleated RBC Nucleated RBC % (auto) Haptoglobin <8 L PT INR Anion Gap Estim Creat Clear Calc Estimated GFR POC Glucose 125 H Random Glucose Calcium Magnesium 1.8 Erythropoietin 14.8 Ferritin Total Bilirubin 6.3 H Direct Bilirubin 2.6 H AST 43 H ALT 25 Alkaline Phosphatase 222 H D Total Protein 7.9 Albumin 3.2 L ETHAN, Polyspecific Positive ETHAN Work-up 04/05/22 04/05/22 04/05/22 08:15 08:15 08:15 MCV 95.5 D MCH 32.6 MCHC 34.2 RDW 15.3 Plt Count 59 L MPV 12.9 H Absolute Nucleated RBC 0.000 Nucleated RBC % (auto) 0.0 Haptoglobin PT 31.1 H INR 2.6 H Anion Gap 18 Estim Creat Clear Calc 58.1 Estimated GFR 59 POC Glucose Random Glucose 64 D Calcium 10.1 D Magnesium 1.9 Erythropoietin Ferritin Total Bilirubin Direct Bilirubin AST ALT Alkaline Phosphatase Total Protein Albumin ETHAN, Polyspecific Positive ETHAN Work-up 04/05/22 04/05/22 08:15 08:15 MCV MCH MCHC RDW Plt Count MPV Absolute Nucleated RBC Nucleated RBC % (auto) Haptoglobin PT INR Anion Gap Estim Creat Clear Calc Estimated GFR POC Glucose Random Glucose Calcium Magnesium Erythropoietin Ferritin 969 H Total Bilirubin Direct Bilirubin AST ALT Alkaline Phosphatase Total Protein Albumin ETHAN, Polyspecific NEGATIVE Positive ETHAN Work-up TNP Assessment and Plan (1) Acute right heart failure: Status: Acute (2) Chronic anemia: Status: Acute (3) Lower extremity edema: Status: Acute (4) Syncope and collapse: Status: Acute (5) Hypomagnesemia: Status: Acute (6) Elevated INR: Status: Acute Plan 61-year-old male with past medical history of hypertension, liver cirrhosis, presents to the hospital with complaints of syncopal episode # origianal presentation with syncope-? unclear etiology at this time, vasovagal, no arrythmia noted, no further episodes echo: seems right sided HF (see below) prolonged qt-multifactorial: improved with electrolytes replcements electrolytes repletes and changed Cipro and change to ceftriaxone. psych evaluation noted -qt prologation less likley due to methdone, continue methadone . # hypomagnesemia - repleted and improved continue to moniter magnesium level #right side heart failure /lower extremity edema - no documented history of CHF -Negative 7400 -continue Lasix drip for one more day, continue aldactone Echo: 1.? Normal LV systolic function with grade 2 diastolic ? dysfunction? 2.? Mild enlargement of left atrium and right ventricle with ? ? normal RV systolic function? 3.? Probable mild aortic stenosis? 4.? Moderate elevation right ventricular systolic pressure and ? significant elevation of right atrial pressures next 5.? No gross pericardial effusion? # chronic anemia - appears stable - no evidence of acute bleed at this time - follow CBC # CKD - baseline - follow BMP recent sbp--cipro as outpatient, changed to ceftriaxone here anemia of chronic disease, H/H ok, no need for RBC moniter cbc closely -h/h so far improving, need Gi as well as possible h emtaology follow up. liver cirrosis/coagulopathy: moniter lft's /inr continue diuretics vitamin k for coagulopaty, no bleeding DVT prophylaxis:? Early ambulation,scd due to anemia inpatient need:heart failure needing IV diuretics Quality Stroke Does the patient have a stroke diagnosis?: No VTE Prior VTE?: No VTE Risk Level:: Medical - low VTE Device Contraindication: Treatment Not Indicated VTE Drug Contraindication: Treatment Not Indicated
--- NOTE | 2022-04-05 13:36 | P.DS_ITS ---
DS: Providers Provider Date of Service: 04/05/22 Date of admission: 03/31/22 09:43 Primary care physician: Sarmad Cuellar MD Consults: 03/31/22 06:35 Consult to Cardiology Routine Consulting Provider: Christos Randolph Reason for consultation: syncope, chf? Has provider been notified: No 04/01/22 12:37 Addiction Medicine Routine Consulting Provider: Chanel Baker Reason for consultation: qtc prolnagation-?related to methadone Has provider been notified: No 04/01/22 14:38 Consult to Gastroenterology Routine Consulting Provider: [facility] Reason for consultation: anmeia /recent sbp Has provider been notified: No DS: Diagnosis Discharge Diagnosis (1) Acute right heart failure: Status: Acute (2) Lower extremity edema: Status: Acute (3) Syncope and collapse: Status: Resolved (4) Hypomagnesemia: Status: Resolved (5) Elevated INR: Status: Resolved DS: Summary Hospital Course Hospital Course: Chief Complaint: syncope Patient is E[place]an-speaking, history is obtained with the help of an exerciser horse. ? 61-year-old male with past medical history of alcoholic liver cirrhosis, hypertension, opiate abuse on methadone, presents to the hospital syncopal episode.? Of note patient had a syncopal episode on 03/26 and was seen in the ED at that time found to have a prolonged QT interval of 680 with hypomagnesemia.? At that time patient's magnesium was repleted, with improvement of his QT, patient was discharged home.? He returns today stating a recurrent episode.? He states that he was standing when he felt dizzy, he felt warning signs that he was about to pass out therefore he sat down and he passed out for few minutes.? He denies having any palpitations or chest pain prior, or after coming about.? He denies any headache or change in vision, denies any recent weakness numbness or tingling.? He has no diarrhea or constipation.? No abdominal pain, and no urinary symptoms.? He has no shortness of breath but has sig lower extremity edema On arrival to the ED patient hemodynamically stable Labs are significant for WBC count 6.4, hemoglobin of 8.9 which is around his baseline, hematocrit of 26.5, glucose of 166, magnesium of 1.4, alk-phos of 147, BNP of 888, troponin negative, EKG shows QT interval [address] T-wave changes suggestive of ACS Head CT shows no acute intracranial abnormality Chest x-ray shows no acute cardiopulmonary findings hospital course: He was been treated for heart failure when on IV Lasix drip when he decided to leave again medical advised and warned against this to no avail. problems as below # origianal presentation with syncope-? unclear etiology at this time, vasovagal, no arrythmia noted, no further episodes echo: seems right sided HF (see below) prolonged qt-multifactorial: improved with electrolytes replcements electrolytes repletes and? changed? Cipro and change to ceftriaxone. psych evaluation noted -qt prologation less likley due to methdone, continue methadone . # hypomagnesemia - repleted and improved continue to moniter magnesium level #right sided heart failure /lower extremity edema - no documented history of CHF -Negative 7400 -continue Lasix drip for one more day, continue aldactone Echo: 1.? Normal LV systolic function with grade 2 diastolic ? dysfunction? 2.? Mild enlargement of left atrium and right ventricle with ? ? normal RV systolic function? 3.? Probable mild aortic stenosis? 4.? Moderate elevation right ventricular systolic pressure and ? significant elevation of right atrial pressures next 5.? No gross pericardial effusion? # chronic anemia - appears stable - no evidence of acute bleed at this time - follow CBC # CKD - baseline - follow BMP Time Spent with Patient Time attestation: Total time spent providing and/or coordinating discharge services: Discharge coordination time: Greater than 30 minutes Quality: Safe Use of Opioids Does Pt have an Active Cancer Diagnosis on the Problem List?: No Quality: Stroke Does the patient have a stroke diagnosis?: No Physical Exam Vital Signs: Vital Signs: Last Vital Signs Temp 98.3 F 04/05/22 11:13 Pulse 79 04/05/22 11:13 Resp 18 04/05/22 11:13 BP 149/67 H 04/05/22 11:13 Pulse Ox 99 04/05/22 11:13 O2 Del Method 04/05/22 11:13 BMI result Body Mass Index 27.5 DS: Data Data Completed and Pending Completed studies during hospitalization [Text1]: Procedures Drainage of Peritoneal Cavity, Percutaneous Approach (03/15/22) Discharge Plan Discharge Anticipated Discharge Date/Time: 04/05/22 08:41 Patient Disposition: Left Against Medical Advice Discharge Diagnosis: Right heart failure Referrals: Name,MD Sarmad [Primary Care Provider] - 1 Week Discharge Medications: No Action omeprazole 40 mg Capsule,Delayed Release(Dr/Ec) 40 mg PO BID@0630,1630 30 Days Qty: 60 0RF spironolactone 25 mg Tablet 50 mg PO DAILY 30 Days Qty: 60 2RF Protocol: Hold for SBP< HOLD for SBP < : 90 ferrous sulfate 324 mg (65 mg iron) tablet,delayed release (DR/EC) 324 mg PO DAILY Qty: 30 0RF furosemide 40 mg tablet 60 mg PO DAILY 30 Days Qty: 45 0RF magnesium oxide 400 mg magnesium capsule 400 mg PO BID Qty: 60 1RF potassium chloride in 5 % dex 20 mEq/L Parenteral Solution 20 meq continuous IV infusion .Q10H Qty: 1 0RF Discharge Orders: Discharge Order (Routine); Ordered 04/06/22 Ordered By: Fausto Denton Care Plan Goals: Left AMA Health Concerns: Left AMA Plan of Treatment: Left AMA Assessment: Left AMA Discharge Date/Time: 04/05/22 18:21
--- NOTE | 2022-04-05 17:38 | PM.EVENT ---
Event Note Date of Service: 04/05/22 Event Note: Patient was advised against leaving [facility]. He was alert oriented to self, place time, american sign language interpreter used. He understood his condition could worsen and possible lead to and still proceeded to leav
== END 2022-04-05 18:21 | disposition left against medical advice (07) | DRG 194 ==
LOC: HO.ED 03-31 01:04 → HO.EDOVER 03-31 03:20 → HO.IMC 04-01 14:34
PROVIDERS: Internal Medicine; Internal Medicine Gastroenterology; Admitting Provider Internal Medicine; Emergency Provider Internal Medicine; PCP Internal Medicine Geriatric Medicine; Visit Provider Internal Medicine
DX: I13.0 Hypertensive heart and chronic kidney disease with heart failure and stage 1 through stage 4 chronic kidney disease, or unspecified chronic kidney disease (principal); D68.4 Acquired coagulation factor deficiency; K70.31 Alcoholic cirrhosis of liver with ascites; D62 Acute posthemorrhagic anemia; D63.1 Anemia in chronic kidney disease; E88.09 Other disorders of plasma-protein metabolism, not elsewhere classified; K76.6 Portal hypertension; R19.5 Other fecal abnormalities; I35.0 Nonrheumatic aortic (valve) stenosis; I50.811 Acute right heart failure; E83.42 Hypomagnesemia; F11.20 Opioid dependence, uncomplicated; Z20.822 Contact with and (suspected) exposure to COVID-19; Z86.19 Personal history of other infectious and parasitic diseases; Z87.891 Personal history of nicotine dependence; Z88.5 Allergy status to narcotic agent; Z79.899 Other long term (current) drug therapy
CPT/HCPCS: 36415; 70450; 71045; 80048; 80053; 80076; 82668; 82728; 82947; 83010; 83540; 83615; 83735; 83880; 84484; 85014; 85018; 85025; 85027; 85045; 85610; 86850; 86880; 86900; 86901; 87635; 92610; 93005; 93306; 99285; J0696; J1940; J3475; P9047; Q9957

== ENCOUNTER 2022-04-06 18:54 | Inpatient (IN) | payer MEDICAID, SELFPAY ==
--- NOTE | ~2022-04-06 | CT_ITS ---
EXAMINATION: CT HEAD WITHOUT CONTRAST CLINICAL INFORMATION: Altered mental status. Bleeding. Stroke. COMPARISON: CT head from 03/25/2022. TECHNIQUE: Contiguous axial imaging was performed from the skull base to vertex without intravenous administration of contrast. This CT examination was performed using dose optimization techniques as appropriate, variously including the following: *Automated exposure control. *Adjustment of mA and/or kV according to patient size (this includes techniques or standardized protocols for targeted exams where dose is matched to indication/reason for exam; i.e. extremities or head). *Use of iterative reconstruction technique. DLP: 788 mGy-cm FINDINGS: There is no evidence of acute intracranial hemorrhage or edematous territorial infarction. Rodriguez-white matter differentiation is preserved. A few foci of hypoattenuation in the periventricular and deep white matter are consistent with mild microangiopathy. Proportional prominence of the ventricles and sulcal spaces without evidence of obstructive hydrocephalus. No abnormal mass effect or midline shift. No extra-axial fluid collections. No acute soft tissue or osseous abnormalities. The mastoid air cells and visualized paranasal sinuses are clear. CT/CT head/brain wo IV con IMPRESSION: 1. No evidence of acute intracranial hemorrhage or edematous territorial infarction. 2. Mild underlying microangiopathy and generalized cerebral volume loss.
--- NOTE | ~2022-04-06 | CT_ITS ---
EXAM: NONCONTRAST CT OF THE CHEST; NONCONTRAST CT OF THE ABDOMEN AND PELVIS INDICATION: Confusion, elevated lactate, rule out pneumonia or infection COMPARISON: 03/15/2022 TECHNIQUE: No IV contrast was utilized. Multidetector helical imaging was performed through the chest, abdomen, and pelvis. Coronal and sagittal reformatted images were created at the technologist workstation. DOSE LOWERING TECHNIQUES: This CT examination was performed using dose optimization techniques as appropriate, variously including the following: - Automated exposure control - Adjustment of mA and/or kV according to patient size (this includes techniques or standardized protocols for targeted exams were dose is matched to indication/reason for exam; i.e. extremities or head) - Use of iterative reconstruction technique DLP: 1000 mGy-cm FINDINGS: Chest: Detailed assessment of the lung parenchyma is limited due to respiratory motion artifact. No dense regions of consolidation. Regions of mild groundglass opacity noted in the left lower lobe. Curvilinear opacity in the inferior lingula favors atelectasis. No pneumothorax or pleural effusion. Visualized thyroid gland is unremarkable. No mediastinal lymphadenopathy is seen. Cardiac size is within normal limits; no pericardial effusion. No axillary lymphadenopathy is present. Bilateral gynecomastia noted. Abdomen/Pelvis: The liver has a nodular contour consistent with cirrhosis. Limited assessment for focal lesions without intravenous contrast. No intrahepatic biliary ductal dilatation. The gallbladder is not well-visualized. Trace perihepatic fluid. Spleen appears mildly enlarged. Varices are noted in the left abdomen. Pancreas and adrenal glands are grossly unremarkable. The unenhanced kidneys are unremarkable without hydronephrosis. No renal or ureteral calculi are present. The urinary bladder is unremarkable. The prostate and seminal vesicles are unremarkable. Small fat-containing right inguinal hernia. No evidence of bowel obstruction. Moderate to large amount of stool throughout the colon. No significant bowel wall thickening is seen. Patient appears to be status post appendectomy. No free air is identified. Scattered atherosclerotic calcifications. No lymphadenopathy is seen, though assessment is limited in the absence of intravenous contrast. Mesenteric haziness has decreased since 03/15/2022. No acute osseous findings. CT/CT abdomen pelvis wo IV con IMPRESSION: 1. No dense pulmonary consolidation. Mild groundglass opacity is present in the left lower lobe, which may be due to atelectasis versus mild infectious/inflammatory change. 2. Redemonstrated findings of cirrhosis and portal hypertension. Interval decrease in ascites and mesenteric edema compared to 03/15/2022. 3. Moderate to large amount of stool in the colon. Nonobstructive bowel gas pattern.
--- NOTE | 2022-04-06 19:07 | ECG_ITS ---
Test Reason : ALTERED MENTAL Blood Pressure : / mmHG Vent. Rate : 085 BPM Atrial Rate : 085 BPM P-R Int : 136 ms QRS Dur : 080 ms QT Int : 462 ms P-R-T Axes : 071 010 033 degrees QTc Int : 549 ms Sinus rhythm with occasional Premature ventricular complexes Prolonged QT Nonspecific ST abnormality Nonspecific T wave abnormality Anterior leads Abnormal ECG When compared with ECG of 31-MAR-2022 04:45, Premature ventricular complexes are now Present Inverted T waves have replaced nonspecific T wave abnormality in Anterior leads QT has lengthened Referred By: Sami Jean Electronically Signed By:JOE SANDERS MD
--- NOTE | 2022-04-06 19:10 | ED_ITS ---
HPI - Altered Mental Status General Chief Complaint: Altered Mental Status Stated Complaint: ams Time Seen by Provider: 04/06/22 18:57 Source: EMS Mode of arrival: EMS Limitations: altered mental status History of Present Illness HPI narrative: 61-year-old male with past medical history of alcoholic liver cirrhosis, hypertension, opiate abuse on methadone, on antibiotics for SBP prophylaxis sent to the emergency department by his family for evaluation of altered mental status. The patient is [place]-speaking but does not respond to questioning in [place]. The patient is moaning and appears to be uncomfortable, he will not sit on the stretcher, he is striking out at staff when they approached him. According to the paramedics, the patient's came home and found the patient to be walking around naked and confused. This is not the patient's baseline according to the paramedics. At this time there was no other information available in the patient's presentation The patient was hospitalized on 04/03/2022 until 04/05/2022 for syncope, prolonged QTC , hypomagnesemia and anemia. He was discharged yesterday 2049: The patient's , Cheryle came to the emergency department and I was able to obtain a history from her. She states that since February the patient has not been doing well. The patient has had an episode of sepsis and was hospitalized as above. She states that when he went home yesterday he was awake and alert. She states that this morning he was sleeping and she went to work. When she came home from work the patient was walking around in the hallway naked and a neighbor found the patient and wrapped him up in a blanket and brought had back home. The states that the patient was very confused and not making sense, he was moaning and swearing [place] which is very unusual for him. Therefore she called an ambulance and had the patient brought to emergency dep artment for evaluation. The states that the patient has cirrhosis secondary to his alcohol use. She states that he does have a remote history of using heroin but has not used recently. She also told me that he is not on methadone. Related Data Home Medications Medication Instructions Recorded Confirmed methadone 10 mg/mL oral 65 mg PO DAILY 03/15/22 03/31/22 concentrate (Methadone Intensol) ciprofloxacin HCl 500 mg tablet 500 mg PO DAILY 03/25/22 03/31/22 Previous Rx's Medication Instructions Recorded ferrous sulfate 324 mg (65 mg 324 mg PO DAILY #30 tabs 03/19/22 iron) tablet,delayed release furosemide 40 mg tablet 60 mg PO DAILY 30 days #45 tabs 03/19/22 omeprazole 40 mg capsule,delayed 40 mg PO BID@0630,1630 30 days #60 03/19/22 release caps spironolactone 25 mg tablet 50 mg PO DAILY 30 days #60 tabs 03/19/22 magnesium oxide 400 mg PO BID #60 caps 03/26/22 Allergies Allergy/AdvReac Type Severity Reaction Status Date / Time tramadol [TRAMADOL] Allergy Unknown ANXIETY Verified 03/25/22 14:11 Review of Systems Review of Systems: Yes Unobtainable due to mental status [facility] Past Medical History Medical History Ascites Cirrhosis Coagulopathy Decompensated hepatic cirrhosis Fluid overload Head injury Hypertension Opioid dependence Syncope Surgical History History of appendectomy History of eye surgery Family History Family History Mother No problems noted. Father No problems noted. Other No family history of coronary artery disease Social History Social History Household Members: Spouse Housing: Apartment Do you presently have visiting nurse or other home services: No Alcohol intake: former Patient Tobacco Use Status: Former Tobacco user Substance Use Type: Former Substance User Advance Directives: Yes Advance Directives on File: Yes Advance Directives Date on File: 03/28/22 service: No Current occupational status: unemployed Physical Exam ED Vital Signs: Vital Signs - 24 hr 04/06/22 19:52 Temperature 97.8 F Pulse Rate 71 Respiratory Rate 20 Blood Pressure 144/73 H Pulse Oximetry 99 Oxygen Delivery Method Room Air BMI result Body Mass Index 25.8 Const Other: Awake, male patient, he is moaning, he is shouting ?0h my God ?in [place]. He will not sit on the stretcher, is striking out at staff when we try to redirect him back to his stretcher. He was not able to tell me his name or answer questions using our bilingual interpreter. [facility] Head: Yes normal to inspection, Yes normocephalic and Yes atraumatic Ears: external ears normal General nose exam: Normal external nose present Face and sinus: Yes normal facial exam Mouth: Normal oral and palatal mucosa present Throat: Yes posterior oropharynx normal Eyes Alignment and Position: alignment normal and position normal Periorbital: periorbital findings normal Eyelids: Yes eyelids normal Conjunctivae: conjunctival abnormal bilateral conjunctival icterus Sclerae: scleral abnormal bilateral scleral injection Neck Neck: Yes normal visual inspection, Yes no lymphadenopathy, Yes trachea midline and Yes supple Chest Chest palpation & inspection: normal inspection of the chest and normal palpation of entire chest wall Resp Effort & Inspection: normal respiratory effort and able to speak in complete sentences Auscultation: clear to auscultation bilaterally Cardio Rate: regular rate Rhythm: regular rhythm Heart sounds: S1 normal heart sound present, S2 normal heart sound present and no murmurs GI Inspection: Yes normal to inspection Palpation (GI): Soft to palpation, nontender and no guarding Auscultation: normal bowel sounds General: Yes no CVA tenderness Back/Spine/Pelvis Back: no CVA tenderness Skin General skin exam: no rashes or lesions noted Neuro Other: Patient is confused, not answering questions, does move all extremities symmetrically Extrem Other: Patient has trace to 1+ pitting edema bilaterally symmetric, he does have erythema which is not warm to the touch over the feet ankles bilaterally Psych Other: Patient is confused, he is not cooperative, cannot be redirected, he is striking out at staff and we are trying to get him back on the stretcher Course Course Course Narrative: 61-year-old male who according to EMS was sent to the emergency department for evaluation of confusion. EMS states that the patient's came home and found the patient naked and confused. The emergency department the patient is not responding to questions in [place] or Yi. At this time a concerned that he may be encephalopathic. I did order laboratory evaluation to include CBC, CMP, PT/INR, PTT, ammonia, alcohol, lipase, magnesium, troponin, COVID-19 and influenza. I believed that the patient's altered mental status and behavior made him a danger to himself and to our staff therefore he was ordered to be chemically restrained with Zyprexa 10 mg IM. 2104: Laboratory evaluation: Anemia with an H&H of 10 and 31.2-chronic, low platelet count [id number]. Elevated INR 2.7, elevated PTT 51. Calcium elevated 10.1. Bilirubin elevated 10.2 elevated from 6.3 from yesterday. Magnesium was normal 1.8. Ammonia normal 50. COVID-19 and influenza negative. Lactic acid elevated at 4.8-patient has had elevated lactates in the past however this seems to be higher than usual value. This is most likely secondary to his cirrhosis and liver failure. Given the elevated lactate I did order blood cultures x2, Martinez catheterization for urinalysis, CT scan of the patient's head, chest and abdomen to look for possible infectious source. Patient will be given ceftriaxone 1 g IV once blood cultures are obtained. The patient became agitated again and was given Zyprexa 10 mg IM to chemically restrain him in order to complete the medical workup. 2118: At the end of my shift, the patient's medical workup is not complete, therefore the patient's care was turned over to my colleague, Dr. Elizabeth Jesus. MDM - Altered Mental Status Lab Data Result diagrams: 04/06/22 19:30 04/06/22 19:30 Labs: Lab Results 04/06/22 04/06/22 04/06/22 Range/Units 19:30 19:30 19:30 WBC 4.7 L (4.8-10.8) X10*3/uL RBC 3.25 L (4.60-5.80) X10*6/uL Hgb 10.6 L (14.0-18.0) g/dl Hct 31.2 L (42.0-52.0) % MCV 96.0 (80.0-98.0) fL MCH 32.6 (27.0-33.0) pg MCHC 34.0 (31.0-36.0) g/dl RDW 15.2 (11.0-16.0) % Plt Count 56 L (160-400) X10*3/uL MPV 12.5 H (9.4-12.4) fL Immature Gran % (Auto) 0.4 (0.0-0.4) % Neut % (Auto) 55.5 (45-73) % Lymph % (Auto) 25.8 (20-40) % Gage % (Auto) 17.3 H (2-11) % Eos % (Auto) 0.4 (0-4) % Baso % (Auto) 0.6 (0-2) % Lymph # (Auto) 1.2 (1.2-4.9) X10*3/uL Gage # (Auto) 0.8 (0.1-1.2) X10*3/uL Eos # (Auto) 0.0 (0.0-0.4) X10*3/uL Baso # (Auto) 0.0 (0.0-0.2) X10*3/uL Abs Immat Gran (auto) 0.02 (0.00-0.03) X10*3/uL Absolute Neuts (auto) 2.6 (2.0-8.3) x10*3/uL Absolute Nucleated RBC 0.000 (0.0-0.012) X10*3/uL Nucleated RBC % (auto) 0.0 (0.0-0.2) /100WBC Smear Tech's Comments VERIFIED PT (10.0-13.1) SEC INR (0.9-1.1) APTT (26.0-36.4) SEC Sodium 135 (135-145) mmol/L Potassium 3.4 (3.3-5.1) mmol/L Chloride 90 L (96-108) mmol/L Carbon Dioxide 28 (22-29) mmol/L Anion Gap 20 (12-20) BUN 17 H D (9-16) mg/dL Creatinine 1.24 (0.5-1.4) mg/dL Estim Creat Clear Calc 58.9 Estimated GFR 59 Random Glucose 122 H D (60-115) mg/dL Lactic Acid (0.5-2.0) mmol/L Calcium 10.7 H (8.4-10.2) mg/dL Magnesium 1.8 (1.6-2.6) mg/dL Total Bilirubin 10.2 H (0.0-1.0) mg/dL AST 46 H (5-37) U/L ALT 24 (0-40) U/L Alkaline Phosphatase 135 H D (39-117) U/L Ammonia 50 (13-55) umol/L Troponin I High Sens (<3.5-35.0) ng/L Total Protein 8.7 H (6.5-8.0) g/dL Albumin 3.7 (3.5-5.0) g/dL Lipase 41 (8-78) U/L Ethyl Alcohol mg/dL COVID-19 (SRIDEVI) (Negative) COVID-19 Clin Com Influenza Type A (NEERAJ) (Negative) Influenza Type B (NEERAJ) (Negative) Influenza A & B Note 04/06/22 04/06/22 04/06/22 Range/Units 19:30 19:30 19:30 WBC (4.8-10.8) X10*3/uL RBC (4.60-5.80) X10*6/uL Hgb (14.0-18.0) g/dl Hct (42.0-52.0) % MCV (80.0-98.0) fL MCH (27.0-33.0) pg MCHC (31.0-36.0) g/dl RDW (11.0-16.0) % Plt Count (160-400) X10*3/uL MPV (9.4-12.4) fL Immature Gran % (Auto) (0.0-0.4) % Neut % (Auto) (45-73) % Lymph % (Auto) (20-40) % Gage % (Auto) (2-11) % Eos % (Auto) (0-4) % Baso % (Auto) (0-2) % Lymph # (Auto) (1.2-4.9) X10*3/uL Gage # (Auto) (0.1-1.2) X10*3/uL Eos # (Auto) (0.0-0.4) X10*3/uL Baso # (Auto) (0.0-0.2) X10*3/uL Abs Immat Gran (auto) (0.00-0.03) X10*3/uL Absolute Neuts (auto) (2.0-8.3) x10*3/uL Absolute Nucleated RBC (0.0-0.012) X10*3/uL Nucleated RBC % (auto) (0.0-0.2) /100WBC Smear Tech's Comments PT 32.3 H (10.0-13.1) SEC INR 2.7 H (0.9-1.1) APTT 51.6 H D (26.0-36.4) SEC Sodium (135-145) mmol/L Potassium (3.3-5.1) mmol/L Chloride (96-108) mmol/L Carbon Dioxide (22-29) mmol/L Anion Gap (12-20) BUN (9-16) mg/dL Creatinine (0.5-1.4) mg/dL Estim Creat Clear Calc Estimated GFR Random Glucose (60-115) mg/dL Lactic Acid 4.8 H* (0.5-2.0) mmol/L Calcium (8.4-10.2) mg/dL Magnesium (1.6-2.6) mg/dL Total Bilirubin (0.0-1.0) mg/dL AST (5-37) U/L ALT (0-40) U/L Alkaline Phosphatase (39-117) U/L Ammonia (13-55) umol/L Troponin I High Sens 7.7 (<3.5-35.0) ng/L Total Protein (6.5-8.0) g/dL Albumin (3.5-5.0) g/dL Lipase (8-78) U/L Ethyl Alcohol mg/dL COVID-19 (SRIDEVI) (Negative) COVID-19 Clin Com Influenza Type A (NEERAJ) (Negative) Influenza Type B (NEERAJ) (Negative) Influenza A & B Note 04/06/22 04/06/22 04/06/22 Range/Units 19:30 19:30 19:30 WBC (4.8-10.8) X10*3/uL RBC (4.60-5.80) X10*6/uL Hgb (14.0-18.0) g/dl Hct (42.0-52.0) % MCV (80.0-98.0) fL MCH (27.0-33.0) pg MCHC (31.0-36.0) g/dl RDW (11.0-16.0) % Plt Count (160-400) X10*3/uL MPV (9.4-12.4) fL Immature Gran % (Auto) (0.0-0.4) % Neut % (Auto) (45-73) % Lymph % (Auto) (20-40) % Gage % (Auto) (2-11) % Eos % (Auto) (0-4) % Baso % (Auto) (0-2) % Lymph # (Auto) (1.2-4.9) X10*3/uL Gage # (Auto) (0.1-1.2) X10*3/uL Eos # (Auto) (0.0-0.4) X10*3/uL Baso # (Auto) (0.0-0.2) X10*3/uL Abs Immat Gran (auto) (0.00-0.03) X10*3/uL Absolute Neuts (auto) (2.0-8.3) x10*3/uL Absolute Nucleated RBC (0.0-0.012) X10*3/uL Nucleated RBC % (auto) (0.0-0.2) /100WBC Smear Tech's Comments PT (10.0-13.1) SEC INR (0.9-1.1) APTT (26.0-36.4) SEC Sodium (135-145) mmol/L Potassium (3.3-5.1) mmol/L Chloride (96-108) mmol/L Carbon Dioxide (22-29) mmol/L Anion Gap (12-20) BUN (9-16) mg/dL Creatinine (0.5-1.4) mg/dL Estim Creat Clear Calc Estimated GFR Random Glucose (60-115) mg/dL Lactic Acid (0.5-2.0) mmol/L Calcium (8.4-10.2) mg/dL Magnesium (1.6-2.6) mg/dL Total Bilirubin (0.0-1.0) mg/dL AST (5-37) U/L ALT (0-40) U/L Alkaline Phosphatase (39-117) U/L Ammonia (13-55) umol/L Troponin I High Sens (<3.5-35.0) ng/L Total Protein (6.5-8.0) g/dL Albumin (3.5-5.0) g/dL Lipase (8-78) U/L Ethyl Alcohol < 10 mg/dL COVID-19 (SRIDEVI) Negative (Negative) COVID-19 Clin Com See Note Influenza Type A (NEERAJ) Negative (Negative) Influenza Type B (NEERAJ) Negative (Negative) Influenza A & B Note See Note Discharge Plan Discharge Clinical Impression: Altered mental status Patient Disposition: Still a Patient Prescriptions: No Action methadone [Methadone Intensol] 10 mg/mL Concentrate 65 mg PO DAILY Rx Instructions: confirmed with clinic omeprazole 40 mg Capsule,Delayed Release(Dr/Ec) 40 mg PO BID@0630,1630 30 Days Qty: 60 0RF spironolactone 25 mg Tablet 50 mg PO DAILY 30 Days Qty: 60 2RF Protocol: Hold for SBP< HOLD for SBP < : 90 ferrous sulfate 324 mg (65 mg iron) tablet,delayed release (DR/EC) 324 mg PO DAILY Qty: 30 0RF furosemide 40 mg tablet 60 mg PO DAILY 30 Days Qty: 45 0RF ciprofloxacin HCl 500 mg tablet 500 mg PO DAILY magnesium oxide 400 mg magnesium capsule 400 mg PO BID Qty: 60 1RF
[2022-04-06] MEDS: OLANZapine 10 MG VIAL IM ×2 (19:13→21:00)
[2022-04-06 19:40] LABS: Basophils Percent Auto 0.6 % (0-2); Eosinophils Percent Auto 0.4 % (0-4); Hematocrit 31.2 % (42.0-52.0); Hemoglobin 10.6 g/dl (14.0-18.0); Imm Gran Abs Auto 0.02 X10*3/uL (0.00-0.03); Imm Gran Pct Auto 0.4 % (0.0-0.4); Lymphocytes Absolute Auto 1.2 X10*3/uL (1.2-4.9); Lymphocytes Percent Auto 25.8 % (20-40); MANUAL DIFF FLAG SCAN; Mean Corpuscular Hemoglobin 32.6 pg (27.0-33.0); Mean Platelet Volume 12.5 fL (9.4-12.4); Monocytes Absolute Auto 0.8 X10*3/uL (0.1-1.2); Monocytes Percent Auto 17.3 % (2-11); Neutrophils Absolute Auto 2.6 x10*3/uL (2.0-8.3); Neutrophils Percent Auto 55.5 % (45-73); Red Blood Count 3.25 X10*6/uL (4.60-5.80); Red Cell Distribution Width 15.2 % (11.0-16.0); SCAN SMEAR FLAG 1; White Blood Count 4.7 X10*3/uL (4.8-10.8)
[2022-04-06 19:43] LABS: Platelet Count 56 X10*3/uL (160-400)
[2022-04-06 19:48] LABS: Ammonia 50 umol/L (13-55); Partial Thromboplastin Time 51.6 SEC (26.0-36.4)
[2022-04-06 19:50] LABS: INTERNATIONAL NORM RATIO 2.7 (0.9-1.1); Prothrombin Time 32.3 SEC (10.0-13.1)
[2022-04-06 19:52] VITALS: BP 143/64; BP 144/73; PULSE 67; PULSE 71; RESP 20; TEMP 36.6; O2SAT 100; O2SAT 99; BMI 25.8
[2022-04-06 19:53] LABS: Ethanol < 10 mg/dL
[2022-04-06 19:55] LABS: COVID-19 Test Negative (Negative)
[2022-04-06 19:59] LABS: Lactic Acid 4.8 mmol/L (0.5-2.0)
[2022-04-06 20:00] VITALS: BP 142/43; PULSE 73; RESP 20; O2SAT 99
[2022-04-06 20:01] LABS: Alanine Aminotransferase 24 U/L (0-40); Albumin Level 3.7 g/dL (3.5-5.0); Alkaline Phosphatase 135 U/L (39-117); Anion Gap 20 (12-20); Aspartate Amino Transferase 46 U/L (5-37); Bilirubin Total 10.2 mg/dL (0.0-1.0); Blood Urea Nitrogen 17 mg/dL (9-16); Calcium 10.7 mg/dL (8.4-10.2); Carbon Dioxide 28 mmol/L (22-29); Chloride 90 mmol/L (96-108); Creatinine Clr Calc Pharmacy 58.9; Estimated Glomerular Filt Rate 59; Glucose Random 122 mg/dL (60-115); Lipase 41 U/L (8-78); Magnesium 1.8 mg/dL (1.6-2.6); Potassium 3.4 mmol/L (3.3-5.1); Sodium 135 mmol/L (135-145); Total Protein 8.7 g/dL (6.5-8.0)
[2022-04-06 20:03] LABS: IDNOW Serial# 55D5AD1C; Influenza A Negative (Negative); Influenza B2 Negative (Negative)
[2022-04-06 20:06] LABS: Troponin-I High Sensitivity 7.7 ng/L (<3.5-35.0)
[2022-04-06 20:13] LABS: SLIDE REVIEW VERIFIED
[2022-04-06] MEDS: 0.9 % Sodium Chloride 1,000 ML 999 ML IV (21:29)
[2022-04-06 21:35] LABS: Reflex Lactate? Lactic Acid Added
[2022-04-06] MEDS: Haloperidol Lactate 5 MG/ML VIAL IVPUSH (21:35)
[2022-04-06] MEDS: diphenhydrAMINE HCL 50 MG/ML VIAL 25 MG IVPUSH (21:35)
--- NOTE | 2022-04-06 21:57 | PC.NURSE ---
attempt to draw pt labs but he kept jumping up and is to dangerous when you have a needle in your hand, nurse Marga aware
[2022-04-06 22:00] VITALS: BP 134/80; PULSE 94; RESP 18; O2SAT 98
[2022-04-06 22:01] LABS: Appearance Urine Clear; Color Urine Yellow; Glucose Urine UA Negative (Negative); Leukocyte Esterase Urine Negative (Negative); Nitrite Urine Negative (Negative); Urine Blood Negative (Negative); Urine Ketones Negative (Negative); Urine Protein Negative (Neg-Trace)
[2022-04-06] MEDS: Midazolam HCl/PF 2 MG/2 ML VIAL IVPUSH (22:07)
[2022-04-06 22:15] LABS: Amphetamine Screen Urine Not Detected (Not Detect); Barbiturates, Urine Not Detected (Not Detect); Benzodiazepines Screen Urine Not Detected (Not Detect); Cannabinoid Screen Urine POSITIVE (Not Detect); Cocaine Screen Urine Not Detected (Not Detect); Fentanyl, urine Not Detected (Not Detect); Opiate Screen Urine Not Detected (Not Detect); Phencyclidine Screen Urine Not Detected (Not Detect)
[2022-04-06] MEDS: Ketamine HCl 500 MG/5 ML VIAL 50 MG IVPUSH (23:14)
[2022-04-06 23:32] VITALS: BP 150/71; PULSE 78; RESP 14; TEMP 36.9; O2SAT 100
[2022-04-06] MEDS: cefTRIAXone sodium 1 GM in 0.9 % Sodium Chloride 50 ML IV (23:54)
--- NOTE | 2022-04-06 23:55 | PC.NURSE ---
BLOOD CULTURES ATTEMPTED X 3 WHEN MD PUT ORDER IN. ATTEMPTED @2100, 0, 2199. PT COMBATIVE, UNCOOPERATIVE, AGGRESSIVE DESPITE MEDICATIONS GIVEN TO RESTRAIN PATIENT. ANTIBIOTIC HELD UNTIL BLOOD CULTURES OBTAINED@[id number]. MD AWARE AND OK.
[2022-04-07] VITALS (9 sets, daily range): BP systolic 103–158; BP diastolic 44–76; PULSE 63–90; RESP 13–18; TEMP 36.2–37.6; O2SAT 94–100
--- NOTE | 2022-04-07 00:02 | PC.NURSE ---
PATIENT WAS INCONIENT OF URINE ,MICHELLE CARE GIVEN BEDDING CHANGE ,SITTER AT BEDSIDE .
[2022-04-07 00:20] LABS: ~Lactic Acid-LAB USE ONLY 4.8 mmol/L (0.5-2.0)
[2022-04-07] MEDS: 0.9 % Sodium Chloride 1,000 ML 999 ML IV (01:31)
[2022-04-07 01:57] LABS: Reflex Lactate? 2 Y
[2022-04-07 01:59] LABS: Venous Blood Gas Refer to POC result
[2022-04-07 01:59] LABS: VBG Base Excess 7.5 mmol/L; VBG HCO3 31 mmol/L (22-26); VBG pCO2 41 mmHg; VBG pH 7.48 (7.32-7.43); VBG pO2 41 mmHg
--- NOTE | 2022-04-07 02:46 | PM.IMHP ---
History of Present Illness Date of Service: 04/07/22 Chief Complaint: Altered mental status This is a 61-year-old male with opioid use disorder, decompensated cirrhosis with recent SBP, essential hypertension, right-sided heart failure who was brought to the emergency department for evaluation of altered mental status. History obtained by medical records as no family at bedside. Patient was moaning, agitated when he was 1st brought to the ER. Not responding to any questioning even in Malay. According to paramedics, patient's found patient to be naked and confused when she came home. Patient was confused and not making any sense. He was moaning and swearing in Malay which is unusual for him. Patient was recently hospitalized with syncope and decompensated right heart failure and discharged on 04/05. In the ER, patient was very restless and agitated. He was given ketamine, Haldol, Zyprexa, diphenhydramine, midazolam prior to my evaluation. At the time of my evaluation, patient is extremely drowsy and minimally responsive to verbal stimulus although withdraws to painful stimulus. Review of Systems Review of Systems: Yes Unobtainable due to mental status [facility] Medical History Ascites Cirrhosis Coagulopathy Decompensated hepatic cirrhosis Fluid overload Head injury Hypertension Opioid dependence Syncope Family History Mother No problems noted. Father No problems noted. Other No family history of coronary artery disease Surgical History History of appendectomy History of eye surgery Social History Household Members: Spouse Housing: Apartment Do you presently have visiting nurse or other home services: No Alcohol intake: former Patient Tobacco Use Status: Former Tobacco user Substance Use Type: Former Substance User Advance Directives: Yes Advance Directives on File: Yes Advance Directives Date on File: 03/28/22 service: No Current occupational status: unemployed Meds Allergies Allergy/AdvReac Type Severity Reaction Status Date / Time tramadol [TRAMADOL] Allergy Unknown ANXIETY Verified 03/25/22 14:11 Active Medications: Current Medications Acetaminophen (Acetaminophen 325 Mg Tablet) 650 mg PO Q6H PRN PRN Reason: Pain, Mild (Pain Scale 1-3) Melatonin (Melatonin 3 Mg Tablet) 6 mg PO BEDTIME PRN PRN Reason: Insomnia Ondansetron HCl (Ondansetron Hcl 4 Mg/2 Ml Vial) 4 mg IVPUSH Q8H PRN PRN Reason: Nausea and Vomiting Pharmacy Consult (Consult Rx Perform Med Rec) 1 each MISCELLANE ONCE PRN PRN Reason: Consult order Sodium Chloride (0.9 % Sodium Chloride Flush 3 Ml Syringe) 3 ml IVFLUSH QSHIFT [facility] Medications Medication Instructions Recorded Confirmed Last Taken Type methadone 10 mg/mL oral 65 mg PO DAILY 03/15/22 03/31/22 03/28/22 History concentrate (Methadone Intensol) ciprofloxacin HCl 500 mg tablet 500 mg PO DAILY 03/25/22 03/31/22 03/30/22 History Physical Exam Vital Signs and Narrative: Vital Signs: Last Vital Signs Temp 98.2 F 04/07/22 01:36 Pulse 72 04/07/22 01:36 Resp 18 04/07/22 01:36 BP 123/58 L 04/07/22 01:36 Pulse Ox 98 04/07/22 01:36 O2 Del Method 04/07/22 01:36 BMI result Body Mass Index 25.8 Middle-aged male lying in bed, drowsy no JVD Regular rate and rhythm, S1-S2 heard Decreased breath sound at bases, no wheezing appreciated Abdomen distended, nonrigid, nontender Patient is sleeping and not responding to verbal stimulus, withdraws extremity to painful stimulus No pedal edema Results Labs CBC and Chem 7: 04/06/22 19:30 04/06/22 19:30 Labs: Laboratory Results - last 24 hr 04/06/22 04/06/22 04/06/22 19:30 19:30 19:30 MCV 96.0 MCH 32.6 MCHC 34.0 RDW 15.2 Plt Count 56 L MPV 12.5 H Immature Gran % (Auto) 0.4 Neut % (Auto) 55.5 Lymph % (Auto) 25.8 [place] % (Auto) 17.3 H Eos % (Auto) 0.4 Baso % (Auto) 0.6 Lymph # (Auto) 1.2 [place] # (Auto) 0.8 Eos # (Auto) 0.0 Baso # (Auto) 0.0 Abs Immat Gran (auto) 0.02 Absolute Neuts (auto) 2.6 Absolute Nucleated RBC 0.000 Nucleated RBC % (auto) 0.0 Smear Tech's Comments VERIFIED PT INR APTT VBG pH VBG pCO2 VBG pO2 VBG HCO3 VBG O2 Saturation VBG Base Excess Anion Gap 20 Estim Creat Clear Calc 58.9 Estimated GFR 59 Random Glucose 122 H D Lactic Acid Lactic Acid F/U @ 2Hr Calcium 10.7 H Magnesium 1.8 Total Bilirubin 10.2 H AST 46 H ALT 24 Alkaline Phosphatase 135 H D Ammonia 50 Troponin I High Sens Total Protein 8.7 H Albumin 3.7 Lipase 41 Urine Color Urine Appearance Urine pH Ur Specific [place] Urine Protein Urine Glucose (UA) Urine Ketones Urine Blood Urine Nitrite Ur Leukocyte Esterase Urine Opiates Screen Urine Fentanyl Screen Ur Barbiturates Screen Ur Phencyclidine Scrn Ur Amphetamines Screen U Benzodiazepines Scrn Urine Cocaine Screen U Marijuana (THC) Screen Ethyl Alcohol COVID-19 (SRIDEVI) COVID-19 Clin Com Influenza Type A (NEERAJ) Influenza Type B (NEERAJ) Influenza A & B Note 04/06/22 04/06/22 04/06/22 19:30 19:30 19:30 MCV MCH MCHC RDW Plt Count MPV Immature Gran % (Auto) Neut % (Auto) Lymph % (Auto) [place] % (Auto) Eos % (Auto) Baso % (Auto) Lymph # (Auto) [place] # (Auto) Eos # (Auto) Baso # (Auto) Abs Immat Gran (auto) Absolute Neuts (auto) Absolute Nucleated RBC Nucleated RBC % (auto) Smear Tech's Comments PT 32.3 H INR 2.7 H APTT 51.6 H D VBG pH VBG pCO2 VBG pO2 VBG HCO3 VBG O2 Saturation VBG Base Excess Anion Gap Estim Creat Clear Calc Estimated GFR Random Glucose Lactic Acid 4.8 H* Lactic Acid F/U @ 2Hr Calcium Magnesium Total Bilirubin AST ALT Alkaline Phosphatase Ammonia Troponin I High Sens 7.7 Total Protein Albumin Lipase Urine Color Urine Appearance Urine pH Ur Specific [place] Urine Protein Urine Glucose (UA) Urine Ketones Urine Blood Urine Nitrite Ur Leukocyte Esterase Urine Opiates Screen Urine Fentanyl Screen Ur Barbiturates Screen Ur Phencyclidine Scrn Ur Amphetamines Screen U Benzodiazepines Scrn Urine Cocaine Screen U Marijuana (THC) Screen Ethyl Alcohol COVID-19 (SRIDEVI) COVID-19 Clin Com Influenza Type A (NEERAJ) Influenza Type B (NEERAJ) Influenza A & B Note 04/06/22 04/06/22 04/06/22 19:30 19:30 19:30 MCV MCH MCHC RDW Plt Count MPV Immature Gran % (Auto) Neut % (Auto) Lymph % (Auto) [place] % (Auto) Eos % (Auto) Baso % (Auto) Lymph # (Auto) [place] # (Auto) Eos # (Auto) Baso # (Auto) Abs Immat Gran (auto) Absolute Neuts (auto) Absolute Nucleated RBC Nucleated RBC % (auto) Smear Tech's Comments PT INR APTT VBG pH VBG pCO2 VBG pO2 VBG HCO3 VBG O2 Saturation VBG Base Excess Anion Gap Estim Creat Clear Calc Estimated GFR Random Glucose Lactic Acid Lactic Acid F/U @ 2Hr Calcium Magnesium Total Bilirubin AST ALT Alkaline Phosphatase Ammonia Troponin I High Sens Total Protein Albumin Lipase Urine Color Urine Appearance Urine pH Ur Specific [place] Urine Protein Urine Glucose (UA) Urine Ketones Urine Blood Urine Nitrite Ur Leukocyte Esterase Urine Opiates Screen Urine Fentanyl Screen Ur Barbiturates Screen Ur Phencyclidine Scrn Ur Amphetamines Screen U Benzodiazepines Scrn Urine Cocaine Screen U Marijuana (THC) Screen Ethyl Alcohol < 10 COVID-19 (SRIDEVI) Negative COVID-19 Clin Com See Note Influenza Type A (NEERAJ) Negative Influenza Type B (NEERAJ) Negative Influenza A & B Note See Note 04/06/22 04/06/22 04/06/22 21:42 21:43 23:51 MCV MCH MCHC RDW Plt Count MPV Immature Gran % (Auto) Neut % (Auto) Lymph % (Auto) [place] % (Auto) Eos % (Auto) Baso % (Auto) Lymph # (Auto) [place] # (Auto) Eos # (Auto) Baso # (Auto) Abs Immat Gran (auto) Absolute Neuts (auto) Absolute Nucleated RBC Nucleated RBC % (auto) Smear Tech's Comments PT INR APTT VBG pH VBG pCO2 VBG pO2 VBG HCO3 VBG O2 Saturation VBG Base Excess Anion Gap Estim Creat Clear Calc Estimated GFR Random Glucose Lactic Acid Lactic Acid F/U @ 2Hr 4.8 H* Calcium Magnesium Total Bilirubin AST ALT Alkaline Phosphatase Ammonia Troponin I High Sens Total Protein Albumin Lipase Urine Color Yellow Urine Appearance Clear Urine pH 7.0 Ur Specific [place] 1.010 Urine Protein Negative Urine Glucose (UA) Negative Urine Ketones Negative Urine Blood Negative Urine Nitrite Negative Ur Leukocyte Esterase Negative Urine Opiates Screen Not Detected Urine Fentanyl Screen Not Detected Ur Barbiturates Screen Not Detected Ur Phencyclidine Scrn Not Detected Ur Amphetamines Screen Not Detected U Benzodiazepines Scrn Not Detected Urine Cocaine Screen Not Detected U Marijuana (THC) Screen POSITIVE H Ethyl Alcohol COVID-19 (SRIDEVI) COVID-19 Clin Com Influenza Type A (NEERAJ) Influenza Type B (NEERAJ) Influenza A & B Note 04/07/22 01:53 MCV MCH MCHC RDW Plt Count MPV Immature Gran % (Auto) Neut % (Auto) Lymph % (Auto) [place] % (Auto) Eos % (Auto) Baso % (Auto) Lymph # (Auto) [place] # (Auto) Eos # (Auto) Baso # (Auto) Abs Immat Gran (auto) Absolute Neuts (auto) Absolute Nucleated RBC Nucleated RBC % (auto) Smear Tech's Comments PT INR APTT VBG pH 7.48 H VBG pCO2 41 VBG pO2 41 VBG HCO3 31 H VBG O2 Saturation 62.0 VBG Base Excess 7.5 Anion Gap Estim Creat Clear Calc Estimated GFR Random Glucose Lactic Acid Lactic Acid F/U @ 2Hr Calcium Magnesium Total Bilirubin AST ALT Alkaline Phosphatase Ammonia Troponin I High Sens Total Protein Albumin Lipase Urine Color Urine Appearance Urine pH Ur Specific [place] Urine Protein Urine Glucose (UA) Urine Ketones Urine Blood Urine Nitrite Ur Leukocyte Esterase Urine Opiates Screen Urine Fentanyl Screen Ur Barbiturates Screen Ur Phencyclidine Scrn Ur Amphetamines Screen U Benzodiazepines Scrn Urine Cocaine Screen U Marijuana (THC) Screen Ethyl Alcohol COVID-19 (SRIDEVI) COVID-19 Clin Com Influenza Type A (NEERAJ) Influenza Type B (NEERAJ) Influenza A & B Note Imaging Radiologist's Impressions: Impressions Abdomen/Pelvis CT 04/06/22 23:25 IMPRESSION: 1. No dense pulmonary consolidation. Mild groundglass opacity is present in the left lower lobe, which may be due to atelectasis versus mild infectious/inflammatory change. 2. Redemonstrated findings of cirrhosis and portal hypertension. Interval decrease in ascites and mesenteric edema compared to 03/15/2022. 3. Moderate to large amount of stool in the colon. Nonobstructive bowel gas pattern. Chest CT 04/06/22 23:25 IMPRESSION: 1. No dense pulmonary consolidation. Mild groundglass opacity is present in the left lower lobe, which may be due to atelectasis versus mild infectious/inflammatory change. 2. Redemonstrated findings of cirrhosis and portal hypertension. Interval decrease in ascites and mesenteric edema compared to 03/15/2022. 3. Moderate to large amount of stool in the colon. Nonobstructive bowel gas pattern. Head CT 04/06/22 23:25 IMPRESSION: 1. No evidence of acute intracranial hemorrhage or edematous territorial infarction. 2. Mild underlying microangiopathy and generalized cerebral volume loss. Assessment and Plan (1) Altered mental status: Status: Acute (2) Acute metabolic encephalopathy: Status: Acute (3) Right heart failure: Status: Acute (4) Chronic anemia: Status: Acute (5) Cirrhosis: Status: Acute (6) Hypertension: Status: Acute (7) Opioid dependence: Status: Acute Plan This is a 61-year-old male with opioid use disorder, decompensated cirrhosis with recent SBP, essential hypertension, right-sided heart failure who was brought to the emergency department for evaluation of altered mental status. #. Acute toxic/metabolic encephalopathy -unclear etiology. CT head without acute abnormality. Although ammonia levels are normal, does not exclude hepatic encephalopathy in a patient with decompensated cirrhosis. Patient does have moderate to large amount of stool in the colon and therefore unclear if patient was adequately taking his lactulose. Re-initiate lactulose, stimulant laxative and monitor mentation. Patient was discharged on diuretics and ?dehydration could be contributing to his encephalopathy. Received IV fluids in the ER, monitor mentation with IV fluid resuscitation. Does have a history of opiate disorder although urine drug screen is negative. Obtaining TSH and B12 to complete workup. No concern for infection, defer LP and consider if mentation doesnt improve. #. Decompensated cirrhosis -holding diuretics. Has history of recent SBP with need for daily SBP secondary prophylaxis. Will convert home p.o. Cipro to IV ceftriaxone while in the hospital. #. Right-sided heart failure -holding diuretics. Restart as appropriate #. Chronic anemia -noted on previous admissions with plans for outpatient EGD. Currently hemoglobin above transfusion threshold #. Thrombocytopenia -likely due to cirrhosis #. Lactic acidosis -typeA with deterioration of hepatocyte function and cirrhosis leading to decreased hepatic lactate disposal #. Opioid use disorder -not currently on methadone as per . Unclear last opioid use. #. Metabolic alkalosis -likely due to diuretic use #. Hypercalcemia -likely due to intravascular volume depletion DVT prophylaxis: Mechanical as patient is coagulopathic and thrombocytopenic Diet: NPO due to poor mentation Full code Patient will require two night minimum hospital stay for evaluation and management of acute encephalopathy. Quality Stroke Does the patient have a stroke diagnosis?: No VTE Prior VTE?: No VTE Risk Level:: Medical - moderate - high VTE Device Contraindication: Treatment Not Indicated VTE Drug Contraindication: Treatment Not Indicated
[2022-04-07 03:38] LABS: Bilirubin Direct 3.2 mg/dL (0.0-0.5); Lactate Dehydrogenase 283 U/L (118-273)
[2022-04-07] MEDS: Thiamine HCL 100 MG in 0.9 % Sodium Chloride 100 ML 202 MG IV (04:00)
[2022-04-07] MEDS: bisacodyL 10 MG SUPP.RECT PR (04:00)
[2022-04-07 05:04] LABS: Basophils Percent Auto 0.5 % (0-2); Eosinophils Absolute Auto 0.1 X10*3/uL (0.0-0.4); Eosinophils Percent Auto 1.1 % (0-4); Hematocrit 31.6 % (42.0-52.0); Hemoglobin 10.5 g/dl (14.0-18.0); Imm Gran Abs Auto 0.01 X10*3/uL (0.00-0.03); Imm Gran Pct Auto 0.1 % (0.0-0.4); Lymphocytes Absolute Auto 3.7 X10*3/uL (1.2-4.9); Lymphocytes Percent Auto 49.1 % (20-40); MANUAL DIFF FLAG SCAN; Mean Corpuscular HGB Conc 33.2 g/dl (31.0-36.0); Mean Corpuscular Hemoglobin 32.4 pg (27.0-33.0); Mean Corpuscular Volume 97.5 fL (80.0-98.0); Mean Platelet Volume 12.3 fL (9.4-12.4); Monocytes Absolute Auto 1.6 X10*3/uL (0.1-1.2); Monocytes Percent Auto 21.7 % (2-11); Neutrophils Absolute Auto 2.1 x10*3/uL (2.0-8.3); Neutrophils Percent Auto 27.5 % (45-73); Red Blood Count 3.24 X10*6/uL (4.60-5.80); Red Cell Distribution Width 15.1 % (11.0-16.0); SCAN SMEAR FLAG 1; White Blood Count 7.5 X10*3/uL (4.8-10.8)
[2022-04-07 05:05] LABS: Platelet Count 59 X10*3/uL (160-400)
[2022-04-07 05:24] LABS: SLIDE REVIEW VERIFIED
[2022-04-07 05:35] LABS: Anion Gap 18 (12-20); Blood Urea Nitrogen 16 mg/dL (9-16); Calcium 9.5 mg/dL (8.4-10.2); Carbon Dioxide 27 mmol/L (22-29); Chloride 103 mmol/L (96-108); Creatinine Clr Calc Pharmacy 73.8; Estimated Glomerular Filt Rate > 60; Glucose Random 49 mg/dL (60-115); Potassium 4.2 mmol/L (3.3-5.1); Sodium 144 mmol/L (135-145)
[2022-04-07] MEDS: Dextrose 50 % 25 GM/50 ML SYRINGE IVPUSH ×3 (05:49→20:20)
[2022-04-07 06:14] LABS: Glucose, Whole Blood 157 mg/dL (60-115)
--- NOTE | 2022-04-07 06:23 | PC.NURSE ---
critical glucose of 49. Hospitalist notified. 1amp glucose IV push given. pt unable to tolerate po at this point. recheck poc 157
[2022-04-07 06:29] LABS: Albumin Level 2.9 g/dL (3.5-5.0); Alkaline Phosphatase 108 U/L (39-117); Aspartate Amino Transferase 52 U/L (5-37); Bilirubin Total 8.1 mg/dL (0.0-1.0); Total Protein 7.1 g/dL (6.5-8.0)
[2022-04-07 06:56] LABS: Hemoglobin A1c % < 4.0 %
[2022-04-07 07:43] LABS: Lactic Acid 2.7 mmol/L (0.5-2.0)
--- NOTE | 2022-04-07 07:43 | PHA.MEDREC ---
Pharmacy Consult ? Medication Reconciliation Pharmacy has completed the medication reconciliation.
[2022-04-07 07:56] LABS: Glucose, Whole Blood 79 mg/dL (60-115)
[2022-04-07] MEDS: Thiamine HCL 100 MG in 0.9 % Sodium Chloride 100 ML 101 MG IV (08:19)
[2022-04-07] MEDS: 0.9 % Sodium Chloride Flush 3 ML SYRINGE IVFLUSH ×3 (08:21→20:20)
[2022-04-07 09:21] LABS: Reflex Lactate? Lactic Acid Added
[2022-04-07] MEDS: Glucose Gel 15 GM GEL..GRAM. PO (10:59)
--- NOTE | 2022-04-07 11:11 | PM.EVENT ---
Event Note Date of Service: 04/07/22 Event Note: Patient seen and examined this morning, he left [facility] 2 days earlier while been treated for right heart failure.. Tox screen is only positive for marijuana ?61-year-old male with opioid use disorder, decompensated cirrhosis with recent SBP, essential hypertension, right-sided heart failure who was brought to the emergency department for evaluation of altered mental status. #.? Acute toxic/metabolic encephalopathy -unclear etiology. CT head without acute abnormality.? Although ammonia levels are normal, does not exclude hepatic encephalopathy in a patient with decompensated cirrhosis.? Patient does have moderate to large amount of stool in the colon and therefore unclear if patient was adequately taking his lactulose. Re-initiate lactulose, stimulant laxative and monitor mentation.? Patient was discharged on diuretics and ?dehydration could be contributing to his encephalopathy.? Received IV fluids in the ER, monitor mentation with IV fluid resuscitation. Does have a history of opiate disorder although urine drug screen is negative. ? Obtaining TSH and B12 to complete workup. No concern for infection, defer LP and consider if mentation doesnt improve (additionally no fever or meningeal sings) #.? Decompensated cirrhosis -holding diuretics.? Has history of recent SBP with need for daily SBP secondary prophylaxis.? Will convert home p.o. Cipro to IV ceftriaxone while in the hospital. #.? Right-sided heart failure -holding diuretics.? Restart as appropriate #.? Chronic anemia -noted on previous admissions with plans for outpatient EGD.? Currently hemoglobin above transfusion threshold #.? Thrombocytopenia -likely due to cirrhosis #.? Lactic acidosis -typeA with deterioration of hepatocyte function and cirrhosis leading to decreased hepatic lactate disposal #.? Opioid use disorder -not currently on methadone as per .? Unclear last opioid use. #.? Metabolic alkalosis -likely due to diuretic use #.? Hypercalcemia -likely due to intravascular volume depletion DVT prophylaxis:? Mechanical as patient is coagulopathic and thrombocytopenic Diet:? NPO due to poor mentation Full code Patient will require two night minimum hospital stay for evaluation and management of acute encepha
[2022-04-07 11:20] LABS: Vitamin B12 > 2000 pg/mL (200-900)
[2022-04-07 11:29] LABS: Glucose, Whole Blood 98 mg/dL (60-115)
[2022-04-07 11:29] LABS: Glucose, Whole Blood 51 mg/dL (60-115)
--- NOTE | 2022-04-07 13:28 | PM.EVENT ---
Event Note Date of Service: 04/08/22 Event Note: Patient had become increasing agitated, confused risking injury to self and staff. Security had to be call to the scene. Earlier was given Haldol in ED, his QTC is markedly prolonged so will avoid additional Haldol and give Valium to to control agiation and behaviro issue
[2022-04-07] MEDS: diazePAM 10 MG/2 ML CARTRIDGE 5 MG IVPUSH (13:33)
--- NOTE | 2022-04-07 13:33 | PC.NURSE ---
Addendum entered by Partha Trejo RN 04/07/22 13:41: pt refused to answer questions and refused to be assessed Original Note: security called to bedside d/t pt agitation and aggression towards staff. MD contacted, arrived to bedside to assess pt. IVP med administered as ordered and pt placed on cont O2 monitor per MD singer order. Sitter at bedside.
--- NOTE | 2022-04-07 13:44 | MHC.CM.PN ---
CM SPOKE WITH /HCP JOSE POTTER ([phone]) VIA TELEPHONE PT WAS TOO LETHARGIC TO PARTICIPATE. LIVES WITH [facility] IN AN APT., NO SERVICES CURRENTLY BUT [facility] IS OPEN TO HOME SERVICES IF RECOMMENDED. USES [employer] AT HOME. HCP ON FILE. COVID VAX X 2 (J AND J = [address] BOOSTER) PCP IS DR. GARCIA NAME AT [facility]. [facility] WILL TRANSPORT HOME ON DC
[2022-04-07 14:34] LABS: Glucose, Whole Blood 89 mg/dL (60-115)
[2022-04-07 15:57] LABS: Glucose, Whole Blood 68 mg/dL (60-115)
[2022-04-07 16:26] LABS: Glucose, Whole Blood 174 mg/dL (60-115)
--- NOTE | 2022-04-07 16:36 | PC.NURSE ---
PT glucose 68 @15:46 administered PRN dextrose, rechecked BS 176.
--- NOTE | 2022-04-07 18:24 | PC.NURSE ---
Diazepam 5mg and hydroxine wasted with second RN Partha Trejo.
[2022-04-07 20:23] LABS: Glucose, Whole Blood 66 mg/dL (60-115)
[2022-04-07 21:44] LABS: Glucose, Whole Blood 104 mg/dL (60-115)
--- NOTE | 2022-04-07 22:33 | ECG_ITS ---
Test Reason : toursades - qtc check Blood Pressure : / mmHG Vent. Rate : 083 BPM Atrial Rate : 083 BPM P-R Int : 140 ms QRS Dur : 076 ms QT Int : 512 ms P-R-T Axes : 074 018 071 degrees QTc Int : 601 ms Sinus rhythm with frequent Premature ventricular complexes in a pattern of bigeminy T wave abnormality, consider anterior ischemia Abnormal ECG When compared with ECG of 06-APR-2022 23:51, T wave inversion more evident in Anterior leads Inferior leads QT has lengthened Referred By: Brayan Hutton Electronically Signed By:JOE SANDERS MD
--- NOTE | 2022-04-07 22:47 | PM.EVENT ---
Event Note Date of Service: 04/07/22 Event Note: Rapid response was called as patient was not on sides for 1 minute 20 seconds. Upon evaluation patient was awake, alert and hemodynamically stable: Blood pressure within normal limits and heart rate in the 80s. Normal respiratory rate and maintaining normal oxygen saturation on room air. Twelve lead EKG obtained which shows normal sinus rhythm with PVCs. Prolonged QTC seen. Obtaining potassium and magnesium and will replete if necessary. Patient not on any QT prolonging agents, ciprofloxacin was changed to ceftriaxone on admission. Discussed with Dr. Franks
[2022-04-07 23:31] LABS: Anion Gap 13 (12-20); Blood Urea Nitrogen 14 mg/dL (9-16); Calcium 9.2 mg/dL (8.4-10.2); Carbon Dioxide 28 mmol/L (22-29); Chloride 103 mmol/L (96-108); Creatinine Clr Calc Pharmacy 75.4; Estimated Glomerular Filt Rate > 60; Glucose Random 80 mg/dL (60-115); Magnesium 1.6 mg/dL (1.6-2.6); Potassium 3.3 mmol/L (3.3-5.1); Sodium 141 mmol/L (135-145)
[2022-04-08] VITALS: BP 152/72; PULSE 79; RESP 18; TEMP 37.1; O2SAT 100
[2022-04-08] MEDS: cefTRIAXone sodium 1 GM in 0.9 % Sodium Chloride 50 ML IV (00:30)
[2022-04-08 01:17] LABS: Glucose, Whole Blood 55 mg/dL (60-115)
[2022-04-08 01:17] LABS: Glucose, Whole Blood 79 mg/dL (60-115)
[2022-04-08] MEDS: Dextrose 50 % 25 GM/50 ML SYRINGE IVPUSH ×3 (01:21→12:14)
[2022-04-08 03:16] VITALS: BP 137/60; PULSE 67; RESP 18; TEMP 36.7; O2SAT 98
[2022-04-08 03:24] LABS: Glucose, Whole Blood 90 mg/dL (60-115)
[2022-04-08 06:10] LABS: Glucose, Whole Blood 59 mg/dL (60-115)
[2022-04-08] MEDS: Magnesium Sulfate/D5W 1 GM/100 ML PIGGYBACK IV (06:37)
[2022-04-08 07:31] VITALS: BP 147/88; PULSE 73; RESP 20; TEMP 36.9; O2SAT 98
[2022-04-08 07:31] LABS: Anion Gap 15 (12-20); Blood Urea Nitrogen 13 mg/dL (9-16); Carbon Dioxide 27 mmol/L (22-29); Chloride 102 mmol/L (96-108); Creatinine Clr Calc Pharmacy 78.6; Estimated Glomerular Filt Rate > 60; Glucose Random 63 mg/dL (60-115); Magnesium 1.5 mg/dL (1.6-2.6); Potassium 3.3 mmol/L (3.3-5.1); Sodium 141 mmol/L (135-145)
[2022-04-08 07:41] LABS: Thyroid Stimulating Hormone 0.93 uIU/mL (0.32-4.0)
[2022-04-08 07:41] LABS: Glucose, Whole Blood 132 mg/dL (60-115)
[2022-04-08 08:00] VITALS: BP 147/88; PULSE 72; RESP 20; TEMP 36.7; O2SAT 97
[2022-04-08] MEDS: Potassium Chloride/H20 10 MEQ/100 ML PIGGYBACK 100 MEQ IV (08:22)
[2022-04-08] MEDS: 0.9 % Sodium Chloride Flush 3 ML SYRINGE IVFLUSH (08:23)
--- NOTE | 2022-04-08 09:23 | ECG_ITS ---
Test Reason : rhythm change Blood Pressure : / mmHG Vent. Rate : 064 BPM Atrial Rate : 064 BPM P-R Int : 146 ms QRS Dur : 078 ms QT Int : 600 ms P-R-T Axes : 059 010 -28 degrees QTc Int : 619 ms Normal sinus rhythm T wave abnormality, consider anterior ischemia Prolonged QT Abnormal ECG When compared with ECG of 07-APR-2022 22:38, Premature ventricular complexes are no longer Present Referred By: Danis Franks Electronically Signed By:JOE SANDERS MD
[2022-04-08] MEDS: Magnesium Sulfate/H2O 2 GM/50 ML PIGGYBACK IV ×2 (09:34→11:58)
--- NOTE | 2022-04-08 09:40 | P.CONCA_ITS ---
History of Present Illness History of Present Illness Date of Service: 04/08/22 Chief complaint: Altered mental status Narrative: This is a cardiology consultation regarding ventricular tachycardia. This patient has a history of cirrhosis and possible right heart failure. He was recently treated for volume overload. The any left the hospital against medical advice. Then it seems that patient's found him to be naked and confused and not making any sense. He was morning and swearing and Bel[place]ian. Then brought to the hospital. Even with [place]ian translation was not responding. Then admitted for further evaluation. In this context, he had episodes of polymorphic ventricular tachycardia. There has been episode of 16:00 yesterday evening and then overnight again. I was called after the overnight episode. Patient himself still seems confused. Tried to engage him in conversation using lawyer real estate but he was barely answering anything appropriately. Talking generally random stuff. He is denying any clear-cut cardiac symptoms at this time but not sure how much reliable he is. Review of Systems Review of Systems: Unable to obtain complete review of systems due to c onfusion. Neurologic: Reports confusion Psychiatric: Psychiatric: Reports confusion [facility] Past Medical History Medical History Ascites Cirrhosis Coagulopathy Decompensated hepatic cirrhosis Fluid overload Head injury Hypertension Opioid dependence Syncope Family History Family History Mother No problems noted. Father No problems noted. Other No family history of coronary artery disease Surgical History Surgical History History of appendectomy History of eye surgery Social History Social History Household Members: Spouse Housing: Apartment Do you presently have visiting nurse or other home services: No Alcohol intake: former Patient Tobacco Use Status: Former Tobacco user Substance Use Type: Former Substance User Currently Displaying Signs/Symptoms of Drug Intoxication Withdrawal: No Advance Directives: Yes Advance Directives on File: Yes Advance Directives Date on File: 03/28/22 service: No Current occupational status: unemployed Meds Allergies Allergy/AdvReac Type Severity Reaction Status Date / Time tramadol [TRAMADOL] Allergy Unknown ANXIETY Verified 03/25/22 14:11 Active Medications: Current Medications Acetaminophen (Acetaminophen 325 Mg Tablet) 650 mg PO Q6H PRN PRN Reason: Pain, Mild (Pain Scale 1-3) Dextrose (Dextrose 50 % 25 Gm/50 Ml Syringe) 25 gm IVPUSH Q15M PRN; Protocol PRN Reason: per Hypoglycemia Standing Ord. Last Admin: 04/08/22 06:20 Dose: 25 gm Glucose (Glucose Gel 15 Gm Gel..Gram.) 15 gm PO Q15M PRN; Protocol PRN Reason: per Hypoglycemia Standing Ord. Last Admin: 04/07/22 10:59 Dose: 15 gm Thiamine HCl 100 mg/ Sodium (Chloride) 101 mls @ 202 mls/hr IV DAILY [facility] Last Infusion: 04/07/22 12:18 Dose: Infused Ceftriaxone Sodium 1 gm/ (Sodium Chloride) 50 mls @ 100 mls/hr IV Q24H [facility] Last Infusion: 04/08/22 01:14 Dose: Infused Dextrose (D5w) 1,000 mls @ 50 mls/hr IVCONT .Q20H [facility] Magnesium Sulfate (Magnesium Sulfate/H2o) 2 gm in 50 mls @ 25 mls/hr IV ONCE ONE Stop: 04/08/22 10:52 Last Admin: 04/08/22 09:34 Dose: 25 mls/hr Lactulose (Lactulose 20 Gm/30 Ml Solution) 30 gm PO TID [facility] Last Admin: 04/08/22 08:23 Dose: Not Given Melatonin (Melatonin 3 Mg Tablet) 6 mg PO BEDTIME PRN PRN Reason: Insomnia Midazolam HCl (Midazolam Hcl/Pf 2 Mg/2 Ml Vial) 0.75 mg IVPUSH Q4H PRN PRN Reason: anxiety Pharmacy Consult (Consult Rx Perform Med Rec) 1 each MISCELLANE ONCE PRN PRN Reason: Consult order Sodium Chloride (0.9 % Sodium Chloride Flush 3 Ml Syringe) 3 ml IVFLUSH QSHIFT [facility] Last Admin: 04/08/22 08:23 Dose: 3 ml Home Medications Medication Instructions Recorded Confirmed Last Taken Type methadone 10 mg/mL oral 65 mg PO DAILY 03/15/22 04/07/22 03/28/22 History concentrate (Methadone Intensol) ciprofloxacin HCl 500 mg tablet 500 mg PO DAILY 03/25/22 04/07/22 03/30/22 History Physical Exam Vital Signs: Vital Signs: Last Vital Signs Temp 98.1 F 04/08/22 08:00 Pulse 72 04/08/22 08:00 Resp 20 04/08/22 08:00 BP 147/88 H 04/08/22 08:00 Pulse Ox 97 04/08/22 08:00 O2 Del Method 04/08/22 08:00 BMI result Body Mass Index 25.8 Const: General: comfortable, no acute distress and confusion Orientation/c onsciousness: confusion HEENT: Other: Unremarkable Head: Yes normal to inspection Neck: Neck: Yes normal visual inspection Chest: Chest palpation & inspection: normal inspection of the chest Resp: Auscultation: clear to auscultation bilaterally Cardio: Palpation: normal PMI Heart sounds: S1 normal heart sound present, S2 normal heart sound present, no gallops, no murmurs and no rubs GI: Palpation (GI): Soft to palpation Back/Spine/Pelvis: Other: unremarkable Skin: General skin exam: no rashes or lesions noted Neuro: General: confusion Extrem: General: Yes normal to inspection Psych: Mental Status: mental status grossly abnormal Objective Labs and Meds Result diagrams: 04/07/22 04:52 04/08/22 06:00 Lab results: Laboratory Results - last 24 hr 04/06/22 04/07/22 04/07/22 19:30 10:13 10:50 Sodium Potassium Chloride Carbon Dioxide Anion Gap BUN Creatinine Estim Creat Clear Calc Estimated GFR POC Glucose 51 L* Random Glucose Lactic Acid F/U @ 2Hr 2.0 Calcium Magnesium Vitamin B12 > 2000 H TSH 04/07/22 04/07/22 04/07/22 11:26 14:30 15:46 Sodium Potassium Chloride Carbon Dioxide Anion Gap BUN Creatinine Estim Creat Clear Calc Estimated GFR POC Glucose 98 89 68 Random Glucose Lactic Acid F/U @ 2Hr Calcium Magnesium Vitamin B12 TSH 04/07/22 04/07/22 04/07/22 16:22 19:20 21:40 Sodium Potassium Chloride Carbon Dioxide Anion Gap BUN Creatinine Estim Creat Clear Calc Estimated GFR POC Glucose 174 H 66 104 Random Glucose Lactic Acid F/U @ 2Hr Calcium Magnesium Vitamin B12 TSH 04/07/22 04/07/22 04/08/22 22:33 22:56 01:13 Sodium 141 Potassium 3.3 D Chloride 103 Carbon Dioxide 28 Anion Gap 13 BUN 14 Creatinine 0.97 Estim Creat Clear Calc 75.4 Estimated GFR > 60 POC Glucose 79 55 L* Random Glucose 80 D Lactic Acid F/U @ 2Hr Calcium 9.2 Magnesium 1.6 Vitamin B12 TSH 04/08/22 04/08/22 04/08/22 03:19 06:00 06:06 Sodium 141 Potassium 3.3 Chloride 102 Carbon Dioxide 27 Anion Gap 15 BUN 13 Creatinine 0.93 Estim Creat Clear Calc 78.6 Estimated GFR > 60 POC Glucose 90 59 L* Random Glucose 63 Lactic Acid F/U @ 2Hr Calcium 9.0 Magnesium 1.5 L Vitamin B12 TSH 0.93 04/08/22 07:33 Sodium Potassium Chloride Carbon Dioxide Anion Gap BUN Creatinine Estim Creat Clear Calc Estimated GFR POC Glucose 132 H Random Glucose Lactic Acid F/U @ 2Hr Calcium Magnesium Vitamin B12 TSH ECG Interpretation: EKG from last night shows sinus rhythm with bigeminal pattern. Right bundle mo rphology PVCs. Automated QTC calculation is very high but difficult to accurately calculate as there is bigeminy. In the earlier EKG, QTC was 549 Assessment and Plan (1) Polymorphic ventricular tachycardia: Status: Acute (2) Prolonged QT interval: Status: Acute (3) Opioid dependence: Status: Acute (4) Altered mental status: Status: Acute (5) Cirrhosis: Status: Acute (6) Hypomagnesemia: Status: Acute (7) Hypokalemia: Status: Acute Plan Telemetry strips reviewed and clearly suggestive of polymorphic ventricular tachycardia. He has prolonged QT interval. There is evidence of hypo magnesemia as well as hypokalemia. At this time, he is back in sinus rhythm. Recommend stopping methadone. Aggressively correct the potassium and magnesium. Potassium should at least be over 4 and magnesium over 2. Avoid all QT pr olonging drugs. Ideally, will need cardiac catheterization for ischemia assessment but his mental status as well as cirrhosis will be an issue. Will see if he improves or not. Discussed with Dr. Vieira. Procedures Date of Service Date of Service: 04/08/22
[2022-04-08 10:15] LABS: Glucose, Whole Blood 85 mg/dL (60-115)
--- NOTE | 2022-04-08 11:04 | P.PNIM_ITS ---
Subjective Subjective Date of Service: 04/08/22 Interval History: Patient remain confused agitated at time and had incidents of Tors[place] overnight but appear to be assymptomatic and may have been related to electrolytes, and magnesium which are been corrected Review of Systems agitated and confusion Physical Exam Vital Signs: Vital Signs: Last Vital Signs Temp 98.1 F 04/08/22 08:00 Pulse 72 04/08/22 08:00 Resp 20 04/08/22 08:00 BP 147/88 H 04/08/22 08:00 Pulse Ox 97 04/08/22 08:00 O2 Del Method 04/08/22 08:00 BMI result Body Mass Index 25.8 Const: Other: General: AO X, no acute distress Resp: CTA bilateral CVS: S1,S2,RRR GI: +BS, NT, no distention Skin: No rash Neuro: motor grossly intact Psych: appropriate affect Objective Data Active Medications Acetaminophen (Acetaminophen 325 Mg Tablet) 650 mg PO Q6H PRN PRN Reason: Pain, Mild (Pain Scale 1-3) Dextrose (Dextrose 50 % 25 Gm/50 Ml Syringe) 25 gm IVPUSH Q15M PRN; Protocol PRN Reason: per Hypoglycemia Standing Ord. Last Admin: 04/08/22 06:20 Dose: 25 gm Documented By: ANTOIC Glucose (Glucose Gel 15 Gm Gel..Gram.) 15 gm PO Q15M PRN; Protocol PRN Reason: per Hypoglycemia Standing Ord. Last Admin: 04/07/22 10:59 Dose: 15 gm Documented By: RENE Thiamine HCl 100 mg/ Sodium (Chloride) 101 mls @ 202 mls/hr IV DAILY [facility] Last Infusion: 04/07/22 12:18 Dose: 0 mls/hr Documented By: LULU Ceftriaxone Sodium 1 gm/ (Sodium Chloride) 50 mls @ 100 mls/hr IV Q24H [facility] Last Infusion: 04/08/22 01:14 Dose: 0 mls/hr Documented By: LAYNE Dextrose (D5w) 1,000 mls @ 50 mls/hr IVCONT .Q20H [facility] Lactulose (Lactulose 20 Gm/30 Ml Solution) 30 gm PO TID [facility] Last Admin: 04/08/22 08:23 Dose: Not Given Documented By: RYLAN Non-Admin Reason: Patient Refused Melatonin (Melatonin 3 Mg Tablet) 6 mg PO BEDTIME PRN PRN Reason: Insomnia Midazolam HCl (Midazolam Hcl/Pf 2 Mg/2 Ml Vial) 0.75 mg IVPUSH Q4H PRN PRN Reason: anxiety Pharmacy Consult (Consult Rx Perform Med Rec) 1 each MISCELLANE ONCE PRN PRN Reason: Consult order Sodium Chloride (0.9 % Sodium Chloride Flush 3 Ml Syringe) [address] [facility] Last Admin: 04/08/22 08:23 Dose: 3 ml Documented By: RYLAN Labs CBC & Chem 7: 04/07/22 04:52 04/08/22 06:00 Labs: Laboratory Results - last 24 hr 04/06/22 04/07/22 04/07/22 19:30 10:50 11:26 Anion Gap Estim Creat Clear Calc Estimated GFR POC Glucose 51 L* 98 Random Glucose Calcium Magnesium Vitamin B12 > 2000 H TSH 04/07/22 04/07/22 04/07/22 14:30 15:46 16:22 Anion Gap Estim Creat Clear Calc Estimated GFR POC Glucose 89 68 174 H Random Glucose Calcium Magnesium Vitamin B12 TSH 04/07/22 04/07/22 04/07/22 19:20 21:40 22:33 Anion Gap Estim Creat Clear Calc Estimated GFR POC Glucose 66 104 79 Random Glucose Calcium Magnesium Vitamin B12 TSH 04/07/22 04/08/22 04/08/22 22:56 01:13 03:19 Anion Gap 13 Estim Creat Clear Calc 75.4 Estimated GFR > 60 POC Glucose 55 L* 90 Random Glucose 80 D Calcium 9.2 Magnesium 1.6 Vitamin B12 TSH 04/08/22 04/08/22 04/08/22 06:00 06:06 07:33 Anion Gap 15 Estim Creat Clear Calc 78.6 Estimated GFR > 60 POC Glucose 59 L* 132 H Random Glucose 63 Calcium 9.0 Magnesium 1.5 L Vitamin B12 TSH 0.93 04/08/22 10:12 Anion Gap Estim Creat Clear Calc Estimated GFR POC Glucose 85 Random Glucose Calcium Magnesium Vitamin B12 TSH Microbiology Microbiology Results: Microbiology 04/06/22 21:43 Blood Culture - Preliminary Blood - Venous No growth after 24 hours. 04/06/22 21:43 Blood Culture - Preliminary Blood - Venous No growth after 24 hours. Assessment and Plan Plan ?61-year-old male with opioid use disorder, decompensated cirrhosis with recent SBP, essential hypertension, right-sided heart failure who was brought to the emergency department for evaluation of altered mental status. #. Ventriculary Arrythmia ([place])--likely related to hypomagnesemia, hypOkalemia and prolonged QT -Correct K and mag aggresively -hold Methadone as can prolong QT -avoid Psychotropics and other agents that can prolong QT #.? Acute toxic/metabolic encephalopathy -unclear etiology. CT head without acute abnormality.? Although ammonia levels are normal, does not exclude hepatic encephalopathy in a patient with de compensated cirrhosis.? Patient does have moderate to large amount of stool in the colon and therefore unclear if patient was adequately taking his lactulose. Re-initiate lactulose, stimulant laxative and monitor mentation.? Patient was discharged on diuretics and ?dehydration could be contributing to his encephalopathy.? Received IV fluids in the ER, monitor mentation with IV fluid resuscitation. Does have a history of opiate disorder although urine drug screen is negative. ? Obtaining TSH and B12 to complete workup. No concern for infection, defer LP and consider if mentation doesnt improve. #.? Decompensated cirrhosis -holding diuretics.? Has history of recent SBP with need for daily SBP secondary prophylaxis.? Will convert home p.o. Cipro to IV ceftriaxone while in the hospital. #.? Right-sided heart failure -holding diuretics.? Restart as appropriate #.? Chronic anemia -noted on previous admissions with plans for outpatient EGD.? Currently hemoglobin above transfusion threshold #.? Thrombocytopenia -likely due to cirrhosis #.? Lactic acidosis -typeA with deterioration of hepatocyte function and cirrhosis leading to decreased hepatic lactate disposal #.? Opioid use disorder -not currently on methadone as per .? Unclear last opioid use. #.? Metabolic alkalosis -likely due to diuretic use #.? Hypercalcemia -likely due to intravascular volume depletion DVT prophylaxis:? Mechanical as patient is coagulopathic and thrombocytopenic Diet:? NPO due to poor mentation Full code Patient will require two night minimum hospital stay for evaluation and management of acute encephalopathy. Quality Stroke Does the patient have a stroke diagnosis?: No VTE Prior VTE?: No VTE Risk Level:: Medical - moderate - high VTE Device Contraindication: Treatment Not Indicated VTE Drug Contraindication: Treatment Not Indicated
--- NOTE | 2022-04-08 11:23 | MHC.CM.PN ---
Per ROUNDS discussion, Patient is here with AMS/Confusion and MD is working on correcting electrolytes. Patient is not yet medically cleared for dc;home is the goal. CM will follow.
[2022-04-08 12:00] VITALS: BP 141/68; PULSE 74; RESP 20; TEMP 37.2; O2SAT 98
[2022-04-08 12:05] LABS: Glucose, Whole Blood 65 mg/dL (60-115)
--- NOTE | 2022-04-08 12:11 | MHC.RECOVSUP ---
Recovery Support note: Patient is a 61 year old male in [address] [place] [address]. This food writer spoke with methadone clinic to verify patient's last methadone dose. Patient discharged AMA on 04/05 and represented on 04/06. Mar at [facility] [place] reports they last saw patient in person on 03/28 and he received 65mg at 944. Patient was given 6 take home bottles to last until 04/03. Patient was in the hospital from 03/30- 04/05 and last received 65mg in the hospital on 04/05 at 838. Patient likely still has take home bottles. Patient is known to this food writer and in the past he has brought methadone bottles to the hospital and has medicated with them without alerting staff. Patient reports he does not want his to know he is on methadone. Methadone is currently being held however verification form will be sent to pharmacy so it can be restarted if and when it is appropriate. Recovery Support Team available as needed.
[2022-04-08 12:40] LABS: Glucose, Whole Blood 172 mg/dL (60-115)
--- NOTE | 2022-04-08 12:44 | PC.NURSE ---
pt's blood sugar was 85 at 1012, MD notified. Pt's sugar at 1202 was 65, MD notified. PRN D50 was given. At 1237, pt's blood sugar was 172. MD aware.
[2022-04-08] MEDS: Midazolam HCl/PF 2 MG/2 ML VIAL 0.75 MG IVPUSH ×2 (13:11→14:44)
[2022-04-08 13:15] LABS: Alanine Aminotransferase 26 U/L (0-40); Albumin Level 2.9 g/dL (3.5-5.0); Alkaline Phosphatase 99 U/L (39-117); Aspartate Amino Transferase 68 U/L (5-37); Bilirubin Direct 2.7 mg/dL (0.0-0.5); Bilirubin Total 8.2 mg/dL (0.0-1.0); Total Protein 7.1 g/dL (6.5-8.0)
--- NOTE | 2022-04-08 13:18 | HE.PHANOTE ---
Methadone Verification Form Pharmacy has recieved the methadone from nursing. Patient recieved methadone 65 mg from [facility]. Confirmed with amarilys. Juliana Espinoza, [employer]
--- NOTE | 2022-04-08 13:54 | PM.DS ---
DS: Providers Provider Date of Service: 04/08/22 Date of admission: 04/07/22 02:27 Primary care physician: [facility] Consults: 04/07/22 23:02 Consult to Cardiology Routine Consulting Provider: Danis Franks Reason for consultation: torsades,prolonged QT Has provider been notified: No DS: Diagnosis Discharge Diagnosis (1) Prolonged QT interval: Status: Resolved (2) Altered mental status: Status: Acute (3) Hypomagnesemia: Status: Resolved (4) Hypokalemia: Status: Resolved DS: Summary Hospital Course Hospital Course: Chief Complaint: Altered mental status This is a 61-year-old male with opioid use disorder, decompensated cirrhosis with recent SBP, essential hypertension, right-sided heart failure who was brought to the emergency department for evaluation of altered mental status.? History obtained by medical records as no family at bedside.? Patient was moaning, agitated when he was 1st brought to the ER.? Not responding to any questioning even in [place].? According to paramedics, patient's found patient to be naked and confused when she came home.? Patient was confused and not making any sense.? He was moaning and swearing in [place] which is unusual for him.? Patient was recently hospitalized with syncope and decompensated right heart failure and discharged on 04/05. In the ER, patient was very restless and agitated.? He was given ketamine, Haldol, Zyprexa, diphenhydramine, midazolam prior to my evaluation.? At the time of my evaluation, patient is extremely drowsy and minimally responsive to verbal stimulus although withdraws to painful stimulus. Hospital course: Patient has history of underlying cirrhosis of the liver with prior history of SBP and has been on supressive Abx with Cipro, additional suffers from HTN, opioid dependence on Methadone 65 mg daily, right sided heart failure. He was recently admitted to [facility] on 03/31 with initialy presentation of Syncope with no clear cause and at that time was also treated for right heart failure and was on Lasix drip and ended singning out AMA on 04/05. He pesented back just 2 days later with confusion and apparent encephalopathy, possibly hepatic encephalopathy despite ammonia level being normal at 50, he was been treated with Lactulose and seemed to be responding to treatment. He had episodes of polymorphic ventricualry fibrilation appearance consistent with Torsade but was conscious at that time. Labs did reveal low magnesium of 1.6 and potassium of 3.3 at that time. He received addtional potassium and magnesium. His QTc have prolonged to over 600. It is of note that he is on Methadone and received Haldol in ED due to agitaton and later Zyprexa. He had 2 seperate incidents of Torsades. He was evaluated by Dr. Franks from cardiology with the following remarks Telemetry strips reviewed and clearly suggestive of polymorphic ventricular tachycardia.? He has prolonged QT interval.? There is evidence of hypo magnesemia as well as hypokalemia.? At this time, he is back in sinus rhythm.? Recommend stopping methadone.? Aggressively correct the potassium and magnesium.? Potassium should at least be over 4 and magnesium over 2.? Avoid all QT prolonging drugs. Ideally, will need cardiac catheterization for ischemia assessment but his mental status as well as cirrhosis will be an issue.? Dr. Franks discussed the case with Dr. Lindsay who has accepted the patient to PCU. He is intermittently confused and can become aggresive and seemed to have responded well to valium IV 5 mg or alternatively Midazolam. His confusion likely from substance use, hepatic encephalopathy. He has no fever or chills, and no symptoms suggestive of SBP. Cipro has been discontined for SBP prophylaxis and should be replaced with Ceftin 500 mg daily discharge. Consult addition service if available for replacement of Methadone due to tendency to prolong QTc. His last potassium was 3.3 today and has been given IV and oral potassium, magnesium was 1.5 and given 4 gram. He is refusing repeat lab draw right before transfer. Here is one of the strips Time Spent with Patient Time attestation: Total time spent providing and/or coordinating discharge services: Discharge coordination time: Greater than 30 minutes Quality: Safe Use of Opioids Does Pt have an Active Cancer Diagnosis on the Problem List?: No Quality: Stroke Does the patient have a stroke diagnosis?: No Physical Exam Vital Signs: Vital Signs: Last Vital Signs Temp 98.9 F 04/08/22 12:00 Pulse 74 04/08/22 12:00 Resp 20 04/08/22 12:00 BP 141/68 H 04/08/22 12:00 Pulse Ox 98 04/08/22 12:00 O2 Del Method 04/08/22 12:00 BMI result Body Mass Index 25.8 Const: Other: General: AO X 3 at this time, thought it was the 13th, no acute distress Resp: CTA bilateral CVS: S1,S2,RRR GI: +BS, NT, no distention Skin: No rash Neuro: motor grossly intact Psych: appropriate affect DS: Data Data Completed and Pending Completed studies during hospitalization [Text1]: Procedures Drainage of Peritoneal Cavity, Percutaneous Approach (03/15/22) Labs on day of discharge: Laboratory Results - last 24 hr 04/07/22 04/07/22 04/07/22 14:30 15:46 16:22 Sodium Potassium Chloride Carbon Dioxide Anion Gap BUN Creatinine Estim Creat Clear Calc Estimated GFR POC Glucose 89 68 174 H Random Glucose Calcium Magnesium Total Bilirubin Direct Bilirubin AST ALT Alkaline Phosphatase Total Protein Albumin TSH 04/07/22 04/07/22 04/07/22 19:20 21:40 22:33 Sodium Potassium Chloride Carbon Dioxide Anion Gap BUN Creatinine Estim Creat Clear Calc Estimated GFR POC Glucose 66 104 79 Random Glucose Calcium Magnesium Total Bilirubin Direct Bilirubin AST ALT Alkaline Phosphatase Total Protein Albumin TSH 04/07/22 04/08/22 04/08/22 22:56 01:13 03:19 Sodium 141 Potassium 3.3 D Chloride 103 Carbon Dioxide 28 Anion Gap 13 BUN 14 Creatinine 0.97 Estim Creat Clear Calc 75.4 Estimated GFR > 60 POC Glucose 55 L* 90 Random Glucose 80 D Calcium 9.2 Magnesium 1.6 Total Bilirubin Direct Bilirubin AST ALT Alkaline Phosphatase Total Protein Albumin TSH 04/08/22 04/08/22 04/08/22 06:00 06:06 07:33 Sodium 141 Potassium 3.3 Chloride 102 Carbon Dioxide 27 Anion Gap 15 BUN 13 Creatinine 0.93 Estim Creat Clear Calc 78.6 Estimated GFR > 60 POC Glucose 59 L* 132 H Random Glucose 63 Calcium 9.0 Magnesium 1.5 L Total Bilirubin 8.2 H Direct Bilirubin 2.7 H AST 68 H ALT 26 Alkaline Phosphatase 99 Total Protein 7.1 Albumin 2.9 L TSH 0.93 04/08/22 04/08/22 04/08/22 10:12 12:02 12:37 Sodium Potassium Chloride Carbon Dioxide Anion Gap BUN Creatinine Estim Creat Clear Calc Estimated GFR POC Glucose 85 65 172 H Random Glucose Calcium Magnesium Total Bilirubin Direct Bilirubin AST ALT Alkaline Phosphatase Total Protein Albumin TSH Preliminary micro results at discharge 04/06/22 21:43 Blood Culture - Preliminary Blood - Venous No growth after 24 hours. 04/06/22 21:43 Blood Culture - Preliminary Blood - Venous No growth after 24 hours. Discharge Plan Discharge Anticipated Discharge Date/Time: 04/08/22 13:47 Patient Disposition: Xfer Acute Care Hospital Discharge Diagnosis: Polymorphic ventricular tachycardia Referrals: [place], [facility] [Primary Care Provider] - 1 Week Discharge Medications: New potassium chloride in 5 % dex 20 mEq/L Parenteral Solution 20 meq continuous IV infusion .Q10H Qty: 1 0RF Continued omeprazole 40 mg Capsule,Delayed Release(Dr/Ec) 40 mg PO BID@0630,1630 30 Days Qty: 60 0RF spironolactone 25 mg Tablet 50 mg PO DAILY 30 Days Qty: 60 2RF Protocol: Hold for SBP< HOLD for SBP < : 90 ferrous sulfate 324 mg (65 mg iron) tablet,delayed release (DR/EC) 324 mg PO DAILY Qty: 30 0RF furosemide 40 mg tablet 60 mg PO DAILY 30 Days Qty: 45 0RF magnesium oxide 400 mg magnesium capsule 400 mg PO BID Qty: 60 1RF Discontinued methadone [Methadone Intensol] 10 mg/mL Concentrate 65 mg PO DAILY Rx Instructions: confirmed with clinic ciprofloxacin HCl 500 mg tablet 500 mg PO DAILY Discharge Orders: Discharge Order (Routine); Ordered 04/08/22 Ordered By: Fausto Vieira Diet: Advance to usual diet Activity on Discharge: As tolerated Stand Alone Forms: Patient Portal Discharge page Care Plan Goals: Transfer to [facility] to be evaluated for Polymorphic ventricular tachycardia Health Concerns: Ventricular tachycardia Cirrhosis right heart failure Opioid use desorder Plan of Treatment: Transfer to [facility] for fruther monitoring and evaluation for ventricular tachycardia Assessment: As above Discharge Date/Time: 04/08/22 15:05
[2022-04-08 14:23] LABS: Glucose, Whole Blood 112 mg/dL (60-115)
[2022-04-08] MEDS: KCl 20 mEq in 5 % Dextrose 20 MEQ/1,000 ML IV.SOLN 100 MEQ IVCONT (15:00)
[2022-04-12 16:37] LABS: Haptoglobin <8 mg/dL (43-212)
== END 2022-04-08 15:05 | disposition short-term general hospital (02) | DRG 280 ==
LOC: HO.ED 04-07 01:50 → HO.EDOVER 04-07 02:46 → HO.IMC 04-07 11:20
PROVIDERS: Emergency Medicine Emergency Medical Services; Admitting Provider Student in an Organized Health Care Education/Training Program; Emergency Provider Internal Medicine; Visit Provider Internal Medicine
DX: K70.30 Alcoholic cirrhosis of liver without ascites (principal); G92.8 Other toxic encephalopathy; I47.21 Torsades de pointes; E87.3 Alkalosis; E87.20 Acidosis, unspecified; I50.812 Chronic right heart failure; I11.0 Hypertensive heart disease with heart failure; K76.82 Hepatic encephalopathy; E87.6 Hypokalemia; D69.59 Other secondary thrombocytopenia; D64.9 Anemia, unspecified; E83.52 Hypercalcemia; F11.20 Opioid dependence, uncomplicated; Z20.822 Contact with and (suspected) exposure to COVID-19; Z87.891 Personal history of nicotine dependence; Z88.5 Allergy status to narcotic agent; Z79.899 Other long term (current) drug therapy
CPT/HCPCS: 36415; 70450; 71250; 74176; 80048; 80053; 80076; 80307; 81003; 82040; 82077; 82140; 82247; 82248; 82607; 82803; 82947; 83010; 83036; 83605; 83615; 83690; 83735; 84075; 84155; 84443; 84450; 84484; 85025; 85610; 85730; 87040; 87502; 87635; 93005; 99285; C1758; J0696; J1200; J2250; J3360; J3411; J3475

== ENCOUNTER → 2022-05-23 14:06 | Outpatient (BNVA) | payer MEDICAID, SELFPAY | PROVIDERS: PCP Internal Medicine Geriatric Medicine; Referring Provider Internal Medicine Geriatric Medicine; Visit Provider Internal Medicine Gastroenterology | DX: K74.60 Unspecified cirrhosis of liver (principal); I50.811 Acute right heart failure | CPT/HCPCS: 99212 ==

== ENCOUNTER 2022-06-23 13:54 | Outpatient (REF) | payer MEDICAID, SELFPAY ==
[2022-06-23 15:48] LABS: MANUAL DIFF FLAG NO
[2022-06-23 16:01] LABS: Basophils Percent Auto 0.4 % (0-2); Eosinophils Absolute Auto 0.1 X10*3/uL (0.0-0.4); Hematocrit 32.9 % (42.0-52.0); Imm Gran Abs Auto 0.03 X10*3/uL (0.00-0.03); Imm Gran Pct Auto 0.4 % (0.0-0.4); Lymphocytes Percent Auto 28.8 % (20-40); Mean Corpuscular HGB Conc 33.4 g/dl (31.0-36.0); Mean Corpuscular Hemoglobin 31.3 pg (27.0-33.0); Mean Corpuscular Volume 93.7 fL (80.0-98.0); Mean Platelet Volume 12.3 fL (9.4-12.4); Monocytes Absolute Auto 0.9 X10*3/uL (0.1-1.2); Monocytes Percent Auto 12.8 % (2-11); Neutrophils Absolute Auto 3.9 x10*3/uL (2.0-8.3); Neutrophils Percent Auto 55.6 % (45-73); Red Blood Count 3.51 X10*6/uL (4.60-5.80); Red Cell Distribution Width 15.8 % (11.0-16.0)
[2022-06-23 16:04] LABS: Platelet Count 70 X10*3/uL (160-400)
[2022-06-23 16:06] LABS: INTERNATIONAL NORM RATIO 2.2 (0.9-1.1); Prothrombin Time 25.9 SEC (10.0-13.1)
[2022-06-23 16:42] LABS: Alanine Aminotransferase 30 U/L (0-40); Albumin Level 2.6 g/dL (3.5-5.0); Alkaline Phosphatase 306 U/L (39-117); Anion Gap 8 (12-20); Aspartate Amino Transferase 48 U/L (5-37); B Type Natriuretic Peptide 83 pg/mL (<100); Bilirubin Total 5.4 mg/dL (0.0-1.0); Blood Urea Nitrogen 9 mg/dL (9-16); Calcium 9.1 mg/dL (8.4-10.2); Carbon Dioxide 28 mmol/L (22-29); Chloride 104 mmol/L (96-108); Estimated Glomerular Filt Rate > 60; Glucose Random 95 mg/dL (60-115); Iron 152 mcg/dL (45-160); Magnesium 1.7 mg/dL (1.6-2.6); Percent Iron Saturation 86 % (15-50); Potassium 3.8 mmol/L (3.3-5.1); Sodium 136 mmol/L (135-145); Total Iron Binding Capacity 177 mcg/dL (228-428); Total Protein 7.1 g/dL (6.5-8.0); Unsaturated Iron Binding < 25 ug/dL
[2022-06-23 17:14] LABS: Folate 15.2 ng/mL (> or = 4.0); Vitamin B12 1741 pg/mL (200-900)
[2022-06-25 13:54] LABS: Alpha 1 Anti-trypsin 117 mg/dL (83-199)
[2022-06-28 13:33] LABS: Zinc 22 mcg/dL (60-130)
[2022-06-28 15:48] LABS: Vitamin B1 17 nmol/L (8-30)
[2022-06-28 18:33] LABS: Vitamin C 1.3 mg/dL (0.2-2.1)
[2022-06-29 19:24] LABS: Vitamin A 14 mcg/dL (38-98)
[2022-06-29 19:27] LABS: Alpha-Tocopherol 6.3 mg/L (5.7-19.9); Beta-Gamma Tocopherol 2.4 mg/L (<=4.3)
[2022-06-29 21:58] LABS: Vitamin B5 (Pantothenic Acid) <40 ng/mL (<275)
[2022-06-30 11:13] LABS: Nicotinamide 20 ng/mL; Vit B3 - Nicotinic Acid <20 ng/mL
[2022-06-30 17:34] LABS: Gliadin Deamidated IgA Ab 2.3 U/mL; Gliadin Deamidated IgG Ab <1.0 U/mL
[2022-07-03 23:44] LABS: Vitamin K1 >2500 pg/mL (130-1500)
== END 2022-06-23 13:55 | disposition home or self-care (01) ==
LOC: HO.LAB 13:54
PROVIDERS: Absent Provider Internal Medicine Gastroenterology; PCP Internal Medicine Geriatric Medicine; Visit Provider Nurse Practitioner Family
DX: I50.811 Acute right heart failure (principal); I47.29 Other ventricular tachycardia; R94.31 Abnormal electrocardiogram [ECG] [EKG]; K74.60 Unspecified cirrhosis of liver; K75.81 Nonalcoholic steatohepatitis (NASH); E83.42 Hypomagnesemia; E87.6 Hypokalemia
CPT/HCPCS: 36415; 80053; 82103; 82180; 82306; 82607; 82746; 83540; 83735; 83880; 84207; 84425; 84446; 84590; 84591; 84597; 84630; 85025; 85610; 86258; 93005; 99212

== ENCOUNTER 2022-09-27 13:50 | Inpatient (IN) | payer MEDICAID, SELFPAY ==
[2022-09-27] VITALS (7 sets, daily range): BP systolic 110–162; BP diastolic 49–88; PULSE 53–59; RESP 12–18; TEMP 36.7–37.1; O2SAT 96–100; BMI 25.6
--- NOTE | ~2022-09-27 | CT_ITS ---
EXAMINATION: CT HEAD WITHOUT CONTRAST (STROKE PROTOCOL) CLINICAL INFORMATION: Stroke protocol. Left facial droop, left arm and leg weakness. COMPARISON: CT had noncontrast 04/06/2022. TECHNIQUE: Contiguous axial imaging was performed from the skull base to vertex without intravenous administration of contrast. Additional 2-D coronal and sagittal reformatted images are generated on the CT workstation and uploaded to PACS. This CT examination was performed using dose optimization techniques as appropriate, variously including the following: *Automated exposure control *Adjustment of mA and/or kV according to patient size (this includes techniques or standardized protocols for targeted exams where dose is matched to indication/reason for exam; i.e. extremities or head) *Use of iterative reconstruction technique DLP: 676 mGy-cm FINDINGS: There is no intracranial hemorrhage, hematoma, or extra-axial fluid collection. The ventricles are normal in size. There is no hydrocephalus, edema, or mass effect. The montalvo-white matter differentiation appears similar to prior exam. Again, there are scattered periventricular white matter gliosis consistent with chronic small vessel ischemic changes similar to prior study. There is no visible acute territorial infarct or mass lesion. There is subtle increased attenuation involving the right M1 artery better appreciated on thin section images. This could be related to atherosclerotic change although partial acute thrombus cannot be excluded. Recommend correlation with CTA head and neck. The calvarium appears intact. There is no pneumocephalus or orbital emphysema. The visualized sinuses and middle ears and mastoid air cells show no significant mucosal thickening. There are no air-fluid levels. Results called and discussed with Dr. Jean in the emergency department at [address]/CT head for stroke IMPRESSION: -Subtle increased attenuation right M1 artery. This could be related to atherosclerotic change although partial acute thrombus cannot be excluded. Recommend correlation with CTA head and neck. -No intracranial hemorrhage, hydrocephalus, or mass effect.
--- NOTE | ~2022-09-27 | XR_ITS ---
EXAMINATION: XR CHEST CLINICAL INFORMATION: Concern for pneumonia COMPARISON: Chest x-ray 03/31/2022 TECHNIQUE: Frontal portable view of the chest was obtained. 3:56 PM FINDINGS: No significant abnormality is noted involving the heart, lungs, mediastinum, bony thorax or soft tissues. XR/XR chest 1V IMPRESSION: Unremarkable examination.
--- NOTE | ~2022-09-27 | MR_ITS ---
MRI OF THE BRAIN WITHOUT IV CONTRAST INDICATION: CVA. COMPARISON: Head and neck CT 09/27/2022. TECHNIQUE: Multiplanar multisequence MR imaging of the brain was obtained without IV contrast. FINDINGS: As suspected on yesterday's CTA, there is an acute right-sided striatocapsular infarct. There is no mass effect and there is no hemorrhagic transformation. There is global cerebral volume loss and there is moderate to severe chronic microangiopathy. There is no hydrocephalus, extra-axial surface collection, or herniation. The major flow voids at the skull base are preserved. There is no intracranial hemorrhage on the gradient recalled echo acquisition. 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 The cerebellar tonsils are normally positioned. The cerebellum and brainstem are normal. The craniocervical junction is normal. Osseous marrow signal intensity is homogenous. The visualized soft tissues are unremarkable. MR/MR head/brain wo con IMPRESSION: - As suspected on yesterday's CTA, there is an acute right-sided striatocapsular infarct. There is no mass effect and there is no hemorrhagic transformation. - There is global cerebral volume loss and there is moderate to severe chronic microangiopathy. 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
--- NOTE | ~2022-09-27 | CT_ITS ---
CT ANGIOGRAM NECK WITH CONTRAST CT ANGIOGRAM BRAIN WITH CONTRAST CLINICAL INFORMATION: Left facial, arm, and leg weakness. COMPARISON: Head CT 09/27/[address] 04/06/2022.. TECHNIQUE: Test bolus sequences followed by intravenous administration 70 mL of Omnipaque 350. Helical imaging was performed in the axial plane from the thoracic inlet to the skull vertex. Delayed postcontrast imaging of the head was also performed. The data was processed at the product/device technologist workstation for generation of MIP sequences. Angled MIPs and volume rendered reformatted images were also generated at an offline 3D workstation under concurrent supervision. Stenoses are assessed in accordance with NASCET criteria unless otherwise indicated. This CT examination was performed using dose optimization techniques as appropriate, variously including the following: *Automated exposure control *Adjustment of mA and/or kV according to patient size (this includes techniques or standardized protocols for targeted exams where dose is matched to indication/reason for exam; i.e. extremities or head) *Use of iterative reconstruction technique FINDINGS: BRAIN: There is a new focus of low-attenuation extending from the genu of the right internal capsule and right caudate into the right putamen posteriorly suspicious for an acute to subacute infarct given the clinical history that would be better assessed with a MRI of the brain. [There is no intracranial hemorrhage, hydrocephalus, extra-axial surface collection, midline shift, or other herniation pattern. Rodriguez to white matter differentiation is diffusely maintained without evidence of an evolved acute territorial infarct. The basilar cisterns are preserved. No significant soft tissue abnormality. No acute osseous abnormality. The paranasal sinuses and the mastoid air cells are well aerated.] CERVICAL SOFT TISSUES AND LUNG APICES: There is advanced cervical spondylosis. NECK CTA: [There is a classic 3 vessel configuration of the aortic arch. Proximal arch vessels are non-stenotic. The right vertebral artery is dominant. No significant ostial stenosis is visualized on either side. Both vertebral arteries are widely patent throughout their extracranial cervical course. Both common carotid arteries are normal in course and caliber.] Calcific and lipid rich atherosclerotic plaque results in less than 50% stenoses of the proximal internal carotid arteries bilaterally. BRAIN CTA: -type ANIMAL CARE PROVIDER on the right side. No focal flow-limiting stenosis nor discrete proximal large artery occlusion. No aneurysm. Timing of the contrast bolus allows assessment of the major dural venous sinuses, which all opacify normally] CT/CT angio head neck stroke IMPRESSION: - There is a new focus of low-attenuation extending from the genu of the right internal capsule and right caudate into the right putamen posteriorly suspicious for an acute to subacute right striatocapsular infarct given the clinical history that would be better assessed with a MRI of the brain. - Extensive hypoattenuation throughout the supratentorial white matter remains nonspecific and can also be further assessed with a brain MRI with and without IV contrast if not contraindicated. - No significant arterial stenoses in no acute arterial occlusions within the head or neck. Covering provider paged with these findings at 2:35 PM on 09/27/2022. Findings discussed with Sami Jean MD at 2:38 PM on 09/27/2022.
--- NOTE | 2022-09-27 13:54 | ECG_ITS ---
Test Reason : STROKE SYMPTOMS Blood Pressure : / mmHG Vent. Rate : 059 BPM Atrial Rate : 059 BPM P-R Int : 172 ms QRS Dur : 084 ms QT Int : 488 ms P-R-T Axes : 053 023 040 degrees QTc Int : 483 ms Sinus bradycardia Otherwise normal ECG When compared to the previous EKG of No significant changes seen Referred By: Sami Jean Electronically Signed By:Keo Canseco
--- NOTE | 2022-09-27 13:59 | ED_ITS ---
HPI - Neuro Symptoms/Deficit General Chief Complaint: Stroke Stated Complaint: ?CVA,LKWT 1900 T-1,L DROOP & DRIFT PER EMS Time Seen by Provider: 09/27/22 13:53 Source: patient and EMS Limitations: language barrier History of Present Illness HPI Narrative: 61-year-old male brought to the emergency department for evaluation of left- sided weakness, stroke alert. Patient is Moh[place]-speaking only and a microelectronics technician was used. The patient's last well-known time around 19:00 hours. He states that time he was feeling dizzy any lie down. He states that he woke up this morning at around 06:00 hours. He states that he was unable to stand secondary to weakness in his left leg. He states that his then went to work. The patient had an appointment with a pharmacist today and the pharmacist called as house to ask and if he was going to make the appointment. Apparently, the patient's speech was dysarthric and on comprehensible therefore the pharmacist called 911. When the paramedics arrived they noted that the patient had a left facial droop, left upper extremity and left lower extremity weakness. Patient also told me that he is having difficulty seeing and he is describing a visual field defect. He denied fever, chills, rhinorrhea, sore throat, cough, chest pain, shortness of breath, nausea, vomiting or diarrhea. Related Data Home Medications Medication Instructions Recorded Confirmed lactulose 10 gram/15 mL oral 45 ml PO BID 05/23/22 06/23/22 solution nadolol 20 mg tablet 20 mg PO DAILY blood pressure 05/23/22 06/23/22 naloxone 4 mg/actuation nasal 4 mg intranasal Q2M PRN 05/23/22 06/23/22 spray (Narcan) rifaximin 550 mg tablet (Xifaxan) 550 mg PO BID 05/23/22 06/23/22 Previous Rx's Medication Instructions Recorded ferrous sulfate 324 mg (65 mg 324 mg PO DAILY #30 tabs 03/19/22 iron) tablet,delayed release furosemide 40 mg tablet 60 mg PO DAILY 30 days #45 tabs 03/19/22 omeprazole 40 mg capsule,delayed 40 mg PO BID@0630,1630 30 days #60 03/19/22 release caps magnesium oxide 400 mg PO BID #60 caps 03/26/22 cholecalciferol (vitamin D3) 25 25 mcg PO DAILY #90 caps 06/24/22 mcg (1,000 unit) capsule zinc acetate 50 mg (zinc) capsule 50 mg PO DAILY #90 caps 06/29/22 (Galzin) vitamin A palmitate 3,000 mcg 10,000 unit PO DAILY #90 tabs 07/04/22 (10,000 unit) tablet spironolactone 50 mg tablet 50 mg PO DAILY #30 tabs 09/19/22 (Aldactone) Allergies Allergy/AdvReac Type Severity Reaction Status Date / Time tramadol [TRAMADOL] Allergy Unknown ANXIETY Verified 09/27/22 14:27 Review of Systems Review of Systems: Yes all other systems are reviewed and are negative [facility] Past Medical History [facility] Narrative: Social history: He lives with his . He denies tobacco, alcohol and drug use. Medical History Ascites Chronic anemia Cirrhosis Coagulopathy Decompensated hepatic cirrhosis Fluid overload Head injury Hypertension Opioid dependence Polymorphic ventricular tachycardia Right heart failure Syncope Surgical History History of appendectomy History of eye surgery Hx of colonoscopy Family History Family History Mother No problems noted. Father No problems noted. Other No family history of coronary artery disease Social History Social History Household Members: Spouse Housing: Apartment Do you presently have visiting nurse or other home services: No Alcohol intake: never Patient Tobacco Use Status: Former Tobacco user Smoked in Last 30 Days: No Use of substances other than those prescribed or required for medical reasons: No Substance Use Type: Former Substance User Advance Directives: Yes Advance Directives on File: Yes Advance Directives Date on File: 03/28/22 Nutrition Risks: No Nutritional Risk service: No Current occupational status: unemployed Physical Exam Vital Signs: Vital Signs: Last Vital Signs Temp 98.7 F 09/27/22 17:45 Pulse 56 09/27/22 17:45 Resp 12 09/27/22 17:45 BP 117/51 L 09/27/22 17:45 Pulse Ox 100 09/27/22 17:45 O2 Del Method Room Air 09/27/22 17:45 BMI result Body Mass Index 25.6 Const: Other: Awake, alert, male patient, patient has left facial droop, dysarthric speech and left upper and lower extremity weakness HEENT: Head: Yes normal to inspection, Yes normocephalic and Yes atraumatic Ears: external ears normal General nose exam: Normal external nose present Face and sinus: Yes normal facial exam Mouth: Normal oral and palatal mucosa present Throat: Yes posterior oropharynx normal Eyes: General: appearance normal, both eyes and all related structures Neck: Neck: Yes normal visual inspection, Yes no lymphadenopathy, Yes trachea midline and Yes supple Chest: Chest palpation & inspection: normal inspection of the chest and normal palpation of entire chest wall Resp: Effort & Inspection: normal respiratory effort and able to speak in complete sentences Auscultation: clear to auscultation bilaterally Cardio: Rate: regular rate Rhythm: regular rhythm Heart sounds: S1 normal heart sound present, S2 normal heart sound present and no murmurs GI: Inspection: Yes normal to inspection Palpation (GI): Soft to palpation, nontender and no guarding Auscultation: normal bowel sounds : General: Yes no CVA tenderness Back/Spine/Pelvis: Back: no CVA tenderness Skin: General skin exam: no rashes or lesions noted Neuro: Other: General: Awake, alert, oriented to person and place. Dysarthric speech. Cranial nerves 2-12 revealed left cranial nerve 7/facial droop, strength revealed minimal ability to lift his left arm up against gravity, minimal ability to lift the left leg up against gravity. Extrem: General: Yes normal to inspection Psych: Appearance: grossly normal Speech and movement: Normal speech and movement present Affect: normal affect Attitude: cooperative Medications Administered Discontinued Medications Generic Name Dose Route Start Last Admin Trade Name Freq PRN Reason Stop Dose Admin Aspirin 300 mg 09/27/22 16:39 09/27/22 17:27 Aspirin 300 Mg Supp.Rect SD 09/27/22 16:40 300 mg ONCE ONE Administration Iohexol 100 ml 09/27/22 14:26 09/27/22 14:27 Iohexol 350 Mg/Ml 100 Ml Infus..Btl IV 09/27/22 14:27 70 ml ONCE ONE Administration Medical Decision Making Medical Decision Making MDM Narrative: 61-year-old male who presents emergency department for for evaluation stroke with left facial droop, left upper and lower extremity weakness dysarthric speech. Patient's last well-known time was 19:00 hours, the patient woke up with his stroke symptoms. 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 NIH stroke scale was 9 1634: Laboratory evaluation: Anemia with an H&H of 12.6 and 37.6. Sodium low 133, glucose low 134. Bilirubin elevated 5.2, with direct bilirubin 1.5. AST elevated 47. Alk-phos elevated 208. CK elevated 212 CT scan of brain without IV contrast did not reveal acute stroke CT angiogram head and neck revealed no retrieval clot. Radiologist noted a new focus of low-attenuation extending from the genu of the right internal capsule and right caudate into the right putamen posteriorly suspicious for an acute to subacute right striatocapsular infarct. The patient was outside of the therapeutic window for tPA. The patient was unable to handle his secretions therefore I ordered rectal aspirin. I will discuss admission with the covering hospitalist. Differential Diagnosis Differential diagnosis includes was not limited to tumor with mass effect, hemorrhagic stroke, stroke Consult Healthcare Provider Management of the patient was discussed with: Hospitalist Lab Data [facility] Lab Attestation statement: I reviewed the patient's lab results. Please see [facility] 09/27/22 14:48 09/27/22 14:48 Labs: Lab Results 09/27/22 09/27/22 09/27/22 Range/Units 14:30 14:30 14:48 WBC 8.6 (4.8-10.8) X10*3/uL RBC 4.02 L (4.60-5.80) X10*6/uL Hgb 12.6 L (14.0-18.0) g/dl Hct 37.6 L (42.0-52.0) % MCV 93.5 (80.0-98.0) fL MCH 31.3 (27.0-33.0) pg MCHC 33.5 (31.0-36.0) g/dl RDW 15.9 (11.0-16.0) % Plt Count 107 L D (160-400) X10*3/uL MPV 13.0 H (9.4-12.4) fL Immature Gran % (Auto) 0.2 (0.0-0.4) % Neut % (Auto) 65.9 (45-73) % Lymph % (Auto) 23.4 (20-40) % [place] % (Auto) 8.1 (2-11) % Eos % (Auto) 1.8 (0-4) % Baso % (Auto) 0.6 (0-2) % Lymph # (Auto) 2.0 (1.2-4.9) X10*3/uL [place] # (Auto) 0.7 (0.1-1.2) X10*3/uL Eos # (Auto) 0.2 (0.0-0.4) X10*3/uL Baso # (Auto) 0.1 (0.0-0.2) X10*3/uL Abs Immat Gran (auto) 0.02 (0.00-0.03) X10*3/uL Absolute Neuts (auto) 5.6 (2.0-8.3) x10*3/uL Absolute Nucleated RBC 0.000 (0.0-0.012) X10*3/uL Nucleated RBC % (auto) 0.0 (0.0-0.2) /100WBC PT (10.0-13.1) SEC Whole Blood PT 20.3 H (11.1-13.5) sec INR (0.9-1.1) Whole Blood INR 1.7 H (0.9-1.1) APTT (26.0-36.4) SEC Sodium (135-145) mmol/L Potassium (3.3-5.1) mmol/L Chloride (96-108) mmol/L Carbon Dioxide (22-29) mmol/L Anion Gap (12-20) BUN (9-16) mg/dL Creatinine (0.5-1.4) mg/dL Estim Creat Clear Calc Estimated GFR POC Glucose 158 H (60-115) mg/dL Random Glucose (60-115) mg/dL Calcium (8.4-10.2) mg/dL Phosphorus (2.7-4.5) mg/dL Magnesium (1.6-2.6) mg/dL Total Bilirubin (0.0-1.0) mg/dL Direct Bilirubin (0.0-0.5) mg/dL AST (5-37) U/L ALT (0-40) U/L Alkaline Phosphatase (39-117) U/L Total Creatine Kinase (38-174) U/L Troponin I High Sens (<3.5-35.0) ng/L Total Protein (6.5-8.0) g/dL Albumin (3.5-5.0) g/dL Urine Color Urine Appearance Urine pH (5.0-9.0) Ur Specific [place] (1.005-1.025) Urine Protein (Neg-Trace) mg/dL Urine Glucose (UA) (Negative) mg/dL Urine Ketones (Negative) mg/dL Urine Blood (Negative) Urine Nitrite (Negative) Ur Leukocyte Esterase (Negative) Urine Opiates Screen (Not Detect) Urine Fentanyl Screen (Not Detect) Ur Barbiturates Screen (Not Detect) Ur Phencyclidine Scrn (Not Detect) Ur Amphetamines Screen (Not Detect) U Benzodiazepines Scrn (Not Detect) Urine Cocaine Screen (Not Detect) U Marijuana (THC) Screen (Not Detect) COVID-19 (SRIDEVI) (Negative) COVID-19 Clin Com Influenza Type A (NEERAJ) (Negative) Influenza Type B (NEERAJ) (Negative) Influenza A & B Note 09/27/22 09/27/22 09/27/22 Range/Units 14:48 14:48 14:48 WBC (4.8-10.8) X10*3/uL RBC (4.60-5.80) X10*6/uL Hgb (14.0-18.0) g/dl Hct (42.0-52.0) % MCV (80.0-98.0) fL MCH (27.0-33.0) pg MCHC (31.0-36.0) g/dl RDW (11.0-16.0) % Plt Count (160-400) X10*3/uL MPV (9.4-12.4) fL Immature Gran % (Auto) (0.0-0.4) % Neut % (Auto) (45-73) % Lymph % (Auto) (20-40) % [place] % (Auto) (2-11) % Eos % (Auto) (0-4) % Baso % (Auto) (0-2) % Lymph # (Auto) (1.2-4.9) X10*3/uL [place] # (Auto) (0.1-1.2) X10*3/uL Eos # (Auto) (0.0-0.4) X10*3/uL Baso # (Auto) (0.0-0.2) X10*3/uL Abs Immat Gran (auto) (0.00-0.03) X10*3/uL Absolute Neuts (auto) (2.0-8.3) x10*3/uL Absolute Nucleated RBC (0.0-0.012) X10*3/uL Nucleated RBC % (auto) (0.0-0.2) /100WBC PT 24.0 H (10.0-13.1) SEC Whole Blood PT (11.1-13.5) sec INR 2.0 H (0.9-1.1) Whole Blood INR (0.9-1.1) APTT 44.1 H (26.0-36.4) SEC Sodium 133 L (135-145) mmol/L Potassium 5.1 D (3.3-5.1) mmol/L Chloride 101 (96-108) mmol/L Carbon Dioxide 23 (22-29) mmol/L Anion Gap 14 (12-20) BUN 14 (9-16) mg/dL Creatinine 1.11 (0.5-1.4) mg/dL Estim Creat Clear Calc 63.6 Estimated GFR > 60 POC Glucose (60-115) mg/dL Random Glucose 134 H (60-115) mg/dL Calcium 9.1 (8.4-10.2) mg/dL Phosphorus 3.1 (2.7-4.5) mg/dL Magnesium 1.7 (1.6-2.6) mg/dL Total Bilirubin 5.2 H (0.0-1.0) mg/dL Direct Bilirubin 1.5 H (0.0-0.5) mg/dL AST 47 H (5-37) U/L ALT 26 (0-40) U/L Alkaline Phosphatase 208 H (39-117) U/L Total Creatine Kinase 212 H (38-174) U/L Troponin I High Sens 3.4 (<3.5-35.0) ng/L Total Protein 6.9 (6.5-8.0) g/dL Albumin 2.5 L (3.5-5.0) g/dL Urine Color Urine Appearance Urine pH (5.0-9.0) Ur Specific [place] (1.005-1.025) Urine Protein (Neg-Trace) mg/dL Urine Glucose (UA) (Negative) mg/dL Urine Ketones (Negative) mg/dL Urine Blood (Negative) Urine Nitrite (Negative) Ur Leukocyte Esterase (Negative) Urine Opiates Screen (Not Detect) Urine Fentanyl Screen (Not Detect) Ur Barbiturates Screen (Not Detect) Ur Phencyclidine Scrn (Not Detect) Ur Amphetamines Screen (Not Detect) U Benzodiazepines Scrn (Not Detect) Urine Cocaine Screen (Not Detect) U Marijuana (THC) Screen (Not Detect) COVID-19 (SRIDEVI) (Negative) COVID-19 Clin Com Influenza Type A (NEERAJ) (Negative) Influenza Type B (NEERAJ) (Negative) Influenza A & B Note 09/27/22 09/27/22 09/27/22 Range/Units 16:45 16:45 17:16 WBC (4.8-10.8) X10*3/uL RBC (4.60-5.80) X10*6/uL Hgb (14.0-18.0) g/dl Hct (42.0-52.0) % MCV (80.0-98.0) fL MCH (27.0-33.0) pg MCHC (31.0-36.0) g/dl RDW (11.0-16.0) % Plt Count (160-400) X10*3/uL MPV (9.4-12.4) fL Immature Gran % (Auto) (0.0-0.4) % Neut % (Auto) (45-73) % Lymph % (Auto) (20-40) % [place] % (Auto) (2-11) % Eos % (Auto) (0-4) % Baso % (Auto) (0-2) % Lymph # (Auto) (1.2-4.9) X10*3/uL [place] # (Auto) (0.1-1.2) X10*3/uL Eos # (Auto) (0.0-0.4) X10*3/uL Baso # (Auto) (0.0-0.2) X10*3/uL Abs Immat Gran (auto) (0.00-0.03) X10*3/uL Absolute Neuts (auto) (2.0-8.3) x10*3/uL Absolute Nucleated RBC (0.0-0.012) X10*3/uL Nucleated RBC % (auto) (0.0-0.2) /100WBC PT (10.0-13.1) SEC Whole Blood PT (11.1-13.5) sec INR (0.9-1.1) Whole Blood INR (0.9-1.1) APTT (26.0-36.4) SEC Sodium (135-145) mmol/L Potassium (3.3-5.1) mmol/L Chloride (96-108) mmol/L Carbon Dioxide (22-29) mmol/L Anion Gap (12-20) BUN (9-16) mg/dL Creatinine (0.5-1.4) mg/dL Estim Creat Clear Calc Estimated GFR POC Glucose (60-115) mg/dL Random Glucose (60-115) mg/dL Calcium (8.4-10.2) mg/dL Phosphorus (2.7-4.5) mg/dL Magnesium (1.6-2.6) mg/dL Total Bilirubin (0.0-1.0) mg/dL Direct Bilirubin (0.0-0.5) mg/dL AST (5-37) U/L ALT (0-40) U/L Alkaline Phosphatase (39-117) U/L Total Creatine Kinase (38-174) U/L Troponin I High Sens (<3.5-35.0) ng/L Total Protein (6.5-8.0) g/dL Albumin (3.5-5.0) g/dL Urine Color Yellow Urine Appearance Clear Urine pH 5.5 (5.0-9.0) Ur Specific [place] 1.025 (1.005-1.025) Urine Protein Negative (Neg-Trace) mg/dL Urine Glucose (UA) Negative (Negative) mg/dL Urine Ketones Negative (Negative) mg/dL Urine Blood Negative (Negative) Urine Nitrite Negative (Negative) Ur Leukocyte Esterase Negative (Negative) Urine Opiates Screen (Not Detect) Urine Fentanyl Screen (Not Detect) Ur Barbiturates Screen (Not Detect) Ur Phencyclidine Scrn (Not Detect) Ur Amphetamines Screen (Not Detect) U Benzodiazepines Scrn (Not Detect) Urine Cocaine Screen (Not Detect) U Marijuana (THC) Screen (Not Detect) COVID-19 (SRIDEVI) Negative (Negative) COVID-19 Clin Com See Note Influenza Type A (NEERAJ) Negative (Negative) Influenza Type B (NEERAJ) Negative (Negative) Influenza A & B Note See Note 09/27/22 Range/Units 17:16 WBC (4.8-10.8) X10*3/uL RBC (4.60-5.80) X10*6/uL Hgb (14.0-18.0) g/dl Hct (42.0-52.0) % MCV (80.0-98.0) fL MCH (27.0-33.0) pg MCHC (31.0-36.0) g/dl RDW (11.0-16.0) % Plt Count (160-400) X10*3/uL MPV (9.4-12.4) fL Immature Gran % (Auto) (0.0-0.4) % Neut % (Auto) (45-73) % Lymph % (Auto) (20-40) % [place] % (Auto) (2-11) % Eos % (Auto) (0-4) % Baso % (Auto) (0-2) % Lymph # (Auto) (1.2-4.9) X10*3/uL [place] # (Auto) (0.1-1.2) X10*3/uL Eos # (Auto) (0.0-0.4) X10*3/uL Baso # (Auto) (0.0-0.2) X10*3/uL Abs Immat Gran (auto) (0.00-0.03) X10*3/uL Absolute Neuts (auto) (2.0-8.3) x10*3/uL Absolute Nucleated RBC (0.0-0.012) X10*3/uL Nucleated RBC % (auto) (0.0-0.2) /100WBC PT (10.0-13.1) SEC Whole Blood PT (11.1-13.5) sec INR (0.9-1.1) Whole Blood INR (0.9-1.1) APTT (26.0-36.4) SEC Sodium (135-145) mmol/L Potassium (3.3-5.1) mmol/L Chloride (96-108) mmol/L Carbon Dioxide (22-29) mmol/L Anion Gap (12-20) BUN (9-16) mg/dL Creatinine (0.5-1.4) mg/dL Estim Creat Clear Calc Estimated GFR POC Glucose (60-115) mg/dL Random Glucose (60-115) mg/dL Calcium (8.4-10.2) mg/dL Phosphorus (2.7-4.5) mg/dL Magnesium (1.6-2.6) mg/dL Total Bilirubin (0.0-1.0) mg/dL Direct Bilirubin (0.0-0.5) mg/dL AST (5-37) U/L ALT (0-40) U/L Alkaline Phosphatase (39-117) U/L Total Creatine Kinase (38-174) U/L Troponin I High Sens (<3.5-35.0) ng/L Total Protein (6.5-8.0) g/dL Albumin (3.5-5.0) g/dL Urine Color Urine Appearance Urine pH (5.0-9.0) Ur Specific [place] (1.005-1.025) Urine Protein (Neg-Trace) mg/dL Urine Glucose (UA) (Negative) mg/dL Urine Ketones (Negative) mg/dL Urine Blood (Negative) Urine Nitrite (Negative) Ur Leukocyte Esterase (Negative) Urine Opiates Screen Not Detected (Not Detect) Urine Fentanyl Screen Not Detected (Not Detect) Ur Barbiturates Screen Not Detected (Not Detect) Ur Phencyclidine Scrn Not Detected (Not Detect) Ur Amphetamines Screen Not Detected (Not Detect) U Benzodiazepines Scrn Not Detected (Not Detect) Urine Cocaine Screen Not Detected (Not Detect) U Marijuana (THC) Screen POSITIVE H (Not Detect) COVID-19 (SRIDEVI) (Negative) COVID-19 Clin Com Influenza Type A (NEERAJ) (Negative) Influenza Type B (NEERAJ) (Negative) Influenza A & B Note Independent Interpretation I performed an independent interpretation of an: EKG Interpretation: My interpretation of the patient's 12 EKG done at 14:36 is as follows: Sinus bradycardia with a rate of 59, normal SD interval, normal QRS duration, prolonged QTC interval 483 milliseconds, no ST segment elevation, no ST segment depression, no PACs no PVCs. Radiology Impression Discussion of test interpretation with radiology: I have reviewed the radiologist's reading. Radiologist Impression: CT head for stroke IMPRESSION: -Subtle increased attenuation right M1 artery. This could be related to atherosclerotic change although partial acute thrombus cannot be excluded. Recommend correlation with CTA head and neck. -No intracranial hemorrhage, hydrocephalus, or mass effect. Dictated By:Lyle Payan MD CT angio head neck stroke IMPRESSION: - There is a new focus of low-attenuation extending from the genu of the right internal capsule and right caudate into the right putamen posteriorly suspicious for an acute to subacute right striatocapsular infarct given the clinical history that would be better assessed with a MRI of the brain. - Extensive hypoattenuation throughout the supratentorial white matter remains nonspecific and can also be further assessed with a brain MRI with and without IV contrast if not contraindicated. - No significant arterial stenoses in no acute arterial occlusions within the head or neck. Covering provider paged with these findings at 2:35 PM on 09/27/2022. Findings discussed with Sami Jean MD at 2:38 PM on 09/27/2022. Dictated By:Art Domingo MD Independent Historian Clinical information obtained from an independent historian. History obtained from or confirmed by: EMS NIH Stroke Scale Internal: Initial- Upon Arrival Level of Consciousness: Alert Level of Consciousness Questions: Answers both questions correctly Level of Consciousness Commands: Performs both tasks correctly Best Gaze: Normal Visual: Partial hemianopia Facial Palsy: Complete paralysis (Left) Motor Arm (Right): No drift Motor Arm (Left): Some effort against gravity Motor Leg (Right): No drift Motor Leg (Left): Some effort against gravity Limb Ataxia: Absent Sensory: Normal Best Language: No aphasia Dysarthia: Mild to moderate dysarthria Extinction and Inattention: No abnormality Score: 9 Discharge Plan Discharge Prescriptions: No Action cholecalciferol (vitamin D3) 25 mcg (1,000 unit) capsule 25 mcg PO DAILY Qty: 90 2RF Galzin 50 mg (zinc) capsule 50 mg PO DAILY Qty: 90 1RF vitamin A palmitate 10,000 unit tablet 10,000 unit PO DAILY Qty: 90 1RF spironolactone [Aldactone] 50 mg tablet 50 mg PO DAILY Qty: 30 3RF omeprazole 40 mg Capsule,Delayed Release(Dr/Ec) 40 mg PO BID@0630,1630 30 Days Qty: 60 0RF ferrous sulfate 324 mg (65 mg iron) tablet,delayed release (DR/EC) 324 mg PO DAILY Qty: 30 0RF furosemide 40 mg tablet 60 mg PO DAILY 30 Days Qty: 45 0RF magnesium oxide 400 mg magnesium capsule 400 mg PO BID Qty: 60 1RF naloxone [Narcan] 4 mg/actuation spray,non-aerosol 4 mg intranasal Q2M PRN Rx Instructions: spray 1 dose into ONE nostril; alternate nostrils w each dose until help arrives nadolol 20 mg tablet 20 mg PO DAILY lactulose 10 gram/15 mL solution 45 ml PO BID Xifaxan 550 mg tablet 550 mg PO BID
--- NOTE | 2022-09-27 14:17 | PC.NURSE ---
pt direct from ems to ct scan
[2022-09-27] MEDS: iohexoL 350 MG/ML 100 ML INFUS..BTL IV (14:27)
[2022-09-27 14:33] LABS: Prothrombin Time Whole Bld POC 20.3 sec (11.1-13.5); ~PT, ~INR - Anti Coag Clinic 1.7 (0.9-1.1)
[2022-09-27 14:35] LABS: Glucose, Whole Blood 158 mg/dL (60-115)
--- NOTE | 2022-09-27 14:57 | PC.NURSE ---
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 rt upper and lower extremities are baseline and pt is able to lift and hold. notable left facial droop, pt is using tissues to wipe saliva from his left mouth at times but is able to open his mouth and stick out his tongue- failed swallow eval at this time. pt requesting that the provider call his and that his speaks citizen [place]- will notify provider.
[2022-09-27 15:00] LABS: MANUAL DIFF FLAG NO
[2022-09-27 15:04] LABS: Basophils Absolute Auto 0.1 X10*3/uL (0.0-0.2); Basophils Percent Auto 0.6 % (0-2); Eosinophils Absolute Auto 0.2 X10*3/uL (0.0-0.4); Eosinophils Percent Auto 1.8 % (0-4); Hematocrit 37.6 % (42.0-52.0); Hemoglobin 12.6 g/dl (14.0-18.0); Imm Gran Abs Auto 0.02 X10*3/uL (0.00-0.03); Imm Gran Pct Auto 0.2 % (0.0-0.4); Lymphocytes Percent Auto 23.4 % (20-40); Mean Corpuscular HGB Conc 33.5 g/dl (31.0-36.0); Mean Corpuscular Hemoglobin 31.3 pg (27.0-33.0); Mean Corpuscular Volume 93.5 fL (80.0-98.0); Monocytes Absolute Auto 0.7 X10*3/uL (0.1-1.2); Monocytes Percent Auto 8.1 % (2-11); Neutrophils Absolute Auto 5.6 x10*3/uL (2.0-8.3); Neutrophils Percent Auto 65.9 % (45-73); Platelet Count 107 X10*3/uL (160-400); Red Blood Count 4.02 X10*6/uL (4.60-5.80); Red Cell Distribution Width 15.9 % (11.0-16.0); White Blood Count 8.6 X10*3/uL (4.8-10.8)
[2022-09-27 15:11] LABS: Partial Thromboplastin Time 44.1 SEC (26.0-36.4)
[2022-09-27 15:25] LABS: Alanine Aminotransferase 26 U/L (0-40); Albumin Level 2.5 g/dL (3.5-5.0); Alkaline Phosphatase 208 U/L (39-117); Anion Gap 14 (12-20); Aspartate Amino Transferase 47 U/L (5-37); Bilirubin Direct 1.5 mg/dL (0.0-0.5); Bilirubin Total 5.2 mg/dL (0.0-1.0); Blood Urea Nitrogen 14 mg/dL (9-16); Calcium 9.1 mg/dL (8.4-10.2); Carbon Dioxide 23 mmol/L (22-29); Chloride 101 mmol/L (96-108); Creatinine Clr Calc Pharmacy 63.6; Estimated Glomerular Filt Rate > 60; Glucose Random 134 mg/dL (60-115); Magnesium 1.7 mg/dL (1.6-2.6); Phosphorus 3.1 mg/dL (2.7-4.5); Potassium 5.1 mmol/L (3.3-5.1); Sodium 133 mmol/L (135-145); Total Protein 6.9 g/dL (6.5-8.0)
[2022-09-27 15:31] LABS: Troponin-I High Sensitivity 3.4 ng/L (<3.5-35.0)
[2022-09-27 16:09] LABS: Stroke Lab Use COMPLETE
--- NOTE | 2022-09-27 16:45 | P.HPHOSP_ITS ---
? ? Addendum: ? This patient is seen and examined with APC. Patient symptom of blurry vision specially in the left eye for 3 days , in addition patient woke up with left-sided weakness. Lab imaging reviewed. ct head: There is a new focus of low-attenuation extending from the genu of the right internal capsule and right caudate into the right putamen posteriorly suspicious for an acute to subacute right striatocapsular infarct given the clinical history that would be better assessed with a MRI of the brain. Physical exam and assessment and plan coordinated in APCs note, Agree with the plan accept: Possible CVA: Woke up with the symptoms. Duration unclear-likely out of window. NPO, speech valuation, PT OT, Continue antiplatelets,? Hold statin elevated LFT, recheck LFT in the a.m. Neuro evaluation, MRI History of Present Illness Date of Service: 09/27/22 <YENNIFER Beatty - Last Filed: 09/27/22 17:51> Attending physician on admission: Abhinav Duncan <YENNIFER Beatty - Last Filed: 09/27/22 17:51> Chief Complaint: dysarthria, facial droop <YENNIFER Beatty - Last Filed: 09/27/22 17:51> 61-year-old male with history of decompensated hepatic cirrhosis complicated by ascites and coagulopathy, chronic anemia, obstructive sleep apnea, hypertension, polymorphic ventricular tachycardia, right-sided heart failure, hx etoh abuse, hx opoid abuse on methadone, and former smoker presented to the ED via EMS on stroke alert for evaluation of left-sided weakness. Last known well time was around 19:00 last night and at that time he states he developed some lightheadedness and laid down. This morning he woke up around 06:00 and was unable to stand secondary to weakness in the left leg. Later in the day, the patient's speech was dysarthric and on comprehensible and as a result 911 was called. EMS noted left-sided facial droop, left upper and lower extremity weakness and dysarthria. He is also having difficulty seeing out of the left eye x3 days. on arrival, and NIH stroke scale was 9. Vital signs stable, blood Pressure 154/80. PTT 24.0, INR 2.0, PTT 44.1. Renal function baseline. Electrolyte levels normal except for mild hyponatremia of 133. Hepatic function baseline. Total CK 212. Troponin within normal limits. Head CT showing subtle increased attenuation in the right M1 artery possibly related to atherosclerotic change though partial acute thrombus cannot be excluded. Head/neck CTA showing new focus of low attenuation extending from the genu of the right internal capsule and right caudate into the right putamen posteriorly suspicious for an acute to subacute right striatocapsular infarct. There is also extensive hypoattenutation throughout the supratentorial white matter which is nonspecific. No significant arterial stenoses or occlusions. No hydrocephalus or intracranial hemorrhage. In the ED, patient failed bedside swallow evaluation. Receiving 300mg asa [place]. To be admitted for acute ischemic infarct. Outside of window for tPA <YENNIFER Beatty - Last Filed: 09/27/22 17:51> Review of Systems Review of Systems: General: No fevers, malaise, unintentional weight loss HEENT: +blurred vision left eye, +loss of left sided peripheral vision Cardiovascular: No chest pain, palpitations, or leg edema Respiratory: No shortness of breath, wheezing, cough GI: No abdominal pain, nausea, vomiting, diarrhea, constipation, melena, hematochezia : No dysuria, hematuria, increased urinary frequency, decreased urinary output MSK: No myalgia, back pain Neuro: No headaches, paresthesias. +LUE and LLE weakness, left facial droop, dysarthria Skin: No rashes or lesions <YENNIFER Beatty - Last Filed: 09/27/22 17:51> [facility] Medical History: Medical History Ascites Chronic anemia Cirrhosis Coagulopathy Decompensated hepatic cirrhosis Fluid overload Head injury Hypertension Opioid dependence Polymorphic ventricular tachycardia Right heart failure Syncope <YENNIFER Beatty - Last Filed: 09/27/22 17:51> Family History: Family History Mother No problems noted. Father No problems noted. Other No family history of coronary artery disease <YENNIFER Beatty Last Filed: 09/27/22 17:51> Surgical History: Surgical History History of appendectomy History of eye surgery Hx of colonoscopy <YENNIFER Beatty - Last Filed: 09/27/22 17:51> Social History: Social History Household Members: Spouse Housing: Apartment Do you presently have visiting nurse or other home services: No Alcohol intake: never Patient Tobacco Use Status: Former Tobacco user Tobacco use type: Cigarette Smoked in Last 30 Days: No Use of substances other than those prescribed or required for medical reasons: No Substance Use Type: Former Substance User Currently Displaying Signs/Symptoms of Drug Intoxication Withdrawal: No Have you been hit, kicked, punched, or otherwise hurt by someone within the past year? If so, by whom?: No Do you feel safe in your current relationship?: Yes Is there a partner from a previous relationship who is making you feel unsafe now?: No Are you made to feel afraid or neglected: No Advance Directives: Yes Advance Directives on File: Yes Advance Directives Date on File: 03/28/22 Do you have thoughts of harming others: None Do you have a plan to hurt others: No Plan Recently lost weight without trying: No Nutrition Risks: No Nutritional Risk service: No Current occupational status: unemployed <YENNIFER Beatty - Last Filed: 09/27/22 17:51> Meds Allergies/Adverse reactions: Allergies Allergy/AdvReac Type Severity Reaction Status Date / Time tramadol [TRAMADOL] Allergy Unknown ANXIETY Verified 09/27/22 14:27 <YENNIFER Beatty - Last Filed: 09/27/22 17:51> Home medications: Home Medications Medication Instructions Recorded Confirmed Last Taken Type lactulose 10 gram/15 mL oral 45 ml PO DAILY 05/23/22 09/27/22 Unknown History solution nadolol 20 mg tablet 20 mg PO DAILY blood pressure 05/23/22 09/27/22 Unknown History rifaximin 550 mg tablet (Xifaxan) 550 mg PO BID 05/23/22 09/27/22 Unknown History sulfamethoxazole 800 1 tab PO DAILY 09/27/22 09/27/22 Unknown History mg-trimethoprim 160 mg tablet <YENNIFER Beatty - Last Filed: 09/27/22 17:51> Physical Exam Vital Signs and Narrative: Vital Signs: Last Vital Signs Temp 98.8 F 09/27/22 15:24 Pulse 55 09/27/22 15:24 Resp 13 09/27/22 15:24 BP 124/59 L 09/27/22 15:24 Pulse Ox 100 09/27/22 15:24 O2 Del Method Room Air 09/27/22 15:24 BMI result Body Mass Index 25.6 <YENNIFER Beatty - Last Filed: 09/27/22 17:51> Constitutional - Awake and Alert, No apparent distress Eyes - PERRLA, EOMI Cardiovascular - S1S2, RRR, No edema Respiratory - Normal lung expansion, Normal respiratory effort, No respiratory distress, CTA bilaterally Gastrointestinal - NT / ND; +BS; No rebound or guarding Extremities - no calf tenderness bilaterally, no swelling Skin - Warm/Dry Neurological - Alert & oriented x3, left sided facial droop, sparing the forehead, with loss of left nasolabial fold, loss of left peripheral visual field, CN II-XII otherwise in tact, 5/5 strength RUE and RLE. 2/5 strength LUE, 5/5 strength LLE Psychological - Appropriate affect <YENNIFER Beatty - Last Filed: 09/27/22 17:51> Results Labs CBC and Chem 7: 09/27/22 14:48 09/27/22 14:48 <YENNIFER Beatty - Last Filed: 09/27/22 17:51> Labs: Laboratory Results - last 24 hr 09/27/22 09/27/22 09/27/22 14:30 14:30 14:48 MCV 93.5 MCH 31.3 MCHC 33.5 RDW 15.9 Plt Count 107 L D MPV 13.0 H Immature Gran % (Auto) 0.2 Neut % (Auto) 65.9 Lymph % (Auto) 23.4 Cam[place] % (Auto) 8.1 Eos % (Auto) 1.8 Baso % (Auto) 0.6 Lymph # (Auto) 2.0 Cam[place] # (Auto) 0.7 Eos # (Auto) 0.2 Baso # (Auto) 0.1 Abs Immat Gran (auto) 0.02 Absolute Neuts (auto) 5.6 Absolute Nucleated RBC 0.000 Nucleated RBC % (auto) 0.0 PT Whole Blood PT 20.3 H INR Whole Blood INR 1.7 H APTT Anion Gap Estim Creat Clear Calc Estimated GFR POC Glucose 158 H Random Glucose Calcium Phosphorus Magnesium Total Bilirubin Direct Bilirubin AST ALT Alkaline Phosphatase Total Creatine Kinase Troponin I High Sens Total Protein Albumin 09/27/22 09/27/22 09/27/22 14:48 14:48 14:48 MCV MCH MCHC RDW Plt Count MPV Immature Gran % (Auto) Neut % (Auto) Lymph % (Auto) Cam[place] % (Auto) Eos % (Auto) Baso % (Auto) Lymph # (Auto) Cam[place] # (Auto) Eos # (Auto) Baso # (Auto) Abs Immat Gran (auto) Absolute Neuts (auto) Absolute Nucleated RBC Nucleated RBC % (auto) PT 24.0 H Whole Blood PT INR 2.0 H Whole Blood INR APTT 44.1 H Anion Gap 14 Estim Creat Clear Calc 63.6 Estimated GFR > 60 POC Glucose Random Glucose 134 H Calcium 9.1 Phosphorus 3.1 Magnesium 1.7 Total Bilirubin 5.2 H Direct Bilirubin 1.5 H AST 47 H ALT 26 Alkaline Phosphatase 208 H Total Creatine Kinase 212 H Troponin I High Sens 3.4 Total Protein 6.9 Albumin 2.5 L <YENNIFER Beatty - Last Filed: 09/27/22 17:51> Imaging Radiologist's Impressions: Impressions Head CT 09/27/22 14:01 IMPRESSION: -Subtle increased attenuation right M1 artery. This could be related to atherosclerotic change although partial acute thrombus cannot be excluded. Recommend correlation with CTA head and neck. -No intracranial hemorrhage, hydrocephalus, or mass effect. Head/Neck CTA 09/27/22 14:21 IMPRESSION: - There is a new focus of low-attenuation extending from the genu of the right internal capsule and right caudate into the right putamen posteriorly suspicious for an acute to subacute right striatocapsular infarct given the clinical history that would be better assessed with a MRI of the brain. - Extensive hypoattenuation throughout the supratentorial white matter remains nonspecific and can also be further assessed with a brain MRI with and without IV contrast if not contraindicated. - No significant arterial stenoses in no acute arterial occlusions within the head or neck. Covering provider paged with these findings at 2:35 PM on 09/27/2022. Findings discussed with Sami Jean MD at 2:38 PM on 09/27/2022. Chest X-Ray 09/27/22 16:00 IMPRESSION: Unremarkable examination. <YENNIFER Beatty - Last Filed: 09/27/22 17:51> Assessment and Plan (1) Acute cerebrovascular accident (CVA): Status: Acute <YENNIFER Beatty - Last Filed: 09/27/22 17:51> 61-year-old male with history of decompensated hepatic cirrhosis complicated by ascites and coagulopathy, chronic anemia, obstructive sleep apnea, hypertension, polymorphic ventricular tachycardia, right-sided heart failure, hx etoh abuse, hx opoid abuse on methadone, and former smoker admitted for acute CVA. #Acute/subacute CVA -Head CT/CTA showed a new focus of low-attenuation extending from the genu of the right internal capsule and right caudate into the right putamen posteriorly?suspicious for an acute to subacute right striatocapsular infarct -MRI brain ordered -Given 300mg asa [place] as pt failed bedside swallow eval -Continue 81mg asa daily -Keep NPO, pending STRUCTURAL DESIGN ENGINEER eval -Statin contraindicated given decompensated cirrhosis. Lipid panel pending - aspiration precautions - echocardiogram ordered - admit to telemetry - appreciate neurology input -PT/OT evals -Stroke edu #Decompensated hepatic cirrhosis -complicated by ascites, coagulopathy -Continue lactulose, nadolol, spironolactone, furosemide #Chronic normocytic anemia- related to chronic disease -H/H stable, above transfusion threshold #HTN -reasonably controlled -continue home meds #HFpEF -no acute exacerbation -continue PO diuretics as tolerated #Opioid dependence -continue methadone DVT prophylaxis- lovenox Full code Pt requires inpt stay at least two midnights for management of acute CVA <YENNIFER Beatty - Last Filed: 09/27/22 17:51> 61-year-old male with history of decompensated hepatic cirrhosis complicated by ascites and coagulopathy, chronic anemia, obstructive sleep apnea, hypertension, polymorphic ventricular tachycardia, right-sided heart failure, hx etoh abuse, hx opoid abuse on methadone, and former smoker admitted for acute CVA. #Acute/subacute CVA -Head CT/CTA showed a new focus of low-attenuation extending from the genu of the right internal capsule and right caudate into the right putamen posteriorly?suspicious for an acute to subacute right striatocapsular infarct -MRI brain ordered -Given 300mg asa [place] as pt failed bedside swallow eval -Continue 81mg asa daily -Keep NPO, pending STRUCTURAL DESIGN ENGINEER eval -Statin contraindicated given decompensated cirrhosis. Lipid panel pending - aspiration precautions - echocardiogram ordered - admit to telemetry - appreciate neurology input -PT/OT evals -Stroke edu #Decompensated hepatic cirrhosis -complicated by ascites, coagulopathy -Continue lactulose, nadolol, spironolactone, furosemide #Chronic normocytic anemia- related to chronic disease -H/H stable, above transfusion threshold #HTN -reasonably controlled -continue home meds #HFpEF -no acute exacerbation -continue PO diuretics as tolerated #Opioid dependence -continue methadone DVT prophylaxis- lovenox Full code Pt requires inpt stay at least two midnights for management of acute CVA ?patient requires inpatient stay of at least 2 midnights for management of acute cellulitis of the left lower extremity requiring IV antibiotics having failed outpatient oral antibiotic . ? Addendum: ? This patient is seen and examined with APC. Lab imaging reviewed. Physical exam and assessment and plan coordinated in APCs note, Agree with the plan in addition: <Abhinav Duncan MD - Last Filed: 09/28/22 09:21> Time Spent With Patient Time: Total time managing care of this patient today ____ minutes. <YENNIFER Beatty - Last Filed: 09/27/22 17:51> Quality Stroke Does the patient have a stroke diagnosis?: No <YENNIFER Beatty - Last Filed: 09/27/22 17:51> VTE Prior VTE?: No <YENNIFER Beatty - Last Filed: 09/27/22 17:51> VTE Risk Level:: Medical - moderate - high <YENNIFER Beatty - Last Filed: 09/27/22 17:51> VTE Device Contraindication: Treatment Not Indicated <YENNIFER Beatty - Last Filed: 09/27/22 17:51> VTE Drug Contraindication: N/A - Med Ordered <YENNIFER Beatty - Last Filed: 09/27/22 17:51>
--- NOTE | 2022-09-27 16:51 | MHC.STROKE ---
09/27/22 1347 EMS PRE-NOTIFICATION STROKE ALERT LEFT FACE, ARM, LEG, GARBLED SPEECH, LKW 09/26/22, DISCOVERED 09/27/22 0600. ARRIVED AT [facility] 1350. SEEN BY PROVIDER AT 1353 NIHSS = 9. STROKE PROTOCOL ACTIVATED, CTH DONE AT 1400, RESULTS CALLED AT 1411 NO BLEED, SEE REPORT, CTA H/N DONE AT 1411, REPORT CALLED AT 1435, NO LVO. FAILED SWALLOW SCREEN, UNABLE TO MANAGE TONGUE OR SECRETIONS. RECOMMEND IA ASPIRIN. AVOID HYPOTENSION, CONSIDER IVF. I REPORTED THIS TO PROVIDER. CURRENT MAP 93. WILL REQUIRE PT/OT/SPEECH THERAPY. I PROVIDED STROKE EDUCATION WITH NIECE AND PATIENT. I REVIEWED THE STROKE EDUCATION BOOKLET. I REVIEWED THE PLAN OF CARE. THEY UNDERSTAND THAT HE WILL BE ADMITTED AND I WILL FOLLOW UP WITH THEM IN THE MORNING. THE NIECE WORKS FOR [employer]. I ASKED ABOUT HIS DRUG HISTORY AND HE CONTINUES TO USE MARIJUANA. I ALSO RECOMMENDED DRUG SCREEN TO PROVIDER.
[2022-09-27 17:17] LABS: COVID-19 Test Negative (Negative); IDNOW Serial# 9DB6401D; IDNOW Serial# BCCEAD1C; Influenza A Negative (Negative); Influenza B2 Negative (Negative)
[2022-09-27] MEDS: Aspirin 300 MG SUPP.RECT PR (17:27)
[2022-09-27 17:35] LABS: Amphetamine Screen Urine Not Detected (Not Detect); Barbiturates, Urine Not Detected (Not Detect); Benzodiazepines Screen Urine Not Detected (Not Detect); Cannabinoid Screen Urine POSITIVE (Not Detect); Cocaine Screen Urine Not Detected (Not Detect); Fentanyl, urine Not Detected (Not Detect); Opiate Screen Urine Not Detected (Not Detect); Phencyclidine Screen Urine Not Detected (Not Detect)
[2022-09-27 17:38] LABS: Appearance Urine Clear; Color Urine Yellow; Glucose Urine UA Negative (Negative); Leukocyte Esterase Urine Negative (Negative); Nitrite Urine Negative (Negative); PH 5.5 (5.0-9.0); Specific Gravity - Urine 1.025 (1.005-1.025); Urine Blood Negative (Negative); Urine Ketones Negative (Negative); Urine Protein Negative (Neg-Trace)
--- NOTE | 2022-09-27 18:34 | PC.NURSE ---
report called to floor will recycle bp per request of nurse
[2022-09-27] MEDS: Enoxaparin Sodium 40 MG/0.4 ML SYRINGE SUBCUT (20:01)
[2022-09-27] MEDS: 0.9 % Sodium Chloride Flush 3 ML SYRINGE IVFLUSH (20:03)
[2022-09-28] VITALS (7 sets, daily range): BP systolic 114–147; BP diastolic 57–95; PULSE 58–78; RESP 18–20; TEMP 36.2–37.1; O2SAT 96–100
--- NOTE | 2022-09-28 07:00 | CA_ITS ---
Transthoracic Echo with Contrast Patient (Last, First, Middle): Thierno Leal, Gender: Male Date of : 1960 Age: 61 Procedure Date: 09/28/2022 Procedure Type: Transthoracic Echo with Contrast Location: [facility] [place] Height: 170.18 cm Weight: 73.94 kg BSA: 1.85 m2 Heart Rate: 57 bpm BP: 129 / 62 mmHg Dba Manager: SB Referring MD: Yvette DE OLIVEIRA Symptoms: cva with bubble study Study Quality: Adequate w contrast ECG Rhythm: Bradycardia Conclusions: - Normal left ventricular size, thickness, systolic function, and wall motion. The visually estimated ejection fraction is between 65-70%. - Normal right ventricular cavity size and systolic function. - The left atrium is mildly dilated. There is no evidence of interatrial shunt by agitated saline. The right atrium is mildly dilated. - There is mild aortic valve stenosis. Findings Procedure Information Contrast agent, definity, is being given per protocol without apparent complications. Left Ventricle Normal left ventricular size, thickness, systolic function, and wall motion. The visually estimated ejection fraction is between 65-70%. Diastolic function is indeterminate on the basis of available data. Right Ventricle Normal right ventricular cavity size and systolic function. Atria The left atrium is mildly dilated. There is no evidence of interatrial shunt by agitated saline. The right atrium is mildly dilated. Aortic Valve Normal aortic valve structure and function. There is mild aortic valve stenosis. There is no aortic valve regurgitation. Mitral Valve Normal mitral valve structure and function. There is no mitral valve regurgitation. There is no mitral valve stenosis. Pulmonic Valve The pulmonic valve is likely normal. Tricuspid Valve Normal tricuspid valve structure and function. Normal right atrial pressure. There is no evidence of pulmonary hypertension. Great Vessels All visible segments of the aorta are normal in size. The visualized portions of the pulmonary artery and branches are normal. Small calcified plaque in descending aorta. Venous The inferior vena cava is normal in size and collapses greater than 50% with inspiration. Pericardium/Pleural There is no evidence of pericardial effusion. Measurements 2D Linear Measurements IVSd: 0.62 0.6-0.9/0.6-1.0 cm LVIDd: 4.91 3.9-5.3/4.2-5.9 cm LVIDd Index: 2.65 2.4-3.2/2.2-3.1 cm/m2 LVIDs: 2.83 2.0-3.6 cm LVPWd: 0.58 0.7-1.1 cm LA Diam: 3.40 2.7-3.8/3.0-4.0 cm LAIDs Index: 1.84 1.5-2.3 cm/m2 LV Mass: 113.88 67-162/88-224 g LV Mass Index: 61.56 43-95/49-115 g/m2 LVOT Diam: 2.00 3.0+(-)1.3 cm 2D Systolic Function EF 4C: 63.40 >55% EF 2C: 66.20 >55% EF BiP: 62.30 >55% Mitral Valve MV Pk E: 1.02 MV PK A: 1.10 MV Decel Time: 220.00 E/A: 0.90 E'Lateral: 7.62 E'Medial: 6.85 E/E' Med: 14.90 E/E' Lat: 13.40 PHT: 64.00 MVA PHT: 3.44 Decel Grimes: 4.63 Aortic Valve AoV Pk King: 2.14 AoV Mn King: 1.29 AoV VTI: 0.43 AoV Pk Grad: 18.00 Aov Mn Grad: 8.00 JAYNE Cont.VTI: 2.81 LVOT LVOT Pk King: 1.86 LVOT Mn King: 1.14 LVOT VTI: 0.39 LVOT Pk Grad: 14.00 LVOT Mn Grad: 6.00 LVOT Diam: 2.00 LVOT Area: 3.14 Diastolic Function MV Pk E: 1.02 MV Pk A: 1.10 E/A: 0.90 E'Medial: 6.85 E/E' Med: 14.90 E' Laterial: 7.62 E/E' Lat: 13.40 Right Ventricle TAPSE (mm): 27.40 TVS' King: 14.00 Tricuspid Valve TR Pk King: 2.97 TR Pk Grad: 35.00 RA Press: 3.00 RVSP: 38.00 Great Vessels Aorta Sinus of Valsalva: 2.80 2.0-3.5 cm Ao Asc: 2.80 2.1-3.4 cm Ao Arch: 2.80 Pulmonary Veins Pulm Vein S/D 1.30 Pulmonary Valve PV Pk King: 1.72 Peak PV Grad: 12.00 Updated in Other Vendor System with Status of Final Keo Canseco MD electronically signed on 09/29/2022 8:37:21 PM with status of Final
[2022-09-28 07:15] LABS: MANUAL DIFF FLAG NO
[2022-09-28 07:25] LABS: Basophils Absolute Auto 0.1 X10*3/uL (0.0-0.2); Basophils Percent Auto 0.6 % (0-2); Eosinophils Absolute Auto 0.2 X10*3/uL (0.0-0.4); Hematocrit 35.9 % (42.0-52.0); Hemoglobin 12.5 g/dl (14.0-18.0); Imm Gran Abs Auto 0.03 X10*3/uL (0.00-0.03); Imm Gran Pct Auto 0.4 % (0.0-0.4); Lymphocytes Absolute Auto 2.3 X10*3/uL (1.2-4.9); Mean Corpuscular HGB Conc 34.8 g/dl (31.0-36.0); Mean Corpuscular Hemoglobin 31.6 pg (27.0-33.0); Mean Corpuscular Volume 90.9 fL (80.0-98.0); Mean Platelet Volume 12.4 fL (9.4-12.4); Monocytes Percent Auto 11.7 % (2-11); Neutrophils Absolute Auto 4.8 x10*3/uL (2.0-8.3); Neutrophils Percent Auto 57.3 % (45-73); Red Blood Count 3.95 X10*6/uL (4.60-5.80); Red Cell Distribution Width 15.8 % (11.0-16.0); White Blood Count 8.3 X10*3/uL (4.8-10.8)
[2022-09-28 07:28] LABS: Platelet Count 81 X10*3/uL (160-400)
[2022-09-28 07:53] LABS: Anion Gap 13 (12-20); Blood Urea Nitrogen 17 mg/dL (9-16); Calcium 8.8 mg/dL (8.4-10.2); Carbon Dioxide 23 mmol/L (22-29); Chloride 106 mmol/L (96-108); Cholesterol 155 mg/dL; Creatinine Clr Calc Pharmacy 72.1; Estimated Glomerular Filt Rate > 60; Glucose Random 55 mg/dL (60-115); HDL Cholesterol 43 mg/dL; LDL Cholesterol Calculated 99 mg/dl; Potassium 4.7 mmol/L (3.3-5.1); Sodium 137 mmol/L (135-145); Triglycerides 67 mg/dL
[2022-09-28] MEDS: Dextrose 5 % and Lactated Ring 1,000 ML 80 ML IVCONT (08:24)
[2022-09-28] MEDS: 0.9 % Sodium Chloride Flush 3 ML SYRINGE IVFLUSH ×3 (08:24→21:47)
--- NOTE | 2022-09-28 08:42 | MHC.CM.PN ---
Patient is here with AMS and Acute Metabolic Encephalopathy; CM spoke with /HCP/Cheryle @ [phone]. 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 Home is the goal and Cheryle is agreeable to a VNA search (no agency preference) should home services be ordered and CM has initiated and will follow for dc planning. Patient has received Covid vax x4 and his PCP is Dr. Sarmad Cuellar.
--- NOTE | 2022-09-28 09:51 | MHC.SLORD ---
Speech Language Pathology Order Status: [facility]ER [facility]NER attempted to see pt for bedside swallow eval and lang/cog screening. Pt away for MRI. RN to [facility]ER [facility]NER upon pt's return.
--- NOTE | 2022-09-28 12:05 | MHC.SL.SWA ---
Addendum entered and electronically signed by Connie Marks MA, CCC-AESTHETICIAN 09/28/22 13:03: D.S. Original Note: Dysphasia Diet Status: UPGRADE Liquid Consistency and Strategies for Safe Swallow: Liquid Intake Recommendation: Thin Liquid Intake Strategies: Small Sips No Straws Solid Food Consistency: Dietary Recommendations: Chopped/Advanced (NDD3) Additional Modifications to Solid Foods: Pt tolerated regular solids during clinical swallow evaluation; recommending NDD3 d/t LUE weakness and observed difficulty managing food independently w/ R arm only Oral Medication Intake: Whole with Liquid Please contact the pharmacy regarding appropriate crushable or liquid drug formulations that are available whenever modified delivery is recommended. Compensatory Strategies and Precautions to be Taken for Safe Swallow: Sitting Upright (90 deg) No Straw Small Bites and Sips Rate of Ingestion Change Supervision While Eating and Drinking for Safe Swallow: Total Assistance (1:1) Recommendation for Speech: Further Testing Needed Inpatient Speech Therapy Comment: Pt seen for swallow eval & speech/lang/cog screening this morning. Recommend CHOPPED/ADVANCED solids, THIN liquids, pills WHOLE w/ liquid. Recommend NDD3 d/t LUE weakness and observed difficulty managing food independently w/ R arm only. Recommend FULL ASSIST during meals to assist w/ set up and management of tray & monitor for s/s aspiration. Aspiration precautions apply. Pt's vocal quality and speech consistent w/ spastic dysarthria. No stand out difficulty w/ expressive or receptive language. Note difficulty with more advanced comprehension questions (i.e. Are doctors treated by the patients?). Pt's white board updated w/ current diet recommendations. MD, RN, RD notified of recommendations via CNS Response. AESTHETICIAN to continue to follow for dysphagia tx & to monitor speech/language. Manager Banquet Clinican/Clinical Fellow: Yes: Marga Baugh M.A., CF-AESTHETICIAN Supervisory Statement: I have reviewed and agree with the student/clinical fellow's documentation: Speech Language Pathologist:
--- NOTE | 2022-09-28 12:46 | MHC.CM.PN ---
PT is recommending Acute Rehab; referrals have been made and CM will continue to follow.
--- NOTE | 2022-09-28 13:10 | HE.PHANOTE ---
Re: methadone dosing Last date and time unknown from nursing but confirmed dose of 30 mg daily with BHN (Ninoska ZUNIGA)
--- NOTE | 2022-09-28 13:11 | HO.PM.IMPN ---
Subjective Subjective Date of Service: 09/28/22 Interval History: Requesting for methadone, complaining of gradual loss of vision left eye in last few days, history of prior left eye surgery, persistent left upper and lower extremity, passed swallow eval denies headache, no dizziness, no nausea, no vomiting, no abdominal pain, no fevers no chills no other acute issues since admission Review of Systems Review of Systems: Yes all other systems are reviewed and are negative Physical Exam Vital Signs: Vital Signs: Last Vital Signs Temp 97.1 F 09/28/22 10:40 Pulse 61 09/28/22 10:40 Resp 20 09/28/22 10:40 BP 128/57 L 09/28/22 10:40 Pulse Ox 99 09/28/22 10:40 O2 Del Method Room Air 09/28/22 10:40 BMI result Body Mass Index 25.6 Const: Other: General awake alert x3 in no acute distress. Left eye complete loss of vision Neck supple no JVD. CVS regular rate rhythm, Respiratory lungs clear to auscultation, no respiratory distress, no wheeze, no rhonchi. Gastrointestinal abdomen soft, nontender, bowel sounds audible, no guarding , no rigidity. Extremities no edema. 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, left lower extremity weakness 4/5 Skin no rash Psych appropriate affect Objective Data Active Medications Acetaminophen (Acetaminophen Supp 650 Mg Supp.Rect) 650 mg [place] Q6H PRN PRN Reason: Pain, Mild (Pain Scale 1-3) Aspirin (Aspirin Enteric Coated 81 Mg Tablet.) 81 mg PO DAILY [facility] Last Admin: 09/28/22 09:10 Dose: Not Given Documented By: ANA LUISA Non-Admin Reason: NPO Enoxaparin Sodium (Enoxaparin Sodium 40 Mg/0.4 Ml Syringe) 40 mg SUBCUT Q24H [facility] Last Admin: 09/27/22 20:01 Dose: 40 mg Documented By: JOSLYN Ferrous Sulfate (Ferrous Sulfate 324 Mg Tablet.) 324 mg PO DAILY [facility] Last Admin: 09/28/22 09:11 Dose: Not Given Documented By: ANA LUISA Non-Admin Reason: NPO Furosemide (Furosemide 20 Mg Tablet) 60 mg PO DAILY [facility]; Protocol Last Admin: 09/28/22 09:11 Dose: Not Given Documented By: ANA LUISA Non-Admin Reason: NPO Dextrose/Lactated Ringer's (D5lr) 1,000 mls @ 80 mls/hr IVCONT .[id number] [facility] Last Infusion: 09/28/22 10:17 Dose: 80 mls/hr Documented By: ANA LUISA Dextrose (D10) 250 mls @ 750 mls/hr IV Q15M PRN PRN Reason: per Hypoglycemia Standing Ord. Lactulose (Lactulose 20 Gm/30 Ml Solution) 30 gm PO DAILY [facility] Last Admin: 09/28/22 09:11 Dose: Not Given Documented By: ANA LUISA Non-Admin Reason: NPO Magnesium Oxide (Magnesium Oxide 400 Mg Tablet) 400 mg PO BID [facility] Last Admin: 09/28/22 09:11 Dose: Not Given Documented By: ANA LUISA Non-Admin Reason: NPO Nadolol (Nadolol 20 Mg Tablet) 20 mg PO DAILY [facility]; Protocol Last Admin: 09/28/22 09:11 Dose: Not Given Documented By: ANA LUISA Non-Admin Reason: NPO Ondansetron HCl (Ondansetron Hcl 4 Mg/2 Ml Vial) 4 mg IVPUSH Q8H PRN PRN Reason: Nausea and Vomiting Pharmacy Consult (Consult Rx Perform Med Rec) 1 each MISCELLANE ONCE PRN PRN Reason: Consult order Rifaximin (Rifaximin 550 Mg Tablet) 550 mg PO BID [facility] Last Admin: 09/28/22 09:11 Dose: Not Given Documented By: ANA LUISA Non-Admin Reason: NPO Sodium Chloride (0.9 % Sodium Chloride Flush 3 Ml Syringe) 3 ml IVFLUSH QSHIFT [facility] Last Admin: 09/28/22 08:24 Dose: 3 ml Documented By: ANA LUISA Spironolactone (Spironolactone 25 Mg Tablet) 50 mg PO DAILY [facility]; Protocol Last Admin: 09/28/22 09:11 Dose: Not Given Documented By: ANA LUISA Non-Admin Reason: NPO Vitamin D (Cholecalciferol (Vitamin D3) 25 Mcg Tablet) 25 mcg PO DAILY [facility] Last Admin: 09/28/22 09:11 Dose: Not Given Documented By: ANA LUISA Non-Admin Reason: NPO Labs 09/28/22 07:05 09/28/22 07:05 Labs: Laboratory Results - last 24 hr 09/27/22 09/27/22 09/27/22 14:30 14:30 14:48 MCV 93.5 MCH 31.3 MCHC 33.5 RDW 15.9 Plt Count 107 L D MPV 13.0 H Immature Gran % (Auto) 0.2 Neut % (Auto) 65.9 Lymph % (Auto) 23.4 [place] % (Auto) 8.1 Eos % (Auto) 1.8 Baso % (Auto) 0.6 Lymph # (Auto) 2.0 [place] # (Auto) 0.7 Eos # (Auto) 0.2 Baso # (Auto) 0.1 Abs Immat Gran (auto) 0.02 Absolute Neuts (auto) 5.6 Absolute Nucleated RBC 0.000 Nucleated RBC % (auto) 0.0 PT Whole Blood PT 20.3 H INR Whole Blood INR 1.7 H APTT Anion Gap Estim Creat Clear Calc Estimated GFR POC Glucose 158 H Random Glucose Calcium Phosphorus Magnesium Total Bilirubin Direct Bilirubin AST ALT Alkaline Phosphatase Total Creatine Kinase Troponin I High Sens Total Protein Albumin Triglycerides Cholesterol LDL Cholesterol, Calc HDL Cholesterol Urine Color Urine Appearance Urine pH Ur Specific [place] Urine Protein Urine Glucose (UA) Urine Ketones Urine Blood Urine Nitrite Ur Leukocyte Esterase Urine Opiates Screen Urine Fentanyl Screen Ur Barbiturates Screen Ur Phencyclidine Scrn Ur Amphetamines Screen U Benzodiazepines Scrn Urine Cocaine Screen U Marijuana (THC) Screen COVID-19 (SRIDEVI) COVID-19 Clin Com Influenza Type A (NEERAJ) Influenza Type B (NEERAJ) Influenza A & B Note 09/27/22 09/27/22 09/27/22 14:48 14:48 14:48 MCV MCH MCHC RDW Plt Count MPV Immature Gran % (Auto) Neut % (Auto) Lymph % (Auto) [place] % (Auto) Eos % (Auto) Baso % (Auto) Lymph # (Auto) [place] # (Auto) Eos # (Auto) Baso # (Auto) Abs Immat Gran (auto) Absolute Neuts (auto) Absolute Nucleated RBC Nucleated RBC % (auto) PT 24.0 H Whole Blood PT INR 2.0 H Whole Blood INR APTT 44.1 H Anion Gap 14 Estim Creat Clear Calc 63.6 Estimated GFR > 60 POC Glucose Random Glucose 134 H Calcium 9.1 Phosphorus 3.1 Magnesium 1.7 Total Bilirubin 5.2 H Direct Bilirubin 1.5 H AST 47 H ALT 26 Alkaline Phosphatase 208 H Total Creatine Kinase 212 H Troponin I High Sens 3.4 Total Protein 6.9 Albumin 2.5 L Triglycerides Cholesterol LDL Cholesterol, Calc HDL Cholesterol Urine Color Urine Appearance Urine pH Ur Specific [place] Urine Protein Urine Glucose (UA) Urine Ketones Urine Blood Urine Nitrite Ur Leukocyte Esterase Urine Opiates Screen Urine Fentanyl Screen Ur Barbiturates Screen Ur Phencyclidine Scrn Ur Amphetamines Screen U Benzodiazepines Scrn Urine Cocaine Screen U Marijuana (THC) Screen COVID-19 (SRIDEVI) COVID-19 Clin Com Influenza Type A (NEERAJ) Influenza Type B (NEERAJ) Influenza A & B Note 09/27/22 09/27/22 09/27/22 16:45 16:45 17:16 MCV MCH MCHC RDW Plt Count MPV Immature Gran % (Auto) Neut % (Auto) Lymph % (Auto) [place] % (Auto) Eos % (Auto) Baso % (Auto) Lymph # (Auto) [place] # (Auto) Eos # (Auto) Baso # (Auto) Abs Immat Gran (auto) Absolute Neuts (auto) Absolute Nucleated RBC Nucleated RBC % (auto) PT Whole Blood PT INR Whole Blood INR APTT Anion Gap Estim Creat Clear Calc Estimated GFR POC Glucose Random Glucose Calcium Phosphorus Magnesium Total Bilirubin Direct Bilirubin AST ALT Alkaline Phosphatase Total Creatine Kinase Troponin I High Sens Total Protein Albumin Triglycerides Cholesterol LDL Cholesterol, Calc HDL Cholesterol Urine Color Yellow Urine Appearance Clear Urine pH 5.5 Ur Specific [place] 1.025 Urine Protein Negative Urine Glucose (UA) Negative Urine Ketones Negative Urine Blood Negative Urine Nitrite Negative Ur Leukocyte Esterase Negative Urine Opiates Screen Urine Fentanyl Screen Ur Barbiturates Screen Ur Phencyclidine Scrn Ur Amphetamines Screen U Benzodiazepines Scrn Urine Cocaine Screen U Marijuana (THC) Screen COVID-19 (SRIDEVI) Negative COVID-19 Clin Com See Note Influenza Type A (NEERAJ) Negative Influenza Type B (NEERAJ) Negative Influenza A & B Note See Note 09/27/22 09/28/22 09/28/22 17:16 07:05 07:05 MCV 90.9 MCH 31.6 MCHC 34.8 RDW 15.8 Plt Count 81 L MPV 12.4 Immature Gran % (Auto) 0.4 Neut % (Auto) 57.3 Lymph % (Auto) 28.0 [place] % (Auto) 11.7 H Eos % (Auto) 2.0 Baso % (Auto) 0.6 Lymph # (Auto) 2.3 [place] # (Auto) 1.0 Eos # (Auto) 0.2 Baso # (Auto) 0.1 Abs Immat Gran (auto) 0.03 Absolute Neuts (auto) 4.8 Absolute Nucleated RBC 0.000 Nucleated RBC % (auto) 0.0 PT Whole Blood PT INR Whole Blood INR APTT Anion Gap 13 Estim Creat Clear Calc 72.1 Estimated GFR > 60 POC Glucose Random Glucose 55 L* Calcium 8.8 Phosphorus Magnesium Total Bilirubin Direct Bilirubin AST ALT Alkaline Phosphatase Total Creatine Kinase Troponin I High Sens Total Protein Albumin Triglycerides 67 Cholesterol 155 LDL Cholesterol, Calc 99 HDL Cholesterol 43 Urine Color Urine Appearance Urine pH Ur Specific [place] Urine Protein Urine Glucose (UA) Urine Ketones Urine Blood Urine Nitrite Ur Leukocyte Esterase Urine Opiates Screen Not Detected Urine Fentanyl Screen Not Detected Ur Barbiturates Screen Not Detected Ur Phencyclidine Scrn Not Detected Ur Amphetamines Screen Not Detected U Benzodiazepines Scrn Not Detected Urine Cocaine Screen Not Detected U Marijuana (THC) Screen POSITIVE H COVID-19 (SRIDEVI) COVID-19 Clin Com Influenza Type A (NEERAJ) Influenza Type B (NEERAJ) Influenza A & B Note Assessment and Plan (1) Acute cerebrovascular accident (CVA): Status: Acute Plan 61-year-old male with history of decompensated hepatic cirrhosis complicated by ascites and coagulopathy, chronic anemia, obstructive sleep apnea, hypertension, polymorphic ventricular tachycardia, right-sided heart failure, hx etoh abuse, hx opoid abuse on methadone, and former smoker admitted for acute CVA. #Acute/subacute CVA -Head CT/CTA showed a new focus of low-attenuation extending from the genu of the right internal capsule and right caudate into the right putamen posteriorly?suspicious for an acute to subacute right striatocapsular infarct -MRI brain an acute right-sided striatocapsular infarct, no mass effect and there is no hemorrhagic transformation, global cerebral volume loss and there is moderate to severe chronic microangiopathy. Continue 81mg asa daily Seen by speech therapy they recommend thin liquids and chopped diet LDL 99 recommend, Low-cholesterol diet Seen by OT/PT the both recommend acute rehab Seen by Neurology they recommend good blood pressure control, antiplatelet agent and fish oil, and statin therapy. #Decompensated hepatic cirrhosis -complicated by ascites, coagulopathy -Continue? lactulose, nadolol, spironolactone, and furosemide #Chronic normocytic anemia- related to chronic disease -H/H stable, above transfusion threshold #HTN -reasonably controlled -continue home meds #HFpEF -no acute exacerbation -continue PO diuretics as tolerated #Opioid dependence -continue methadone DVT prophylaxis- lovenox Full code Pt requires continued inpatient stay for management of acute CVA and safe disposition to acute rehab . Time Spent With Patient Time: Total time managing care of this patient today ____ minutes. Quality Stroke Does the patient have a stroke diagnosis?: No VTE Prior VTE?: No VTE Risk Level:: Medical - moderate - high VTE Device Contraindication: Treatment Not Indicated VTE Drug Contraindication: N/A - Med Ordered
--- NOTE | 2022-09-28 13:16 | P.CNNE_ITS ---
History of Present Illness Data of Consult Service Date: 09/28/22 Primary Care Provider: Unknown Physician HPI Reason for consult: Stroke 61-year-old male with history of decompensated hepatic cirrhosis complicated by ascites and coagulopathy, chronic anemia, obstructive sleep apnea, hypertension, polymorphic ventricular tachycardia, right-sided heart failure, hx etoh abuse, hx opoid abuse on methadone, came to hospital with new onset of left-sided weakness that started more than 12 hours before he came. For multiple reasons he was not considered a candidate for intravenous tPA type of treatment. He continues to complain of left-sided weakness. There was no pain or headache. Review of Systems Review of Systems: No recent trauma or cold or flu-like illness PMFSH Past Medical History Medical History Ascites Chronic anemia Cirrhosis Coagulopathy Decompensated hepatic cirrhosis Fluid overload Head injury Hypertension Opioid dependence Polymorphic ventricular tachycardia Right heart failure Syncope Family History Family History Mother No problems noted. Father No problems noted. Other No family history of coronary artery disease Surgical History Surgical History History of appendectomy History of eye surgery Hx of colonoscopy Social History Social History Household Members: Spouse Housing: Apartment Do you presently have visiting nurse or other home services: No Alcohol intake: never Patient Tobacco Use Status: Former Tobacco user Tobacco use type: Cigarette Smoked in Last 30 Days: No Use of substances other than those prescribed or required for medical reasons: No Substance Use Type: Former Substance User Currently Displaying Signs/Symptoms of Drug Intoxication Withdrawal: No Have you been hit, kicked, punched, or otherwise hurt by someone within the past year? If so, by whom?: No Do you feel safe in your current relationship?: Yes Is there a partner from a previous relationship who is making you feel unsafe now?: No Are you made to feel afraid or neglected: No Advance Directives: Yes Advance Directives on File: Yes Advance Directives Date on File: 03/28/22 Do you have thoughts of harming others: None Do you have a plan to hurt others: No Plan Recently lost weight without trying: No Nutrition Risks: No Nutritional Risk service: No Current occupational status: unemployed Meds Allergies Allergy/AdvReac Type Severity Reaction Status Date / Time tramadol [TRAMADOL] Allergy Unknown ANXIETY Verified 09/27/22 14:27 Active Medications: Current Medications Acetaminophen (Acetaminophen Supp 650 Mg Supp.Rect) 650 mg [place] Q6H PRN PRN Reason: Pain, Mild (Pain Scale 1-3) Aspirin (Aspirin Enteric Coated 81 Mg Tablet.) 81 mg PO DAILY [facility] Last Admin: 09/28/22 09:10 Dose: Not Given Atorvastatin Calcium (Atorvastatin Calcium 20 Mg Tablet) 20 mg PO DAILY [facility] Enoxaparin Sodium (Enoxaparin Sodium 40 Mg/0.4 Ml Syringe) 40 mg SUBCUT Q24H [facility] Last Admin: 09/27/22 20:01 Dose: 40 mg Ferrous Sulfate (Ferrous Sulfate 324 Mg Tablet.) 324 mg PO DAILY [facility] Last Admin: 09/28/22 09:11 Dose: Not Given Furosemide (Furosemide 20 Mg Tablet) 60 mg PO DAILY [facility]; Protocol Last Admin: 09/28/22 09:11 Dose: Not Given Dextrose/Lactated Ringer's (D5lr) 1,000 mls @ 80 mls/hr IVCONT .[id number] [facility] Last Infusion: 09/28/22 10:17 Dose: 80 mls/hr Dextrose (D10) 250 mls @ 750 mls/hr IV Q15M PRN PRN Reason: per Hypoglycemia Standing Ord. Lactulose (Lactulose 20 Gm/30 Ml Solution) 30 gm PO DAILY [facility] Last Admin: 09/28/22 09:11 Dose: Not Given Magnesium Oxide (Magnesium Oxide 400 Mg Tablet) 400 mg PO BID [facility] Last Admin: 09/28/22 09:11 Dose: Not Given Nadolol (Nadolol 20 Mg Tablet) 20 mg PO DAILY [facility]; Protocol Last Admin: 09/28/22 09:11 Dose: Not Given Ondansetron HCl (Ondansetron Hcl 4 Mg/2 Ml Vial) 4 mg IVPUSH Q8H PRN PRN Reason: Nausea and Vomiting Pharmacy Consult (Consult Rx Perform Med Rec) 1 each MISCELLANE ONCE PRN PRN Reason: Consult order Rifaximin (Rifaximin 550 Mg Tablet) 550 mg PO BID [facility] Last Admin: 09/28/22 09:11 Dose: Not Given Sodium Chloride (0.9 % Sodium Chloride Flush 3 Ml Syringe) 3 ml IVFLUSH QSHIFT [facility] Last Admin: 09/28/22 08:24 Dose: 3 ml Spironolactone (Spironolactone 25 Mg Tablet) 50 mg PO DAILY [facility]; Protocol Last Admin: 09/28/22 09:11 Dose: Not Given Vitamin D (Cholecalciferol (Vitamin D3) 25 Mcg Tablet) 25 mcg PO DAILY [facility] Last Admin: 09/28/22 09:11 Dose: Not Given Home Medications Medication Instructions Recorded Confirmed Last Taken Type lactulose 10 gram/15 mL oral 45 ml PO DAILY 05/23/22 09/27/22 Unknown History solution nadolol 20 mg tablet 20 mg PO DAILY blood pressure 05/23/22 09/27/22 Unknown History rifaximin 550 mg tablet (Xifaxan) 550 mg PO BID 05/23/22 09/27/22 Unknown History sulfamethoxazole 800 1 tab PO DAILY 09/27/22 09/27/22 Unknown History mg-trimethoprim 160 mg tablet Physical Exam Vital Signs: Vital Signs: Last Vital Signs Temp 97.1 F 09/28/22 10:40 Pulse 61 09/28/22 10:40 Resp 20 09/28/22 10:40 BP 128/57 L 09/28/22 10:40 Pulse Ox 99 09/28/22 10:40 O2 Del Method Room Air 09/28/22 10:40 BMI result Body Mass Index 25.6 Neuro: Other: Alert and awake with normal spontaneity of speech fluency comprehension and flat affect. There is mild arm more than leg hemiparesis. Face is symmetrical. Tongue is midline. Visual hicks seem to be intact. Results Labs 09/28/22 07:05 09/28/22 07:05 Labs: Short CBC 09/27/22 09/28/22 Range/Units 14:48 07:05 WBC 8.6 8.3 (4.8-10.8) X10*3/uL Hgb 12.6 L 12.5 L (14.0-18.0) g/dl Hct 37.6 L 35.9 L (42.0-52.0) % Plt Count 107 L D 81 L (160-400) X10*3/uL BMP 09/27/22 09/28/22 14:48 07:05 Sodium 133 L 137 Potassium 5.1 D 4.7 Chloride 101 106 Carbon Dioxide 23 23 BUN 14 17 H Creatinine 1.11 0.98 Calcium 9.1 8.8 Cardiac Enzymes 09/27/22 Range/Units 14:48 Total Creatine Kinase 212 H (38-174) U/L Liver Function 09/27/22 Range/Units 14:48 Total Bilirubin 5.2 H (0.0-1.0) mg/dL Direct Bilirubin 1.5 H (0.0-0.5) mg/dL AST 47 H (5-37) U/L ALT 26 (0-40) U/L Alkaline Phosphatase 208 H (39-117) U/L Albumin 2.5 L (3.5-5.0) g/dL Urine 09/27/22 Range/Units 17:16 Urine Color Yellow Urine Appearance Clear Urine pH 5.5 (5.0-9.0) Ur Specific [place] 1.025 (1.005-1.025) Urine Protein Negative (Neg-Trace) mg/dL Urine Glucose (UA) Negative (Negative) mg/dL Head CT, in comparison to previous CT, revealed a right deep subcortical hypoden sity suggestive of an ischemic infarction CT did not reveal any vascular lesion. Assessment and Plan (1) Stroke: Status: Acute 61-year-old male with complex medical history as described in HPI with an acute right subcortical infarct causing left hemiparesis. This type of infarcts are usually caused by small to medium sized blood vessel atherothrombotic CIS. Mainstay of management is blood pressure control, anti-platelet agent if he could take 1 or at lease fish oil twice a day and statin. PT OT consultation is recommended. Time Spent With Patient Time: Total time managing care of this patient today ____ minutes. Procedures Date of Service Date of Service: 09/28/22
[2022-09-28] MEDS: methADONE HCl 20 MG/2 ML ORAL.CONC 30 MG PO (14:05)
[2022-09-28] MEDS: Enoxaparin Sodium 40 MG/0.4 ML SYRINGE SUBCUT (17:16)
[2022-09-28] MEDS: Magnesium Oxide 400 MG TABLET PO (21:46)
[2022-09-28] MEDS: rifAXIMin 550 MG TABLET PO (21:46)
[2022-09-29] VITALS (7 sets, daily range): BP systolic 105–139; BP diastolic 56–67; PULSE 50–60; RESP 13–20; TEMP 36.1–37.1; O2SAT 95–98
[2022-09-29] MEDS: Cholecalciferol (Vitamin D3) 25 MCG TABLET PO (09:19)
[2022-09-29] MEDS: Ferrous Sulfate 324 MG TABLET.DR PO (09:19)
[2022-09-29] MEDS: Aspirin Enteric Coated 81 MG TABLET.DR PO (09:19)
[2022-09-29] MEDS: methADONE HCl 20 MG/2 ML ORAL.CONC 30 MG PO (09:19)
[2022-09-29] MEDS: Furosemide 20 MG TABLET 60 MG PO (09:19)
[2022-09-29] MEDS: Spironolactone 25 MG TABLET 50 MG PO (09:19)
[2022-09-29] MEDS: rifAXIMin 550 MG TABLET PO ×2 (09:26→22:23)
[2022-09-29] MEDS: nadoloL 20 MG TABLET PO (09:26)
[2022-09-29] MEDS: Magnesium Oxide 400 MG TABLET PO ×2 (09:26→22:23)
--- NOTE | 2022-09-29 11:18 | MHC.CM.PN ---
CM met with Patient at bedside with the assist of Kinyarwanda Translation. Patient's first choice is [facility] )and he has been accepted there) in order to be close enough for family to be able to visit. [facility] not sure if [facility] will have a bed today; FREDY spoke with , who has approved waiting to dc possibly tomorrow, in order to check on [facility] bed availability tomorrow. CM will follow.
--- NOTE | 2022-09-29 11:46 | MHC.SP.ADU ---
Referring provider: Dr. Woodruff Reason for Referral: CVA Type of Treatment: 78704 Evaluation Speech Sound Production WITH Language Date of Plan of Treatment: 09/29/22 Onset of Symptoms/Illness: 09/27/22 Date Treatment Started: 09/29/22 Medical Diagnosis: CVA, Brain MRI: As suspected on yesterday's CTA, there is an acute right-sided striatocapsular infarct. There is no mass effect and there is no hemorrhagic transformation. - There is global cerebral volume loss and there is moderate to severe chronic microangiopathy. 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 Medical History: Other: Ascites Chronic anemia Cirrhosis Coagulopathy Decompensated hepatic cirrhosis Fluid overload Head injury Hypertension Opioid dependence Polymorphic ventricular tachycardia Right heart failure Syncope Medication List: See chart Recent Hospitalizations: Yes: Mar 2022 : [facility], syncope Respiratory Needs: Room Air Patient Orientation: Alert & Oriented x 4 Social History: Employment Status: Highest level of education obtained: Current Living Situation: Patient lives in a private apartment with his in [place]. Assistive Devices in use: Comment: Unknown Past Speech Language Therapy: None Other Therapies Seen in Current Calendar Year: Occupational Therapy Physical Therapy Other: Currently being simultaneously assessed by PT and OT Swallowing History: Dysphagia Specific: Comments: See Bedside Swallow Evaluation of 09/28/22 Pre-eval Risk for Aspiration: Pre-evaluation Dietary Consistencies: Chopped/Advanced (NDD3) Pre-eval Liquid Intake: Thin Pre-eval Medication Intake: Whole with Liquid Reported Speech, Language, Cognition difficulties: Understanding Speaking Comments: Patient presents with a mild dysarthria and mild to moderate difficulty with understanding and remembering more complex verbal information. Quality of Life: Good Patient Stated Goal of Speech-Language Therapy: Provide strategies and therapy to improve functional communication skills. Assessment Speech Production: Dysarthric Clinical Impression: Impaired Observations: Patient presents with a mild dysarthria, characterized by mildly imprecise speech articulation, mild difficulty with sequencing in sound/speech production (difficulty with multisyllabic words). Informal Voice Assessment: Voice Loudness: Normal Voice Nasal Resonance: Normal Voice Oral Resonance: Normal Voice Phonatory-based Quality: Harsh Hoarse Voice Pitch: Normal Voice Other Observations: Clinical Impression: Intact Clinicial Observations: Patient presents with a moderately harsh/hoarse vocal quality which reportedly is his baseline. Tests of Speech & Lang Adults: BNT Clinical Impression: Intact Observations: Patient primarily speaks Portuguese, with all testing administered in Portuguese. On 09/29/22 Patient was given the short form of the Prospect Naming Test, with the patient accurately and fluently naming 12 out of 15 items. On missed items, patient fluently and clearly described the objects and their use, and did not appear to be searching for the word, simply did not know what it is called (e.g. sphynx ). All other items, patient labelled without hesitation or any difficulty recalling words. Patient was further given the Cookie Theft picture from the [employer], with patient producing a fluent narrative describing the picture with no verbal hesitancy noted. On 09/28/22, Patients receptive language was screened using informal measures in Portuguese by Marga Baugh, SESSIONS CLERK/CF. Patient presented as fully oriented, having the ability to produce automatic sequences, demonstrated comprehension of simple directions, demonstrated comprehension of concrete y/n questions, but evidenced difficulty with more abstract/complex questions/verbal information. Tests of Cognition: Clinical Impression: Observations: Augmentative and Alternative Communication: Observations: Impressions and Recommendations Summary: Impact on Daily Function/Activity Limitations: Daily Activities: Interpersonal Interactions: Education: Employment: Community: Prognosis for Improvement: Good Comment: Patient notes that his speech and general communication is improving. Recommendation for Speech Therapy: Inpatient Speech Therapy Speech Therapy through Rehab Facility Frequency/Duration: Daily while inpatient, M-F. Date Range for Service Requested: Time to Reassess: [facility] Goals: Short Term Goals: Goal # : Goal Status: Goal# : Goal Status: Goal # : Goal Status: Goal # : Goal Status: Recommended Referrals to be Discussed with Primary Care Provider: Occupational Therapy Eval Pt demonstrated difficulty with managing food items and vessels independently d/t LUE weakness. Patient Education: Completed: Yes Patient/Caregiver Education: Described Results of Evaluation Patient expressed understanding of evaluation Comments/Barriers to Learning: Athletic Team Physician Clinican/Clinical Fellow: No Supervisory Statement: N/A Speech Language Pathologist: Lavinia Brantley M.A., CCC-SESSIONS CLERK
--- NOTE | 2022-09-29 13:05 | HO.PM.IMPN ---
Subjective Subjective Date of Service: 09/29/22 Interval History: No new complaints, persistent left-sided weakness and left facial droop, is agreeable to go to acute rehab facility, denies nausea vomiting, no headache, no dizziness, no change in left eye vision, No acute issues overnight. Review of Systems Review of Systems: Yes all other systems are reviewed and are negative Physical Exam Vital Signs: Vital Signs: Last Vital Signs Temp 97.1 F 09/29/22 11:02 Pulse 53 09/29/22 11:02 Resp 16 09/29/22 11:02 BP 139/67 09/29/22 11:02 Pulse Ox 97 09/29/22 11:02 O2 Del Method Room Air 09/29/22 11:02 BMI result Body Mass Index 25.6 Const: Other: General awake alert x3 in no acute distress.? Left eye complete loss of vision Neck supple no JVD. CVS? regular rate rhythm, Respiratory lungs clear to auscultation, no respiratory distress, no wheeze, no rhonchi. Gastrointestinal abdomen soft, nontender, bowel sounds audible, no guarding , no rigidity. Extremities no edema. 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, left lower extremity weakness 4/5, speech clear Skin no rash Psych appropriate affect Objective Data Active Medications Acetaminophen (Acetaminophen Supp 650 Mg Supp.Rect) 650 mg [place] Q6H PRN PRN Reason: Pain, Mild (Pain Scale 1-3) Aspirin (Aspirin Enteric Coated 81 Mg Tablet.) 81 mg PO DAILY [facility] Last Admin: 09/29/22 09:19 Dose: 81 mg Documented By: MARCO A Enoxaparin Sodium (Enoxaparin Sodium 40 Mg/0.4 Ml Syringe) 40 mg SUBCUT Q24H [facility] Last Admin: 09/28/22 17:16 Dose: 40 mg Documented By: ANA LUISA Ferrous Sulfate (Ferrous Sulfate 324 Mg Tablet.) 324 mg PO DAILY [facility] Last Admin: 09/29/22 09:19 Dose: 324 mg Documented By: MARCO A Furosemide (Furosemide 20 Mg Tablet) 60 mg PO DAILY [facility]; Protocol Last Admin: 09/29/22 09:19 Dose: 60 mg Documented By: MARCO A Dextrose (D10) 250 mls @ 750 mls/hr IV Q15M PRN PRN Reason: per Hypoglycemia Standing Ord. Lactulose (Lactulose 20 Gm/30 Ml Solution) 30 gm PO DAILY [facility] Last Admin: 09/29/22 09:22 Dose: Not Given Documented By: MARCO A Non-Admin Reason: Patient Refused Magnesium Oxide (Magnesium Oxide 400 Mg Tablet) 400 mg PO BID [facility] Last Admin: 09/29/22 09:26 Dose: 400 mg Documented By: MYRIAM-SALO Methadone HCl (Methadone Hcl 20 Mg/2 Ml Oral.Conc) 30 mg PO DAILY [facility] Last Admin: 09/29/22 09:19 Dose: 30 mg Documented By: MYRIAM-SALO Nadolol (Nadolol 20 Mg Tablet) 20 mg PO DAILY [facility]; Protocol Last Admin: 09/29/22 09:26 Dose: 20 mg Documented By: MARCO A Ondansetron HCl (Ondansetron Hcl 4 Mg/2 Ml Vial) 4 mg IVPUSH Q8H PRN PRN Reason: Nausea and Vomiting Pharmacy Consult (Consult Rx Perform Med Rec) 1 each MISCELLANE ONCE PRN PRN Reason: Consult order Rifaximin (Rifaximin 550 Mg Tablet) 550 mg PO BID [facility] Last Admin: 09/29/22 09:26 Dose: 550 mg Documented By: MARCO A Sodium Chloride (0.9 % Sodium Chloride Flush 3 Ml Syringe) 3 ml IVFLUSH QSHIFT [facility] Last Admin: 09/29/22 07:14 Dose: Not Given Documented By: MARCO A Non-Admin Reason: See Note Spironolactone (Spironolactone 25 Mg Tablet) 50 mg PO DAILY [facility]; Protocol Last Admin: 09/29/22 09:19 Dose: 50 mg Documented By: MARCO A Vitamin D (Cholecalciferol (Vitamin D3) 25 Mcg Tablet) 25 mcg PO DAILY [facility] Last Admin: 09/29/22 09:19 Dose: 25 mcg Documented By: MARCO A Labs 09/28/22 07:05 09/28/22 07:05 Assessment and Plan (1) Acute cerebrovascular accident (CVA): Status: Acute Plan 61-year-old male with history of decompensated hepatic cirrhosis complicated by ascites and coagulopathy, chronic anemia, obstructive sleep apnea, hypertension, polymorphic ventricular tachycardia, right-sided heart failure, hx etoh abuse, hx opoid abuse on methadone, and former smoker admitted for acute CVA. #Acute/subacute CVA -Head CT/CTA showed a new focus of low-attenuation extending from the genu of the right internal capsule and right caudate into the right putamen posteriorly?suspicious for an acute to subacute right striatocapsular infarct -MRI brain an acute right-sided striatocapsular infarct, no mass effect and there is no hemorrhagic transformation, global cerebral volume loss and there is moderate to severe chronic microangiopathy. Continue 81mg asa daily Seen by speech therapy they recommend thin liquids and chopped diet LDL 99 recommend, Low-cholesterol diet Seen by OT/PT the both recommend acute rehab Seen by Neurology they recommend good blood pressure control, antiplatelet agent and fish oil, and statin therapy. Patient agreeable for acute rehab family independence case manager arranging for safe discharge #Decompensated hepatic cirrhosis -complicated by ascites, coagulopathy -Continue? lactulose, nadolol, spironolactone, and furosemide #Chronic normocytic anemia- related to chronic disease -H/H stable #HTN -reasonably controlled,continue home meds #HFpEF -no acute exacerbation -continue PO diuretics as tolerated #Opioid dependence -continue methadone DVT prophylaxis- lovenox Full code Pt requires continued inpatient stay for management of acute CVA and safe disposition to acute rehab . Time Spent With Patient Time: Total time managing care of this patient today ____ minutes. Quality Stroke Does the patient have a stroke diagnosis?: No VTE Prior VTE?: No VTE Risk Level:: Medical - moderate - high VTE Device Contraindication: Treatment Not Indicated VTE Drug Contraindication: N/A - Med Ordered
--- NOTE | 2022-09-29 14:45 | MHC.CM.PN ---
[facility] has indicated that they now do not anticipate having a bed for Patient until next week. FREDY spoke with , who confirmed that dc cannot wait until next week. FREDY spoke with Patient and /Cheryle @ [phone] and both have accepted a bed offer from [facility]. [facility] is pursuing insurance auth and FREDY will continue to follow. is aware.
[2022-09-29] MEDS: Enoxaparin Sodium 40 MG/0.4 ML SYRINGE SUBCUT (17:22)
[2022-09-29] MEDS: 0.9 % Sodium Chloride Flush 3 ML SYRINGE IVFLUSH (22:24)
[2022-09-30 03:16] VITALS: BP 92/51; PULSE 51; RESP 16; TEMP 37.3; O2SAT 97
[2022-09-30 07:16] VITALS: BP 132/63; PULSE 58; RESP 17; TEMP 36.3; O2SAT 97
[2022-09-30 09:22] VITALS: BP 132/63; PULSE 58; O2SAT 97
--- NOTE | 2022-09-30 10:22 | MHC.CM.PN ---
DP: PATIENT HAS BEEN MEDICALLY CLEARED FOR DC TO [facility]. RN AWARE. HANNAH AWARE. [facility] HAS OBTAINED AUTH AND BLS TRANSPORT BOOKED VIA [facility] FOR 1 PM.
--- NOTE | 2022-09-30 10:23 | MHC.SL.SWA ---
Speech Pathologist Impression: Oral phase dysphagia, risk of aspiration Risk of Aspiration Due to: Recent stroke Dysphasia Diet Status: No changes at this time Liquid Consistency and Strategies for Safe Swallow: Liquid Intake Recommendation: Thin Liquid Intake Strategies: Small Sips No Straws Solid Food Consistency: Dietary Recommendations: Chopped/Advanced (NDD3) Additional Modifications to Solid Foods: Pt tolerated regular solids during clinical swallow evaluation; recommending NDD3 d/t LUE weakness and observed difficulty managing food independently w/ R arm only Oral Medication Intake: Whole with Liquid Please contact the pharmacy regarding appropriate crushable or liquid drug formulations that are available whenever modified delivery is recommended. Compensatory Strategies and Precautions to be Taken for Safe Swallow: Sitting Upright (90 deg) No Straw Small Bites and Sips Rate of Ingestion Change Supervision While Eating and Drinking for Safe Swallow: Intermittent Supervision Swallowing Recommended Treatments: Compens. Strategy Educat. Recommendation for Speech: Inpatient Speech Therapy Speech Therapy through Rehab Facility Forcer Maker Clinican/Clinical Fellow: No Supervisory Statement: I have reviewed and agree with the student/clinical fellow's documentation: N/A Speech Language Pathologist: Connie Marks M.A., CCC-TRACK WALKER
[2022-09-30] MEDS: nadoloL 20 MG TABLET PO (10:29)
[2022-09-30] MEDS: Aspirin Enteric Coated 81 MG TABLET.DR PO (10:29)
[2022-09-30] MEDS: Spironolactone 25 MG TABLET 50 MG PO (10:29)
[2022-09-30] MEDS: Furosemide 20 MG TABLET 60 MG PO (10:30)
[2022-09-30] MEDS: Cholecalciferol (Vitamin D3) 25 MCG TABLET PO (10:30)
[2022-09-30] MEDS: Ferrous Sulfate 324 MG TABLET.DR PO (10:30)
[2022-09-30] MEDS: methADONE HCl 20 MG/2 ML ORAL.CONC 30 MG PO (10:30)
[2022-09-30] MEDS: Lactulose 20 GM/30 ML SOLUTION 30 GM PO (10:30)
[2022-09-30] MEDS: Magnesium Oxide 400 MG TABLET PO (10:30)
[2022-09-30] MEDS: rifAXIMin 550 MG TABLET PO (10:30)
[2022-09-30] MEDS: 0.9 % Sodium Chloride Flush 3 ML SYRINGE IVFLUSH (10:31)
[2022-09-30 10:57] VITALS: BP 129/59; PULSE 60; RESP 16; TEMP 37.1; O2SAT 98
--- NOTE | 2022-09-30 11:42 | PM.DS ---
DS: Providers Provider Date of Service: 09/30/22 Date of admission: 09/27/22 18:20 Primary care physician: Sarmad Cuellar MD Consults: 09/27/22 17:25 Consult to Neurology Routine Consulting Provider: Michelle Smith Reason for consultation: CVA DS: Diagnosis Discharge Diagnosis (1) Acute cerebrovascular accident (CVA): Status: Acute DS: Summary Hospital Course Hospital Course: History of presenting illness: Chief Complaint: dysarthria, facial droop? ?61-year-old male with history of decompensated hepatic cirrhosis complicated by ascites and coagulopathy, chronic anemia, obstructive sleep apnea, hypertension, polymorphic ventricular tachycardia, right-sided heart failure, hx etoh abuse, hx opoid abuse on methadone, and former smoker presented to the ED via EMS? on stroke alert for evaluation of left-sided weakness.? Last known well time was around 19:00 last night and at that time he states he developed some lightheadedness and laid down.? This morning he woke up around 06:00 and was unable to stand secondary to weakness in the left leg.? Later in the day, the patient's speech was dysarthric and on comprehensible and as a result 911 was called.? EMS noted left-sided facial droop, left upper and lower extremity weakness and dysarthria.? He is also having difficulty seeing out of the left eye x3 days. ?on arrival, and NIH stroke scale was 9.? Vital signs stable, blood ? Pressure 154/80.? PTT 24.0, INR 2.0, PTT 44.1.? Renal function baseline.? Electrolyte levels normal except for mild hyponatremia of 133.? Hepatic function baseline.? Total CK 212.? Troponin within normal limits.? Head CT showing subtle increased attenuation in the right M1 artery possibly related to atherosclerotic change though partial acute thrombus cannot be excluded.? Head/neck CTA showing new focus of low attenuation extending from the genu of the right internal capsule and right caudate into the right putamen posteriorly suspicious for an acute to subacute right striatocapsular infarct. There is also extensive hypoattenutation throughout the supratentorial white matter which is nonspecific. No significant arterial stenoses or occlusions. No hydrocephalus or intracranial hemorrhage. In the ED, patient failed bedside swallow evaluation. Receiving 300mg asa OK. To be admitted for acute ischemic infarct. Outside of window for tPA. Hospital course: 61-year-old male with history of decompensated hepatic cirrhosis complicated by ascites and coagulopathy, chronic anemia, obstructive sleep apnea, hypertension, polymorphic ventricular tachycardia, right-sided heart failure, hx etoh abuse, hx opoid abuse on methadone, and former smoker admitted for acute CVA. #Acute CVA, patient presented with left-sided weakness and speech impairment,Head CT/CTA showed a new focus of low-attenuation extending from the genu of the right internal capsule and right caudate into the right putamen posteriorly?suspicious for an acute to subacute right striatocapsular infarct,-MRI brain?showed an acute right-sided striatocapsular infarct, no mass effect and no hemorrhagic transformation, global cerebral volume loss and moderate to severe chronic microangiopathy, patient seen by neurologist they recommended statin, aspirin and fish oil ,that has been started, patient seen by speech therapy they recommend thin liquids and advanced chopped diet, LDL 99 patient started on low-dose statins, PT OT recommend acute rehab therefore patient is being discharged to rehab facility. # left eye loss of vision greater than 2 weeks with prior history of eye surgery recommend outpatient ophthalmology follow-up. #Decompensated hepatic cirrhosis -complicated by ascites, coagulopathy-Continue? lactulose, nadolol, spironolactone, and furosemide. #Chronic normocytic anemia- related to chronic disease -H/H stable. #HTN-reasonably controlled,continue home meds. #HFpEF-no acute exacerbation-continue PO diuretics as tolerated. #Opioid dependence-continue methadone. Time Spent with Patient Time attestation: Total time managing care of this patient today ____ minutes. Discharge coordination time: Greater than 30 minutes Quality: Safe Use of Opioids Does Pt have an Active Cancer Diagnosis on the Problem List?: No Quality: Stroke Does the patient have a stroke diagnosis?: No Physical Exam Vital Signs: Vital Signs: Last Vital Signs Temp 98.8 F 09/30/22 10:57 Pulse 60 09/30/22 10:57 Resp 16 09/30/22 10:57 BP 129/59 L 09/30/22 10:57 Pulse Ox 98 09/30/22 10:57 O2 Del Method Room Air 09/30/22 10:57 BMI result Body Mass Index 25.6 Const: Other: General awake alert x3 in no acute distress.? Left eye complete loss of vision Neck supple no JVD. CVS? regular rate rhythm, Respiratory lungs clear to auscultation, no respiratory distress, no wheeze, no rhonchi. Gastrointestinal abdomen soft, nontender, bowel sounds audible, no guarding , no rigidity. Extremities no edema. Neuro? 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, left lower extremity weakness 4/5, speech cleared Skin no rash Psych appropriate affect DS: Data Data Completed and Pending Completed studies during hospitalization [Text1]: Procedures Drainage of Peritoneal Cavity, Percutaneous Approach (03/15/22) Discharge Plan Discharge Anticipated Discharge Date/Time: 09/30/22 11:25 Patient Disposition: Xfer Inpatient Rehab Fac Discharge Diagnosis: Acute CVA Referrals: [facility] [Outside] - 1 Week (TRANSFER TO [facility]) Name,MD Sarmad [Primary Care Provider] - 1 Week Discharge Medications: New aspirin 81 mg Tablet,Delayed Release (Dr/Ec) 81 mg PO DAILY Qty: 30 0RF omega 5-puh-zob-fish oil [Fish Oil] 1,000 mg (120 mg-180 mg) capsule 1 cap PO DAILY Qty: 30 0RF atorvastatin [Lipitor] 20 mg tablet 20 mg PO BEDTIME Qty: 30 0RF Continued cholecalciferol (vitamin D3) 25 mcg (1,000 unit) capsule 25 mcg PO DAILY Qty: 90 2RF Galzin 50 mg (zinc) capsule 50 mg PO DAILY Qty: 90 1RF vitamin A palmitate 10,000 unit tablet 10,000 unit PO DAILY Qty: 90 1RF spironolactone [Aldactone] 50 mg tablet 50 mg PO DAILY Qty: 30 3RF ferrous sulfate 324 mg (65 mg iron) tablet,delayed release (DR/EC) 324 mg PO DAILY Qty: 30 0RF furosemide 40 mg tablet 60 mg PO DAILY 30 Days Qty: 45 0RF magnesium oxide 400 mg magnesium capsule 400 mg PO BID Qty: 60 1RF sulfamethoxazole-trimethoprim 800-160 mg tablet 1 tab PO DAILY methadone 10 mg/mL Concentrate 30 mg PO DAILY nadolol 20 mg tablet 20 mg PO DAILY lactulose 10 gram/15 mL solution 45 ml PO DAILY Xifaxan 550 mg tablet 550 mg PO BID Discharge Orders: Discharge Order (Routine); Ordered 09/30/22 Ordered By: Shawanda Woodruff Diet: Chopped advanced Activity on Discharge: As tolerated Stand Alone Forms: Patient Portal Discharge page Care Plan Goals: Acute CVA with left-sided weakness, continue physical therapy and occupational therapy at rehab facility Continue all home medications as before Continue chopped advanced diet and thin liquid continue speech therapy evaluation Health Concerns: Take all medications as prescribed Plan of Treatment: Outpatient follow-up with primary care physician Assessment: As above
[2022-09-30 12:42] LABS: COVID-19 Test Negative (Negative); IDNOW Serial# 6674DD1D
== END 2022-09-30 13:52 | DRG 45 ==
LOC: HO.ED 18:10 → HO.IMC 18:21
PROVIDERS: Admitting Provider Physician Assistant; Emergency Provider Emergency Medicine Emergency Medical Services; PCP Internal Medicine Geriatric Medicine; Visit Provider Hospitalist
DX: I63.9 Cerebral infarction, unspecified (principal); D68.4 Acquired coagulation factor deficiency; R18.8 Other ascites; D63.8 Anemia in other chronic diseases classified elsewhere; G81.94 Hemiplegia, unspecified affecting left nondominant side; I50.32 Chronic diastolic (congestive) heart failure; I11.0 Hypertensive heart disease with heart failure; F10.11 Alcohol abuse, in remission; H53.9 Unspecified visual disturbance; G47.33 Obstructive sleep apnea (adult) (pediatric); R29.810 Facial weakness; F11.20 Opioid dependence, uncomplicated; R29.709 NIHSS score 9; Z20.822 Contact with and (suspected) exposure to COVID-19; Z87.891 Personal history of nicotine dependence; Z79.82 Long term (current) use of aspirin; Z88.5 Allergy status to narcotic agent; Z79.899 Other long term (current) drug therapy
CPT/HCPCS: 36415; 70450; 70496; 70498; 70551; 71045; 80048; 80061; 80076; 80307; 81003; 82550; 82947; 83735; 84100; 84484; 85025; 85610; 85730; 87502; 87635; 92523; 92526; 92610; 93005; 93306; 97116; 97162; 97167; 97530; 97535; 99285; J1650; Q9957; Q9967

== ENCOUNTER 2022-10-17 18:34 | Emergency (ER) | payer MEDICAID, SELFPAY ==
[2022-10-17 19:38] VITALS: BP 150/79; PULSE 52; RESP 18; TEMP 36.8; O2SAT 98; BMI 25.7
--- NOTE | 2022-10-17 19:38 | ED_ITS ---
HPI - General Adult General Chief complaint: General Medical Stated complaint: ? high bp,anxiety Related Data Home Medications Medication Instructions Recorded Confirmed lactulose 10 gram/15 mL oral 45 ml PO DAILY 05/23/22 09/27/22 solution nadolol 20 mg tablet 20 mg PO DAILY blood pressure 05/23/22 09/27/22 rifaximin 550 mg tablet (Xifaxan) 550 mg PO BID 05/23/22 09/27/22 sulfamethoxazole 800 1 tab PO DAILY 09/27/22 09/27/22 mg-trimethoprim 160 mg tablet methadone 10 mg/mL oral concentrate 30 mg PO DAILY 09/28/22 09/28/22 Previous Rx's Medication Instructions Recorded ferrous sulfate 324 mg (65 mg 324 mg PO DAILY #30 tabs 03/19/22 iron) tablet,delayed release furosemide 40 mg tablet 60 mg PO DAILY 30 days #45 tabs 03/19/22 magnesium oxide 400 mg PO BID #60 caps 03/26/22 cholecalciferol (vitamin D3) 25 25 mcg PO DAILY #90 caps 06/24/22 mcg (1,000 unit) capsule zinc acetate 50 mg (zinc) capsule 50 mg PO DAILY #90 caps 06/29/22 (Galzin) vitamin A palmitate 3,000 mcg 10,000 unit PO DAILY #90 tabs 07/04/22 (10,000 unit) tablet spironolactone 50 mg tablet 50 mg PO DAILY #30 tabs 09/19/22 (Aldactone) aspirin 81 mg tablet,delayed 81 mg PO DAILY #30 tabs 09/30/22 release atorvastatin 20 mg tablet (Lipitor) 20 mg PO BEDTIME #30 tabs 09/30/22 omega 8-gom-dtv-fish oil 1,000 mg 1 cap PO DAILY #30 caps 09/30/22 (120 mg-180 mg) capsule (Fish Oil) Allergies Allergy/AdvReac Type Severity Reaction Status Date / Time tramadol [TRAMADOL] Allergy Unknown ANXIETY Verified 09/27/22 14:27 [facility] Past Medical History Medical History Ascites Chronic anemia Cirrhosis Coagulopathy Decompensated hepatic cirrhosis Fluid overload Head injury Hypertension Opioid dependence Polymorphic ventricular tachycardia Right heart failure Syncope Surgical History History of appendectomy History of eye surgery Hx of colonoscopy Family History Family History Mother No problems noted. Father No problems noted. Other No family history of coronary artery disease Social History Social History Household Members: Spouse Housing: Apartment Do you presently have visiting nurse or other home services: No Alcohol intake: never Patient Tobacco Use Status: Former Tobacco user Tobacco use type: Cigarette Substance Use Type: Former Substance User Advance Directives: No Advance Directives Date on File: 03/28/22 service: No Current occupational status: unemployed Physical Exam ED Vital Signs: BMI result Body Mass Index 25.7 Course Course Course Narrative: RME: 61yo M w/PMHx decompensated hepatic cirrhosis complicated by ascites and coagulopathy, chronic anemia, obstructive sleep apnea, HTN, polymorphic ventricular tachycardia, right-sided heart failure, hx etoh abuse, hx opoid a buse on methadone, and former smoker, recently discharged from our facility on 09/30 s/p acute CVA with left-sided weakness presented to the ED today c/o suspected HTN at home & feeling anxious. Family reports patient just got home from rehab and felt anxious being home alone for the 1st time today. Patient with fear of falling/feels unsafe while family is working. Denies CP, SOB, WEAVER EKG, labs, UA, PT/Case Management ordered Full HPI, ROS and PE to be performed by primary ED provider. Medical Decision Making Lab Data 10/17/22 20:08 10/17/22 20:08 Labs: Lab Results 10/17/22 10/17/22 10/17/22 Range/Units 20:08 20:08 20:08 WBC 8.4 (4.8-10.8) X10*3/uL RBC 4.05 L (4.60-5.80) X10*6/uL Hgb 12.6 L (14.0-18.0) g/dl Hct 37.5 L (42.0-52.0) % MCV 92.6 (80.0-98.0) fL MCH 31.1 (27.0-33.0) pg MCHC 33.6 (31.0-36.0) g/dl RDW 15.6 (11.0-16.0) % Plt Count 89 L (160-400) X10*3/uL MPV 12.7 H (9.4-12.4) fL Immature Gran % (Auto) 0.2 (0.0-0.4) % Neut % (Auto) 57.2 (45-73) % Lymph % (Auto) 27.4 (20-40) % [place] % (Auto) 12.8 H (2-11) % Eos % (Auto) 1.7 (0-4) % Baso % (Auto) 0.7 (0-2) % Lymph # (Auto) 2.3 (1.2-4.9) X10*3/uL [place] # (Auto) 1.1 (0.1-1.2) X10*3/uL Eos # (Auto) 0.1 (0.0-0.4) X10*3/uL Baso # (Auto) 0.1 (0.0-0.2) X10*3/uL Abs Immat Gran (auto) 0.02 (0.00-0.03) X10*3/uL Absolute Neuts (auto) 4.8 (2.0-8.3) x10*3/uL Absolute Nucleated RBC 0.000 (0.0-0.012) X10*3/uL Nucleated RBC % (auto) 0.0 (0.0-0.2) /100WBC Sodium 137 (135-145) mmol/L Potassium 4.5 (3.3-5.1) mmol/L Chloride 101 (96-108) mmol/L Carbon Dioxide 30 H (22-29) mmol/L Anion Gap 11 L (12-20) BUN 18 H (9-16) mg/dL Creatinine 1.51 H (0.5-1.4) mg/dL Estim Creat Clear Calc 41.9 Estimated GFR 47 Random Glucose 127 H (60-115) mg/dL Calcium 8.9 (8.4-10.2) mg/dL Total Bilirubin 3.1 H (0.0-1.0) mg/dL Direct Bilirubin 1.2 H (0.0-0.5) mg/dL AST 45 H (5-37) U/L ALT 32 (0-40) U/L Alkaline Phosphatase 225 H (39-117) U/L Troponin I High Sens 3.9 (<3.5-35.0) ng/L Total Protein 6.4 L (6.5-8.0) g/dL Albumin 2.5 L (3.5-5.0) g/dL Discharge Plan Discharge Clinical Impression: High blood pressure Patient Disposition: Elopement Prescriptions: No Action cholecalciferol (vitamin D3) 25 mcg (1,000 unit) capsule 25 mcg PO DAILY Qty: 90 2RF Galzin 50 mg (zinc) capsule 50 mg PO DAILY Qty: 90 1RF vitamin A palmitate 10,000 unit tablet 10,000 unit PO DAILY Qty: 90 1RF spironolactone [Aldactone] 50 mg tablet 50 mg PO DAILY Qty: 30 3RF ferrous sulfate 324 mg (65 mg iron) tablet,delayed release (DR/EC) 324 mg PO DAILY Qty: 30 0RF furosemide 40 mg tablet 60 mg PO DAILY 30 Days Qty: 45 0RF magnesium oxide 400 mg magnesium capsule 400 mg PO BID Qty: 60 1RF sulfamethoxazole-trimethoprim 800-160 mg tablet 1 tab PO DAILY methadone 10 mg/mL Concentrate 30 mg PO DAILY aspirin 81 mg Tablet,Delayed Release (Dr/Ec) 81 mg PO DAILY Qty: 30 0RF omega 4-sjx-nwd-fish oil [Fish Oil] 1,000 mg (120 mg-180 mg) capsule 1 cap PO DAILY Qty: 30 0RF atorvastatin [Lipitor] 20 mg tablet 20 mg PO BEDTIME Qty: 30 0RF nadolol 20 mg tablet 20 mg PO DAILY lactulose 10 gram/15 mL solution 45 ml PO DAILY Xifaxan 550 mg tablet 550 mg PO BID Interventions: ED Discharge Assessment Last Done: 10/18/22 00:25 Discharge Date/Time: 10/18/22 00:30
--- NOTE | 2022-10-17 19:42 | ECG_ITS ---
Test Reason : HTN Blood Pressure : / mmHG Vent. Rate : 051 BPM Atrial Rate : 051 BPM P-R Int : 158 ms QRS Dur : 080 ms QT Int : 518 ms P-R-T Axes : 064 014 031 degrees QTc Int : 477 ms Sinus bradycardia Otherwise normal ECG When compared with ECG of 27-SEP-2022 14:36, No significant change was found Referred By: Tasha Kline Electronically Signed By:Keo Canseco
[2022-10-17 20:15] LABS: Basophils Absolute Auto 0.1 X10*3/uL (0.0-0.2); Basophils Percent Auto 0.7 % (0-2); Eosinophils Absolute Auto 0.1 X10*3/uL (0.0-0.4); Eosinophils Percent Auto 1.7 % (0-4); Hematocrit 37.5 % (42.0-52.0); Hemoglobin 12.6 g/dl (14.0-18.0); Imm Gran Abs Auto 0.02 X10*3/uL (0.00-0.03); Imm Gran Pct Auto 0.2 % (0.0-0.4); Lymphocytes Absolute Auto 2.3 X10*3/uL (1.2-4.9); Lymphocytes Percent Auto 27.4 % (20-40); MANUAL DIFF FLAG NO; Mean Corpuscular HGB Conc 33.6 g/dl (31.0-36.0); Mean Corpuscular Hemoglobin 31.1 pg (27.0-33.0); Mean Corpuscular Volume 92.6 fL (80.0-98.0); Mean Platelet Volume 12.7 fL (9.4-12.4); Monocytes Absolute Auto 1.1 X10*3/uL (0.1-1.2); Monocytes Percent Auto 12.8 % (2-11); Neutrophils Absolute Auto 4.8 x10*3/uL (2.0-8.3); Neutrophils Percent Auto 57.2 % (45-73); Platelet Count 89 X10*3/uL (160-400); Red Blood Count 4.05 X10*6/uL (4.60-5.80); Red Cell Distribution Width 15.6 % (11.0-16.0); White Blood Count 8.4 X10*3/uL (4.8-10.8)
[2022-10-17 20:35] LABS: Alanine Aminotransferase 32 U/L (0-40); Albumin Level 2.5 g/dL (3.5-5.0); Alkaline Phosphatase 225 U/L (39-117); Anion Gap 11 (12-20); Aspartate Amino Transferase 45 U/L (5-37); Bilirubin Direct 1.2 mg/dL (0.0-0.5); Bilirubin Total 3.1 mg/dL (0.0-1.0); Blood Urea Nitrogen 18 mg/dL (9-16); Calcium 8.9 mg/dL (8.4-10.2); Carbon Dioxide 30 mmol/L (22-29); Chloride 101 mmol/L (96-108); Creatinine Clr Calc Pharmacy 41.9; Estimated Glomerular Filt Rate 47; Glucose Random 127 mg/dL (60-115); Potassium 4.5 mmol/L (3.3-5.1); Sodium 137 mmol/L (135-145); Total Protein 6.4 g/dL (6.5-8.0)
[2022-10-17 20:41] LABS: Troponin-I High Sensitivity 3.9 ng/L (<3.5-35.0)
--- NOTE | 2022-10-17 21:19 | MHC.CM.ED ---
CM received a consult from Tasha DE OLIVEIRA for a patient triaged, but still waiting for room assignment in the waiting room. CM met with patient and his . Pt is [place]orese speaking, but his speaks French. Pt was inpatient at [facility] S/P CVA from 09/27-09/30 and discharged to [facility]. Pt was at [facility] from 09/30-10/07. Visiting nurse came for first visit on Monday, 10/09. PT/OT came on 10/11 and 10/14. PT will come 3 times/week. Pt has just returned to work today. It was very stressful for both the patient and his . Pt was very anxious being alone, and his called from work, but was worried. tells CM pt was very anxious when she got home and he normally is not anxious. He is not on any medications for anxiety. 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 She is unsure how many hours. CM explained that both she and the patient will need to work with [employer] about that, as CM does not provide LEATHER SPONGER help in the home. CM spoke to both the patient and his about how normal it is to be anxious at home, being alone and worrying about having another stroke. Explained that these are normal feelings, that will improve over time. Pt has made good progress so far with PT and feels good about home therapy. CM spoke with patient and his regarding [employer] and how that might help patient feel less anxious. tells CM that the [facility] spoke with her about it, and is researching if any companies work with cell phones and not land lines. Pt and live in elderly housing and are active with their community and anabaptism. tells CM that people that live in their housing and their anabaptism have offered to stop by and check in on the patient. Encouraged to take advantage of any help that friends, neighbors and anabaptism folk are offering. Pt and seem much calmer. They understand that this is normal after a stroke and that over time, that fear will lessen. Contact card given. Tasha brown. Will alert ED provider when patient is brought in from waiting room. Pt has no discharge needs at this time that CM can assist with.
== END 2022-10-18 00:30 | disposition left against medical advice (07) ==
LOC: HO.ED 10-18 00:28
PROVIDERS: Physician Assistant; Emergency Provider Emergency Medicine
DX: I10 Essential (primary) hypertension (principal); F41.9 Anxiety disorder, unspecified; K74.60 Unspecified cirrhosis of liver; D64.9 Anemia, unspecified; F11.20 Opioid dependence, uncomplicated; Z87.891 Personal history of nicotine dependence; Z86.73 Personal history of transient ischemic attack (TIA), and cerebral infarction without residual deficits
CPT/HCPCS: 36415; 80048; 80076; 84484; 85025; 93005; 99283; 99284

== ENCOUNTER 2022-11-25 13:09 | Emergency (ER) | payer MEDICAID, SELFPAY ==
--- NOTE | ~2022-11-25 | CT_ITS ---
EXAMINATION: CT HEAD WITHOUT CONTRAST, CT CERVICAL SPINE WITHOUT CONTRAST CLINICAL INFORMATION: Fall. Altered mental status. COMPARISON: Portions of a head CT 09/27/22 TECHNIQUE: Multidetector CT examination of the head is performed without contrast. Multidetector CT of the cervical spine without contrast. Multiplanar postprocessing This CT examination was performed using dose optimization techniques as appropriate, variously including the following: *Automated exposure control *Adjustment of mA and/or kV according to patient size (this includes techniques or standardized protocols for targeted exams where dose is matched to indication/reason for exam; i.e. extremities or head) *Use of iterative reconstruction technique DLP: 1080 mGy-cm FINDINGS: Head CT: There is no evidence of a recent intracranial hemorrhage or extra-axial collection. The midline structures are nondisplaced. No change in the ventricles, cisterns or sulci There is no evidence of an intra-axial mass. There are no suspicious focal areas of abnormal brain attenuation. The montalvo-white interface is within normal limits. There is no evidence of acute territorial infarct. There has been evolution in a now better visualized low attenuating infarct in the right basal ganglia region. Moderately severe nonspecific white matter low attenuation The paranasal sinuses and mastoids are within normal limits. No skull fracture demonstrated Cervical CT: No cervical fracture or subluxation. There is slight reversal of expected lordosis. There is no significant volume loss. There is disc narrowing and there are proliferative osteophytes involving the endplates and there is extensive disease involving the facets with some foraminal narrowing. No suspicious abnormality in the visualized apex of the chest CT/CT cervical spine wo IV con IMPRESSION: 1. There is no evidence of a recent intracranial hemorrhage. 2. No acute infarct. 3. No acute fracture or subluxation of the cervical spine Evolving right basal ganglia region infarct and moderately extensive nonspecific white matter disease again demonstrated
--- NOTE | ~2022-11-25 | XR_ITS ---
EXAMINATION: LEFT SHOULDER, LEFT HUMERUS, AND AP CHEST CLINICAL INFORMATION: Fall with pain COMPARISON: Chest x-ray of September 27, 2022 TECHNIQUE AP and lateral left humerus. 3 view left shoulder.: AP chest. FINDINGS: AP film of the chest does not demonstrate any evidence of acute parenchymal disease, pneumothorax, or pleural effusion. Heart normal size. No evidence of pulmonary edema. Views of the left shoulder do not demonstrate any evidence of acute fracture or dislocation. Glenohumeral joint appears unremarkable. No significant abnormality of the acromioclavicular joint is seen. There is no widening of the coracoclavicular space. Views of the left humerus do not demonstrate any evidence of acute fracture or dislocation. No destructive bony lesions are identified. There is some soft tissue edema seen about the distal humerus and also forearm. These are nontraditional views and I cannot rule out possible elbow fracture or effusion and clinical correlation is recommended. XR/XR humerus LT IMPRESSION: No acute disease within the chest. No significant left shoulder abnormality appreciated. No definite acute fracture or dislocation of the left humerus on provided imaging with evaluation of the elbow very limited due to nontraditional views without true AP or lateral views. There is large amount of soft tissue edema about the distal humerus and proximal forearm and clinical correlation for possible need of dedicated elbow study is suggested.
--- NOTE | ~2022-11-25 | XR_ITS ---
EXAMINATION: LEFT SHOULDER, LEFT HUMERUS, AND AP CHEST CLINICAL INFORMATION: Fall with pain COMPARISON: Chest x-ray of September 27, 2022 TECHNIQUE AP and lateral left humerus. 3 view left shoulder.: AP chest. FINDINGS: AP film of the chest does not demonstrate any evidence of acute parenchymal disease, pneumothorax, or pleural effusion. Heart normal size. No evidence of pulmonary edema. Views of the left shoulder do not demonstrate any evidence of acute fracture or dislocation. Glenohumeral joint appears unremarkable. No significant abnormality of the acromioclavicular joint is seen. There is no widening of the coracoclavicular space. Views of the left humerus do not demonstrate any evidence of acute fracture or dislocation. No destructive bony lesions are identified. There is some soft tissue edema seen about the distal humerus and also forearm. These are nontraditional views and I cannot rule out possible elbow fracture or effusion and clinical correlation is recommended. XR/XR shoulder LT min 2V IMPRESSION: No acute disease within the chest. No significant left shoulder abnormality appreciated. No definite acute fracture or dislocation of the left humerus on provided imaging with evaluation of the elbow very limited due to nontraditional views without true AP or lateral views. There is large amount of soft tissue edema about the distal humerus and proximal forearm and clinical correlation for possible need of dedicated elbow study is suggested.
--- NOTE | ~2022-11-25 | US_ITS ---
EXAMINATION: US VENOUS WITH DOPPLER UPPER EXTREMITY, LEFT CLINICAL INFORMATION: Pain COMPARISON: None available. TECHNIQUE: Ultrasound of the upper extremity is performed using compression sonography and color and pulse Doppler flow with assessment of augmentation of flow. There is also imaging and Doppler assessment of the jugular and subclavian veins. Spectral analysis with color-flow imaging is performed. FINDINGS: Exam is incomplete. The tube bender reports a limited patient mobility to the left arm. Therefore the tube bender is unable to visualize the distal basilic, proximal radial or ulnar veins. Given that there is no evidence of DVT on the imaging submitted. The mid and distal radial veins appear patent. The mid basilic appears patent. Brachial patent. Cephalic patent. Axillary patent. Subclavian patent. Internal jugular patent. US/US venous duplex UE LT IMPRESSION: Exam is incomplete. The tube bender as stated is unable to visualize the distal basilic vein, proximal radial vein or ulnar veins. Therapist'S Assistant states this is due to patient limited mobility. There is however no evidence of DVT on the imaging submitted in the remainder of the veins
--- NOTE | ~2022-11-25 | XR_ITS ---
EXAMINATION: XR HAND-WRIST, LEFT CLINICAL INFORMATION: History of fall, swelling. COMPARISON: Prior radiographs from 05/12/2017 TECHNIQUE: PA, lateral, and oblique views of the left hand (with wrist included in [id number]) FINDINGS: LEFT WRIST: There appears to be periarticular osteopenia. Bones have normal shape and alignment. No acute fracture or subluxation. The carpal joint spaces are maintained. No erosions or periostitis. Soft tissues are swollen in the visualized distal forearm and wrist. LEFT HAND: Periarticular osteopenia. Old healed spiral fracture of the third metacarpal diaphysis. No evidence of acute osseous injury. The fingers are flexed at the proximal interphalangeal joints. The articular cartilage spaces are maintained. No erosions or periostitis. Nonspecific soft tissue swelling of the hand without soft tissue gas or dystrophic calcification. XR/XR hand wrist LT IMPRESSION: * No acute osseous injury in the left wrist or hand. * Old healed spiral fracture of the third metacarpal diaphysis. * Nonspecific soft tissue swelling of the visualized distal forearm, wrist and hand.
--- NOTE | ~2022-11-25 | XR_ITS ---
EXAMINATION: XR ELBOW, LEFT CLINICAL INFORMATION: History of swelling, fall COMPARISON: None available. TECHNIQUE: AP, lateral, and oblique views of the left elbow. FINDINGS: Nonspecific soft tissue swelling of the elbow and visualized proximal forearm. No soft tissue gas or dystrophic calcification. The radiocapitellar and ulnohumeral joint spaces are maintained. No arthritic deformity. No erosions or periostitis. No evidence of elbow joint effusion. XR/XR elbow LT 2V IMPRESSION: * No acute osseous injury at the left elbow. Bones have normal alignment. * There is nonspecific soft tissue edema of the elbow and forearm.
--- NOTE | ~2022-11-25 | XR_ITS ---
EXAMINATION: LEFT SHOULDER, LEFT HUMERUS, AND AP CHEST CLINICAL INFORMATION: Fall with pain COMPARISON: Chest x-ray of September 27, 2022 TECHNIQUE AP and lateral left humerus. 3 view left shoulder.: AP chest. FINDINGS: AP film of the chest does not demonstrate any evidence of acute parenchymal disease, pneumothorax, or pleural effusion. Heart normal size. No evidence of pulmonary edema. Views of the left shoulder do not demonstrate any evidence of acute fracture or dislocation. Glenohumeral joint appears unremarkable. No significant abnormality of the acromioclavicular joint is seen. There is no widening of the coracoclavicular space. Views of the left humerus do not demonstrate any evidence of acute fracture or dislocation. No destructive bony lesions are identified. There is some soft tissue edema seen about the distal humerus and also forearm. These are nontraditional views and I cannot rule out possible elbow fracture or effusion and clinical correlation is recommended. XR/XR chest 1V IMPRESSION: No acute disease within the chest. No significant left shoulder abnormality appreciated. No definite acute fracture or dislocation of the left humerus on provided imaging with evaluation of the elbow very limited due to nontraditional views without true AP or lateral views. There is large amount of soft tissue edema about the distal humerus and proximal forearm and clinical correlation for possible need of dedicated elbow study is suggested.
[2022-11-25 13:16] VITALS: BP 126/70; BP 149/58; PULSE 50; RESP 20; TEMP 36.6; O2SAT 100; O2SAT 98; BMI 27.1
--- NOTE | 2022-11-25 13:25 | ECG_ITS ---
Test Reason : CP Blood Pressure : / mmHG Vent. Rate : 052 BPM Atrial Rate : 052 BPM P-R Int : 162 ms QRS Dur : 080 ms QT Int : 542 ms P-R-T Axes : 052 023 028 degrees QTc Int : 504 ms Sinus bradycardia with Premature atrial complexes Prolonged QT Abnormal ECG When compared with ECG of 17-OCT-2022 19:56, Premature atrial complexes are now Present Referred By: Generic ED Physician Electronically Signed By:MACI ECHEVARRIA MD
--- NOTE | 2022-11-25 13:31 | ED.CHESTPAIN ---
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 He reports a fall yesterday as well as this morning but does not recall how the fall occurred. He is complaining of left shoulder pain related to these falls. He reports left hand swelling at baseline. He also complains of dyspnea which is worse at night for the past several days. He reports that he has had to sit upright in bed to sleep. He also reports intermittent chest pain for this past several days. He reports that he has been taking his medications as prescribed and that his administers these to him. He denies any recent fevers. He denies any abdominal pain, nausea, vomiting, diarrhea, or constipation. He denies any cough. MD complaint: chest pain Pertinent past history: other (HTN, right heart failure) Onset (ago): day(s) Timing of current episode: episodic Prior episodes: Yes Onset: during rest Pain location: substernal Pain radiation: none Severity: moderate Quality: dull Relieving factors: nothing Exacerbating factors: nothing Associated symptoms: dyspnea Treatment prior to arrival: none Related Data Home Medications Medication Instructions Recorded Confirmed lactulose 10 gram/15 mL oral 45 ml PO DAILY 05/23/22 09/27/22 solution nadolol 20 mg tablet 20 mg PO DAILY blood pressure 05/23/22 09/27/22 rifaximin 550 mg tablet (Xifaxan) 550 mg PO BID 05/23/22 09/27/22 sulfamethoxazole 800 1 tab PO DAILY 09/27/22 09/27/22 mg-trimethoprim 160 mg tablet methadone 10 mg/mL oral concentrate 30 mg PO DAILY 09/28/22 09/28/22 Previous Rx's Medication Instructions Recorded ferrous sulfate 324 mg (65 mg 324 mg PO DAILY #30 tabs 03/19/22 iron) tablet,delayed release furosemide 40 mg tablet 60 mg PO DAILY 30 days #45 tabs 03/19/22 magnesium oxide 400 mg PO BID #60 caps 03/26/22 cholecalciferol (vitamin D3) 25 25 mcg PO DAILY #90 caps 06/24/22 mcg (1,000 unit) capsule vitamin A palmitate 3,000 mcg 10,000 unit PO DAILY #90 tabs 07/04/22 (10,000 unit) tablet spironolactone 50 mg tablet 50 mg PO DAILY #30 tabs 09/19/22 (Aldactone) aspirin 81 mg tablet,delayed 81 mg PO DAILY #30 tabs 09/30/22 release atorvastatin 20 mg tablet (Lipitor) 20 mg PO BEDTIME #30 tabs 09/30/22 omega 7-cgu-[id number]-fish oil 1,000 mg 1 cap PO DAILY #30 caps 09/30/22 (120 mg-180 mg) capsule (Fish Oil) zinc acetate 50 mg (zinc) capsule 50 mg PO DAILY #90 caps 11/23/22 (Galzin) Allergies Allergy/AdvReac Type Severity Reaction Status Date / Time tramadol [TRAMADOL] Allergy Unknown ANXIETY Verified 09/27/22 14:27 Review of Systems Review of Systems: As per HPI. Limited due to altered mental status. Neurologic: Reports confusion Psychiatric: Psychiatric: Reports confusion [facility] Past Medical History Medical History Ascites Chronic anemia Cirrhosis Coagulopathy Decompensated hepatic cirrhosis Fluid overload Head injury Hypertension Opioid dependence Polymorphic ventricular tachycardia Right heart failure Syncope Surgical History History of appendectomy History of eye surgery Hx of colonoscopy Family History Family History Mother No problems noted. Father No problems noted. Other No family history of coronary artery disease Social History Social History Household Members: Spouse Housing: Apartment Do you presently have visiting nurse or other home services: No Alcohol intake: unknown Patient Tobacco Use Status: Former Tobacco user Tobacco use type: Cigarette Smoked in Last 30 Days: No Use of substances other than those prescribed or required for medical reasons: Unknown Substance Use Type: Former Substance User Advance Directives: Yes Advance Directives on File: Yes Advance Directives Date on File: 03/28/22 service: No Current occupational status: unemployed Physical Exam Vital Signs: Vital Signs: Last Vital Signs Temp 97.9 F 11/25/22 13:16 Pulse 51 11/25/22 14:13 Resp 10 L 11/25/22 14:13 BP 134/62 11/25/22 14:13 Pulse Ox 100 11/25/22 14:13 O2 Del Method Room Air 11/25/22 14:13 BMI result Body Mass Index 27.1 Vital signs have been reviewed and appear to be correct. Blood pressure elevated. Heart rate bradycardic. Respiratory rate normal. Temperature normal. Oxygen saturation normal. Const: General: alert, awake, confusion and ill appearing chronically Nutritional Appearance: average body habitus Orientation/consciousness: oriented to person, oriented to place and confusion Limitations: altered mental status, language barrier, physical limitations and ambulation with cane HEENT: Head: Yes No palpable skull fracture present, Yes normocephalic, Yes atraumatic, No Garcia's sign and No raccoon eyes Ears: hearing grossly normal bilaterally, external ears normal and TM's normal bilaterally General nose exam: Normal external nose present Mouth: Normal oral and palatal mucosa present and oropharynx normal Throat: Yes posterior oropharynx normal and Yes uvula midline Eyes: Pupils: Equal, round and reactive pupils present EOM: EOMs intact bilaterally Neck: Neck: Yes normal visual inspection, Yes full ROM, Yes no meningeal signs and Yes supple Chest: Chest palpation & inspection: normal inspection of the chest and normal palpation of entire chest wall Resp: Effort & Inspection: normal respiratory effort Auscultation: clear to auscultation bilaterally and diminished lung sounds bilateral in the lower lung hicks Cardio: Rate: bradycardic Rhythm: regular rhythm Heart sounds: S1 normal heart sound present and S2 normal heart sound present Peripheral pulses: Peripheral pulses 2+ throughout GI: Inspection: Yes normal to inspection Palpation (GI): Soft to palpation, nontender, no guarding and No Rebound tenderness present Auscultation: normal bowel sounds : General: Yes no CVA tenderness Back/Spine/Pelvis: Back: no CVA tenderness Skin: General skin exam: jaundice Neuro: General: oriented to person, oriented to place, moves all extremities (decreased strength LUE), no meningeal signs, confusion and Unable to assess gait Cranial nerves: Yes Equal, round and reactive pupils present and Yes Midline tongue present Speech: Other speech findings present (Neuro) (speech slow and deliberate) Gait exam (Neuro): Unable to assess gait Motor exam (neuro): Abnormal motor strength present left upper extremity and Other motor observations present (LUE hemiparesis, LLE weakness) Extrem: Right upper extremity: normal to inspection, full ROM and normal capillary refill Left upper extremity: shoulder/upper arm Details: tenderness Location: of the proximal humerus; no swelling, no ecchymosis and no deformity and hand Details: swelling Location: of the dorsal hand; no tenderness Course Course Course Narrative: 15:37 Labs relatively unchanged from baseline. Ammonia elevated at 92. Ordered lactulose. Awaiting results of imaging. 15:59 FINDINGS: AP film of the chest does not demonstrate any evidence of acute parenchymal disease, pneumothorax, or pleural effusion. Heart normal size. No evidence of pulmonary edema. Views of the left shoulder do not demonstrate any evidence of acute fracture or dislocation. Glenohumeral joint appears unremarkable. No significant abnormality of the acromioclavicular joint is seen. There is no widening of the coracoclavicular space. Views of the left humerus do not demonstrate any evidence of acute fracture or dislocation. No destructive bony lesions are identified. There is some soft tissue edema seen about the distal humerus and also forearm. These are nontraditional views and I cannot rule out possible elbow fracture or effusion and clinical correlation is recommended. XR/XR humerus LT IMPRESSION: No acute disease within the chest. ? No significant left shoulder abnormality appreciated. ? No definite acute fracture or dislocation of the left humerus on provided imaging with evaluation of the elbow very limited due to nontraditional views without true AP or lateral views. There is large amount of soft tissue edema about the distal humerus and proximal forearm and clinical correlation for possible need of dedicated elbow study is suggested. Will order additional films to evaluated left elbow and left forearm edema. 16:46 Patient signed out to YENNIFER Longo pending completion of evaluation. Reevaluation(s) Reevaluation #1: Patient received sign-out at change of pending CT scan of the head and cervical spine as well as ultrasound the left upper extremity. All these tests show no acute findings. The patient has evidence of the of all being infarct in a couple weeks ago, no evidence of hemorrhage or acute infarct. Ultrasound negative for DVT. I discussed these findings with the patient using the armature winder. He is advised to use Tylenol for his left shoulder pain. 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 On exam patient is awake, A+Ox2, jaundiced, chronically ill appearing, LS CTA throughout, abd snt, tenderness to palpation of proximal humerus, significant edema to entire left arm, 2+ radial pulse. Concern for ACS, ICH, fluid overload, electrolyte abnormality, hepatic encephalopathy, infection. Plan: EKG, labs, CXR, LUE x-rays, CT head and neck, reassess Please refer to course for remaining clinical decision making. Differential Diagnosis Differential Diagnoses: The differential diagnosis associated with the presentation includes As above. Admission/Observation Consideration of admission/observation: Escalation of care including admission/observation considered Lab Data [facility] Lab Attestation statement: I reviewed the patient's lab results. 11/25/22 14:21 11/25/22 14:21 Labs: Lab Results 11/25/22 11/25/22 11/25/22 Range/Units 14:21 14:21 14:21 WBC 8.0 (4.8-10.8) X10*3/uL RBC 3.98 L (4.60-5.80) X10*6/uL Hgb 12.5 L (14.0-18.0) g/dl Hct 36.8 L (42.0-52.0) % MCV 92.5 (80.0-98.0) fL MCH 31.4 (27.0-33.0) pg MCHC 34.0 (31.0-36.0) g/dl RDW 15.2 (11.0-16.0) % Plt Count 93 L (160-400) X10*3/uL MPV 13.0 H (9.4-12.4) fL Immature Gran % (Auto) 0.5 H (0.0-0.4) % Neut % (Auto) 67.1 (45-73) % Lymph % (Auto) 19.0 L (20-40) % [place] % (Auto) 10.7 (2-11) % Eos % (Auto) 1.9 (0-4) % Baso % (Auto) 0.8 (0-2) % Lymph # (Auto) 1.5 (1.2-4.9) X10*3/uL [place] # (Auto) 0.9 (0.1-1.2) X10*3/uL Eos # (Auto) 0.2 (0.0-0.4) X10*3/uL Baso # (Auto) 0.1 (0.0-0.2) X10*3/uL Abs Immat Gran (auto) 0.04 H (0.00-0.03) X10*3/uL Absolute Neuts (auto) 5.3 (2.0-8.3) x10*3/uL Absolute Nucleated RBC 0.000 (0.0-0.012) X10*3/uL Nucleated RBC % (auto) 0.0 (0.0-0.2) /100WBC PT 22.4 H (10.0-13.1) SEC INR 1.9 H (0.9-1.1) Sodium (135-145) mmol/L Potassium (3.3-5.1) mmol/L Chloride (96-108) mmol/L Carbon Dioxide (22-29) mmol/L Anion Gap (12-20) BUN (9-16) mg/dL Creatinine (0.5-1.4) mg/dL Estim Creat Clear Calc Estimated GFR Random Glucose (60-115) mg/dL Calcium (8.4-10.2) mg/dL Total Bilirubin (0.0-1.0) mg/dL Direct Bilirubin (0.0-0.5) mg/dL AST (5-37) U/L ALT (0-40) U/L Alkaline Phosphatase (39-117) U/L Ammonia 92 H (13-55) umol/L Troponin I High Sens (<3.5-35.0) ng/L B-Natriuretic Peptide (<100) pg/mL Total Protein (6.5-8.0) g/dL Albumin (3.5-5.0) g/dL Lipase (8-78) U/L 11/25/22 11/25/22 11/25/22 Range/Units 14:21 14:21 14:21 WBC (4.8-10.8) X10*3/uL RBC (4.60-5.80) X10*6/uL Hgb (14.0-18.0) g/dl Hct (42.0-52.0) % MCV (80.0-98.0) fL MCH (27.0-33.0) pg MCHC (31.0-36.0) g/dl RDW (11.0-16.0) % Plt Count (160-400) X10*3/uL MPV (9.4-12.4) fL Immature Gran % (Auto) (0.0-0.4) % Neut % (Auto) (45-73) % Lymph % (Auto) (20-40) % [place] % (Auto) (2-11) % Eos % (Auto) (0-4) % Baso % (Auto) (0-2) % Lymph # (Auto) (1.2-4.9) X10*3/uL [place] # (Auto) (0.1-1.2) X10*3/uL Eos # (Auto) (0.0-0.4) X10*3/uL Baso # (Auto) (0.0-0.2) X10*3/uL Abs Immat Gran (auto) (0.00-0.03) X10*3/uL Absolute Neuts (auto) (2.0-8.3) x10*3/uL Absolute Nucleated RBC (0.0-0.012) X10*3/uL Nucleated RBC % (auto) (0.0-0.2) /100WBC PT (10.0-13.1) SEC INR (0.9-1.1) Sodium 137 (135-145) mmol/L Potassium 4.5 (3.3-5.1) mmol/L Chloride 105 (96-108) mmol/L Carbon Dioxide 29 (22-29) mmol/L Anion Gap 8 L (12-20) BUN 16 (9-16) mg/dL Creatinine 1.20 (0.5-1.4) mg/dL Estim Creat Clear Calc 60.1 Estimated GFR > 60 Random Glucose 130 H (60-115) mg/dL Calcium 8.9 (8.4-10.2) mg/dL Total Bilirubin 3.2 H (0.0-1.0) mg/dL Direct Bilirubin 1.3 H (0.0-0.5) mg/dL AST 49 H (5-37) U/L ALT 29 (0-40) U/L Alkaline Phosphatase 276 H (39-117) U/L Ammonia (13-55) umol/L Troponin I High Sens < 2.7 (<3.5-35.0) ng/L B-Natriuretic Peptide 223 H (<100) pg/mL Total Protein 6.7 (6.5-8.0) g/dL Albumin 2.5 L (3.5-5.0) g/dL Lipase 92 H (8-78) U/L Independent Interpretation I performed an independent interpretation of an: EKG and Plain X-Ray Interpretation: EKG: sinus bradycardia with PACs, rate 52bpm, normal WA interval, prolonged QT interval; I independently reviewed the x-ray and agree with the radiologist's interpretation. Radiology Impression Discussion of test interpretation with radiology: I have reviewed the radiologist's reading. Radiologist Impression: FINDINGS: AP film of the chest does not demonstrate any evidence of acute parenchymal disease, pneumothorax, or pleural effusion. Heart normal size. No evidence of pulmonary edema. Views of the left shoulder do not demonstrate any evidence of acute fracture or dislocation. Glenohumeral joint appears unremarkable. No significant abnormality of the acromioclavicular joint is seen. There is no widening of the coracoclavicular space. Views of the left humerus do not demonstrate any evidence of acute fracture or dislocation. No destructive bony lesions are identified. There is some soft tissue edema seen about the distal humerus and also forearm. These are nontraditional views and I cannot rule out possible elbow fracture or effusion and clinical correlation is recommended. XR/XR shoulder LT min 2V IMPRESSION: No acute disease within the chest. ? No significant left shoulder abnormality appreciated. ? No definite acute fracture or dislocation of the left humerus on provided imaging with evaluation of the elbow very limited due to nontraditional views without true AP or lateral views. There is large amount of soft tissue edema about the distal humerus and proximal forearm and clinical correlation for possible need of dedicated elbow study is suggested. External Record Review External record reviewed: Inpatient record, Office record and Outpatient record Chronic Conditions Patient?s care impacted by: Other Discharge Plan Discharge Clinical Impression: Acute pain of left shoulder Patient Disposition: Home, Self-Care Instructions: Shoulder Pain (ED) Additional Instructions: Your workup in the emergency department today was reassuring. There is no blood clot in your left arm. Your shoulder pain does not appear to be related to your heart or lungs. Take Tylenol for any further pain Follow-up with your primary doctor Prescriptions: No Action cholecalciferol (vitamin D3) 25 mcg (1,000 unit) capsule 25 mcg PO DAILY Qty: 90 2RF vitamin A palmitate 10,000 unit tablet 10,000 unit PO DAILY Qty: 90 1RF spironolactone [Aldactone] 50 mg tablet 50 mg PO DAILY Qty: 30 3RF Galzin 50 mg (zinc) capsule 50 mg PO DAILY Qty: 90 1RF ferrous sulfate 324 mg (65 mg iron) tablet,delayed release (DR/EC) 324 mg PO DAILY Qty: 30 0RF furosemide 40 mg tablet 60 mg PO DAILY 30 Days Qty: 45 0RF magnesium oxide 400 mg magnesium capsule 400 mg PO BID Qty: 60 1RF sulfamethoxazole-trimethoprim 800-160 mg tablet 1 tab PO DAILY methadone 10 mg/mL Concentrate 30 mg PO DAILY aspirin 81 mg Tablet,Delayed Release (Dr/Ec) 81 mg PO DAILY Qty: 30 0RF omega 8-[id number]-nyf-fish oil [Fish Oil] 1,000 mg (120 mg-180 mg) capsule 1 cap PO DAILY Qty: 30 0RF atorvastatin [Lipitor] 20 mg tablet 20 mg PO BEDTIME Qty: 30 0RF nadolol 20 mg tablet 20 mg PO DAILY lactulose 10 gram/15 mL solution 45 ml PO DAILY Xifaxan 550 mg tablet 550 mg PO BID
[2022-11-25 14:13] VITALS: BP 134/62; PULSE 51; RESP 10; O2SAT 100
[2022-11-25 14:31] LABS: Basophils Absolute Auto 0.1 X10*3/uL (0.0-0.2); SCAN SMEAR FLAG 1
[2022-11-25 14:32] LABS: Basophils Percent Auto 0.8 % (0-2); Eosinophils Absolute Auto 0.2 X10*3/uL (0.0-0.4); Eosinophils Percent Auto 1.9 % (0-4); Hematocrit 36.8 % (42.0-52.0); Hemoglobin 12.5 g/dl (14.0-18.0); Imm Gran Abs Auto 0.04 X10*3/uL (0.00-0.03); Imm Gran Pct Auto 0.5 % (0.0-0.4); Lymphocytes Absolute Auto 1.5 X10*3/uL (1.2-4.9); Mean Corpuscular Hemoglobin 31.4 pg (27.0-33.0); Mean Corpuscular Volume 92.5 fL (80.0-98.0); Monocytes Absolute Auto 0.9 X10*3/uL (0.1-1.2); Monocytes Percent Auto 10.7 % (2-11); Neutrophils Absolute Auto 5.3 x10*3/uL (2.0-8.3); Neutrophils Percent Auto 67.1 % (45-73); Red Blood Count 3.98 X10*6/uL (4.60-5.80); Red Cell Distribution Width 15.2 % (11.0-16.0)
[2022-11-25 14:35] LABS: MANUAL DIFF FLAG NO; PLT ABN DIST 1; Platelet Count 93 X10*3/uL (160-400)
[2022-11-25 14:38] LABS: Ammonia 92 umol/L (13-55)
[2022-11-25 14:45] LABS: Alanine Aminotransferase 29 U/L (0-40); Albumin Level 2.5 g/dL (3.5-5.0); Alkaline Phosphatase 276 U/L (39-117); Anion Gap 8 (12-20); Aspartate Amino Transferase 49 U/L (5-37); Bilirubin Direct 1.3 mg/dL (0.0-0.5); Bilirubin Total 3.2 mg/dL (0.0-1.0); Blood Urea Nitrogen 16 mg/dL (9-16); Calcium 8.9 mg/dL (8.4-10.2); Carbon Dioxide 29 mmol/L (22-29); Chloride 105 mmol/L (96-108); Creatinine Clr Calc Pharmacy 60.1; Estimated Glomerular Filt Rate > 60; Glucose Random 130 mg/dL (60-115); Lipase 92 U/L (8-78); Potassium 4.5 mmol/L (3.3-5.1); Sodium 137 mmol/L (135-145); Total Protein 6.7 g/dL (6.5-8.0)
[2022-11-25 14:49] LABS: INTERNATIONAL NORM RATIO 1.9 (0.9-1.1); Prothrombin Time 22.4 SEC (10.0-13.1)
[2022-11-25 14:51] LABS: Troponin-I High Sensitivity < 2.7 ng/L (<3.5-35.0)
[2022-11-25 15:14] LABS: B Type Natriuretic Peptide 223 pg/mL (<100)
[2022-11-25] MEDS: Lactulose 20 GM/30 ML SOLUTION PO (16:02)
== END 2022-11-25 19:55 | disposition home or self-care (01) ==
PROVIDERS: Registered Nurse Emergency; Emergency Provider Emergency Medicine
DX: M25.512 Pain in left shoulder (principal); R06.02 Shortness of breath; I10 Essential (primary) hypertension; F11.20 Opioid dependence, uncomplicated; Z87.891 Personal history of nicotine dependence; Z79.82 Long term (current) use of aspirin; Z79.899 Other long term (current) drug therapy
CPT/HCPCS: 36415; 70450; 71045; 72125; 73030; 73060; 73070; 73110; 73130; 80048; 80076; 82140; 83690; 83880; 84484; 85025; 85610; 93005; 93971; 99284

== ENCOUNTER 2022-12-02 12:52 | Outpatient (REF) | payer MEDICAID, SELFPAY ==
--- NOTE | ~2022-12-02 | US_ITS ---
EXAMINATION: US VENOUS WITH DOPPLER UPPER EXTREMITY, LEFT CLINICAL INFORMATION: Pain and swelling COMPARISON: None available. TECHNIQUE: Ultrasound of the upper extremity is performed using compression sonography and color and pulse Doppler flow with assessment of augmentation of flow. There is also imaging and Doppler assessment of the jugular and subclavian veins. Spectral analysis with color-flow imaging is performed. FINDINGS: The left internal jugular, subclavian, axillary, brachial, basilic and cephalic veins are patent. Radial and ulnar veins in the forearm are patent. There is no evidence of DVT. US/US venous duplex UE LT IMPRESSION: No DVT demonstrated in the left upper extremity.
--- NOTE | ~2022-12-02 | CT_ITS ---
EXAMINATION: CT HEAD WITHOUT CONTRAST CLINICAL INFORMATION: Visual disturbance right eye. History of CVA September 2022 COMPARISON: Previous head CT most recent 11/25/2022 TECHNIQUE: Contiguous axial imaging was performed from the skull base to vertex without intravenous administration of contrast. This CT examination was performed using dose optimization techniques as appropriate, variously including the following: *Automated exposure control *Adjustment of mA and/or kV according to patient size (this includes techniques or standardized protocols for targeted exams where dose is matched to indication/reason for exam; i.e. extremities or head) *Use of iterative reconstruction technique DLP: 802 mGy-cm FINDINGS: There is no evidence of an extra-axial collection. There is no evidence for intra-axial or extra-axial hemorrhage. The ventricles and extra-axial CSF spaces are slightly prominent suggestive of mild generalized atrophy. There is nonspecific periventricular white matter disease. There is an old right basal ganglia lacunar infarct. Both these findings are similar to most recent exam November 2022. No mass, mass effect or acute infarct is seen. Review of bone windows is normal. No skull fracture. Visualized paranasal sinuses, mastoid air cells and middle ears are clear. CT/CT head/brain wo IV con IMPRESSION: Old right basal ganglia lacunar infarct, nonspecific periventricular white matter disease and mild generalized atrophy similar to most recent exam November 2022. No acute findings.
== END 2022-12-02 12:53 | disposition home or self-care (01) ==
LOC: HO.US 12:52
PROVIDERS: PCP Internal Medicine Geriatric Medicine; Visit Provider Registered Nurse
DX: R60.0 Localized edema (principal); H53.9 Unspecified visual disturbance
CPT/HCPCS: 70450; 93971

== ENCOUNTER 2023-01-18 10:07 | Outpatient (REF) | payer MEDICAID, SELFPAY ==
[2023-01-18 11:28] LABS: MANUAL DIFF FLAG NO
[2023-01-18 11:41] LABS: Basophils Percent Auto 0.6 % (0-2); Eosinophils Absolute Auto 0.2 X10*3/uL (0.0-0.4); Eosinophils Percent Auto 3.1 % (0-4); Hematocrit 32.7 % (42.0-52.0); Hemoglobin 11.1 g/dl (14.0-18.0); Imm Gran Abs Auto 0.02 X10*3/uL (0.00-0.03); Imm Gran Pct Auto 0.3 % (0.0-0.4); Lymphocytes Absolute Auto 2.2 X10*3/uL (1.2-4.9); Lymphocytes Percent Auto 35.1 % (20-40); Mean Corpuscular HGB Conc 33.9 g/dl (31.0-36.0); Mean Corpuscular Hemoglobin 30.2 pg (27.0-33.0); Mean Corpuscular Volume 88.9 fL (80.0-98.0); Monocytes Percent Auto 14.9 % (2-11); Neutrophils Absolute Auto 2.9 x10*3/uL (2.0-8.3); Platelet Count 67 X10*3/uL (160-400); Red Blood Count 3.68 X10*6/uL (4.60-5.80); Red Cell Distribution Width 15.9 % (11.0-16.0); White Blood Count 6.4 X10*3/uL (4.8-10.8)
[2023-01-18 12:01] LABS: Alanine Aminotransferase 31 U/L (0-40); Albumin Level 2.3 g/dL (3.5-5.0); Alkaline Phosphatase 273 U/L (39-117); Anion Gap 7 (12-20); Aspartate Amino Transferase 51 U/L (5-37); Bilirubin Total 2.4 mg/dL (0.0-1.0); Blood Urea Nitrogen 15 mg/dL (9-16); Calcium 8.6 mg/dL (8.4-10.2); Carbon Dioxide 29 mmol/L (22-29); Chloride 104 mmol/L (96-108); Estimated Glomerular Filt Rate > 60; Glucose Random 159 mg/dL (60-115); Magnesium 1.9 mg/dL (1.6-2.6); Potassium 4.2 mmol/L (3.3-5.1); Sodium 136 mmol/L (135-145); Total Protein 6.2 g/dL (6.5-8.0)
== END 2023-01-18 10:08 | disposition home or self-care (01) ==
LOC: HO.HHCL 10:07
PROVIDERS: Visit Provider Internal Medicine Geriatric Medicine
DX: K74.60 Unspecified cirrhosis of liver (principal); N62 Hypertrophy of breast; I63.9 Cerebral infarction, unspecified; R53.1 Weakness
CPT/HCPCS: 36415; 80053; 83735; 85025

== ENCOUNTER 2023-01-19 09:25 | Outpatient (AMB) | payer MEDICAID, SELFPAY ==
--- NOTE | 2023-01-19 09:38 | MHC.OFFVIS ---
Intake Intake Visit Reasons: 1 year follow up Intake Note: Patient is present for Follow Up Urology Med: none Antibiotic Allergy: none Blood Thinner: aspirin Allergies tramadol [TRAMADOL] Allergy (Unknown, Verified 01/19/23 09:39) ANXIETY HPI HPI Comments History of Present Illness Details Thierno is a pleasant male. He seen for the following urologic conditions - hydrocele - phimosis [place] translation provided by healthcare worker who is accompanying him No recurrence in past year Follow-up p.r.n. Phimosis Good response to topical therapy PFSH Medical History Ascites Chronic anemia Cirrhosis Coagulopathy Decompensated hepatic cirrhosis Fluid overload Head injury Hypertension Opioid dependence Polymorphic ventricular tachycardia Right heart failure Syncope Surgical History History of appendectomy History of eye surgery Hx of colonoscopy Family History Mother No problems noted. Father No problems noted. Other No family history of coronary artery disease Social History Household Members: Spouse Housing: Apartment Do you presently have visiting nurse or other home services: No Alcohol intake: unknown Patient Tobacco Use Status: Former Tobacco user Tobacco use type: Cigarette Substance Use Type: Former Substance User Advance Directives Date on File: 03/28/22 service: No Current occupational status: unemployed Review of Systems Const Denies chills and Denies fever(s) Card Reports no additional complaints and Denies syncope Resp Denies cough GI Denies abdominal pain and Denies heartburn Reports as per HPI and Denies change in libido Neuro Denies syncope Psych Denies change in libido Endo Denies change in libido Physical Exam Const General: cooperative, healthy appearing, comfortable and no acute distress Orientation/consciousness: patient oriented x3 HEENT Face and sinus: Yes normal facial exam Mouth: moist mucous membranes Neck Neck: Yes normal visual inspection, Yes full ROM and Yes trachea midline Chest Chest palpation & inspection: normal inspection of the chest Resp Effort & Inspection: normal respiratory effort, able to speak in complete sentences and no respiratory distress GI Inspection: Yes normal to inspection Back/Spine/Pelvis Cervical Spine: normal cervical lordosis Thoracic/Lumbar Spine: thoracic and lumbar spine normal to inspection Skin General skin exam: no rashes or lesions noted Neuro General: patient oriented x3, gait normal, tone normal and moves all extremities Extrem General: Yes normal to inspection and Yes capillary refill normal Assessment & Plan Assessment & Plan (1) Hydrocele in adult: Code(s): N43.3 - Hydrocele, unspecified Plan P.r.n. Patient Instructions: Imaging studies, laboratory and physical exam results were discussed and reviewed in detail. No major barriers to patient understanding were identified. An opportunity to ask questions regarding the treatment plan was provided. All questions were answered. The patient expressed understanding and agreement with the above treatment plan. The patient is aware they should contact our office by phone for worsening of their current condition or the appearance of new urologic symptoms. Compliance is encouraged with any medications and followup testing that is ordered. It is a privilege to participate in the urologic care of your patient. If you have any questions or concerns regarding treatment for the above conditions, or other urologic issues, please do not hesitate to contact me. The office telephone contact is [phone]. This note is constructed using voice recognition software. While every effort has been made to ensure accuracy pool hall inspector errors may have been included. Yours sincerely, Dr Chase Jacob MD, [facility] - Urology Providers of Expert, Compassionate Care for the Genitourinary System Coding Level of Care Code Est Pt Level 4 (51975) Diagnoses Hydrocele in adult N43.3
== END 2023-01-19 10:21 | disposition home or self-care (01) ==
PROVIDERS: Visit Provider Urology
DX: N43.3 Hydrocele, unspecified (principal)
CPT/HCPCS: 99213

== ENCOUNTER → 2023-01-19 09:25 | Outpatient (BNVA) | payer MEDICAID, SELFPAY | PROVIDERS: Visit Provider Urology | DX: N43.3 Hydrocele, unspecified (principal) | CPT/HCPCS: 99212 ==

== ENCOUNTER 2023-02-02 10:02 | Outpatient (REF) | payer MEDICAID, SELFPAY ==
[2023-02-02 11:56] LABS: Basophils Absolute Auto 0.1 X10*3/uL (0.0-0.2); Basophils Percent Auto 0.7 % (0-2); SCAN SMEAR FLAG 1
[2023-02-02 11:58] LABS: Eosinophils Absolute Auto 0.2 X10*3/uL (0.0-0.4); Eosinophils Percent Auto 2.8 % (0-4); Hematocrit 31.3 % (42.0-52.0); Hemoglobin 10.5 g/dl (14.0-18.0); Imm Gran Abs Auto 0.02 X10*3/uL (0.00-0.03); Imm Gran Pct Auto 0.3 % (0.0-0.4); Lymphocytes Absolute Auto 2.3 X10*3/uL (1.2-4.9); Lymphocytes Percent Auto 34.6 % (20-40); Mean Corpuscular HGB Conc 33.5 g/dl (31.0-36.0); Mean Corpuscular Hemoglobin 30.1 pg (27.0-33.0); Mean Corpuscular Volume 89.7 fL (80.0-98.0); Mean Platelet Volume 12.7 fL (9.4-12.4); Monocytes Absolute Auto 1.1 X10*3/uL (0.1-1.2); Monocytes Percent Auto 16.8 % (2-11); Neutrophils Percent Auto 44.8 % (45-73); Red Blood Count 3.49 X10*6/uL (4.60-5.80); Red Cell Distribution Width 16.8 % (11.0-16.0); White Blood Count 6.8 X10*3/uL (4.8-10.8)
[2023-02-02 12:00] LABS: INTERNATIONAL NORM RATIO 1.9 (0.9-1.1); Prothrombin Time 23.4 SEC (11.1-13.3)
[2023-02-02 12:02] LABS: MANUAL DIFF FLAG NO; PLT ABN DIST 1; Platelet Count 65 X10*3/uL (160-400)
[2023-02-03 03:41] LABS: HBS Num1 122.53 mIU/mL (0-7.99); HBc Num1 6.55 S/CO (0.00-0.79); HBsAGNum1 0.38 S/CO (0.00-0.99); Hepatitis A Antibody IgM 0.29 Index (0-0.79); Hepatitis B Surface Antigen Negative (Negative); ~HepC Num1 13.01 S/CO (0.00-0.79); ~Hepatitis A Antibody IgM Nonreactive (Nonreactive); ~Hepatitis B Surface Antibody REACTIVE (Nonreactive); ~Hepatitis C Antibody Reactive (Nonreactive)
[2023-02-03 04:37] LABS: HBc Num2 6.72 S/CO
[2023-02-03 04:38] LABS: Hepatitis B Core Antibody Reactive (Nonreactive)
== END 2023-02-02 10:03 | disposition home or self-care (01) ==
LOC: HO.HHCL 10:02
PROVIDERS: Visit Provider Internal Medicine Geriatric Medicine
DX: Z13.89 Encounter for screening for other disorder (principal)
CPT/HCPCS: 36415; 85025; 85610; 86704; 86706; 86709; 86803; 87340

== ENCOUNTER 2023-02-10 09:02 | Outpatient (REF) | payer MEDICAID, SELFPAY ==
--- NOTE | ~2023-02-10 | US_ITS ---
EXAMINATION: US ABDOMEN COMPLETE CLINICAL INFORMATION: Hepatic cirrhosis. COMPARISON: CT abdomen and pelvis without contrast dated 04/06/2022. Ultrasound abdomen limited dated 03/15/2022. TECHNIQUE: Real-time imaging of the abdominal viscera. Limited visualization due to bowel gas and body habitus. FINDINGS: PANCREAS: Poorly visualized. ABDOMINAL AORTA: Limited visualization. INFERIOR VENA CAVA: Visualized portions are normal. LIVER: Diffuse increase in echogenicity of the liver is characteristic of primary hepatocellular disease, possibly due to hepatic steatosis and further limits visualization. GALLBLADDER: Cholelithiasis. No gallbladder wall thickening. 0.4 x 0.3 x 0.5 cm echogenic focus within the gallbladder may represent a calcified polyp. COMMON BILE DUCT: 0.7 cm in diameter. RIGHT KIDNEY: No hydronephrosis. No renal calculi. Limited visualization. The kidney measures 9.9 cm in maximum dimension. LEFT KIDNEY: No hydronephrosis. No renal calculi. Limited visualization. The kidney measures 9.7 cm in maximum dimension. SPLEEN: Splenorenal varices in the left upper quadrant of the abdomen. The spleen measures 14.8 cm in maximum dimension. FREE FLUID: Anechoic fluid adjacent to the right hepatic lobe may represent a small right pleural effusion versus a small amount of ascites. US/US abdomen complete IMPRESSION: Diffuse increase in echogenicity of the liver is characteristic of primary hepatocellular disease, possibly due to hepatic steatosis and further limits visualization. Cholelithiasis. No gallbladder wall thickening. 0.4 x 0.3 x 0.5 cm echogenic focus within the gallbladder may represent a calcified polyp. Splenorenal varices in the left upper quadrant of the abdomen. Anechoic fluid adjacent to the right hepatic lobe may represent a small right pleural effusion versus a small amount of ascites. Limited visualization. CT scan recommended for further evaluation.
== END 2023-02-10 09:03 | disposition home or self-care (01) ==
LOC: HO.US 09:02
PROVIDERS: PCP Internal Medicine Geriatric Medicine; Visit Provider Internal Medicine Geriatric Medicine
DX: K74.60 Unspecified cirrhosis of liver (principal); K72.90 Hepatic failure, unspecified without coma
CPT/HCPCS: 76700

== ENCOUNTER 2023-02-10 10:36 | Outpatient (REF) | payer MEDICAID, SELFPAY ==
[2023-02-10 12:19] LABS: Alanine Aminotransferase 28 U/L (0-40); Albumin Level 2.4 g/dL (3.5-5.0); Alkaline Phosphatase 234 U/L (39-117); Anion Gap 11 (12-20); Aspartate Amino Transferase 59 U/L (5-37); Bilirubin Total 3.6 mg/dL (0.0-1.0); Blood Urea Nitrogen 13 mg/dL (9-16); Calcium 9.2 mg/dL (8.4-10.2); Carbon Dioxide 29 mmol/L (22-29); Chloride 103 mmol/L (96-108); Estimated Glomerular Filt Rate > 60; Glucose Random 93 mg/dL (60-115); Potassium 4.2 mmol/L (3.3-5.1); Sodium 139 mmol/L (135-145); Total Protein 6.5 g/dL (6.5-8.0)
== END 2023-02-10 10:37 | disposition home or self-care (01) ==
LOC: HO.HHCL 10:36
PROVIDERS: Visit Provider Internal Medicine Geriatric Medicine
DX: K70.31 Alcoholic cirrhosis of liver with ascites (principal); R60.9 Edema, unspecified; R63.5 Abnormal weight gain
CPT/HCPCS: 36415; 80053

== ENCOUNTER 2023-02-16 11:31 | Outpatient (REF) | payer MEDICAID, SELFPAY ==
[2023-02-16 14:20] LABS: Anion Gap 9 (12-20); Blood Urea Nitrogen 15 mg/dL (9-16); Calcium 9.2 mg/dL (8.4-10.2); Carbon Dioxide 32 mmol/L (22-29); Chloride 100 mmol/L (96-108); Estimated Glomerular Filt Rate 51; Glucose Random 130 mg/dL (60-115); Sodium 137 mmol/L (135-145)
== END 2023-02-16 11:32 | disposition home or self-care (01) ==
LOC: HO.HHCL 11:31
PROVIDERS: Visit Provider Internal Medicine Geriatric Medicine
DX: R60.9 Edema, unspecified (principal); K70.31 Alcoholic cirrhosis of liver with ascites
CPT/HCPCS: 36415; 80048

== ENCOUNTER 2023-03-01 14:24 | Outpatient (AMB) | payer MEDICAID, SELFPAY ==
[2023-03-01 14:27] VITALS: BP 120/62; PULSE 50; O2SAT 98; BMI 26.6
--- NOTE | 2023-03-01 14:27 | MHC.OFFVIS ---
Intake Vital Signs 03/01/23 14:27 Height 5 ft 8 in Weight 175 lb BMI 26.6 BP 120/62 Blood Pressure Location Lt brachial Position Sitting Pulse 50 Pulse Source Pulse Oximeter Pulse Oximetry (%) 98 Oxygen Delivery Method Room Air Intake Visit Reasons: Shortness of breath Intake Note: pt is here as a new patient for short of breath when sleeping, not walking. no coughing or wheezing. Railroad Watchman Required: Yes Railroad Watchman Name: rose Allergies tramadol [TRAMADOL] Allergy (Unknown, Verified 03/01/23 15:08) ANXIETY Medication List - Last Reconciled 03/01/23 by Emanuel Kramer MD aspirin 81 mg PO DAILY atorvastatin (Lipitor) 20 mg PO BEDTIME cholecalciferol (vitamin D3) 25 mcg PO DAILY ferrous sulfate 324 mg PO DAILY furosemide 40 mg PO BID ketorolac 0.5% 1 drp ophthalmic (eye) TID lactulose 45 mL PO DAILY magnesium oxide 400 mg PO BID methadone 30 mg PO DAILY nadolol 20 mg PO DAILY omega [id number]-fish oil 1,000 mg (120 mg-180 mg) (Fish Oil) 1 cap PO DAILY rifaximin (Xifaxan) 550 mg PO BID spironolactone 25 mg PO QAM sulfamethoxazole-trimethoprim 800-160 mg 1 tab PO DAILY vitamin A 1 cap PO QAM zinc acetate (Galzin) 50 mg PO DAILY Do you need a note to return to daycare/school/sports/work: No HPI Shortness of breath HPI Details 62 YEARS OLD GENTLEMAN, MACEDONIAN-SPEAKING, SO BEING SEEN FOR THE 1ST TIME FOR PULMONARY EVALUATION. THIS GENTLEMAN WAS ADMITTED TO [facility] IN SEPTEMBER WITH A MILD STROKE FROM WHICH HE HAS RECOVERED. HE HAS HISTORY OF SMOKING IN THE PAST BUT QUIT ABOUT 15 YEARS AGO. HE HAS HISTORY OF ALCOHOL ABUSE AND ALSO OPIATES ABUSE. CURRENTLY HE IS ON METHADONE 30 MG DAILY HE HAS HISTORY OF CIRRHOSIS OF THE LIVER. ALSO HAS DIAGNOSIS FOR RIGHT-SIDED CONGESTIVE HEART FAILURE. PATIENT DENIES HAVING HAD ANY PULMONARY DISEASE. ON DECEMBER 09 WHEN HE WAS SEEN BY HIS PRIMARY CARE PHYSICIAN MOHINDER SANDY. BIBASILAR WHEEZES AND CREPITATIONS WERE NOTED. THE PATIENT AND HIS DAUGHTER STATE THAT HE WAS RETAINING LOT OF FLUID THAT THAT TIME. SINCE THEN HE IS ON DIURETIC THERAPY AND HAS LOST WEIGHT DUE TO DIURESIS. HE WAS ALSO HAVING PROBLEM OF SLEEPING BECAUSE HE WOKE UP A FEW TIMES DURING THE NIGHT TO GO TO THE BATHROOM. NOW THAT HE HAS LOST SOME WEIGHT AND ALSO DIURESED QUITE WELL, HE SLEEPS OKAY DURING THE NIGHT, DENIES ANY SNORING, DENIES ANY DAYTIME SLEEPINESS. HE ALSO DENIES HAVING ANY BOUTS OF COUGH OR WHEEZING. HE DOES NOT USE ANY INHALERS. INITIALLY HE HAD MORE SHORTNESS OF BREATH ON LYING DOWN FLAT, HE HAD TO PROP UP HIS HAD. NOW HE CAN NOT LIE DOWN IN THE BED AND SLEEP WITHOUT WAKING. DURING THE DAYTIME HE WALKS AROUND AND HAS MILD SHORTNESS OF BREATH ON WALKING, BUT NOT AT REST. [facility] Medical History (Updated 03/01/23 @ 15:27 by Emanuel Kramer MD) Ascites Chronic anemia Cirrhosis Coagulopathy Decompensated hepatic cirrhosis Dyspnea on exertion Fluid overload Head injury Hypertension Nocturnal dyspnea Opioid dependence Polymorphic ventricular tachycardia Right heart failure Syncope Surgical History History of appendectomy History of eye surgery Hx of colonoscopy Family History Mother No problems noted. Father No problems noted. Other No family history of coronary artery disease Social History Household Members: Spouse Housing: Apartment Do you presently have visiting nurse or other home services: No Alcohol intake: unknown Patient Tobacco Use Status: Former Tobacco user Tobacco use type: Cigarette Substance Use Type: Former Substance User Advance Directives Date on File: 03/28/22 service: No Current occupational status: unemployed Review of Systems Const All systems reviewed & are unremarkable except as noted in HPI and below Eyes Reports no additional complaints ENT Reports no additional complaints and Reports dizziness (Mild nonspecific off and on) Card Denies chest pain, Reports leg edema and Reports orthopnea Resp Reports as per HPI GI Reports other (History of cirrhosis of the liver) Reports nocturia Musc Reports no additional complaints and Reports abnormal gait (Mild gait impairment and uses a cane to walk) Skin/Breast Reports system reviewed and no additional complaints, except as documented Neuro Reports abnormal gait (Mild gait impairment and uses a cane to walk) and Reports dizziness (Mild nonspecific off and on) Psych Reports no additional complaints Endo Reports no additional complaints Eliazar/Lymph Reports no additional complaints Aller/Immun Reports no additional complaints Physical Exam Vital Signs: Last Vital Signs Pulse 50 03/01/23 14:27 BP 120/62 03/01/23 14:27 Pulse Ox 98 03/01/23 14:27 Oxygen Delivery Method Room Air 03/01/23 14:27 BMI result Body Mass Index 26.6 Const General: comfortable, no acute distress, alert and awake Orientation/consciousness: patient oriented x3 HEENT Head: Yes normal to inspection General nose exam: No nasal polyps present and No nasal discharge present Face and sinus: Yes sinuses nontender Mouth: oropharynx normal Throat: Yes posterior oropharynx normal Eyes General: appearance normal, both eyes and all related structures Neck Neck: Yes normal visual inspection, Yes no lymphadenopathy, Yes trachea midline and Yes no JVD Thyroid: Thyroid normal Chest Chest palpation & inspection: normal inspection of the chest, normal palpation of entire chest wall and no tenderness Resp Other: Percussion note is resonant, breath sounds are equal on both sides. Lungs are well aerated . I did not hear any adventitious sounds . Cardio Palpation: normal PMI Rate: regular rate Rhythm: regular rhythm Heart sounds: no gallops and no murmurs GI Palpation (GI): Soft to palpation, nontender, No hepatosplenomegaly present and no masses Auscultation: normal bowel sounds Back/Spine/Pelvis Thoracic/Lumbar Spine: thoracic and lumbar spine normal to inspection Skin General skin exam: no rashes or lesions noted Neuro General: patient oriented x3, No gait normal (Mild gait impairment and needs a cane) and no focal motor deficits Cranial nerves: Yes CN's II-XII intact bilaterally Extrem General: Yes normal to inspection, Yes no calf tenderness and Yes edema (1+ pitting edema both legs, and around the ankles.) Psych Appearance: grossly normal and well kempt Speech and movement: Normal speech and movement present Assessment & Plan Assessment & Plan (1) Dyspnea on exertion: Comment: Dyspnea on exertion such as walking especially climbing stairs, is related to his right-sided heart failure . It is improving with diuretic therapy. I do not think he has any chronic lung disease such as asthma or COPD. I wanted to do a spirometry in the office but, he had difficulty in understanding. Code(s): R06.09 - Other forms of dyspnea (2) Right heart failure: Comment: He definitely has had symptoms of right-sided heart failure, and with diuretic therapy it has improved. Needs to be kept on appropriate diuretic regimen. Code(s): I50.810 - Right heart failure, unspecified (3) Nocturnal dyspnea: Comment: Since a few months ago he was having shortness of breath at night especially on lying down flat, It was mostly related to right sided congestive heart failure. Had to go to the bathroom a few times during the night due to diuresis. Now that he has had good amount of diuresis, he denies the episodes of dyspnea at night and can sleep through the night. Code(s): R06.00 - Dyspnea, unspecified Orders: Orders XR chest 2V Today I50.810 - Right heart failure, unspecified, R06.09 - Other forms of dyspnea Coding Level of Care Code New Pt Level 4 (30660) Diagnoses Dyspnea on exertion R06.09 Right heart failure I50.810 Nocturnal dyspnea R06.00
== END 2023-03-01 14:59 | disposition home or self-care (01) ==
PROVIDERS: PCP Internal Medicine Geriatric Medicine; Visit Provider Internal Medicine
DX: R06.09 Other forms of dyspnea (principal); I50.810 Right heart failure, unspecified; R06.00 Dyspnea, unspecified
CPT/HCPCS: 99204

== ENCOUNTER → 2023-03-01 14:24 | Outpatient (BNVA) | payer MEDICAID, SELFPAY | PROVIDERS: PCP Internal Medicine Geriatric Medicine; Visit Provider Internal Medicine | DX: R06.09 Other forms of dyspnea (principal); R06.00 Dyspnea, unspecified; I50.810 Right heart failure, unspecified | CPT/HCPCS: 99202 ==

== ENCOUNTER 2023-03-02 14:09 | Outpatient (REF) | payer MEDICAID, SELFPAY ==
--- NOTE | ~2023-03-02 | XR_ITS ---
EXAMINATION: XR CHEST CLINICAL INFORMATION: Dyspnea. COMPARISON: 11/25/2022 TECHNIQUE: 2 views of the chest were obtained. FINDINGS: The cardiomediastinal silhouette is within normal limits and stable. There is no focal lung consolidation or pleural effusion. The bony structures and soft tissues are unremarkable. XR/XR chest 2V IMPRESSION: No active cardiopulmonary disease.
== END 2023-03-02 14:10 | disposition home or self-care (01) ==
LOC: HO.XRAY 14:09
PROVIDERS: PCP Internal Medicine Geriatric Medicine; Visit Provider Internal Medicine
DX: R06.09 Other forms of dyspnea (principal); I50.810 Right heart failure, unspecified
CPT/HCPCS: 71046

== ENCOUNTER 2023-03-21 14:00 | Outpatient (RCR) | payer MEDICAID, SELFPAY | END 2023-05-25 10:47 | disposition home or self-care (01) | LOC: HO.PT 14:00 | PROVIDERS: PCP Internal Medicine Geriatric Medicine; Visit Provider Internal Medicine Geriatric Medicine | DX: I63.9 Cerebral infarction, unspecified (principal); R53.1 Weakness | CPT/HCPCS: 97110; 97112; 97163; 97530 ==

== ENCOUNTER 2023-05-08 10:53 | Outpatient (REF) | payer MEDICAID, SELFPAY ==
[2023-05-08 14:08] LABS: Anion Gap 12 (12-20); Blood Urea Nitrogen 16 mg/dL (9-16); Carbon Dioxide 29 mmol/L (22-29); Chloride 102 mmol/L (96-108); Estimated Glomerular Filt Rate > 60; Glucose Random 131 mg/dL (60-115); Potassium 3.8 mmol/L (3.3-5.1); Sodium 139 mmol/L (135-145)
== END 2023-05-08 10:54 | disposition home or self-care (01) ==
LOC: HO.HHCL 10:53
PROVIDERS: Visit Provider Internal Medicine Geriatric Medicine
DX: I50.810 Right heart failure, unspecified (principal); K74.60 Unspecified cirrhosis of liver; R20.0 Anesthesia of skin
CPT/HCPCS: 36415; 80048